=== PATIENT | male | born 1945 | race Caucasian/White ===

== ENCOUNTER 2017-05-14 11:24 | Day surgery (SDC) | payer MEDICARE ==
[2017-05-12 11:28] VITALS: BMI 33.0
[~2017-05-14 11:24] MED LIST: DEXAMETHASONE SOD PHOSPHATE 10 MG/ML 1 ML VIAL IV ONE; HYDROmorphone 0.5 MG/0.5 ML SYRINGE IVP PRN; LACTATED RINGERS 1,000 ML IV SCH; LIDOCAINE 1% 20 ML VIAL (10MG/ML) FOR IV START INTRADERMA PRN; MIDAZOLAM 2 MG/2 ML VIAL IV PRN; ONDANSETRON 4 MG/2 ML VIAL IVP ONE; SCOPOLAMINE 1.5MG/72HR PATCH TRANSDERM ONE; ceFAZolin IN SWFI 2 GM/20 ML SYRINGE IVP ONE
[2017-05-14] MEDS ORDERED: LIDOCAINE 1% 20 ML VIAL (10MG/ML) FOR IV START INTRADERMA ONE (11:48)
[2017-05-14 11:51] LABS: Glucose,Whole Blood 126 mg/dL (75-99)
[2017-05-14 12:39] LABS: INR 1.2 (<1.2); Partial Thromboplastin Time 25.5 sec (22.0-30.0); Prothrombin Time 11.6 sec (9.0-12.0)
[2017-05-14] MEDS ORDERED: ePHEDrine SULFATE/0.9% NACL/PF 50 MG/5 ML SYRINGE IV ONE (13:18)
[2017-05-14] MEDS ORDERED: PROPOFOL 10 MG/ML 20 ML VIAL IV ONE (13:18)
[2017-05-14] MEDS ORDERED: MIDAZOLAM 2 MG/2 ML VIAL ONE (13:18)
[2017-05-14] MEDS ORDERED: fentaNYL (PF) 50 MCG/ML 2 ML AMP ONE (13:18)
[2017-05-14] MEDS ORDERED: LIDOCAINE 1% INJ 10MG/ML (20 ML MDV) ONE (13:18)
[2017-05-14] MEDS ORDERED: HYDROmorphone (PF) 1 MG/ML ONE (13:18)
[2017-05-14] MEDS ORDERED: SUCCINYLCHOLINE CHLORIDE VIAL 200 MG/10 ML VIAL IV ONE (13:18)
[2017-05-14] MEDS ORDERED: LACTATED RINGERS 1,000 ML IV ONE ×3 (13:42→15:44)
[2017-05-14] MEDS ORDERED: PROCHLORPERAZINE SUPPOSITORY 25 MG SUPP RECTAL PRN (16:35)
[2017-05-14] MEDS ORDERED: diphenhydrAMINE 25 MG CAP PO PRN (16:35)
[2017-05-14] MEDS ORDERED: TEMAZEPAM 15 MG CAP PO PRN (16:35)
[2017-05-14] MEDS ORDERED: METOCLOPRAMIDE 5 MG/ML 2 ML VIAL IVP PRN (16:35)
[2017-05-14] MEDS ORDERED: hydrOXYzine PAMOATE 25 MG CAP PO PRN (16:35)
[2017-05-14] MEDS ORDERED: SENNOSIDES-DOCUSATE SODIUM 1 EACH TAB PO PRN (16:35)
[2017-05-14] MEDS ORDERED: HYDROmorphone 1 MG/ML 1 ML SYRINGE IVP PRN ×3 (16:35)
[2017-05-14] MEDS ORDERED: ONDANSETRON 4 MG/2 ML VIAL IVP PRN (16:35)
[2017-05-14] MEDS ORDERED: HYDROcodone/APAP 5-325MG 1 EACH TAB PO PRN ×2 (16:35)
[2017-05-14 16:44] LABS: Glucose,Whole Blood 167 mg/dL (75-99)
[2017-05-14 16:49] VITALS: RESP 16
--- NOTE | 2017-05-14 16:49 | P.OP ---
Date of Procedure: 05/14/17 Preoperative Diagnosis: Right varus ankle arthritis Postoperative Diagnosis: Same Procedure(s) Performed: 1. Right ankle arthrodesis 2. Right percutaneous tendo Achilles lengthening Anesthesia: TRA Surgeon: Daryl Jin Water Pollution Specialist #1: Ej Wasserman Estimated Blood Loss (ml): 300 IV fluids (ml): 2,000 Pathology: none sent Condition: stable Disposition: PACU Indications for Procedure: The patient is a very pleasant 71-year-old male with a long-standing history of problems with his right ankle. He had x-rays which showed end-stage varus ankle arthritis. He was managed initially conservatively with activity modification, NSAIDs, bracing, occasional injections, and therapy. He had significant pain that was refractory to these nonsurgical treatments and requested surgery. I do lengthy discussion with him and his in the office. His x-rays showed varus ankle arthritis with 21 of varus angulation at the ankle. His lateral x-ray also showed some mild arthritis in the posterior facet of the subtalar joint and midfoot. Clinically all of his pain was in the anterior aspect of the ankle. We discussed both ankle fusion versus ankle replacement. Due to the fact that most of his pain was in the ankle and he had over 20 of varus angulation I felt an ankle fusion would more reliably treat his pain and improve function. We discussed my concern with an ankle replacement was early failure due to the amount of varus. The patient agreed to this and requested a right ankle fusion. We discussed the potential risks and complications of surgery including but not limited to risk of anesthesia, risk of superficial infection, risk of deep infection, risk of delayed wound healing, risk of damage to local sensory nerves resulting in temporary or permanent numbness, risk of nonunion of the fusion site, risk of malunion of the fusion site, risk of adjacent joint arthritis, risk of symptomatically hardware, risk of chronic pain, risk of chronic swelling, risk of postoperative medical complications including DVT, PE, and possibly , generalized dissatisfaction with surgery, risk of need for further surgery, risk of inability to regain preinjury level of function, and possibly loss of life or limb. The patient voiced his understanding of all of this and provided his verbal and written consent to go forward with surgery. Description of Procedure: The patient was identified in preoperative holding and the correct right leg was marked with my initials. I reviewed the consent form with the patient and all of his questions were answered. The patient was then brought back to the operating room by anesthesia. He was positioned on the operating room table and all bony prominences were well-padded. A general anesthetic and preoperative antibiotics were administered. The left leg was secured to the table with foam and tape. A tourniquet was applied to the proximal aspect of the right thigh. A bone foam bump was placed under the right buttock. A ramp was placed under the right leg. The patient's right leg was then prepped and draped in the standard sterile fashion. Prior to starting surgery timeout was performed identifying the correct patient operative extremity and procedure. I began by performing a percutaneous tendo Achilles lengthening to allow positioning his ankle in neutral dorsiflexion. A 15 blade was used and a Bledsoe triple hemisection was performed with 3 stabs 2 cm apart with the distal and proximal incisions incising the medial fibers of the Achilles tendon and the metal stab incision incising the lateral fibers. Gentle dorsiflexion was applied and an increase in dorsiflexion to neutral was achieved. The leg was then elevated, exsanguinated with an Esmarch bandage, and the tourniquet was inflated to 275 mmHg. I began by outlining an incision over the lateral ankle for a trans-fibular approach. Skin incision was made with a 15 blade scalpel. Dissection was carried down through the subcutaneous tissue to the periosteum over the fibula which was incised longitudinally in line with the skin incision. The anterior soft tissue and syndesmosis were sharply released. Baby Damon retractors were placed an oblique osteotomy was made with a saw proximal to the syndesmosis. The remaining anterior soft tissue attachments were removed and the distal fibular fragment was booked open and grasped with bone hooks. Using a small microsagittal saw a sagittal cut was made in the fibula removing the medial half which was removed from the wound, passed to the back table and morselized for bone graft. The joint was then gently distracted and the remaining articular cartilage was removed with a combination of osteotomes and curettes. After all of the cartilage had been removed a small counter incision was made over the medial gutter of the ankle. Skin incision was made with a 15 blade scalpel and dissection was carried down with tenotomy scissors to the joint capsule which was incised longitudinally in line with the skin incision. A curet was used to remove cartilage from the medial gutter of the ankle at this point all bony surfaces were roughened with a 5 mm bur. This created a slurry within the joint. A 2.5 mm gel bit was then used to perforate the subchondral bone of both the tibial plafond and talar dome to help facilitate fusion. Once all of the bony surfaces were prepared a mixture of the morselized bone graft from the fibula and augment granules were mixed on the back table and packed into the fusion site. At this point I positioned the ankle for fusion. I attempted to medialize the talus and placed the ankle in neutral dorsiflexion and slight external rotation. Once the ankle was reduced a K wire was placed holding the reduction. Clinically the ankle appeared to be in neutral dorsiflexion. C-arm fluoroscopy was brought in to verify reduction of the talus within the ankle mortise on both the mortise and lateral views. Once I was happy with position of the talus within the ankle mortise and the position of fusion K wires were placed both medially and laterally for a cannulated 5.0 mm screws. Cannulated partially threaded 5.0 mm screws were then placed medially and laterally. I placed the medial screw first in an attempt to help bring the talus over medially into the ankle mortise. At this point the leg was raised and a K wire was placed just lateral to the Achilles tendon for a posterior to anterior screw. A partially threaded 7.0 mm cannulated screw was placed over this wire. I then placed the fibula back over the lateral aspect of the ankle and held it in place with fully threaded 4.5 mm screws. At this point final fluoroscopic shots were taken. All of the hardware appeared to be in satisfactory position with no intra-articular screws in the subtalar joint. The wound was carefully cleansed taking care not to irrigate out the augment mixture. The periosteum over the fibula was closed with a running 0 Vicryl stitch. The deep subcu was reapproximated using 2-0 Vicryl. The skin was closed using 3-0 nylon horizontal mattress stitches. The medial stab incision was closed with 0 Vicryl in the capsule, 2-0 Vicryl subcu, and 3-0 nylon in the skin. Stab incisions from the cannulated screws were closed with 3-0 nylon horizontal mattress stitches. I verified that all instrument, sponge, and sharp counts were correct. Sterile dressings consisting of Betadine soaked Adaptic, 4 x 4, and web roll was applied. A well-padded bulky Iyer splint was placed. The patient was then awoken from his anesthetic and transferred to PACU having tolerated the procedure well. Ej Wasserman PA-C was required is a skilled refinery operator assistant throughout the case for patient positioning, surgical retraction, closure of wounds, and application of splint. Plan: The patient is going to be admitted overnight for pain control, IV antibiotics, and therapy. He is to remain strictly nonweightbearing on his right leg. He can discharge home when his pain is controlled and he passes physical therapy.
--- NOTE | 2017-05-14 17:26 | P.ONQ ---
Anesthesiology Proc Note - PNB - Peripheral Nerve Block Performed Right Popliteal Indication: Acute Post-Operative Pain, Requested by physician (Dr Forde) Sedation Type: Sedate with meaningful contact maintained Position: Supine Catheter: None Needle Types: On-Q Needle Size: 100mm (4") Needle Gauge: 20 Technique: Ultrasound Injectate: 0.5% Ropivacaine (see comment for volume) (22cc) Blood Aspirated: No Pain Paresthesia on Injection Noted: No Resistance on Injection: Normal Events: Uneventful and Well Tolerated
--- NOTE | 2017-05-14 18:02 | FL ---
EXAMINATION TYPE: FL guidance operating room DATE OF EXAM: 05/14/2017 CLINICAL HISTORY: Right ankle fracture. TECHNIQUE: Fluoroscopy. . COMPARISON: None. FINDINGS: Fluoroscopic guidance was provided during open reduction internal fixation procedure perfo rmed by Dr. Jin. A total of 3 minutes 34 seconds of fluoroscopic time was utilized during the p rocedure and 0 spot images are sent to PACS system for interpretation. IMPRESSION: As Above.
[2017-05-14 19:10] LABS: Basophils % (A) 0 %; CH 31.3; CHCM 32.1; Eosinophils % (A) 0 %; HDW 2.25; HGB 14.1 gm/dL (13.0-17.5); Luc # (Auto) 0.03; Luc % (Auto) 1; Lymphocytes # (A) 0.5 k/uL (1.0-4.8); Lymphocytes % (A) 6 %; MCH 32.1 pg (25.0-35.0); MCHC 32.7 g/dL (31.0-37.0); MCV 98.1 fL (80.0-100.0); Mean Platelet Volume 7.8; Monocytes # (A) 0.2 k/uL (0-1.0); Monocytes % (A) 2 %; Neutrophils # (A) 6.8 k/uL (1.3-7.7); Neutrophils % (A) 91 %; RBC 4.38 m/uL (4.30-5.90); WBC 7.5 k/uL (3.8-10.6); WBC (Perox) 7.77
[2017-05-14 20:32] LABS: Glucose,Whole Blood 175 mg/dL (75-99)
[2017-05-14] MEDS ORDERED: ATORVASTATIN 20 MG TAB PO SCH (21:00)
[2017-05-14] MEDS: INSULIN ASPART 100 UNIT/ML 1 ML 10 ML VIAL SQ SCH (22:33)
[2017-05-14] MEDS: ceFAZolin IN SWFI 2 GM/20 ML SYRINGE IVP SCH (22:34)
[2017-05-15] MEDS: LACTATED RINGERS 1,000 ML IV SCH ×3 (03:55→14:38)
[2017-05-15] MEDS: ceFAZolin IN SWFI 2 GM/20 ML SYRINGE IVP SCH (06:22)
[2017-05-15] MEDS ORDERED: LEVOTHYROXINE 75 MCG TAB PO SCH (06:30)
[2017-05-15 07:59] LABS: Glucose,Whole Blood 133 mg/dL (75-99)
[2017-05-15] MEDS: INSULIN ASPART 100 UNIT/ML 1 ML 10 ML VIAL SQ SCH ×2 (08:13→14:38)
--- NOTE | 2017-05-15 08:32 | XR ---
Limited right ankle HISTORY: Screw placement 3 Intraoperative C-arm images document the procedure
[2017-05-15] MEDS ORDERED: ASPIRIN 81 MG PO SCH (09:00)
[2017-05-15] MEDS ORDERED: ENOXAPARIN 40 MG/0.4 ML SYRINGE SQ SCH (09:00)
[2017-05-15] MEDS ORDERED: LISINOPRIL 10 MG TAB PO SCH (09:00)
[2017-05-15] MEDS ORDERED: HYDROmorphone 0.5 MG/0.5 ML SYRINGE IVP PRN ×3 (09:05)
--- NOTE | 2017-05-15 09:07 | P.DS ---
Providers Expected date of discharge: 05/15/17 Attending physician: Daryl Jin Consults: 05/14/17 16:35 Consult Physician Routine Consulting Provider: Kavon Rouse Consult Reason/Comments: post op medical management Do you want consulting provider notified?: Yes Primary care physician: Kavon Rouse - Discharge Diagnosis(es) (1) Ankle arthritis Current Visit: Yes Status: Acute Priority: Medium Hospital Course: Patient was admitted the OR on 05/14/2017 to undergo right ankle arthrodesis, fusion with hardware and auto/allograft. He had failed conservative conservative measures as an outpatient and desired proceed with elective surgical intervention after given informed consent. His postoperative hospital course has remained without complication. On day of discharge he is afebrile, vital signs stable, wound benign, labs within acceptable ranges, splint in place , neurovascular status intact, denying new complaints, tolerating by mouth meds and diet, voiding without difficulty, passing flatus, denying abdominal pain, abdomen is soft and nontender, denying calf pain, denying numbness or tingling. Review of systems negative for fever, chills, chest pain, shortness breath, nausea, vomiting, dizziness, headaches, slurred speech or other. Procedures: Right ankle arthrodesis/fusion with hardware, auto and allograft Patient Condition at Discharge: Good Plan - Discharge Summary New Discharge Prescriptions: New Docusate [Colace] 100 mg PO BID #60 capsule HYDROcodone/APAP 5-325MG [[place] 5-325] 1 tab PO Q4HR PRN #60 tab PRN Reason: Pain No Action Aspirin 81 mg PO DAILY sitaGLIPtin [Januvia] 100 mg PO HS metFORMIN HCL 1,000 mg PO BID Warfarin [Coumadin] 5 mg PO DAILY Simvastatin [Zocor] 40 mg PO HS Levothyroxine Sodium [Tirosint] 150 mcg PO QAM Lisinopril [Prinivil] 10 mg PO QAM Discharge Medication List Aspirin 81 mg PO DAILY 06/17/16 [History] Levothyroxine Sodium [Tirosint] 150 mcg PO QAM 06/17/16 [History] Lisinopril [Prinivil] 10 mg PO QAM 06/17/16 [History] Simvastatin [Zocor] 40 mg PO HS 06/17/16 [History] Warfarin [Coumadin] 5 mg PO DAILY 06/17/16 [History] metFORMIN HCL 1,000 mg PO BID 06/17/16 [History] sitaGLIPtin [Januvia] 100 mg PO HS 06/17/16 [History] Docusate [Colace] 100 mg PO BID #60 capsule 05/15/17 [Rx] HYDROcodone/APAP 5-325MG [[place] 5-325] 1 tab PO Q4HR PRN #60 tab 05/15/17 [Rx] Follow up Appointment(s)/Referral(s): Daryl Jin MD [Medical Doctor] - 10 Days Activity/Diet/Wound Care/Special Instructions: Take meds as directed Follow-up with Dr. Jin in office Nonweightbearing right lower extremity Elevate right lower extremity Resume home meds including Coumadin Keep splint, wound clean and dry Discharge Disposition: HOME SELF-CARE
--- NOTE | 2017-05-15 09:46 | P.CONS ---
History of Present Illness - Reason for Consult Consult date: 05/15/17 Medical Management - Chief Complaint s/p right ankle arthrodesis - History of Present Illness 71-year-old male who underwent elective right ankle arthrodesis on by Dr. Jin. Dr. Rouse was consulted for medical management. The patient has a history of atrial fibrillation, diabetes mellitus, hypertension, hyperlipidemia, and hypothyroidism. He is also underwent bilateral total knee replacements. The patient was seen and examined at the bedside on rounds with Dr. Rouse. The patient states his pain is well-controlled at this time. He denies chest pain or shortness of breath. He expresses concerns regarding ambulating to have a bowel movement. His vital signs remained stable. He is afebrile. He is tolerating fluids well without nausea or vomiting. CBC from 05/14/2017 has been reviewed. White count is 7.5. Hemoglobin 14.1. His blood sugar this morning was 133. The patient is anticipating discharge home today. Review of Systems GENERAL: Patient denies fever. Denies chills. EYES: Denies blurred vision. Denies vision changes. Denies eye pain. EARS, NOSE, MOUTH, & THROAT: Denies headache. Denies sore throat. Denies ear pain. RESPIRATORY: Denies cough. Denies shortness of breath. Denies sputum production. Denies hemoptysis. CARDIOVASCULAR: Denies chest pain or pressure. Denies palpitations. Denies arrhythmias. GASTROINTESTINAL: Denies abdominal pain. Denies diarrhea. Denies constipation. Denies nausea. Denies vomiting. Denies heartburn. Denies blood in the stool. GENITOURINARY: Denies urinary frequency. Denies burning. Denies dysuria. Denies cloudy urine. Denies blood in the urine. MUSCULOSKELETAL: Positive for mild pain in right ankle. Denies myalgias. Denies joint swelling. Denies decreased range of motion beyond patients baseline. INTEGUMENTARY: Denies pruitis. Denies rash. PSYCHIATRIC: Denies suicidal or homicial ideations. ENDOCRINE: Denies weight change. Denies polydipsia. Denies polyuria. HEMATOLOGIC: Denies bleeding disorders. Past Medical History Past Medical History: Atrial Fibrillation, Cancer, Diabetes Mellitus, Hyperlipidemia, Hypertension, Skin Disorder, Thyroid Disorder Additional Past Medical History / Comment(s): hx skin ca History of Any Multi-Drug Resistant Organisms: None Reported Past Surgical History: Joint Replacement Additional Past Surgical History / Comment(s): [place] knee replace.,spenectomy Past Anesthesia/Blood Transfusion Reactions: No Reported Reaction Past Psychological History: No Psychological Hx Reported Smoking Status: Never smoker Past Alcohol Use History: Occasional Past Drug Use History: None Reported - Past Family History Mother Family Medical History: No Reported History Medications and Allergies Home Medications Medication Instructions Recorded Confirmed Type Aspirin 81 mg PO DAILY 06/17/16 05/14/17 History Levothyroxine Sodium [Tirosint] 150 mcg PO QAM 06/17/16 05/14/17 History Lisinopril [Prinivil] 10 mg PO QAM 06/17/16 05/14/17 History Simvastatin [Zocor] 40 mg PO HS 06/17/16 05/14/17 History Warfarin [Coumadin] 5 mg PO DAILY 06/17/16 05/14/17 History metFORMIN HCL 1,000 mg PO BID 06/17/16 05/14/17 History sitaGLIPtin [Januvia] 100 mg PO HS 06/17/16 05/14/17 History Docusate [Colace] 100 mg PO BID #60 capsule 05/15/17 Rx HYDROcodone/APAP 5-325MG [[place] 1 tab PO Q4HR PRN #60 tab 05/15/17 Rx 5-325] Allergies Allergy/AdvReac Type Severity Reaction Status Date / Time No Known Allergies Allergy Verified 05/14/17 11:39 Physical Exam Vitals: Vital Signs Temp Pulse Resp BP Pulse Ox 05/15/17 01:10 98.1 F 77 16 111/70 98 05/14/17 19:45 87 121/73 05/14/17 19:30 90 120/66 05/14/17 19:15 89 121/74 05/14/17 19:00 91 123/69 05/14/17 18:45 93 107/66 05/14/17 18:30 89 118/70 05/14/17 18:15 90 121/76 05/14/17 18:00 92 119/77 05/14/17 17:45 97.8 F 95 16 137/80 98 05/14/17 17:30 94 16 110/72 100 05/14/17 17:15 94 16 109/72 100 05/14/17 17:00 99 16 131/72 100 05/14/17 16:45 100 16 140/84 96 05/14/17 16:35 98 F 107 H 15 134/89 94 L 05/14/17 11:43 97.6 F 112 H 16 176/90 97 Intake and Output 05/14/17 05/15/17 05/15/17 22:59 06:59 14:59 Intake Total 500 250 360 Output Total 725 425 275 Balance -225 -175 85 Intake: IV 500 Oral 250 360 Output: Urine 425 425 275 Estimated Blood Loss 300 Other: Weight 104.326 kg GENERAL: This is a 71-year-old male in no apparent distress at the time of examination. Pleasant and cooperative. HEENT: Head is atraumatic, normocephalic. Pupils are equal, round, and reactive to light. Sclerae anicteric. Conjunctivae are clear. Mucus membranes of the mouth are moist. Neck is supple. RESPIRATORY: Clear to ausculation. No wheezes, rales, or rhonchi. No use of accessory muscles. Patient maintaining oxygen saturation greater than 92%. No chest wall tenderness is noted on palpation or with deep breathing. CARDIOVASCULAR: S1 and S2 noted. Rate within normal limits. No systolic or diastolic murmur auscultated. No JVD noted. No S3 or S4 noted. GASTROINTESTINAL: No distention noted. Abdomen soft and round. Bowel sounds auscultated X 4 quadrants. No pain or tenderness noted upon palpation. INTEGUMENTARY: No cyanosis. No jaundice. No rashes noted. No cellulitis noted. EXTREMITIES: Right lower extremity in splint and wrapped. 2+ peripheral pulses. No evidence of peripheral edema. No calf tenderness noted. NEUROLOGIC: Cranial nerves II-XII intact. PSYCHIATRIC: Awake, alert, and oriented X 3. Appropriate affect. Intact judgement and insight. Results CBC & Chem 7: 05/14/17 18:48 Labs: Abnormal Lab Results - Last 24 Hours (Table) 05/14/17 05/14/17 05/14/17 Range/Units 11:44 11:45 16:42 Lymphocytes # (1.0-4.8) k/uL INR 1.2 H (<1.2) POC Glucose (mg/dL) 126 H 167 H (75-99) mg/dL Vitamin D 25-Hydroxy (30.0-100.0) ng/mL 05/14/17 05/14/17 05/14/17 Range/Units 18:48 18:48 19:56 Lymphocytes # 0.5 L (1.0-4.8) k/uL INR (<1.2) POC Glucose (mg/dL) 175 H (75-99) mg/dL Vitamin D 25-Hydroxy 28.0 L (30.0-100.0) ng/mL 05/15/17 Range/Units 07:49 Lymphocytes # (1.0-4.8) k/uL INR (<1.2) POC Glucose (mg/dL) 133 H (75-99) mg/dL Vitamin D 25-Hydroxy (30.0-100.0) ng/mL Assessment and Plan Plan: ASSESSMENT: Right ankle arthritis, status post right ankle arthrodesis, postop day #1 Chronic atrial fibrillation on long-term anticoagulation with Coumadin History of diabetes mellitus, type II, hemoglobin A1c pending Osteoarthritis with history of bilateral total knee replacement Essential hypertension Hyperlipidemia Hypothyroidism PLAN: -Continue postoperative care per orthopedics -Insulin sliding scale coverage while hospitalized -Patient may resume metformin and Januvia at time of discharge -Resume coumadin at time of DC per orthopedics -Nonweightbearing on right lower extremity per orthopedics -Pain control -Home meds as appropriate -Monitor labs -GI/DVT prophylaxis -Monitor vital signs and address as appropriate -Patient is stable for discharge from medical standpoint when appropriate with orthopedics. Nurse practitioner note has been reviewed by physician. Signing provider agrees with the documented findings, assessment, and plan of care.
[2017-05-15 09:50] VITALS: BP 128/69; PULSE 94; TEMP 98.9
[2017-05-15 11:24] LABS: Glucose,Whole Blood 208 mg/dL (75-99)
[2017-05-15] MEDS ORDERED: SENNOSIDES-DOCUSATE SODIUM 1 EACH TAB PO SCH (21:00)
== END 2017-05-15 14:45 | disposition home or self-care (01) ==
LOC: OR 11:24 → 3SUR 16:35 → OR 05-15 14:45
PROVIDERS: ATTEND Orthopaedic Surgery
DX: M19.071 Primary osteoarthritis, right ankle and foot (principal); M20.5X1 Other deformities of toe(s) (acquired), right foot; M20.5X2 Other deformities of toe(s) (acquired), left foot; I10 Essential (primary) hypertension; E78.5 Hyperlipidemia, unspecified; E03.9 Hypothyroidism, unspecified; H91.90 Unspecified hearing loss, unspecified ear; E11.9 Type 2 diabetes mellitus without complications; I48.91 Unspecified atrial fibrillation; Z85.828 Personal history of other malignant neoplasm of skin; Z79.84 Long term (current) use of oral hypoglycemic drugs; Z79.82 Long term (current) use of aspirin; Z79.899 Other long term (current) drug therapy; Z79.01 Long term (current) use of anticoagulants; Z87.891 Personal history of nicotine dependence
CPT/HCPCS: 97161; 85025; 85610; 85730; 82306; 83036; 73610; 27870; 27685; C1713 ×2; J1100; J0690 ×2; J2405; J1650

== ENCOUNTER 2020-03-03 06:15 | Inpatient (IN) | payer MEDICARE, OTHER ==
[~2020-03-03 06:15] MED LIST changes: +ALPRAZolam 0.25 MG TAB PO PRN; +ALPRAZolam 0.5 MG TAB PO PRN; -DEXAMETHASONE SOD PHOSPHATE 10 MG/ML 1 ML VIAL IV ONE; -HYDROmorphone 0.5 MG/0.5 ML SYRINGE IVP PRN; -LACTATED RINGERS 1,000 ML IV SCH; -LIDOCAINE 1% 20 ML VIAL (10MG/ML) FOR IV START INTRADERMA PRN; -MIDAZOLAM 2 MG/2 ML VIAL IV PRN; +NITROGLYCERIN SL TABS 0.4 MG TAB SUBLINGUAL PRN; -ONDANSETRON 4 MG/2 ML VIAL IVP ONE; -SCOPOLAMINE 1.5MG/72HR PATCH TRANSDERM ONE; +SODIUM CHLORIDE 0.9% 1,000 ML in EMPTY BAG 1 BAG IV ONE; -ceFAZolin IN SWFI 2 GM/20 ML SYRINGE IVP ONE
[2020-03-03] MEDS ORDERED: ATORVASTATIN 80 MG TAB PO ONE (07:00)
[2020-03-03] MEDS ORDERED: ASPIRIN 325 MG TAB PO ONE (07:00)
[2020-03-03] MEDS ORDERED: SODIUM CHLORIDE 0.9% 1,000 ML IV ONE (07:00)
[2020-03-03 07:13] LABS: Glucose,Whole Blood 146 mg/dL (75-99)
[2020-03-03] MEDS ORDERED: LIDOCAINE 1% INJ 10MG/ML (20 ML MDV) ONE (07:25)
[2020-03-03] MEDS ORDERED: fentaNYL (PF) 50 MCG/ML 2 ML AMP ONE (07:26)
[2020-03-03] MEDS: BENZOCAINE SPRAY 1 CAN MUCOUS MEM ONE ×2 (07:33→07:36)
[2020-03-03] MEDS ORDERED: fentaNYL (PF) 50 MCG/ML 2 ML AMP IVP ONE (07:38)
[2020-03-03] MEDS ORDERED: MIDAZOLAM 2 MG/2 ML VIAL IVP ONE (07:38)
[2020-03-03 07:39] LABS: INR 1.3 (<1.2); Prothrombin Time 13.3 sec (9.0-12.0)
[2020-03-03] MEDS ORDERED: LIDOCAINE 1% INJ 10MG/ML (20 ML MDV) SQ ONE (08:05)
[2020-03-03] MEDS ORDERED: IV FLUID CONTINUATION 1,000 ML IV ONE (08:07)
[2020-03-03] MEDS ORDERED: IOPAMIDOL-370 125ML BTL INJ ONE (08:21)
[2020-03-03] MEDS ORDERED: RX INFO: IV CONTRAST WAS GIVEN 1 EACH MISC MISCELLANE PRN (08:29)
[2020-03-03] MEDS: SODIUM CHLORIDE 0.9% 1,000 ML IV SCH ×2 (08:40→20:42)
--- NOTE | 2020-03-03 09:19 | ECHOT ---
TRANSESOPHAGEAL ECHOCARDIOGRAM INDICATION: Symptomatic aortic stenosis. PROCEDURE NOTE: After obtaining informed consent, transesophageal echocardiogram is performed in left lateral position using an Omni plane probe. Local and IV sedation were obtained using Xylocaine spray, Versed and fentanyl. Patient tolerated the procedure well without any obvious immediate complication. A 2D, color and Doppler information was obtained. FINDINGS: 1. Aortic valve is a 3-leaflet valve, appears heavily calcified with severe restriction in leaflet mobility. By planimetry technique the valve area is 0.7 . There is mild aortic regurgitation noted. 2. Aortic root measures 2.8 cm. 3. Mitral valve shows mild to moderate central mitral regurgitation. 4. Tricuspid valve shows mild tricuspid regurgitation. 5. Interatrial septum, there is evidence of [id number] shunt by color-flow Doppler. Agitated saline contrast study was performed and there is no evidence of right-to- left shunt. 6. Aorta shows [id number] atherosclerotic changes. 7. Left ventricle appears mildly dilated, shows diffuse global hypokinesis and LV systolic dysfunction with an ejection fraction of 45%. 8. Left atrium, right atrium appear enlarged. CONCLUSION: 1. Severe aortic stenosis involving a tricuspid valve that is heavily calcified and shows severe restriction in leaflet mobility. 2. Mild LV systolic dysfunction with an ejection fraction of 45%. 3. PFO with [id number] shunt. MMODL / IJN: [id number] /
[2020-03-03 09:22] LABS: Basophils # (A) 0.1 k/uL (0-0.2); Basophils % (A) 1 %; Eosinophils # (A) 0.1 k/uL (0-0.7); Eosinophils % (A) 1 %; HCT 48.6 % (39.0-53.0); HGB 15.9 gm/dL (13.0-17.5); Lymphocytes # (A) 1.3 k/uL (1.0-4.8); Lymphocytes % (A) 17 %; MCH 32.1 pg (25.0-35.0); MCHC 32.6 g/dL (31.0-37.0); MCV 98.3 fL (80.0-100.0); Mean Platelet Volume 7.9; Monocytes # (A) 0.6 k/uL (0-1.0); Monocytes % (A) 7 %; Neutrophils # (A) 5.4 k/uL (1.3-7.7); Neutrophils % (A) 71 %; Platelet Count 231 k/uL (150-450); RBC 4.95 m/uL (4.30-5.90); RDW 13.3 % (11.5-15.5); WBC 7.6 k/uL (3.8-10.6)
[2020-03-03 09:37] LABS: ALT 20 U/L (4-49); AST 30 U/L (17-59); African American GFR (CKD) >90 (>60 ml/min/1.73 sqM); Albumin 4.2 g/dL (3.5-5.0); Alkaline Phosphatase 75 U/L (38-126); Anion Gap 9 mmol/L; Blood Urea Nitrogen 13 mg/dL (9-20); Calcium 9.1 mg/dL (8.4-10.2); Carbon Dioxide 24 mmol/L (22-30); Chloride 104 mmol/L (98-107); Cholesterol 187 mg/dL (<200); Glucose 145 mg/dL (74-99); HDL Cholesterol 63 mg/dL (40-60); LDL Cholesterol,Calculated 102 mg/dL (0-99); Magnesium 1.9 mg/dL (1.6-2.3); Non-African American GFR(CKD) 86 (>60 ml/min/1.73 sqM); Potassium 4.4 mmol/L (3.5-5.1); Sodium 137 mmol/L (137-145); Total Bilirubin 1.2 mg/dL (0.2-1.3); Total Protein 7.1 g/dL (6.3-8.2); Triglycerides 108 mg/dL (<150)
--- NOTE | 2020-03-03 10:01 | CC ---
CARDIAC CATHETERIZATION REPORT INDICATION: Exertional shortness of breath in a patient with known aortic stenosis. PROCEDURE NOTE: After obtaining informed consent, left heart catheterization, coronary angiogram and aortogram were performed via the right femoral artery using standard Sahil catheters. Patient tolerated the procedure well without any obvious immediate complication. A femoral angiogram was performed and Angio-Seal was deployed for hemostasis. Patient received moderate conscious sedation. Total sedation time was 15 minutes. FINDINGS: 1. Aortogram was performed to assess the ascending aorta, appears mildly dilated. 2. Hemodynamics. Central aortic pressure is 100/70 mm. Left ventriculogram is not performed. ANGIOGRAPHIC DATA: 1. Left main coronary artery appears heavily calcified. His distal left main appears stenosed and the stenosis extends into the proximal LAD and circumflex coronary artery, at its worst it seems to be 80% to 90% stenosis. Circumflex is occluded proximally There are collaterals to the LAD coming from the left system. The second diagonal branch has a moderate stenosis. 2. Right coronary artery is a large dominant vessel, shows some moderate atherosclerotic plaque in its midportion. There is a 80% to 90% stenosis involving the PDA. CONCLUSION: 1. Significant distal left main, proximal LAD and circumflex coronary artery stenosis. 2. A 90% stenosis involving the ostial portion of the PDA. 3. [id number] collaterals. 4. Severe aortic stenosis on the STEFANIE. PLAN: Patient will undergo aortic valve replacement with bypass surgery. I am going to consult Dr. Harris, the cardiothoracic surgeon to evaluate the patient. MMODL / IJN: [id number] / MTDD
[2020-03-03] MEDS ORDERED: MD COMMUNICATION TO PHARMACY 1 EACH MISC PO ONE ×3 (10:28)
[2020-03-03 11:12] LABS: Appearance,Urine Clear (Clear); Bilirubin,Urine Negative (Negative); Blood,Urine Negative (Negative); Color,Urine Yellow; Glucose,Urine (UA) Negative (Negative); Ketones,Urine Negative (Negative); Leukocyte Esterase,Urine Negative (Negative); Nitrite,Urine Negative (Negative); PH, Urine 6.5 (5.0-8.0); Protein,Urine Negative (Negative); Urobilinogen,Urine <2.0 mg/dL (<2.0)
[2020-03-03 11:17] LABS: Specific Gravity,Urine 1.047 (1.001-1.035)
--- NOTE | 2020-03-03 12:23 | P.CNPUL ---
History of Present Illness Consult date: 03/03/20 Requesting physician: Sai Harris Reason for consult: other (Postoperative mechanical ventilator/critical care management) Chief complaint: Shortness of breath with exertion History of present illness: This is a very pleasant 74-year-old gentleman with a known history of hypertension, hyperlipidemia, diabetes mellitus, atrial fibrillation anticoagulated with warfarin, hypothyroidism, daily alcohol use, osteoarthritis with history of bilateral knee replacements and right ankle surgery. He had recently noticed increasing shortness of breath with exertion and had been seen and evaluated by cardiology. He is found to have significant aortic stenosis. He was admitted today for elective STEFANIE and cardiac catheterization. STEFANIE revealed severe aortic stenosis with a heavily calcified tricuspid valve with severe restriction in leaflet mobility, mild LV systolic dysfunction with ejection fraction 45%, PFO with [id number] shunt. Cardiac catheterization revealed a heavily calcified left main coronary artery with distal stenosis extending into the proximal LAD and circumflex artery measuring approximately 80 and 90% stenosis. Circumflex is occluded proximally. There were collaterals to the LAD from the left system. Moderate stenosis of the second diagonal branch. 80-97% stenosis involving the PDA. The patient was recommended aortic valve replacement with bypass surgery. He is seen today post procedure on the selective care unit. He is currently resting flat in bed. Awake and alert in no acute distress. Maintaining O2 saturation in the mid 90s on room air. Hemodynamically stable. The patient has a very remote history of smoking in his 20s. No oxygen or inhalers in the outpatient setting. No chest pain or shortness of breath currently. White count 7.6. Hemoglobin 15.9. Platelets 231. INR 1.3. Sodium 137. Potassium 4.4. Creatinine 0.85. Glucose 145. TSH 0.707. Review of Systems REVIEW OF SYSTEMS: CONSTITUTIONAL: Denies any recent significant weight loss or weight gain. EYES: Denies change in vision. EARS, NOSE, MOUTH, THROAT: Denies headaches, denies sore throat. CARDIOVASCULAR: Denies chest pain, palpitations or syncopal episodes. RESPIRATORY: Positive for shortness of breath on exertion, no cough, congestion or hemoptysis. GASTROINTESTINAL: Denies change in appetite, denies abdominal pain GENITOURINARY: Denies hematuria, denies infections. MUSKULOSKELETAL: Denies pain, denies swelling. INTEGUMENTARY: Denies rash, denies eczema. NEUROLOGICAL: Denies recent memory loss, no recent seizure activity. PSYCHIATRIC: Denies anxiety, denies depression. HEMATOLOGIC/LYMPHATIC: Denies anemia, denies enlarged lymph nodes. Past Medical History Past Medical History: Atrial Fibrillation, Cancer, Diabetes Mellitus, Hyperlipidemia, Hypertension, Skin Disorder, Thyroid Disorder Additional Past Medical History / Comment(s): hx skin ca History of Any Multi-Drug Resistant Organisms: None Reported Past Surgical History: Joint Replacement Additional Past Surgical History / Comment(s): china knee replace.,spenectomy,left wrist CTR,ORIF rt ankle Past Anesthesia/Blood Transfusion Reactions: No Reported Reaction Smoking Status: Former smoker (Remote history of smoking and his early 20s) Past Alcohol Use History: Daily (3-4 beers daily) - Past Family History Mother Family Medical History: No Reported History Father Family Medical History: Coronary Artery Disease (CAD) (The patient also had an uncle and grandfather with coronary artery disease) Medications and Allergies Home Medications Medication Instructions Recorded Confirmed Type Aspirin 81 mg PO DAILY 06/17/16 03/03/20 History Levothyroxine Sodium [Tirosint] 150 mcg PO QAM 06/17/16 03/03/20 History Lisinopril [Prinivil] 10 mg PO QAM 06/17/16 03/03/20 History Simvastatin [Zocor] 40 mg PO HS 06/17/16 03/03/20 History metFORMIN HCL 1,000 mg PO BID 06/17/16 03/03/20 History sitaGLIPtin [Januvia] 100 mg PO DAILY 06/17/16 03/03/20 History Warfarin Sodium [Jantoven] 3 mg PO WE 02/29/20 03/03/20 History Warfarin Sodium [Jantoven] 6 mg PO SUMOTUTHFRSA 02/29/20 03/03/20 History Allergies Allergy/AdvReac Type Severity Reaction Status Date / Time No Known Allergies Allergy Verified 02/29/20 14:43 Physical Exam Vitals: Vital Signs Temp Pulse Pulse Resp BP BP Pulse Ox 03/03/20 10:51 72 18 136/72 96 03/03/20 10:32 69 18 132/84 97 03/03/20 10:02 76 16 191/92 97 03/03/20 09:31 82 16 147/100 96 03/03/20 09:14 76 16 135/96 95 03/03/20 08:59 78 16 162/92 96 03/03/20 08:44 80 16 185/93 96 03/03/20 07:05 97.7 F 93 16 170/97 177/81 96 Intake and Output 03/02/20 03/03/20 03/03/20 22:59 06:59 14:59 Intake Total 350 Output Total 300 Balance 50 Intake: IV 350 Sodium Chloride 0.9% 1, 150 000 ml @ 75 mls/hr IV . [id number] [facility] Rx#:[id number] Output: Urine 300 Other: Weight 102 kg GENERAL EXAM: Alert, very pleasant 74-year-old gentleman, on room air, comfortable in no apparent distress. HEAD: Normocephalic. EYES: Normal reaction of pupils, equal size. NOSE: Clear with pink turbinates. THROAT: No erythema or exudates. NECK: No masses, no JVD. CHEST: No chest wall deformity. LUNGS: Equal air entry with no crackles, wheeze, rhonchi or dullness. CVS: S1 and S2 normal with no audible murmur, regular rhythm. ABDOMEN: No hepatosplenomegaly, normal bowel sounds, no guarding or rigidity. SPINE: No scoliosis or deformity SKIN: No rashes CENTRAL NERVOUS SYSTEM: No focal deficits, tone is normal in all 4 extremities. EXTREMITIES: There is no peripheral edema. No clubbing, no cyanosis. Peripheral pulses are intact. Results - Laboratory Findings CBC and BMP: 03/03/20 09:10 03/03/20 09:10 PT/INR, D-dimer PT 13.3 sec (9.0-12.0) H 03/03/20 07:00 INR 1.3 (<1.2) H 03/03/20 07:00 Abnormal lab findings: Abnormal Labs 03/03/20 03/03/20 03/03/20 06:59 07:00 09:10 PT 13.3 H INR 1.3 H Glucose 145 H POC Glucose (mg/dL) 146 H LDL Cholesterol, Calc 102 H HDL Cholesterol 63 H Ur Specific [place] 03/03/20 11:00 PT INR Glucose POC Glucose (mg/dL) LDL Cholesterol, Calc HDL Cholesterol Ur Specific [place] 1.047 H - Diagnostic Findings Chest x-ray: pending Assessment and Plan Assessment: #1 Dyspnea on exertion in a patient found to have severe coronary artery disease with significant distal left main, proximal LAD and circumflex coronary artery stenosis. 90% stenosis involving the ostial portion of the PDA. [id number] collaterals. #2 Severe aortic stenosis #3 Hypertension #4 Hyperlipidemia #5 Hypothyroidism #6 Daily alcohol use #7 History of atrial fibrillation, anticoagulated with warfarin #8 Diabetes mellitus #9 Very remote smoking history Plan: The patient was seen and evaluated by Dr. Rojo Chest x-ray pending FEV1 value pending Stable from the pulmonary standpoint Plan is for CABG/AVR per CT services We'll plan to follow in the immediate postoperative setting Educated regarding the use of the incentive spirometer Observe for alcohol withdrawal syndrome We will continue to follow and make further recommendations based on his clinical status I, the cosigning physician, performed a history & physical examination of the patient. Lungs sounds are clear. Maintaining good O2 saturations in the 90s on room air. I discussed the assessment and plan of care with my nurse practition er, Christina Musa. I attest to the above consultation as dictated by her.
[2020-03-03 12:54] LABS: Glucose,Whole Blood 194 mg/dL (75-99)
--- NOTE | 2020-03-03 13:09 | CT ---
EXAMINATION TYPE: CT facial bones wo con DATE OF EXAM: 03/03/2020 COMPARISON: None HISTORY: Pre Op Panorex scan. Preoperative valvular surgery. CT DLP: 457 mGycm Automated exposure control for dose reduction was used. TECHNIQUE: CT scan of the sinuses is performed without contrast, axial images are obtained, coronal r eformatted images are also reviewed. Panorex scan also obtained. FINDINGS: The maxillary and mandibular teeth demonstrate multiple fillings. There is no evidence of periapical lucency or untreated dental caries. Mucosal polyp versus retention cyst of the left maxillary sinus. Mucosal thickening of the floor of t he right maxillary sinus. The bilateral ostiomeatal complexes are patent. The ethmoid, sphenoid, and frontal sinuses are well aerated. The bilateral sphenoid ostia and frontoethmoidal recesses are paten t. There is leftward deviation of the nasal septum with 5 mm leftward nasal spur. Visualized portion of mastoid air cells show no abnormal opacification. The globes are grossly symme tric bilaterally. There is debris within the left external auditory canal. IMPRESSION: 1. No evidence of periapical abscess or untreated dental caries. 2. Paranasal sinus disease as above. 3. Debris within the left external auditory canal likely cerumen.
--- NOTE | 2020-03-03 14:48 | US ---
EXAMINATION TYPE: US carotid duplex BILAT DATE OF EXAM: 03/03/2020 COMPARISON: NONE CLINICAL HISTORY: Pre-Op Cardiac Surgery. EXAM MEASUREMENTS: RIGHT: Peak Systolic Velocity (PSV) cm/sec ----- Right CCA: 44.2 ----- Right ICA: 71.6 ----- Right ECA: 46.8 ICA/CCA ratio: 1.6 RIGHT: End Diastole cm/sec ----- Right CCA: 14.2 ----- Right ICA: 26.0 ----- Right ECA: 0 LEFT: Peak Systolic Velocity (PSV) cm/sec ----- Left CCA: 42.9 ----- Left ICA: 87.3 ----- Left ECA: 105.5 ICA/CCA ratio: 2.0 LEFT: End Diastole cm/sec ----- Left CCA: 7.7 ----- Left ICA: 28.6 ----- Left ECA: 6.4 VERTEBRALS (direction of flow): Right Vertebral: Antegrade Left Vertebral: Antegrade Rhythm: Arrhythmia is suggested Grayscale, color Doppler, spectral Doppler imaging performed of the carotid arteries, waveform analys is does not show significant stenosis. Extensive atherosclerotic shadowing plaque present at the todd tid artery bulbs. This could limit evaluation. IMPRESSION: No hemodynamic significant stenosis of the proximal internal carotid arteries by Doppler criteria, an indirect measurement of carotid stenosis. Criteria for Assigning % of Stenosis / Diameter reduction (Estimation based on the indirect measurements of the internal carotid artery velocities (ICA PSV). 1. Normal (no stenosis)=ICA PSV < 125 cm/s: ratio < 2.0: ICA EDV<40 cm/s. 2. Less than 50% stenosis=ICA PSV < 125 cm/s: ratio < 2.0: ICA EDV<40 cm/s. 3. 50 to 69% stenosis=ICA PSV of 125 to 230 cm/s: ration 2.0 ? 4.0: ICA EDV 40-100 cm/s. 4. Greater than 70% stenosis to near occlusion= ICA PSV > 230 cm/s: ratio > 4.0: ICA EDV > 100 cm/s. 5. Near occlusion= ICA PSV velocities may be low or undetectable: variable ratio and ICA EDV. 6. Total occlusion=unable to detect flow.
--- NOTE | 2020-03-03 14:49 | P.GSCN ---
History of Present Illness Consult date: 03/03/20 Reason for Consult: Severe aortic stenosis, coronary artery disease with tight left main disease Requesting physician: Tye Lee History of present illness: This is a 74-year-old gentleman who follows on an outpatient basis with Dr. Kavon Rouse for primary care and Dr. Tye Lee for cardiology. He has a pr evious medical history of hypertension, hyperlipidemia, chronic atrial fibrillation on Coumadin for anticoagulation, hypothyroidism, type 2 diabetes mellitus, remote history of pneumonia, skin cancer with removal, splenectomy, daily EtOH use of 2-3 beers every day, and remote history of tobacco dependence. He has followed with Dr. Lee for quite some time regarding his atrial fibrillation. Over the last several months he has noted exertional shortness of breath relieved with rest which he states he has never had before. He denies any other symptoms including no chest pain, no weakness, dizziness, lightheadedness, strokelike symptoms, paroxysmal nocturnal dyspnea, or any recent pulmonary illnesses. He was seen in the cardiology office last week and had a transthoracic echocardiogram which demonstrated impaired left ventricular function with EF 45%, hypokinesis of the inferior and septal marrero at the base, mild to moderate mitral regurgitation with mild mitral annular calcification, moderately calcified aortic valve with mild aortic insufficiency and moderate to severe aortic stenosis with valve area 0.56 cm, peak/mean gradient 54/35 mmHg, and mild tricuspid regurgitation. He was recommended to undergo heart catheterization and transesophageal echocardiogram which were completed today by Dr. Lee. Transesophageal echocardiogram demonstrated 3 leaflet aortic valve which was heavily calcified with severe restriction in leaflet mobility. Valve area was 0.7 cm by planimetry confirming severe aortic stenosis with mild aortic regurgitation, mild to moderate central mitral regurgitation, mild tricuspid regurgitation, mildly dilated left ventricle with diffuse global hyp okinesis and ejection fraction 45%. Cardiac catheterization demonstrated heavily calcified left main coronary artery with distal stenosis extending into the proximal LAD and circumflex, ostial LAD stenosis 80-90%, moderate stenosis in the midportion of the RCA with 80-90% stenosis of the PDA with right to left collaterals. Due to these findings Dr. Harris from cardiothoracic surgery was consulted for surgical revascularization and aortic valve replacement. Review of Systems Review of systems was completed and was negative except as noted - Cardiovascular Reports dyspnea on exertion Past Medical History Past Medical History: Atrial Fibrillation, Coronary Artery Disease (CAD), Cancer, Diabetes Mellitus, Hyperlipidemia, Hypertension, Skin Disorder, Thyroid Disorder Additional Past Medical History / Comment(s): hx skin ca History of Any Multi-Drug Resistant Organisms: None Reported Past Surgical History: Joint Replacement Additional Past Surgical History / Comment(s): china knee replace.,spenectomy,left wrist CTR,ORIF rt ankle Past Anesthesia/Blood Transfusion Reactions: No Reported Reaction Past Psychological History: No Psychological Hx Reported Smoking Status: Former smoker (Remote history of smoking and his early 20s) Past Alcohol Use History: Daily (3-4 beers daily) Additional Past Alcohol Use History / Comment(s): Drinks 2-3 beers every day Past Drug Use History: None Reported Additional History: Quit smoking 18 years old - Past Family History Mother Family Medical History: Congestive Heart Failure (CHF) Additional Family Medical History / Comment(s): of old age Father Family Medical History: Coronary Artery Disease (CAD) (The patient also had an uncle and grandfather with coronary artery disease) Additional Family Medical History / Comment(s): Father shot at 52 years old Medications and Allergies Home Medications Medication Instructions Recorded Confirmed Type Aspirin 81 mg PO DAILY 06/17/16 03/03/20 History Levothyroxine Sodium [Tirosint] 150 mcg PO QAM 06/17/16 03/03/20 History Lisinopril [Prinivil] 10 mg PO QAM 06/17/16 03/03/20 History Simvastatin [Zocor] 40 mg PO HS 06/17/16 03/03/20 History metFORMIN HCL 1,000 mg PO BID 06/17/16 03/03/20 History sitaGLIPtin [Januvia] 100 mg PO DAILY 06/17/16 03/03/20 History Warfarin Sodium [Jantoven] 3 mg PO WE 02/29/20 03/03/20 History Warfarin Sodium [Jantoven] 6 mg PO SUMOTUTHFRSA 02/29/20 03/03/20 History Allergies Allergy/AdvReac Type Severity Reaction Status Date / Time No Known Allergies Allergy Verified 02/29/20 14:43 Surgical - Exam Vital Signs Temp Pulse Resp BP Pulse Ox 97.7 F 93 16 170/97 96 03/03/20 07:05 03/03/20 07:05 03/03/20 07:05 03/03/20 07:05 03/03/20 07:05 - General well developed, well nourished, no distress, no pain - Eyes normal ocular movement - ENT no hearing loss - Neck no masses, no bruits, trachea midline - Respiratory Lung sounds clear bilaterally. Respirations even, nonlabored. Currently on room air with oxygen saturation 97%. No chest wall deformities. No clubbing or cyanosis present. - Cardiovascular S1, S2 present. Irregular rate and rhythm, controlled atrial fibrillation telemetry. Palpable peripheral pulses bilaterally. Trace bilateral lower extremity edema present. No calf pain or tenderness noted. Varicosities noted to bilateral lower extremities. - Abdomen Abdomen: soft, non tender, bowel sounds - Genitourinary Deferred - Rectum Deferred - Integumentary no rash, no growths, no abnormal pigmentation - Neurologic normal coordination, normal sensation - Musculoskeletal normal posture - Psychiatric oriented to time, oriented to person, oriented to place, speech is normal, memory intact Results - Labs 03/03/20 09:10 03/03/20 09:10 Abnormal Lab Results - Last 24 Hours (Table) 03/03/20 03/03/20 03/03/20 Range/Units 06:59 07:00 09:10 PT 13.3 H (9.0-12.0) sec INR 1.3 H (<1.2) Glucose 145 H (74-99) mg/dL POC Glucose (mg/dL) 146 H (75-99) mg/dL LDL Cholesterol, Calc 102 H (0-99) mg/dL HDL Cholesterol 63 H (40-60) mg/dL Ur Specific [place] (1.001-1.035) 03/03/20 03/03/20 Range/Units 11:00 12:29 PT (9.0-12.0) sec INR (<1.2) Glucose (74-99) mg/dL POC Glucose (mg/dL) 194 H (75-99) mg/dL LDL Cholesterol, Calc (0-99) mg/dL HDL Cholesterol (40-60) mg/dL Ur Specific [place] 1.047 H (1.001-1.035) Diabetes panel 03/03/20 Range/Units 09:10 Sodium 137 (137-145) mmol/L Potassium 4.4 (3.5-5.1) mmol/L Chloride 104 (98-107) mmol/L Carbon Dioxide 24 (22-30) mmol/L BUN 13 (9-20) mg/dL Creatinine 0.82 (0.66-1.25) mg/dL Glucose 145 H (74-99) mg/dL Calcium 9.1 (8.4-10.2) mg/dL AST 30 (17-59) U/L ALT 20 (4-49) U/L Alkaline Phosphatase 75 (38-126) U/L Total Protein 7.1 (6.3-8.2) g/dL Albumin 4.2 (3.5-5.0) g/dL Triglycerides 108 (<150) mg/dL HDL Cholesterol 63 H (40-60) mg/dL Thyroid panel 03/03/20 Range/Units 09:10 TSH 0.707 (0.465-4.680) mIU/L Calcium panel 03/03/20 Range/Units 09:10 Calcium 9.1 (8.4-10.2) mg/dL Albumin 4.2 (3.5-5.0) g/dL Pituitary panel 03/03/20 Range/Units 09:10 Sodium 137 (137-145) mmol/L Potassium 4.4 (3.5-5.1) mmol/L Chloride 104 (98-107) mmol/L Carbon Dioxide 24 (22-30) mmol/L BUN 13 (9-20) mg/dL Creatinine 0.82 (0.66-1.25) mg/dL Glucose 145 H (74-99) mg/dL Calcium 9.1 (8.4-10.2) mg/dL TSH 0.707 (0.465-4.680) mIU/L Adrenal panel 03/03/20 Range/Units 09:10 Sodium 137 (137-145) mmol/L Potassium 4.4 (3.5-5.1) mmol/L Chloride 104 (98-107) mmol/L Carbon Dioxide 24 (22-30) mmol/L BUN 13 (9-20) mg/dL Creatinine 0.82 (0.66-1.25) mg/dL Glucose 145 H (74-99) mg/dL Calcium 9.1 (8.4-10.2) mg/dL Total Bilirubin 1.2 (0.2-1.3) mg/dL AST 30 (17-59) U/L ALT 20 (4-49) U/L Alkaline Phosphatase 75 (38-126) U/L Total Protein 7.1 (6.3-8.2) g/dL Albumin 4.2 (3.5-5.0) g/dL - Imaging Additional studies: Heart catheterization films and transesophageal echocardiogram films reviewed with Dr. Harris Assessment and Plan Assessment: 1. Severe aortic stenosis 2. Triple-vessel coronary artery disease with left main disease 3. Chronic atrial fibrillation on Coumadin for anticoagulation, last dose 02/28/2020 4. History of hypertension 5. History of hyperlipidemia line 6. Type 2 diabetes mellitus 7. Hypothyroidism 8. Remote history of pneumonia 9. History of splenectomy 10. Daily EtOH use 11. Previous tobacco dependence Plan: The patient was seen and examined in the extended stay unit with Dr. Harris. Chart/diagnostics were reviewed. The usual perioperative course of open heart surgery was discussed in detail with the patient and his , risks and benefits were reviewed, all questions were answered, the patient did consent to surgery. Preoperative testing was initiated. The patient states he does see a dentist twice a year, his last dental cleaning was in November and per the dentist documentation the patient did have pinpoint pus filled dots on his palate near tooth #3. We did order a Panorex and a dental consult for clearance for valve surgery. Our plan is for aortic valve replacement, myocardial revascularization with left internal mammary artery, endoscopic vein harvest, possible left radi al artery harvest, and modified [place] maze for 03/06/2020 pending the outcome of preoperative testing and obtaining dental clearance. This information was relayed to doctor Lee. The patient will stay inpatient. We will continue aspirin, statin therapy, beta john paul initiated. Continue to hold Coumadin. Will complete 5 m walk test. Once all preoperative testing has been completed will calculate STS risk score and discuss with the patient and his . More recommendations to follow. Thank you Dr. Lee for this consult. We look forward to working with you in the care of your patient. Time with Patient: Greater than 30
--- NOTE | 2020-03-03 15:05 | P.GSCN ---
History of Present Illness Consult date: 03/03/20 (clearance of dental infection) Reason for Consult: Mr. Balbuena presented with no symptoms intra-orally. Radiograph shows no radiolucency suggesting any dental abscess, chronic or acute. Intra-orally, with the exam, pt showed no sensitivity to percussion, no pain on pressure in the buccal vestibules. Gingival tissue is firm anbd pink with no present swelling. Teeth do not seem to have any dental caries. Pt states he sees Dr Caicedo once a year for his hygiene, and his regular dentist once a year (in [place]). Pt is clear of any dental infections, and he is good to proceed with any medical procedure from the dental aspect. Thank you for your kind referral. Past Medical History Past Medical History: Atrial Fibrillation, Coronary Artery Disease (CAD), Cancer, Diabetes Mellitus, Hyperlipidemia, Hypertension, Skin Disorder, Thyroid Disorder Additional Past Medical History / Comment(s): hx skin ca History of Any Multi-Drug Resistant Organisms: None Reported Past Surgical History: Joint Replacement Additional Past Surgical History / Comment(s): china knee replace.,spenectomy,left wrist CTR,ORIF rt ankle Past Anesthesia/Blood Transfusion Reactions: No Reported Reaction Past Psychological History: No Psychological Hx Reported Smoking Status: Former smoker (Remote history of smoking and his early 20s) Past Alcohol Use History: Daily (3-4 beers daily) Additional Past Alcohol Use History / Comment(s): Drinks 2-3 beers every day Past Drug Use History: None Reported - Past Family History Mother Family Medical History: Congestive Heart Failure (CHF) Additional Family Medical History / Comment(s): of old age Father Family Medical History: Coronary Artery Disease (CAD) (The patient also had an uncle and grandfather with coronary artery disease) Additional Family Medical History / Comment(s): Father shot at 52 years old Medications and Allergies Home Medications Medication Instructions Recorded Confirmed Type Aspirin 81 mg PO DAILY 06/17/16 03/03/20 History Levothyroxine Sodium [Tirosint] 150 mcg PO QAM 06/17/16 03/03/20 History Lisinopril [Prinivil] 10 mg PO QAM 06/17/16 03/03/20 History Simvastatin [Zocor] 40 mg PO HS 06/17/16 03/03/20 History metFORMIN HCL 1,000 mg PO BID 06/17/16 03/03/20 History sitaGLIPtin [Januvia] 100 mg PO DAILY 06/17/16 03/03/20 History Warfarin Sodium [Jantoven] 3 mg PO WE 02/29/20 03/03/20 History Warfarin Sodium [Jantoven] 6 mg PO SUMOTUTHFRSA 02/29/20 03/03/20 History Allergies Allergy/AdvReac Type Severity Reaction Status Date / Time No Known Allergies Allergy Verified 02/29/20 14:43 Surgical - Exam Vital Signs Temp Pulse Resp BP Pulse Ox 97.7 F 93 16 170/97 96 03/03/20 07:05 03/03/20 07:05 03/03/20 07:05 03/03/20 07:05 03/03/20 07:05 Results - Labs 03/03/20 09:10 03/03/20 09:10 Abnormal Lab Results - Last 24 Hours (Table) 03/03/20 03/03/20 03/03/20 Range/Units 06:59 07:00 09:10 PT 13.3 H (9.0-12.0) sec INR 1.3 H (<1.2) Glucose 145 H (74-99) mg/dL POC Glucose (mg/dL) 146 H (75-99) mg/dL LDL Cholesterol, Calc 102 H (0-99) mg/dL HDL Cholesterol 63 H (40-60) mg/dL Ur Specific [place] (1.001-1.035) 03/03/20 03/03/20 Range/Units 11:00 12:29 PT (9.0-12.0) sec INR (<1.2) Glucose (74-99) mg/dL POC Glucose (mg/dL) 194 H (75-99) mg/dL LDL Cholesterol, Calc (0-99) mg/dL HDL Cholesterol (40-60) mg/dL Ur Specific [place] 1.047 H (1.001-1.035) Diabetes panel 03/03/20 Range/Units 09:10 Sodium 137 (137-145) mmol/L Potassium 4.4 (3.5-5.1) mmol/L Chloride 104 (98-107) mmol/L Carbon Dioxide 24 (22-30) mmol/L BUN 13 (9-20) mg/dL Creatinine 0.82 (0.66-1.25) mg/dL Glucose 145 H (74-99) mg/dL Calcium 9.1 (8.4-10.2) mg/dL AST 30 (17-59) U/L ALT 20 (4-49) U/L Alkaline Phosphatase 75 (38-126) U/L Total Protein 7.1 (6.3-8.2) g/dL Albumin 4.2 (3.5-5.0) g/dL Triglycerides 108 (<150) mg/dL HDL Cholesterol 63 H (40-60) mg/dL Thyroid panel 03/03/20 Range/Units 09:10 TSH 0.707 (0.465-4.680) mIU/L Calcium panel 03/03/20 Range/Units 09:10 Calcium 9.1 (8.4-10.2) mg/dL Albumin 4.2 (3.5-5.0) g/dL Pituitary panel 03/03/20 Range/Units 09:10 Sodium 137 (137-145) mmol/L Potassium 4.4 (3.5-5.1) mmol/L Chloride 104 (98-107) mmol/L Carbon Dioxide 24 (22-30) mmol/L BUN 13 (9-20) mg/dL Creatinine 0.82 (0.66-1.25) mg/dL Glucose 145 H (74-99) mg/dL Calcium 9.1 (8.4-10.2) mg/dL TSH 0.707 (0.465-4.680) mIU/L Adrenal panel 03/03/20 Range/Units 09:10 Sodium 137 (137-145) mmol/L Potassium 4.4 (3.5-5.1) mmol/L Chloride 104 (98-107) mmol/L Carbon Dioxide 24 (22-30) mmol/L BUN 13 (9-20) mg/dL Creatinine 0.82 (0.66-1.25) mg/dL Glucose 145 H (74-99) mg/dL Calcium 9.1 (8.4-10.2) mg/dL Total Bilirubin 1.2 (0.2-1.3) mg/dL AST 30 (17-59) U/L ALT 20 (4-49) U/L Alkaline Phosphatase 75 (38-126) U/L Total Protein 7.1 (6.3-8.2) g/dL Albumin 4.2 (3.5-5.0) g/dL
--- NOTE | 2020-03-03 16:54 | XR ---
EXAMINATION TYPE: XR chest 1V portable DATE OF EXAM: 03/03/2020 COMPARISON: NONE HISTORY: Short of breath TECHNIQUE: Single view FINDINGS: Heart is enlarged. There is no heart failure. Lungs are clear of consolidation. There are c hest leads. Thoracic aorta is atheromatous. IMPRESSION: No active cardiopulmonary disease. Cardiomegaly.
[2020-03-03] MEDS ORDERED: HEPARIN SODIUM,PORCINE 5,000 UNIT/ML 1 ML VIAL IV PRN (17:06)
[2020-03-03 17:11] LABS: Glucose,Whole Blood 148 mg/dL (75-99)
[2020-03-03] MEDS: INSULIN ASPART (NovoLOG) 100 UNIT/ML VIAL SQ SCH ×2 (17:50→20:42)
[2020-03-03] MEDS: FOLIC ACID-VIT B COMPLEX-VIT C 1 CAP PO SCH (17:52)
[2020-03-03 18:02] LABS: Basophils # (A) 0.1 k/uL (0-0.2); Basophils % (A) 1 %; Eosinophils # (A) 0.1 k/uL (0-0.7); Eosinophils % (A) 1 %; HCT 50.2 % (39.0-53.0); HGB 15.9 gm/dL (13.0-17.5); Lymphocytes # (A) 1.9 k/uL (1.0-4.8); Lymphocytes % (A) 26 %; MCH 31.8 pg (25.0-35.0); MCHC 31.8 g/dL (31.0-37.0); MCV 99.9 fL (80.0-100.0); Mean Platelet Volume 8.6; Monocytes # (A) 0.6 k/uL (0-1.0); Monocytes % (A) 9 %; Neutrophils # (A) 4.5 k/uL (1.3-7.7); Neutrophils % (A) 60 %; Platelet Count 223 k/uL (150-450); RBC 5.02 m/uL (4.30-5.90); RDW 13.4 % (11.5-15.5); WBC 7.5 k/uL (3.8-10.6)
[2020-03-03 18:06] LABS: INR 1.2 (<1.2); Partial Thromboplastin Time 25.1 sec (22.0-30.0); Prothrombin Time 12.1 sec (9.0-12.0)
[2020-03-03 18:07] LABS: Hepatitis A Antibody IgM Non-Reactive (Non-Reactive); Hepatitis C IgG Antibody Non-Reactive (Non-Reactive)
[2020-03-03 18:08] LABS: Hepatitis B Core IgM Non-Reactive (Non-Reactive); Hepatitis B Surface Antigen Non-Reactive (Non-Reactive)
[2020-03-03] MEDS: HEPARIN SOD,PORK IN 0.45% NACL 25,000 UNIT in 0.45% NACL 1 250ML.BAG IV SCH (18:09)
--- NOTE | 2020-03-03 18:14 | P.CONS ---
History of Present Illness - Reason for Consult Consult date: 03/03/20 - Chief Complaint SOB on exertion, severe aortic stenosis, 3 vessel disease - History of Present Illness 74 years old male patient of Dr. Rouse and Dr. Lee with past medical history of hypertension, hyperlipidemia, paroxysmal atrial fibrillation on Coumadin, hypothyroidism, type 2 diabetes hypothyroidism, daily alcohol use, osteoarthritis and known history of bilateral knee replacement and right ankle surgery and came in for an elective STEFANIE and cardiac catheterization under Dr. Maguire. Patient gives a history of worsening shortness of breath for the past 6 months. He noticed increased weakness but denies any chest pain or dizziness or passing out spells. Patient has been off Coumadin, metformin and Januvia for the cardiac catheterization. STEFANIE done on 03/03 suggested severe aortic stenosis with heavily calcified 3 leaflet valve with restriction in the mobility. The valve area 0.7 mm. Mild left ventricular systolic dysfunction with ejection fraction of 45%. By mouth for with [id number] shunt present with mild to moderate MR and mild TR. Cardiac catheterization on 03/03 suggest to heavily calcified left main coronary artery with distal left main appears stenosed and stenosis extending into the proximal LAD and circumflex coronary artery around 80-90%. Circumflex occluded proximally with collaterals to LAD coming from the left system. Secondary diagnoses branch is moderate stenosis. Right coronary artery with moderate stenosis PDA with 80-90% stenosis. In assessment today patient denies any shortness of breath at rest. He did have back pain outwardly this morning after resting in bed for 6 hours post cardiac cath. Vitals are otherwise stablethe pulse is 67 respiratory rate 16 blood pressure 144/95 oxygen saturation 97% on room air. Labs reviewed CBC unremarkable creatinine 0.8 INR 1.3 blood sugar 140. Magnesium 1.9 and LDL 102 TSH 0.70 was negative for infection. Patient's last A1c is less than 7 controlled on Januvia and metformin. Review of Systems Constitutional: Denies chills, Denies fever, Denies lethargy, Denies malaise, Denies poor appetite, Denies weakness, Denies weight loss Eyes: denies decreased vision, denies diplopia, denies discharge, denies pain Ears: deny: decreased hearing Ears, nose, mouth and throat: Denies dental pain, Denies headache, Denies nasal discharge, Denies nose pain Cardiovascular: Denies chest pain, endorses decreased exercise tolerance, endorses edema right worse than left, Denies high blood pressure, endorses irregular heart beat, Denies palpitations, endorses paroxysmal nocturnal dyspnea , endorses rapid heart beat, endorses shortness of breath Respiratory: Denies congestion, Denies cough, Denies cough with sputum, Denies dyspnea, Denies home oxygen, Denies wheezing Gastrointestinal: Denies abdominal pain, Denies change in bowel habits, Denies coffee ground emesis, Denies early satiety, Denies excessive gas, Denies heartburn, Denies hematemesis, Denies hematochezia, Denies loss of appetite, Denies nausea, Denies vomiting Genitourinary: Denies dysuria, Denies flank pain, Denies kidney stones, Denies menorrhagia, Denies urgency, Denies urinary frequency Musculoskeletal: Denies gait dysfunction, Denies limitation of motion, Denies morning stiffness, Denies muscle cramps Integumentary: Denies rash, Denies wounds, Denies brittle nails, Denies change in hair/nails, Denies darkening of skin Neurological: Denies balance difficulties, Denies change in speech, Denies double vision, Denies gait dysfunction, Denies loss of vision, Denies motor disturbance, Denies numbness, Denies paralysis, Denies paresthesias, Denies seizures Psychiatric: Denies anxiety, Denies depression Endocrine: Denies excessive sweating, Denies excessive thirst, Denies high blood sugars, Denies palpitations Hematologic/Lymphatic: Denies easy bruising, Denies lymphadenopathy Past Medical History Past Medical History: Atrial Fibrillation, Coronary Artery Disease (CAD), Cancer, Diabetes Mellitus, Hyperlipidemia, Hypertension, Skin Disorder, Thyroid Disorder Additional Past Medical History / Comment(s): hx skin ca History of Any Multi-Drug Resistant Organisms: None Reported Past Surgical History: Joint Replacement Additional Past Surgical History / Comment(s): china knee replace.,spenectomy,left wrist CTR,ORIF rt ankle Past Anesthesia/Blood Transfusion Reactions: No Reported Reaction Past Psychological History: No Psychological Hx Reported Smoking Status: Former smoker (Remote history of smoking and his early 20s) Past Alcohol Use History: Daily (3-4 beers daily) Additional Past Alcohol Use History / Comment(s): Drinks 2-3 beers every day Past Drug Use History: None Reported, Marijuana (Only child no brother or sister. Has 2 adopted son and daughter with no medical problems) - Past Family History Mother Family Medical History: Congestive Heart Failure (CHF) Additional Family Medical History / Comment(s): of old age Father Family Medical History: Coronary Artery Disease (CAD) (The patient also had an uncle and grandfather with coronary artery disease) Additional Family Medical History / Comment(s): Father shot at 52 years old Medications and Allergies Home Medications Medication Instructions Recorded Confirmed Type Aspirin 81 mg PO DAILY 06/17/16 03/03/20 History Levothyroxine Sodium [Tirosint] 150 mcg PO QAM 06/17/16 03/03/20 History Lisinopril [Prinivil] 10 mg PO QAM 06/17/16 03/03/20 History Simvastatin [Zocor] 40 mg PO HS 06/17/16 03/03/20 History metFORMIN HCL 1,000 mg PO BID 06/17/16 03/03/20 History sitaGLIPtin [Januvia] 100 mg PO DAILY 06/17/16 03/03/20 History Warfarin Sodium [Jantoven] 3 mg PO WE 02/29/20 03/03/20 History Warfarin Sodium [Jantoven] 6 mg PO SUMOTUTHFRSA 02/29/20 03/03/20 History Allergies Allergy/AdvReac Type Severity Reaction Status Date / Time No Known Allergies Allergy Verified 02/29/20 14:43 Physical Exam Vitals: Vital Signs Temp Pulse Pulse Resp BP BP Pulse Ox 03/03/20 16:00 16 03/03/20 12:14 67 16 144/95 97 03/03/20 11:14 77 16 159/74 98 03/03/20 10:51 72 18 136/72 96 03/03/20 10:32 69 18 132/84 97 03/03/20 10:02 76 16 191/92 97 03/03/20 09:31 82 16 147/100 96 03/03/20 09:14 76 16 135/96 95 03/03/20 08:59 78 16 162/92 96 03/03/20 08:44 80 16 185/93 96 03/03/20 07:05 97.7 F 93 16 170/97 177/81 96 Intake and Output 03/03/20 03/03/20 03/03/20 06:59 14:59 22:59 Intake Total 590 Output Total 300 Balance 290 Intake: IV 350 Sodium Chloride 0.9% 1, 150 000 ml @ 75 mls/hr IV . [id number] [facility] Rx#:[id number] Oral 240 Output: Urine 300 Other: Weight 102 kg - Constitutional General appearance: cooperative, no acute distress, obese - EENT Eyes: anicteric sclerae, PERRLA, normal appearance ENT: hearing grossly normal - Neck Neck: no lymphadenopathy, normal ROM, no other, no rigidity, no stridor, no thyromegaly - Respiratory Respiratory: bilateral: CTA, negative: diminished, dullness, rales, rhonchi - Cardiovascular Rhythm: Irregularly irregular Heart sounds: normal: S1, S2 Abnormal Heart Sounds: 3/5 systolic murmur in the second intercostal in the fifth intercostal space - Gastrointestinal General gastrointestinal: normal bowel sounds, soft nontender - Integumentary Integumentary: no rash - Neurologic Neurologic: No motor deficit no coordination deficits or sensory deficit - Musculoskeletal Musculoskeletal: gait normal, strength equal bilaterally bilateral lower extremity swelling present right more than left - Psychiatric Psychiatric: A&O x's 3, appropriate affect Results CBC & Chem 7: 03/03/20 09:10 03/03/20 09:10 Labs: Abnormal Lab Results - Last 24 Hours (Table) 03/03/20 03/03/20 03/03/20 Range/Units 06:59 07:00 09:10 PT 13.3 H (9.0-12.0) sec INR 1.3 H (<1.2) Glucose 145 H (74-99) mg/dL POC Glucose (mg/dL) 146 H (75-99) mg/dL LDL Cholesterol, Calc 102 H (0-99) mg/dL HDL Cholesterol 63 H (40-60) mg/dL Ur Specific [place] (1.001-1.035) 03/03/20 03/03/20 03/03/20 Range/Units 11:00 12:29 16:46 PT (9.0-12.0) sec INR (<1.2) Glucose (74-99) mg/dL POC Glucose (mg/dL) 194 H 148 H (75-99) mg/dL LDL Cholesterol, Calc (0-99) mg/dL HDL Cholesterol (40-60) mg/dL Ur Specific [place] 1.047 H (1.001-1.035) Assessment and Plan Plan: #1 triple-vessel coronary disease with significant distal left main, proximal LAD and circumflex coronary artery disease stenosis with 90% stenosis involving the ostial portion of the PDA. Plan for coronary artery artery bypass grafting on 03/[address] Harris. On heparin drip continue aspirin 325 mg by mouth daily, Lipitor 40 mg by mouth daily, atenolol 12.5 twice a day continue IV fluids at 75 mL/h #2 severe aortic stenosis with plan for aortic valve replacement with cardiothoracic services. #3 paroxysmal atrial fibrillation on Coumadin at home has not had Coumadin for a few days. CHADVASC risk score of 6 heparin drip ordered #4 history of diabetes2. Hold metformin and Januvia and continue insulin sliding scale. #5 hypertension continue metoprolol 12.5 twice a day lisinopril held as outpatient #6 hyperlipidemia continue Lipitor 40 mg by mouth daily LDL 102 #7 hypothyroidism continue levothyroxine at 150 g by mouth daily #8 coagulopathy secondary to Coumadin INR 1.3 continue to hold #9 alcohol use drinks 3 beers a day. No history of alcohol withdrawal #10 history of splenectomy stable #11 code status full code #12 DVT prophylaxis currently on heparin drip Thank you for the consult. Will be happy to assist in patient's medical need while patient is in the hospital
[2020-03-03 19:47] LABS: Hemoglobin A1C 6.9 % (4.0-6.0)
[2020-03-03 20:26] LABS: Glucose,Whole Blood 157 mg/dL (75-99)
[2020-03-03] MEDS: METOPROLOL TARTRATE 12.5 MG TAB PO SCH (20:42)
[2020-03-04] MEDS: LEVOTHYROXINE 75 MCG TAB PO SCH (06:40)
[2020-03-04 06:45] LABS: Glucose,Whole Blood 132 mg/dL (75-99)
[2020-03-04] MEDS: INSULIN ASPART (NovoLOG) 100 UNIT/ML VIAL SQ SCH ×4 (06:50→21:06)
[2020-03-04 06:52] LABS: Basophils # (A) 0.1 k/uL (0-0.2); Basophils % (A) 1 %; Eosinophils # (A) 0.1 k/uL (0-0.7); Eosinophils % (A) 2 %; HCT 45.9 % (39.0-53.0); HGB 14.7 gm/dL (13.0-17.5); Lymphocytes # (A) 1.6 k/uL (1.0-4.8); Lymphocytes % (A) 23 %; MCHC 31.9 g/dL (31.0-37.0); MCV 100.1 fL (80.0-100.0); Monocytes # (A) 0.6 k/uL (0-1.0); Monocytes % (A) 8 %; Neutrophils # (A) 4.5 k/uL (1.3-7.7); Neutrophils % (A) 64 %; Platelet Count 221 k/uL (150-450); RBC 4.58 m/uL (4.30-5.90); RDW 13.4 % (11.5-15.5); WBC 7.1 k/uL (3.8-10.6)
--- NOTE | 2020-03-04 08:44 | P.PN ---
Subjective Progress Note Date: 03/04/20 Principal diagnosis: Severe aortic stenosis, triple-vessel coronary artery disease with left main disease. Previous medical history of chronic atrial fibrillation on Coumadin anticoagulation, hypertension, hyperlipidemia, type 2 diabetes mellitus with hemoglobin A1c 6.9%, hypothyroidism, remote history of pneumonia, splenectomy, daily EtOH use, and previous tobacco dependence The patient is currently sitting up in bed in no acute distress. Denies any chest pain or shortness of breath. Remains in atrial fibrillation, hemodynamically stable, currently on IV heparin. Preoperative teaching continues. The patient did have a Panorex completed along with a dental consult, he has been cleared by the dentist for valve surgery. STS risk score was calculated and discussed with the patient. No new events overnight. Objective - Vital Signs Vital signs: Vital Signs Temp 98.0 F 03/04/20 03:44 Pulse 66 03/04/20 03:44 Resp 18 03/04/20 03:44 BP 142/90 03/04/20 03:44 Pulse Ox 95 03/04/20 03:44 Intake & Output 03/03/20 03/04/20 03/04/20 18:59 06:59 18:59 Intake Total 1430 340 Output Total 300 350 Balance 1130 -10 Weight 102.1 kg Intake: IV 350 Sodium Chloride 0.9% 1, 150 000 ml @ 75 mls/hr IV . [id number] [facility] Rx#:[id number] Intake, IV Titration 600 340 Amount Heparin Sod,Pork in 0.45% 40 NaCl 25,000 unit In 0.45 % NaCl 1 250ml.bag @ 9.8 UNITS/KG/HR 9.996 mls/hr IV .Q24H [facility] Rx#: [id number] Sodium Chloride 0.9% 1, 600 300 000 ml @ 75 mls/hr IV . [id number] [facility] Rx#:[id number] Oral 480 Output: Urine 300 350 - Constitutional General appearance: Present: cooperative, no acute distress, obese - Respiratory Details: Lung sounds clear bilaterally. Respirations even, nonlabored. Currently on room air with oxygen saturation 95%. Able to achieve 3000 mL on incentive spirometry. - Cardiovascular Details: S1, S2 present. Irregular rate and rhythm, controlled atrial fibrillation telemetry. Palpable peripheral pulses bilaterally. Trace bilateral lower extremity edema present. No calf pain or tenderness noted. - Gastrointestinal Gastrointestinal Comment(s): Abdomen soft, nontender, nondistended. Active bowel sounds present 4 quadrants. Tolerating diet. - Genitourinary Genitourinary Comment(s): Continues to void clear, yellow urine - Integumentary Integumentary Comment(s): Skin is warm and dry with evidence of good perfusion. Right groin heart catheterization site soft, without redness or drainage - Neurologic Neurologic: Present: CNII-XII intact - Musculoskeletal Musculoskeletal: Present: gait normal, strength equal bilaterally - Psychiatric Psychiatric: Present: A&O x's 3, appropriate affect, intact judgment & insight - Allied health notes Allied health notes reviewed: nursing - Labs CBC & Chem 7: 03/04/20 05:55 03/03/20 09:10 Labs: Abnormal Lab Results - Last 24 Hours (Table) 03/03/20 03/03/20 03/03/20 Range/Units 09:10 09:10 11:00 MCV (80.0-100.0) fL PT (9.0-12.0) sec INR (<1.2) APTT (22.0-30.0) sec Glucose 145 H (74-99) mg/dL POC Glucose (mg/dL) (75-99) mg/dL Hemoglobin A1c 6.9 H (4.0-6.0) % LDL Cholesterol, Calc 102 H (0-99) mg/dL HDL Cholesterol 63 H (40-60) mg/dL Ur Specific [place] 1.047 H (1.001-1.035) 03/03/20 03/03/20 03/03/20 Range/Units 12:29 16:46 17:26 MCV (80.0-100.0) fL PT 12.1 H (9.0-12.0) sec INR 1.2 H (<1.2) APTT (22.0-30.0) sec Glucose (74-99) mg/dL POC Glucose (mg/dL) 194 H 148 H (75-99) mg/dL Hemoglobin A1c (4.0-6.0) % LDL Cholesterol, Calc (0-99) mg/dL HDL Cholesterol (40-60) mg/dL Ur Specific [place] (1.001-1.035) 03/03/20 03/04/20 03/04/20 Range/Units 19:56 00:41 05:55 MCV 100.1 H (80.0-100.0) fL PT (9.0-12.0) sec INR (<1.2) APTT 45.2 H (22.0-30.0) sec Glucose (74-99) mg/dL POC Glucose (mg/dL) 157 H (75-99) mg/dL Hemoglobin A1c (4.0-6.0) % LDL Cholesterol, Calc (0-99) mg/dL HDL Cholesterol (40-60) mg/dL Ur Specific [place] (1.001-1.035) 03/04/20 03/04/20 Range/Units 05:55 06:36 MCV (80.0-100.0) fL PT (9.0-12.0) sec INR (<1.2) APTT 47.5 H (22.0-30.0) sec Glucose (74-99) mg/dL POC Glucose (mg/dL) 132 H (75-99) mg/dL Hemoglobin A1c (4.0-6.0) % LDL Cholesterol, Calc (0-99) mg/dL HDL Cholesterol (40-60) mg/dL Ur Specific [place] (1.001-1.035) Microbiology - Last 24 Hours (Table) 03/03/20 09:45 Nasal Screen MRSA/MSSA - Preliminary Nasal Swab - Imaging and Cardiology Chest x-ray: report reviewed, image reviewed Results of carotid Dopplers, vein mapping, radial artery mapping reviewed Assessment and Plan Assessment: 1. Severe aortic stenosis 2. Triple-vessel coronary artery disease with left main disease 3. Chronic atrial fibrillation on Coumadin for anticoagulation, last dose 02/28/2020 4. History of hypertension 5. History of hyperlipidemia line 6. Type 2 diabetes mellitus with hemoglobin A1c 6.9% 7. Hypothyroidism 8. Remote history of pneumonia 9. History of splenectomy 10. Daily EtOH use 11. Previous tobacco dependence Plan: 1. Continue aspirin, statin, beta john paul therapy. Continue IV heparin, continue to hold Coumadin 2. Encourage incentive spirometry is 10 times every hour while awake 3. Increase activity, ambulate as tolerated. Will complete 5 m walk test 4. Patient has been cleared by dentist for valve surgery 5. Our plan is for aortic valve replacement, myocardial revascularization with left internal mammary artery, endoscopic vein harvesting, and modified Newton maze for 03/06/2020 6. Continue preoperative teaching 7. Monitor for alcohol withdrawal 8. Management of other comorbid conditions per primary care service 9. More recommendations to follow Time with Patient: Greater than 30
[2020-03-04] MEDS: ASPIRIN 325 MG TAB PO SCH (08:55)
[2020-03-04] MEDS: FAMOTIDINE 20 MG TAB PO SCH (08:55)
[2020-03-04] MEDS: ATORVASTATIN 40 MG TAB PO SCH (08:55)
[2020-03-04] MEDS: FOLIC ACID-VIT B COMPLEX-VIT C 1 CAP PO SCH (08:55)
[2020-03-04] MEDS: METOPROLOL TARTRATE 12.5 MG TAB PO SCH ×2 (08:55→21:05)
--- NOTE | 2020-03-04 08:57 | P.PN ---
Subjective Progress Note Date: 03/04/20 74 years old male patient of Dr. Rouse and Dr. Lee with past medical history of hypertension, hyperlipidemia, paroxysmal atrial fibrillation on Coumadin, hypothyroidism, type 2 diabetes hypothyroidism, daily alcohol use, osteoarthritis and known history of bilateral knee replacement and right ankle surgery and came in for an elective STEFANIE and cardiac catheterization under Dr. Maguire. Patient gives a history of worsening shortness of breath for the past 6 months. He noticed increased weakness but denies any chest pain or dizziness or passing out spells. Patient has been off Coumadin, metformin and Januvia for the cardiac catheterization. STEFANIE done on 03/03 suggested severe aortic stenosis with heavily calcified 3 leaflet valve with restriction in the mobility. The valve area 0.7 mm. Mild left ventricular systolic dysfunction with ejection fraction of 45%. By mouth for with [id number] shunt present with mild to moderate MR and mild TR. Cardiac catheterization on 03/03 suggest to heavily calcified left main coronary artery with distal left main appears stenosed and stenosis extending into the proximal LAD and circumflex coronary artery around 80-90%. Circumflex occluded proximally with collaterals to LAD coming from the left system. Secondary diagnoses branch is moderate stenosis. Right coronary artery with moderate stenosis PDA with 80-90% stenosis. In assessment today patient denies any shortness of breath at rest. He did have back pain outwardly this morning after resting in bed for 6 hours post cardiac cath. Vitals are otherwise stablethe pulse is 67 respiratory rate 16 blood pressure 144/95 oxygen saturation 97% on room air. Labs reviewed CBC unremarkable creatinine 0.8 INR 1.3 blood sugar 140. Magnesium 1.9 and LDL 102 TSH 0.70 was negative for infe ction. Patient's last A1c is less than 7 controlled on Januvia and metformin. 03/04: Patient is found sitting up in a chair resting comfortably without any acute distress. Patient has no concerns or complaints at this time. The plan continues to be for a CABG scheduled on Tuesday 03/06. She remains afebrile, pulse rate 66, respirations 18, blood pressure 133/95, pulse ox 9 7% on room air. WBC 7.1, hemoglobin 14.7. Review of Systems Constitutional: Denies chills, Denies fever, Denies lethargy, Denies malaise, Denies poor appetite, Denies weakness, Denies weight loss Eyes: denies decreased vision, denies diplopia, denies discharge, denies pain Ears: deny: decreased hearing Ears, nose, mouth and throat: Denies dental pain, Denies headache, Denies nasal discharge, Denies nose pain Cardiovascular: Denies chest pain, endorses decreased exercise tolerance, endorses edema right worse than left, Denies high blood pressure, endorses irregular heart beat, Denies palpitations, endorses paroxysmal nocturnal dyspnea , endorses rapid heart beat, endorses shortness of breath Respiratory: Denies congestion, Denies cough, Denies cough with sputum, Denies dyspnea, Denies home oxygen, Denies wheezing Gastrointestinal: Denies abdominal pain, Denies change in bowel habits, Denies coffee ground emesis, Denies early satiety, Denies excessive gas, Denies heartburn, Denies hematemesis, Denies hematochezia, Denies loss of appetite, Denies nausea, Denies vomiting Genitourinary: Denies dysuria, Denies flank pain, Denies kidney stones, Denies menorrhagia, Denies urgency, Denies urinary frequency Musculoskeletal: Denies gait dysfunction, Denies limitation of motion, Denies morning stiffness, Denies muscle cramps Integumentary: Denies rash, Denies wounds, Denies brittle nails, Denies change in hair/nails, Denies darkening of skin Neurological: Denies balance difficulties, Denies change in speech, Denies double vision, Denies gait dysfunction, Denies loss of vision, Denies motor disturbance, Denies numbness, Denies paralysis, Denies paresthesias, Denies seizures Psychiatric: Denies anxiety, Denies depression Endocrine: Denies excessive sweating, Denies excessive thirst, Denies high blood sugars, Denies palpitations Hematologic/Lymphatic: Denies easy bruising, Denies lymphadenopathy Physical exam General Appearance: Alert, cooperative, no distress, appears stated age. Neck HEENT: Supple, no lymphadenopathy, no thyroid enlargement, no carotid bruits. Lungs: Clear to auscultation without crackles or wheezes no rhonchi, no deformity. Chest Wall: Chest wall normal expansion with deep inspiration no tenderness and no deformity was found on exam, no costochondral pain or discomfort. Heart: Regular rate and rhythm, S1, S2 normal, no murmur, rub or gallop. Back: Symmetric, no curvature, ROM normal, no CVA tenderness. Abdomen: Soft, non-tender, no rebound or rigidity, no hepatosplenomegaly. Extremities: Extremities normal, atraumatic, no cyanosis or edema. Pulses: 2+ and symmetric. Skin: Skin color, texture, tugor normal, no rashes or lesions. Neurologic: Alert oriented x3 cranial nerves II through XII intact, no motor deficit, no abnormal balance or gait Assessment and Plan Plan: 1. triple-vessel coronary disease with significant distal left main, proximal LAD and circumflex coronary artery disease stenosis with 90% stenosis involving the ostial portion of the PDA. Plan for coronary artery artery bypass grafting on 03/[address] Harris. On heparin drip continue aspirin 325 mg by mouth daily, Lipitor 40 mg by mouth daily, atenolol 12.5 twice a day continue IV fluids at 75 mL/h 2. severe aortic stenosis with plan for aortic valve replacement with cardiothoracic services. 3. paroxysmal atrial fibrillation on Coumadin at home has not had Coumadin for a few days. CHADVASC risk score of 6 heparin drip ordered 4. history of diabetes2. Hold metformin and Januvia and continue insulin sliding scale. 5. hypertension continue metoprolol 12.5 twice a day lisinopril held as outpatient 6. hyperlipidemia continue Lipitor 40 mg by mouth daily LDL 102 7. hypothyroidism continue levothyroxine at 150 g by mouth daily 8. coagulopathy secondary to Coumadin INR 1.3 continue to hold 9. alcohol use drinks 3 beers a day. No history of alcohol withdrawal 10. history of splenectomy stable 11. DVT prophylaxis currently on heparin drip CODE STATUS: Full code Thank you for the consult. Will be happy to assist in patient's medical need while patient is in the hospital Impression and plan of care have been directed as dictated by the signing physician. Kirsty Middleton nurse practitioner acting as scribe for signing physician. Objective - Vital Signs Vital signs: Vital Signs Temp 98.0 F 03/04/20 03:44 Pulse 66 03/04/20 03:44 Resp 18 03/04/20 03:44 BP 142/90 03/04/20 03:44 Pulse Ox 95 03/04/20 03:44 Intake & Output 03/03/20 03/04/20 03/04/20 18:59 06:59 18:59 Intake Total 1430 340 Output Total 300 350 Balance 1130 -10 Weight 102.1 kg Intake: IV 350 Sodium Chloride 0.9% 1, 150 000 ml @ 75 mls/hr IV . [id number] [facility] Rx#:[id number] Intake, IV Titration 600 340 Amount Heparin Sod,Pork in 0.45% 40 NaCl 25,000 unit In 0.45 % NaCl 1 250ml.bag @ 9.8 UNITS/KG/HR 9.996 mls/hr IV .Q24H [facility] Rx#: [id number] Sodium Chloride 0.9% 1, 600 300 000 ml @ 75 mls/hr IV . [id number] [facility] Rx#:[id number] Oral 480 Output: Urine 300 350 - Labs CBC & Chem 7: 03/04/20 05:55 03/03/20 09:10 Labs: Abnormal Lab Results - Last 24 Hours (Table) 03/03/20 03/03/20 03/03/20 Range/Units 09:10 09:10 11:00 MCV (80.0-100.0) fL PT (9.0-12.0) sec INR (<1.2) APTT (22.0-30.0) sec Glucose 145 H (74-99) mg/dL POC Glucose (mg/dL) (75-99) mg/dL Hemoglobin A1c 6.9 H (4.0-6.0) % LDL Cholesterol, Calc 102 H (0-99) mg/dL HDL Cholesterol 63 H (40-60) mg/dL Ur Specific [place] 1.047 H (1.001-1.035) 03/03/20 03/03/20 03/03/20 Range/Units 12:29 16:46 17:26 MCV (80.0-100.0) fL PT 12.1 H (9.0-12.0) sec INR 1.2 H (<1.2) APTT (22.0-30.0) sec Glucose (74-99) mg/dL POC Glucose (mg/dL) 194 H 148 H (75-99) mg/dL Hemoglobin A1c (4.0-6.0) % LDL Cholesterol, Calc (0-99) mg/dL HDL Cholesterol (40-60) mg/dL Ur Specific [place] (1.001-1.035) 03/03/20 03/04/20 03/04/20 Range/Units 19:56 00:41 05:55 MCV 100.1 H (80.0-100.0) fL PT (9.0-12.0) sec INR (<1.2) APTT 45.2 H (22.0-30.0) sec Glucose (74-99) mg/dL POC Glucose (mg/dL) 157 H (75-99) mg/dL Hemoglobin A1c (4.0-6.0) % LDL Cholesterol, Calc (0-99) mg/dL HDL Cholesterol (40-60) mg/dL Ur Specific [place] (1.001-1.035) 03/04/20 03/04/20 Range/Units 05:55 06:36 MCV (80.0-100.0) fL PT (9.0-12.0) sec INR (<1.2) APTT 47.5 H (22.0-30.0) sec Glucose (74-99) mg/dL POC Glucose (mg/dL) 132 H (75-99) mg/dL Hemoglobin A1c (4.0-6.0) % LDL Cholesterol, Calc (0-99) mg/dL HDL Cholesterol (40-60) mg/dL Ur Specific [place] (1.001-1.035) Microbiology - Last 24 Hours (Table) 03/03/20 09:45 Nasal Screen MRSA/MSSA - Preliminary Nasal Swab
--- NOTE | 2020-03-04 11:49 | P.PN ---
Subjective Progress Note Date: 03/04/20 Principal diagnosis: Coronary artery disease, severe aortic stenosis This is a 74-year-old gentleman who follows on an outpatient basis with Dr. Kavon Rouse for primary care and Dr. Tye Lee for cardiology. He has a previous medical history of hypertension, hyperlipidemia, chronic atrial fibrillation on Coumadin for anticoagulation, hypothyroidism, type 2 diabetes mellitus, remote history of pneumonia, skin cancer with removal, splenectomy, daily EtOH use of 2-3 beers every day, and remote history of tobacco dependence. He has followed with Dr. Lee for quite some time regarding his atrial fibrillation. Over the last several months he has noted exertional shortness of breath relieved with rest which he states he has never had before. He denies any other symptoms including no chest pain, no weakness, dizziness, lightheadedness, strokelike symptoms, paroxysmal nocturnal dyspnea, or any recent pulmonary illnesses. He was seen in the cardiology office last week and had a transthoracic echocardiogram which demonstrated impaired left ventricular function with EF 45%, hypokinesis of the inferior and septal marrero at the base, mild to moderate mitral regurgitation with mild mitral annular calcification, moderately calcified aortic valve with mild aortic insufficiency and moderate to severe aortic stenosis with valve area 0.56 cm, peak/mean gradient 54/35 mmHg, and mild tricuspid regurgitation. He was recommended to undergo heart catheterization and transesophageal echocardiogram which were completed today by Dr. Lee. Transesophageal echocardiogram demonstrated 3 leaflet aortic valve which was heavily calcified with severe restriction in leaflet mobility. Valve area was 0.7 cm by planimetry confirming severe aortic stenosis with mild aortic regurgitation, mild to moderate central mitral regurgitation, mild tricuspid regurgitation, mildly dilated left ventricle with diffuse global hypokinesis and ejection fraction 45%. Cardiac catheterization demonstrated heavily calcified left main coronary artery with distal stenosis extending into the proximal LAD and circumflex, ostial LAD stenosis 80-90%, moderate stenosis in the midportion of the RCA with 80-90% stenosis of the PDA with right to left collaterals. Due to these findings Dr. Harris from cardiothoracic surgery was consulted for surgical revascularization and aortic valve replacement. Patient is seen today 03/04/2020 in follow-up on the selective care unit. He is currently sitting up in a chair at the bedside. Awake and alert in no acute distress. Denies any chest pain, palpitations, lightheadedness or dizziness. Denies any shortness of breath, cough or congestion. FEV1 value 1.86 L, 59%. Chest x-ray showed no acute pulmonary process. Objective - Vital Signs Vital signs: Vital Signs Temp 98.0 F 03/04/20 03:44 Pulse 88 03/04/20 08:00 Resp 16 03/04/20 11:02 BP 133/95 03/04/20 08:00 Pulse Ox 97 03/04/20 08:00 Intake & Output 03/03/20 03/04/20 03/04/20 18:59 06:59 18:59 Intake Total 1430 340 Output Total 300 350 Balance 1130 -10 Weight 102.1 kg Intake: IV 350 Sodium Chloride 0.9% 1, 150 000 ml @ 75 mls/hr IV . [id number] [facility] Rx#:[id number] Intake, IV Titration 600 340 Amount Heparin Sod,Pork in 0.45% 40 NaCl 25,000 unit In 0.45 % NaCl 1 250ml.bag @ 9.8 UNITS/KG/HR 9.996 mls/hr IV .Q24H [facility] Rx#: [id number] Sodium Chloride 0.9% 1, 600 300 000 ml @ 75 mls/hr IV . [id number] [facility] Rx#:[id number] Oral 480 Output: Urine 300 350 - Exam GENERAL EXAM: Alert, active, pleasant 74-year-old gentleman, on room air, comfortable in no apparent distress. HEAD: Normocephalic. EYES: Normal reaction of pupils, equal size. NOSE: Clear with pink turbinates. THROAT: No erythema or exudates. NECK: No masses, no JVD. CHEST: No chest wall deformity. LUNGS: Equal air entry with no crackles, wheeze, rhonchi or dullness. CVS: S1 and S2 normal with no audible murmur, regular rhythm. ABDOMEN: No hepatosplenomegaly, normal bowel sounds, no guarding or rigidity. SPINE: No scoliosis or deformity SKIN: No rashes CENTRAL NERVOUS SYSTEM: No focal deficits, tone is normal in all 4 extremities. EXTREMITIES: There is no peripheral edema. No clubbing, no cyanosis. Peripheral pulses are intact. - Labs CBC & Chem 7: 03/04/20 05:55 03/03/20 09:10 Labs: Abnormal Lab Results - Last 24 Hours (Table) 03/03/20 03/03/2003/03/20 Range/Units 09:10 12:29 16:46 MCV (80.0-100.0) fL PT (9.0-12.0) sec INR (<1.2) APTT (22.0-30.0) sec POC Glucose (mg/dL) 194 H 148 H (75-99) mg/dL Hemoglobin A1c 6.9 H (4.0-6.0) % 03/03/20 03/03/20 03/04/20 Range/Units 17:26 19:56 00:41 MCV (80.0-100.0) fL PT 12.1 H (9.0-12.0) sec INR 1.2 H (<1.2) APTT 45.2 H (22.0-30.0) sec POC Glucose (mg/dL) 157 H (75-99) mg/dL Hemoglobin A1c (4.0-6.0) % 03/04/20 03/04/20 03/04/20 Range/Units 05:55 05:55 06:36 MCV 100.1 H (80.0-100.0) fL PT (9.0-12.0) sec INR (<1.2) APTT 47.5 H (22.0-30.0) sec POC Glucose (mg/dL) 132 H (75-99) mg/dL Hemoglobin A1c (4.0-6.0) % Microbiology - Last 24 Hours (Table) 03/03/20 09:45 Nasal Screen MRSA/MSSA - Preliminary Nasal Swab Assessment and Plan Assessment: #1 Dyspnea on exertion in a patient found to have severe coronary artery disease with significant distal left main, proximal LAD and circumflex coronary artery stenosis. 90% stenosis involving the ostial portion of the PDA. [id number] collaterals. #2 Severe aortic stenosis #3 Hypertension #4 Hyperlipidemia #5 Hypothyroidism #6 Daily alcohol use #7 History of atrial fibrillation, anticoagulated with warfarin #8 Diabetes mellitus #9 Very remote smoking history Plan: The patient was seen and evaluated by Dr. Rojo Chest x-ray showed no acute process FEV1 value 1.86 L, 59% Stable from the pulmonary standpoint Plan is for CABG/AVR per CT services on Friday We will continue to follow and make further recommendations based on his clinical status I, the cosigning physician, performed a history & physical examination of the patient. Lungs sounds are clear. Maintaining good O2 saturations in the 90s on room air. I discussed the assessment and plan of care with my nurse practitioner, Christina Musa. I attest to the above consultation as dictated by her.
[2020-03-04 12:21] LABS: Glucose,Whole Blood 156 mg/dL (75-99)
--- NOTE | 2020-03-04 12:49 | PN ---
PROGRESS NOTE This is a 74-year-old gentleman that I brought in electively for cardiac catheterization for aortic stenosis, was found to have a tight distal left main and LAD stenosis with chronic occlusion of the circumflex coronary artery and a lesion in the PDA. He also has severe aortic stenosis. The patient is doing well this morning and is free of symptoms. I reviewed cath and STEFANIE findings. The patient will undergo aortic valve replacement with bypass on Friday. The patient had a carotid duplex study that did not reveal carotid stenosis. EXAM: Comfortable at rest. Vital signs are stable. Chest exam reveals good air entry bilaterally. Heart exam reveals first and second heart sounds, ejection systolic murmur in the aortic area. Abdomen is soft. Exam of extremities did not reveal any edema. Groin is free of bleeding, bruit, hematoma. Foot pulses are intact. ASSESSMENT: 1. Severe aortic stenosis. 2. Multivessel coronary artery disease. 3. Permanent atrial fibrillation. PLAN: Patient will continue the IV heparin, aspirin, Lipitor, Lopressor and will undergo aortic valve replacement with bypass surgery on Friday. MMODL / IJN: [id number] /
[2020-03-04 16:42] LABS: Glucose,Whole Blood 130 mg/dL (75-99)
[2020-03-04] MEDS: HEPARIN SOD,PORK IN 0.45% NACL 25,000 UNIT in 0.45% NACL 1 250ML.BAG IV SCH (16:47)
[2020-03-04] MEDS: SODIUM CHLORIDE 0.9% 1,000 ML IV SCH (19:39)
[2020-03-04 20:09] LABS: Glucose,Whole Blood 209 mg/dL (75-99)
[2020-03-05] MEDS: SODIUM CHLORIDE 0.9% 1,000 ML IV SCH ×2 (00:17→21:27)
[2020-03-05 06:19] LABS: Basophils # (A) 0.1 k/uL (0-0.2); Basophils % (A) 1 %; Eosinophils # (A) 0.1 k/uL (0-0.7); Eosinophils % (A) 1 %; HCT 46.7 % (39.0-53.0); HGB 14.9 gm/dL (13.0-17.5); Lymphocytes # (A) 1.8 k/uL (1.0-4.8); Lymphocytes % (A) 26 %; MCH 31.7 pg (25.0-35.0); MCHC 31.8 g/dL (31.0-37.0); MCV 99.6 fL (80.0-100.0); Mean Platelet Volume 8.3; Monocytes # (A) 0.6 k/uL (0-1.0); Monocytes % (A) 8 %; Neutrophils # (A) 4.1 k/uL (1.3-7.7); Neutrophils % (A) 60 %; Platelet Count 212 k/uL (150-450); RBC 4.69 m/uL (4.30-5.90); RDW 13.3 % (11.5-15.5); WBC 6.9 k/uL (3.8-10.6)
[2020-03-05 06:22] LABS: African American GFR (CKD) >90 (>60 ml/min/1.73 sqM); Anion Gap 3 mmol/L; Blood Urea Nitrogen 12 mg/dL (9-20); Calcium 8.7 mg/dL (8.4-10.2); Carbon Dioxide 26 mmol/L (22-30); Chloride 107 mmol/L (98-107); Glucose 133 mg/dL (74-99); Non-African American GFR(CKD) 90 (>60 ml/min/1.73 sqM); Potassium 4.5 mmol/L (3.5-5.1); Sodium 136 mmol/L (137-145)
[2020-03-05] MEDS: LEVOTHYROXINE 75 MCG TAB PO SCH (06:26)
[2020-03-05 06:28] LABS: INR 1.2 (<1.2); Partial Thromboplastin Time 52.5 sec (22.0-30.0); Prothrombin Time 12.1 sec (9.0-12.0)
[2020-03-05 06:35] LABS: Glucose,Whole Blood 141 mg/dL (75-99)
[2020-03-05] MEDS: INSULIN ASPART (NovoLOG) 100 UNIT/ML VIAL SQ SCH ×4 (06:37→21:34)
--- NOTE | 2020-03-05 08:45 | P.PN ---
Subjective Progress Note Date: 03/05/20 74 years old male patient of Dr. Rouse and Dr. Lee with past medical history of hypertension, hyperlipidemia, paroxysmal atrial fibrillation on Coumadin, hypothyroidism, type 2 diabetes hypothyroidism, daily alcohol use, osteoarthritis and known history of bilateral knee replacement and right ankle surgery and came in for an elective STEFANIE and cardiac catheterization under Dr. Maguire. Patient gives a history of worsening shortness of breath for the past 6 months. He noticed increased weakness but denies any chest pain or dizziness or passing out spells. Patient has been off Coumadin, metformin and Januvia for the cardiac catheterization. STEFANIE done on 03/03 suggested severe aortic stenosis with heavily calcified 3 leaflet valve with restriction in the mobility. The valve area 0.7 mm. Mild left ventricular systolic dysfunction with ejection fraction of 45%. By mouth for with [id number] shunt present with mild to moderate MR and mild TR. Cardiac catheterization on 03/03 suggest to heavily calcified left main coronary artery with distal left main appears stenosed and stenosis extending into the proximal LAD and circumflex coronary artery around 80-90%. Circumflex occluded proximally with collaterals to LAD coming from the left system. Secondary diagnoses branch is moderate stenosis. Right coronary artery with moderate stenosis PDA with 80-90% stenosis. In assessment today patient denies any shortness of breath at rest. He did have back pain outwardly this morning after resting in bed for 6 hours post cardiac cath. Vitals are otherwise stablethe pulse is 67 respiratory rate 16 blood pressure 144/95 oxygen saturation 97% on room air. Labs reviewed CBC unremarkable creatinine 0.8 INR 1.3 blood sugar 140. Magnesium 1.9 and LDL 102 TSH 0.70 was negative for infe ction. Patient's last A1c is less than 7 controlled on Januvia and metformin. 03/04: Patient is found sitting up in a chair resting comfortably without any acute distress. Patient has no concerns or complaints at this time. The plan continues to be for a CABG scheduled on Tuesday 03/06. She remains afebrile, pulse rate 66, respirations 18, blood pressure 133/95, pulse ox 9 7% on room air. WBC 7.1, hemoglobin 14.7. 03/05: Patient is found sitting up in chair resting comfortably without any acute distress. Patient states he has no concerns or complaints at this time. Patient stated that he slept well. He was awoken at 5 AM for his weight other than that he has no issues. Patient declined any sleep aids for tonight. Review of Systems Constitutional: Denies chills, Denies fever, Denies lethargy, Denies malaise, Denies poor appetite, Denies weakness, Denies weight loss Eyes: denies decreased vision, denies diplopia, denies discharge, denies pain Ears: deny: decreased hearing Ears, nose, mouth and throat: Denies dental pain, Denies headache, Denies nasal discharge, Denies nose pain Cardiovascular: Denies chest pain, endorses decreased exercise tolerance, endorses edema right worse than left, Denies high blood pressure, endorses irregular heart beat, Denies palpitations, endorses paroxysmal nocturnal dyspnea , endorses rapid heart beat, endorses shortness of breath Respiratory: Denies congestion, Denies cough, Denies cough with sputum, Denies dyspnea, Denies home oxygen, Denies wheezing Gastrointestinal: Denies abdominal pain, Denies change in bowel habits, Denies coffee ground emesis, Denies early satiety, Denies excessive gas, Denies heartburn, Denies hematemesis, Denies hematochezia, Denies loss of appetite, Denies nausea, Denies vomiting Genitourinary: Denies dysuria, Denies flank pain, Denies kidney stones, Denies menorrhagia, Denies urgency, Denies urinary frequency Musculoskeletal: Denies gait dysfunction, Denies limitation of motion, Denies morning stiffness, Denies muscle cramps Integumentary: Denies rash, Denies wounds, Denies brittle nails, Denies change in hair/nails, Denies darkening of skin Neurological: Denies balance difficulties, Denies change in speech, Denies double vision, Denies gait dysfunction, Denies loss of vision, Denies motor disturbance, Denies numbness, Denies paralysis, Denies paresthesias, Denies seizures Psychiatric: Denies anxiety, Denies depression Endocrine: Denies excessive sweating, Denies excessive thirst, Denies high blood sugars, Denies palpitations Hematologic/Lymphatic: Denies easy bruising, Denies lymphadenopathy Physical exam General Appearance: Alert, cooperative, no distress, appears stated age. Neck HEENT: Supple, no lymphadenopathy, no thyroid enlargement, no carotid bruits. Lungs: Clear to auscultation without crackles or wheezes no rhonchi, no deformity. Chest Wall: Chest wall normal expansion with deep inspiration no tenderness and no deformity was found on exam, no costochondral pain or discomfort. Heart: Regular rate and rhythm, S1, S2 normal, no murmur, rub or gallop. Back: Symmetric, no curvature, ROM normal, no CVA tenderness. Abdomen: Soft, non-tender, no rebound or rigidity, no hepatosplenomegaly. Extremities: Extremities normal, atraumatic, no cyanosis or edema. Pulses: 2+ and symmetric. Skin: Skin color, texture, tugor normal, no rashes or lesions. Neurologic: Alert oriented x3 cranial nerves II through XII intact, no motor deficit, no abnormal balance or gait Assessment and Plan Plan: 1. triple-vessel coronary disease with significant distal left main, proximal LAD and circumflex coronary artery disease stenosis with 90% stenosis involving the ostial portion of the PDA. Plan for coronary artery artery bypass grafting on 03/[address] Harris. On heparin drip continue aspirin 325 mg by mouth daily, Lipitor 40 mg by mouth daily, atenolol 12.5 twice a day continue IV fluids at 75 mL/h 2. severe aortic stenosis with plan for aortic valve replacement with cardiothoracic services. 3. paroxysmal atrial fibrillation on Coumadin at home has not had Coumadin for a few days. CHADVASC risk score of 6 heparin drip ordered 4. history of diabetes2. Hold metformin and Januvia and continue insulin sliding scale. 5. hypertension continue metoprolol 12.5 twice a day lisinopril held as outpatient 6. hyperlipidemia continue Lipitor 40 mg by mouth daily LDL 102 7. hypothyroidism continue levothyroxine at 150 g by mouth daily 8. coagulopathy secondary to Coumadin INR 1.3 continue to hold 9. alcohol use drinks 3 beers a day. No history of alcohol withdrawal 10. history of splenectomy stable 11. DVT prophylaxis currently on heparin drip CODE STATUS: Full code Thank you for the consult. Will be happy to assist in patient's medical need while patient is in the hospital Impression and plan of care have been directed as dictated by the signing physician. Kirsty Middleton nurse practitioner acting as scribe for signing physician. Objective - Vital Signs Vital signs: Vital Signs Temp 98.3 F 03/05/20 03:52 Pulse 60 03/05/20 03:52 Resp 18 03/05/20 03:52 BP 132/82 03/05/20 03:52 Pulse Ox 96 03/05/20 03:52 Intake & Output 03/04/20 03/05/20 03/05/20 18:59 06:59 18:59 Intake Total 130.766 4928 Balance 820.284 0967 Weight 100 kg Intake: Intake, IV Titration 226.243 825 Amount Heparin Sod,Pork in 0.45% 226.243 NaCl 25,000 unit In 0.45 % NaCl 1 250ml.bag @ 9.8 UNITS/KG/HR 9.996 mls/hr IV .Q24H [facility] Rx#: [id number] Sodium Chloride 0.9% 1, 825 000 ml @ 75 mls/hr IV . [id number] [facility] Rx#:[id number] Oral [id number] Other: # Voids 3 1 - Labs CBC & Chem 7: 03/05/20 05:39 03/05/20 05:39 Labs: Abnormal Lab Results - Last 24 Hours (Table) 03/04/20 03/04/20 03/04/20 Range/Units 12:20 16:41 20:07 PT (9.0-12.0) sec INR (<1.2) APTT (22.0-30.0) sec Sodium (137-145) mmol/L Glucose (74-99) mg/dL POC Glucose (mg/dL) 156 H 130 H 209 H (75-99) mg/dL 03/05/20 03/05/20 03/05/20 Range/Units 05:39 05:39 06:34 PT 12.1 H (9.0-12.0) sec INR 1.2 H (<1.2) APTT 52.5 H (22.0-30.0) sec Sodium 136 L (137-145) mmol/L Glucose 133 H (74-99) mg/dL POC Glucose (mg/dL) 141 H (75-99) mg/dL Microbiology - Last 24 Hours (Table) 03/03/20 09:45 Nasal Screen MRSA/MSSA - Final Nasal Swab
[2020-03-05] MEDS: ASPIRIN 325 MG TAB PO SCH (09:02)
[2020-03-05] MEDS: FAMOTIDINE 20 MG TAB PO SCH (09:02)
[2020-03-05] MEDS: METOPROLOL TARTRATE 12.5 MG TAB PO SCH ×2 (09:02→21:34)
[2020-03-05] MEDS: ATORVASTATIN 40 MG TAB PO SCH (09:02)
[2020-03-05] MEDS: FOLIC ACID-VIT B COMPLEX-VIT C 1 CAP PO SCH (09:02)
--- NOTE | 2020-03-05 09:14 | P.PN ---
Subjective Progress Note Date: 03/05/20 Principal diagnosis: Severe aortic stenosis, triple-vessel coronary artery disease with left main disease. Previous medical history of chronic atrial fibrillation on Coumadin anticoagulation, hypertension, hyperlipidemia, type 2 diabetes mellitus with hemoglobin A1c 6.9%, hypothyroidism, remote history of pneumonia, splenectomy, daily EtOH use, and previous tobacco dependence with preoperative FEV1 59% of predicted The patient is currently sitting up in bed in no acute distress. Denies any chest pain or shortness of breath. Remains in atrial fibrillation, hemodynamically stable, currently on IV heparin. Preoperative teaching continues. No new events overnight. Objective - Vital Signs Vital signs: Vital Signs Temp 98.3 F 03/05/20 03:52 Pulse 60 03/05/20 03:52 Resp 18 03/05/20 03:52 BP 132/82 03/05/20 03:52 Pulse Ox 96 03/05/20 03:52 Intake & Output 03/04/20 03/05/20 03/05/20 18:59 06:59 18:59 Intake Total 189.867 1362 Balance 296.133 5350 Weight 100 kg Intake: Intake, IV Titration 226.243 825 Amount Heparin Sod,Pork in 0.45% 226.243 NaCl 25,000 unit In 0.45 % NaCl 1 250ml.bag @ 9.8 UNITS/KG/HR 9.996 mls/hr IV .Q24H [facility] Rx#: [id number] Sodium Chloride 0.9% 1, 825 000 ml @ 75 mls/hr IV . [id number] [facility] Rx#:[id number] Oral [id number] Other: # Voids 3 1 - Constitutional General appearance: Present: cooperative, no acute distress - Respiratory Details: Lung sounds clear bilaterally. Respirations even, nonlabored. Currently on room air with oxygen saturation 96%. Able to achieve 2500 mL on incentive spirometry. - Cardiovascular Details: S1, S2 present. Irregular rate and rhythm, controlled atrial fibrillation telemetry. Palpable peripheral pulses bilaterally. Trace right lower extremity edema present. No calf pain or tenderness noted. - Gastrointestinal Gastrointestinal Comment(s): Abdomen soft, nontender, nondistended. Active bowel sounds present 4 quadrants. Tolerating diet. - Genitourinary Genitourinary Comment(s): Continues to void clear, yellow urine - Integumentary Integumentary Comment(s): Skin is warm and dry with evidence of good perfusion. Right groin heart cathete rization site soft, without redness or drainage - Neurologic Neurologic: Present: CNII-XII intact - Musculoskeletal Musculoskeletal: Present: gait normal, strength equal bilaterally - Psychiatric Psychiatric: Present: A&O x's 3, appropriate affect, intact judgment & insight - Allied health notes Allied health notes reviewed: nursing - Labs CBC & Chem 7: 03/05/20 05:39 03/05/20 05:39 Labs: Abnormal Lab Results - Last 24 Hours (Table) 03/04/20 03/04/20 03/04/20 Range/Units 12:20 16:41 20:07 PT (9.0-12.0) sec INR (<1.2) APTT (22.0-30.0) sec Sodium (137-145) mmol/L Glucose (74-99) mg/dL POC Glucose (mg/dL) 156 H 130 H 209 H (75-99) mg/dL 03/05/20 03/05/20 03/05/20 Range/Units 05:39 05:39 06:34 PT 12.1 H (9.0-12.0) sec INR 1.2 H (<1.2) APTT 52.5 H (22.0-30.0) sec Sodium 136 L (137-145) mmol/L Glucose 133 H (74-99) mg/dL POC Glucose (mg/dL) 141 H (75-99) mg/dL Microbiology - Last 24 Hours (Table) 03/03/20 09:45 Nasal Screen MRSA/MSSA - Final Nasal Swab Assessment and Plan Assessment: 1. Severe aortic stenosis 2. Triple-vessel coronary artery disease with left main disease 3. Chronic atrial fibrillation on Coumadin for anticoagulation, last dose 02/28/2020 4. History of hypertension 5. History of hyperlipidemia line 6. Type 2 diabetes mellitus with hemoglobin A1c 6.9% 7. Hypothyroidism 8. Remote history of pneumonia 9. History of splenectomy 10. Daily EtOH use 11. Previous tobacco dependence with preoperative FEV1 59% of predicted Plan: 1. Continue aspirin, statin, beta john paul therapy. Continue IV heparin, continue to hold Coumadin 2. Encourage incentive spirometry is 10 times every hour while awake 3. Increase activity, ambulate as tolerated. Will complete 5 m walk test 4. Patient has been cleared by dentist for valve surgery 5. Our plan is for aortic valve replacement, myocardial revascularization with left internal mammary artery, endoscopic vein harvesting, and modified Newton maze for 03/06/2020 6. Continue preoperative teaching 7. Monitor for alcohol withdrawal 8. 5 m walk test completed, #1 4.63 sec, #2 4.65 sec, #3 4.52 sec. Patient tolerated well without chest pain or shortness of breath 9. Management of other comorbid conditions per primary care service 10. More recommendations to follow Time with Patient: Greater than 30
[2020-03-05] MEDS ORDERED: lisinopriL 10 MG TAB PO SCH (11:00)
--- NOTE | 2020-03-05 11:05 | P.PN ---
Subjective Progress Note Date: 03/05/20 CHIEF COMPLAINT: Triple vessel disease HISTORY OF PRESENT ILLNESS: Patient examined this morning the bedside. Patient denies chest pain. He denies shortness of breath. He is sitting up in the chair. Patient is scheduled for aortic valve replacement with bypass tomorrow. Blood pressure slightly elevated this morning at 149/98. Heart rate in the 80s. He remains in atrial fibrillation. Nursing reports patient has been having frequent PVCs. Potassium 4.5. Magnesium 2.0. PHYSICAL EXAM: VITAL SIGNS: Reviewed. GENERAL: Well-developed in no acute distress. NECK: Supple. No JVD or thyromegaly LUNGS: Respirations even and unlabored. Lungs essentially clear to auscultation bilaterally. HEART: Irregular rate and rhythm. S1 and S2 heard. Systolic murmur. EXTREMITIES: Normal range of motion. No clubbing or cyanosis. Peripheral pulses intact. No lower extremity edema ASSESSMENT: Severe aortic stenosis Multivessel coronary artery disease Persistent atrial fibrillation PLAN: Continue current cardiac medications Lisinopril on hold secondary to scheduled open heart per CTS orders Patient scheduled for aortic valve replacement with bypass tomorrow Nurse practitioner note has been reviewed by physician. Signing provider agrees with the documented findings, assessment, and plan of care. Objective - Vital Signs Vital signs: Vital Signs Temp 98.3 F 03/05/20 03:52 Pulse 87 03/05/20 08:00 Resp 16 03/05/20 08:00 BP 149/98 03/05/20 08:00 Pulse Ox 98 03/05/20 08:00 Intake & Output 03/04/20 03/05/20 03/05/20 18:59 06:59 18:59 Intake Total 180.593 4131 Balance 566.993 2532 Weight 100 kg Intake: Intake, IV Titration 226.243 825 Amount Heparin Sod,Pork in 0.45% 226.243 NaCl 25,000 unit In 0.45 % NaCl 1 250ml.bag @ 9.8 UNITS/KG/HR 9.996 mls/hr IV .Q24H [facility] Rx#: [id number] Sodium Chloride 0.9% 1, 825 000 ml @ 75 mls/hr IV . [id number] [facility] Rx#:[id number] Oral [id number] Other: # Voids 3 1 - Labs CBC & Chem 7: 03/05/20 05:39 03/05/20 05:39 Labs: Abnormal Lab Results - Last 24 Hours (Table) 03/04/20 03/04/20 03/04/20 Range/Units 12:20 16:41 20:07 PT (9.0-12.0) sec INR (<1.2) APTT (22.0-30.0) sec Sodium (137-145) mmol/L Glucose (74-99) mg/dL POC Glucose (mg/dL) 156 H 130 H 209 H (75-99) mg/dL Crossmatch 03/05/20 03/05/20 03/05/20 Range/Units 05:39 05:39 05:39 PT 12.1 H (9.0-12.0) sec INR 1.2 H (<1.2) APTT 52.5 H (22.0-30.0) sec Sodium 136 L (137-145) mmol/L Glucose 133 H (74-99) mg/dL POC Glucose (mg/dL) (75-99) mg/dL Crossmatch See Detail 03/05/20 Range/Units 06:34 PT (9.0-12.0) sec INR (<1.2) APTT (22.0-30.0) sec Sodium (137-145) mmol/L Glucose (74-99) mg/dL POC Glucose (mg/dL) 141 H (75-99) mg/dL Crossmatch Microbiology - Last 24 Hours (Table) 03/03/20 09:45 Nasal Screen MRSA/MSSA - Final Nasal Swab
[2020-03-05 12:14] LABS: Glucose,Whole Blood 167 mg/dL (75-99)
[2020-03-05 16:43] LABS: Glucose,Whole Blood 146 mg/dL (75-99)
[2020-03-05 20:15] LABS: Glucose,Whole Blood 192 mg/dL (75-99)
[2020-03-05] MEDS: HEPARIN SOD,PORK IN 0.45% NACL 25,000 UNIT in 0.45% NACL 1 250ML.BAG IV SCH (21:27)
[2020-03-06 04:04] LABS: Basophils # (A) 0.1 k/uL (0-0.2); Basophils % (A) 1 %; Eosinophils # (A) 0.1 k/uL (0-0.7); Eosinophils % (A) 2 %; HCT 44.9 % (39.0-53.0); HGB 14.4 gm/dL (13.0-17.5); Lymphocytes # (A) 1.8 k/uL (1.0-4.8); Lymphocytes % (A) 27 %; MCHC 32.1 g/dL (31.0-37.0); MCV 99.8 fL (80.0-100.0); Mean Platelet Volume 7.9; Monocytes # (A) 0.6 k/uL (0-1.0); Monocytes % (A) 9 %; Neutrophils # (A) 3.9 k/uL (1.3-7.7); Neutrophils % (A) 57 %; Platelet Count 195 k/uL (150-450); RDW 13.2 % (11.5-15.5); WBC 6.9 k/uL (3.8-10.6)
[2020-03-06 04:14] LABS: INR 1.1 (<1.2); Partial Thromboplastin Time 54.3 sec (22.0-30.0); Prothrombin Time 11.6 sec (9.0-12.0)
[2020-03-06] MEDS ORDERED: ceFAZolin 2 GM in SODIUM CHLORIDE 0.9% 30 ML IVPB ONE (05:00)
[2020-03-06] MEDS ORDERED: ALBUMIN HUMAN 5% 500 ML in EMPTY BAG 1 BAG IVPB ONE ×6 (05:00)
[2020-03-06] MEDS ORDERED: PROTAMINE SULFATE 250 MG in EMPTY BAG 1 BAG IV ONE (05:00)
[2020-03-06] MEDS ORDERED: LACTATED RINGERS 1,000 ML IV SCH (05:00)
[2020-03-06] MEDS ORDERED: ceFAZolin 2,000 MG in SODIUM CHLORIDE 0.9% 30 ML IVPB ONE (05:00)
[2020-03-06] MEDS ORDERED: SODIUM BICARB 8.4% 50 ML SYR (1 MEQ/ML) IV ONE (05:00)
[2020-03-06] MEDS ORDERED: PROTAMINE SULFATE 10 MG/ML 25 ML VIAL IV ONE ×2 (05:00→07:52)
[2020-03-06] MEDS ORDERED: ASPIRIN 325 MG TAB PO ONE (05:00)
[2020-03-06] MEDS ORDERED: METOPROLOL TARTRATE 12.5 MG TAB PO ONE (05:00)
[2020-03-06] MEDS ORDERED: ALBUMIN HUMAN 25% 50 ML in EMPTY BAG 1 BAG IVPB ONE (05:00)
[2020-03-06] MEDS ORDERED: CALCIUM CHLORIDE 100 MG/ML 10 ML SYRINGE IVP ONE (05:00)
[2020-03-06] MEDS ORDERED: ceFAZolin 1,000 MG in SODIUM CHLORIDE 0.9% IRRIGATIO 1,000 ML IRRIGATION ONE (05:00)
[2020-03-06] MEDS ORDERED: ATORVASTATIN 10 MG TAB PO ONE (05:00)
[2020-03-06] MEDS: LEVOTHYROXINE 75 MCG TAB PO SCH (05:24)
[2020-03-06] MEDS: FAMOTIDINE 20 MG TAB PO SCH (05:24)
[2020-03-06 05:33] LABS: Glucose,Whole Blood 127 mg/dL (75-99)
[2020-03-06] MEDS: INSULIN ASPART (NovoLOG) 100 UNIT/ML VIAL SQ SCH (05:41)
[2020-03-06] MEDS ORDERED: HEPARIN SODIUM,PORCINE 5,000 UNIT in SODIUM CHLORIDE 0.9% 500 ML 500 ML IV ONE (06:00)
[2020-03-06] MEDS ORDERED: NITROGLYCERIN-D5W PMX 50 MG in DEXTROSE/WATER 1 250ML.BAG IV SCH ×2 (06:00→14:10)
[2020-03-06] MEDS ORDERED: HEPARIN SODIUM 1,000 UN/ML (10ML VL) IV ONE (06:00)
[2020-03-06] MEDS ORDERED: CARDIOPLEGIC SOLN (K+ 16 MEQ/L 1,000 ML with SOD BICARB SYR 8.4% (1 MEQ/ML) 20 ML, LIDO... PERFUSION NR ×3 (06:00)
[2020-03-06] MEDS ORDERED: TRANEXAMIC ACID 2,000 MG in SODIUM CHLORIDE 0.9% 80 ML IV ONE (06:00)
[2020-03-06] MEDS ORDERED: PHENYLEPHRINE 10 MG/ML VIAL IV ONE (06:00)
[2020-03-06] MEDS ORDERED: PHENYLEPHRINE 40 MG in SODIUM CHLORIDE 0.9% 250 ML IV ONE (06:00)
[2020-03-06] MEDS ORDERED: INSULIN REGULAR 100 UNIT in SODIUM CHLORIDE 0.9% 100 ML IV SCH (06:00)
[2020-03-06] MEDS ORDERED: PAPAVERINE 360 MG in SODIUM CHLORIDE 0.9% 90 ML IV ONE ×2 (06:00→09:25)
[2020-03-06] MEDS ORDERED: MANNITOL 25% 12.5 GM/50 ML VIAL IV ONE ×2 (06:00)
[2020-03-06] MEDS ORDERED: NOREPINEPHRINE 4 MG in SODIUM CHLORIDE 0.9% 250 ML IV SCH (06:00)
[2020-03-06] MEDS ORDERED: NITROGLYCERIN-D5W PMX 25 MG/250 ML BTL IV ONE (06:00)
[2020-03-06] MEDS ORDERED: MAGNESIUM SULFATE SYG 4.06 MEQ/ML SYRINGE IV ONE (06:00)
[2020-03-06] MEDS ORDERED: CHLORHEXIDINE GLUCONATE 15 ML CUP MUCOUS MEM ONE (06:00)
[2020-03-06] MEDS ORDERED: CLEVIDIPINE BUTYRATE 25 MG in EMPTY BAG 1 BAG IV SCH ×2 (06:00→14:10)
[2020-03-06] MEDS ORDERED: ELECTROLYTE-R (PH 7.4) 1,000 ML IV.SOLN IV ONE (07:52)
[2020-03-06] MEDS ORDERED: TRANEXAMIC ACID 1,000 MG/10 ML VIAL ONE (07:52)
[2020-03-06] MEDS ORDERED: PROPOFOL 10 MG/ML 20 ML VIAL IV ONE (07:52)
[2020-03-06] MEDS ORDERED: fentaNYL (PF) 50 MCG/ML 2 ML AMP ONE (07:52)
[2020-03-06] MEDS ORDERED: CALCIUM CHLORIDE 100 MG/ML 10 ML SYRINGE ONE (07:52)
[2020-03-06] MEDS ORDERED: VECURONIUM 10 MG VIAL IV ONE (07:52)
[2020-03-06] MEDS ORDERED: ePHEDrine SULFATE/0.9% NACL/PF 50 MG/5 ML SYRINGE IV ONE (07:52)
[2020-03-06] MEDS ORDERED: MIDAZOLAM 2 MG/2 ML VIAL ONE (07:52)
[2020-03-06] MEDS ORDERED: SODIUM CHLORIDE 0.9% 250 ML BAG ONE (07:52)
[2020-03-06] MEDS ORDERED: ALBUMIN HUMAN 5% (25gm) 500 ML VIAL IVPB ONE (07:52)
[2020-03-06] MEDS ORDERED: SODIUM CHLORIDE 0.9% IRRIG 1,000 ML BTL IRRIGATION ONE (07:52)
[2020-03-06] MEDS ORDERED: HEPARIN SODIUM,PORCINE 5,000 UNIT/ML 1 ML VIAL ONE (07:52)
[2020-03-06] MEDS ORDERED: NITROGLYCERIN-D5W PMX 50 MG/250 ML BOTTLE IV ONE (07:52)
[2020-03-06] MEDS ORDERED: fentaNYL (PF) 50 MCG/ML 50 ML VIAL ONE (07:52)
[2020-03-06] MEDS ORDERED: HEPARIN SODIUM,PORCINE 10,000 UNIT/ML 1 ML VIAL ONE (07:52)
[2020-03-06 08:32] LABS: ABG Base Excess -1.1 mmol/L; ABG Glucose Whole Blood 140 mg/dL (75-99); ABG HCO3 23 mmol/L (21-25); ABG Hematocrit 44 % (34.0-46.0); ABG Ionized Calcium 4.6 mg/dL (4.5-5.3); ABG Lactic Acid Whole Blood 0.7 mmol/L (0.5-1.6); ABG Oxygen Saturation 99.7 % (94-97); ABG PCO2 37 mmHg (35-45); ABG PO2 188 mmHg (83-108); ABG Sodium Whole Blood 140 mmol/L (135-146); ABG TCO2 25 mmol/L (19-24)
--- NOTE | 2020-03-06 09:12 | P.ANPRN ---
Procedure Note - Anesthesia - Invasive Line Right Arterial Line Time Out Performed: Yes ([id number]) Date of Procedure: 03/06/20 Time of Procedure: 07:29 Location of Patient: PreOp Preparation: Sterile Prep, Sterile Dressing Arterial Line Location: Brachial Ultrasound Used: Yes Purpose - Visualization and Identification of Vasculature: Yes Needle Guage: 20g Image Stored and Saved: Yes Narrative: Central line placement per sterile protocol utilized. B/l radial arteries calcified and small. Attempt right radial with no success. Moved to right brachial with ultrasound. one attempt. uneventful. Right Central Line Time Out Performed: Yes ([id number]) Date of Procedure: 03/06/20 Time of Procedure: 07:35 Location of Patient: PreOp Preparation: Sterile Prep Arterial Line Location: Brachial Ultrasound Used: Yes Purpose - Visualization and Identification of Vasculature: Yes Needle Guage: 18 angio Image Stored and Saved: Yes Narrative: Central line placement per sterile protocol utilized. + local +angio +cvp +jwire +uneventful dilationa nd introduction right IJ cordis Right [place] Time Out Performed: Yes ([id number]) Date of Procedure: 03/06/20 Time of Procedure: 07:46 Location of Patient: PreOp Preparation: Sterile Prep Arterial Line Location: Brachial Ultrasound Used: No Purpose - Visualization and Identification of Vasculature: No Image Stored and Saved: No Narrative: Central line placement per sterile protocol utilized. Marco A floated in sterile protocol in sheath to wedge 59 cm. W/d to 55cm. Balloon down and secured.
[2020-03-06] MEDS ORDERED: ceFAZolin 1,000 MG in SODIUM CHLORIDE 0.9% 1,000 ML IRRIGATION ONE (09:25)
[2020-03-06] MEDS ORDERED: SODIUM CHLORIDE 0.9% 500 ML 500 ML with HEPARIN SODIUM,PORCINE 5,000 UNIT IV ONE ×2 (09:25)
[2020-03-06 10:00] LABS: ABG Base Excess -3.1 mmol/L; ABG Glucose Whole Blood 167 mg/dL (75-99); ABG HCO3 22 mmol/L (21-25); ABG Hematocrit 41 % (34.0-46.0); ABG Ionized Calcium 4.6 mg/dL (4.5-5.3); ABG Lactic Acid Whole Blood 1.3 mmol/L (0.5-1.6); ABG Oxygen Saturation 99.9 % (94-97); ABG PCO2 41 mmHg (35-45); ABG PH 7.35 (7.35-7.45); ABG PO2 307 mmHg (83-108); ABG Potassium Whole Blood 4.2 mmol/L (3.4-4.5); ABG Sodium Whole Blood 140 mmol/L (135-146); ABG TCO2 24 mmol/L (19-24)
[2020-03-06 10:32] LABS: ABG Base Excess -0.7 mmol/L; ABG Glucose Whole Blood 156 mg/dL (75-99); ABG HCO3 23 mmol/L (21-25); ABG Hematocrit 35 % (34.0-46.0); ABG Ionized Calcium 3.9 mg/dL (4.5-5.3); ABG Lactic Acid Whole Blood 1.2 mmol/L (0.5-1.6); ABG PCO2 35 mmHg (35-45); ABG PH 7.43 (7.35-7.45); ABG PO2 397 mmHg (83-108); ABG Potassium Whole Blood 4.1 mmol/L (3.4-4.5); ABG Sodium Whole Blood 138 mmol/L (135-146); ABG TCO2 24 mmol/L (19-24)
[2020-03-06 11:07] LABS: ABG Base Excess -1.6 mmol/L; ABG Glucose Whole Blood 152 mg/dL (75-99); ABG HCO3 23 mmol/L (21-25); ABG Hematocrit 36 % (34.0-46.0); ABG Ionized Calcium 4.4 mg/dL (4.5-5.3); ABG Lactic Acid Whole Blood 1.4 mmol/L (0.5-1.6); ABG PCO2 36 mmHg (35-45); ABG PH 7.41 (7.35-7.45); ABG PO2 299 mmHg (83-108); ABG Potassium Whole Blood 4.4 mmol/L (3.4-4.5); ABG Sodium Whole Blood 139 mmol/L (135-146); ABG TCO2 24 mmol/L (19-24)
[2020-03-06 11:39] LABS: ABG Base Excess -1.3 mmol/L; ABG Glucose Whole Blood 150 mg/dL (75-99); ABG HCO3 23 mmol/L (21-25); ABG Hematocrit 34 % (34.0-46.0); ABG Ionized Calcium 4.5 mg/dL (4.5-5.3); ABG Lactic Acid Whole Blood 1.5 mmol/L (0.5-1.6); ABG PCO2 35 mmHg (35-45); ABG PH 7.42 (7.35-7.45); ABG PO2 329 mmHg (83-108); ABG Potassium Whole Blood 4.2 mmol/L (3.4-4.5); ABG Sodium Whole Blood 139 mmol/L (135-146); ABG TCO2 24 mmol/L (19-24)
[2020-03-06] MEDS ORDERED: METOCLOPRAMIDE 5 MG/ML 2 ML VIAL IVP PRN (14:10)
[2020-03-06] MEDS ORDERED: CALCIUM GLUCONATE 2 GM in SODIUM CHLORIDE 0.9% 100 ML IVPB PRN (14:10)
[2020-03-06] MEDS ORDERED: AMIODARONE 300 MG in DEXTROSE 5% IN WATER 250 ML IV PRN ×2 (14:10)
[2020-03-06] MEDS ORDERED: DEXMEDETOMIDINE/0.9% NACL(PMX) 400 MCG in EMPTY BAG 1 BAG IV SCH (14:10)
[2020-03-06] MEDS ORDERED: BENZOCAINE/MENTHOL LOZENG 1 EACH LOZENGE MUCOUS MEM PRN (14:10)
[2020-03-06] MEDS ORDERED: DEXTROSE 5% IN WATER 100 ML with AMIODARONE 150 MG IV PRN (14:10)
[2020-03-06] MEDS ORDERED: Potassium Replacement Protocol 1 EACH MISC MISCELLANE PRN (14:10)
[2020-03-06] MEDS ORDERED: Phosphorus Replacement Protoco 1 EACH MISC MISCELLANE PRN (14:10)
[2020-03-06] MEDS ORDERED: AMIODARONE 360 MG in DEXTROSE 5% IN WATER 200 ML IV PRN ×2 (14:10)
[2020-03-06] MEDS ORDERED: IPRATROPIUM-ALBUTEROL 3 ML NEB INHALATION PRN (14:10)
[2020-03-06] MEDS ORDERED: ONDANSETRON 4 MG/2 ML VIAL IVP PRN (14:10)
[2020-03-06] MEDS ORDERED: Magnesium Replacement Protocol 1 EACH MISC MISCELLANE PRN (14:10)
[2020-03-06] MEDS ORDERED: hydrALAZINE HCL 20 MG/ML 1 ML VIAL IVP PRN (14:10)
[2020-03-06] MEDS: FOLIC ACID-VIT B COMPLEX-VIT C 1 CAP PO SCH (14:23)
--- NOTE | 2020-03-06 14:54 | P.OP ---
Date of Procedure: 03/06/20 Preoperative Diagnosis: Aortic valve stenosis, coronary artery disease, atrial fibrillation Postoperative Diagnosis: Same Procedure(s) Performed: Aortic valve replacement with 25 mm Inspiris bovine pericardial valve prosthesis, CABG 4 with KISER to LAD, saphenous vein graft to obtuse marginal, sequential saphenous vein graft to posterior descending and posterior lateral branches of the right coronary artery, modified Newton maze procedure with bilateral pulmonary vein ablation with AtriCure bipolar clamp and ligation of the left atrial appendage with a 40 mm AtriCure clip, epi-aortic ultrasound. Implants: 25 mm aortic bovine pericardial prosthesis, 40 mm clip on the left atrial appendage Anesthesia: [facility] Surgeon: Sai Harris Estimated Blood Loss (ml): 200 IV fluids (ml): 2,000 Urine output (ml): 500 Pathology: other (Aortic valve) Condition: stable Disposition: ICU Indications for Procedure: 74-year-old male who presents with fatigue and dyspnea. This is been progressive over a six-month period. He has known aortic stenosis and this was demonstrated to have significantly worsened with a valve area of 0.8. Cardiac catheterization demonstrated left main triple-vessel disease. Patient has known atrial fibrillation which has been persistent. Given the severity of his coronary artery disease coupled with his severe , urgent surgery was warranted and the patient was scheduled at the same admission after his catheterization. Operative Findings: There was significant LVH with hypertrophy of the heart. Atria were moderately enlarged. The patient was in atrial fibrillation but successfully defibrillated to sinus rhythm. Was diffuse coronary artery disease with significant calcification throughout. The LAD was a diffusely diseased vessel which was grafted in its midportion and a soft spot. The circumflex coronary artery lead to a large obtuse marginal which was calcified proximally but became soft as it disappeared intramyocardial and was grafted here. The RCA bifurcated into 2 relatively small inferior wall branches, the PDA and HOMAR, each of these was 1.5 mm in diameter with diffuse calcific disease present in each was grafted in a soft spot. The aortic valve was tricuspid and heavily calcific. Description of Procedure: The patient was brought to the operating room, placed supine on the operating table, anesthetized and intubated. [place]-Randall catheter is placed via the right internal jugular approach and right brachial arterial line was placed in the preop holding area. This patient was appropriately positioned on the table general anesthesia was induced and she was intubated. The anterior torso and lower extremities were sterilely prepped and draped. The left greater saphenous vein was harvested from groin to ankle and was of reasonable quality. Best portions were used. Simultaneous sternotomy was performed a left hemisternum retracted upwards and the left internal mammary artery harvested on a vascularized pedicle. It was an excellent conduit. Left pleural space was drained with 32-Nepali chest tube. Standard sternal retractor was placed. Her pericardium was opened in the midline and the heart was exposed with pericardial sutures. There were moderate interpericardial adhesions which were taken down. The patient was systemically heparinized and the heart cannulated for cardiop legia bypass with a 7 mm soft flow cannula in the distal ascending aorta and a two-stage venous cannula through the right atrium into the inferior vena cava. Antegrade and retrograde cardioplegia lines were placed in standard fashion. The patient was placed on cardiopulmonary bypass and stabilized. The right-sided pulmonary veins were dissected out bluntly and encircled with the AtriCure clamp. Clamp was placed across the left atrium at the base of the right sided pulmonary veins and 2 parallel ablation lines were performed. The clamp was removed and the left pulmonary veins were identified. The ligament of Josh was taken down with electrocautery. The veins were encircled and AtriCure clamp placed across the left atrium at the entry of the left-sided pulmonary veins and 2 parallel lines were again performed. Clamp was removed. The adhesions around the left atrial appendage were taken down and a 40 mm AtriCure clip was placed across the base of the left atrial appendage. The heart was lowered into anatomic position. The aorta was crossclamped and the heart arrested with cold crystalloid antegrade cardioplegia followed by retrograde cardioplegia. Coronary arteries had been identified and marked. We started with the saphenous vein graft to the posterior lateral branch of the coronary artery. This vessel was opened and was 1.5 mm in diameter. End-to-side anastomosis between saphenous vein and HOMAR was performed. On completion of the anastomosis it was probed and noted to be patent with a 1.5 mm probe. Suture was tied and good hemostasis was noted. Longitudinal incision was made in the vein more proximally an appropriate place to bypass the PDA sequentially. PDA was also a 1.5 mm diseased vessel was opened. It had a 1.5 mm lumen. [id number]-[id number] anastomosis between the vein and the PDA was performed with running 7-0 Prolene suture. Completion anastomosis was probed and noted to be patent proximally and distally suture was tied with good resultant hemostasis. The vein was cut to appropriate length to reach the ascending aorta. Next the lateral wall the heart was exposed and the major marginal branch dissected out as it entered the myocardium. Was opened here. Was a 2 mm vessel. Second piece of saphenous vein was anastomosed in end-to-side fashion with running 7-0 Prolene suture. On completion anastomosis it was probed proximally and distally with a 2 mm probe and noted to be patent. Suture was tied with good resultant hemostasis. Vein was cut to appropriately to reach the ascending aorta. Next the KISER was tunneled into the pericardium and the end prepared appropriately. The LAD was grafted in its midportion and a soft spot. It was opened and accepted a 2 mm probe proximally and distally. End-to-side anastomosis between the KISER and the LAD was performed with running 8-0 Prolene suture. On completion anastomosis it was probed and noted be patent and suture was tied with good result and hemostasis. Another dose of retrograde cardioplegia was now given. The aorta was opened transversely and the aortic valve exposed. The heavily calcified valve and it was excised. The annulus was decalcified. Circumferential valve sutures of 2-0 Tycron were placed with pledgets on the ventricular side to allow a supra- annular implantation. The annulus was sized and a 25 mm Inspiris bovine pericardial valve was opened and brought up on the field. Valve sutures were placed through sewing ring of the valve and it was seated without difficulty. Sutures were tied and cut and the valve was noted to its seated well. Copious irrigation was performed during debridement prior to valve implant and following valve implant. We now proceeded with aortic closure. The aorta was closed with a 2 layer running 4-0 Prolene suture line. 24 mm punch holes were created in the ascending aorta and the proximal anastomosis performed with running 6-0 Prolene suture. On completion of the proximal anastomoses the patient was plac ed in Trendelenburg cross-clamp was removed bulldog was removed from the KISER and air holes were created in the vein grafts with a fine needle and then the bulldog clamps removed from the vein grafts. Retrograde cardioplegia line was removed and atrial and ventricular pacing wires were placed. The patient was AV paced. The patient was de-aired under STEFANIE guidance with a 16-gauge Angiocath in the apex of the left ventricle. The site was oversewn with a 6-0 Prolene suture. Antegrade cardioplegia line was removed from the ascending aorta and pursestring tied with good hemostasis. After rewar estephanie to systemic temperature from a lv of 34, patient was weaned from cardiopulmonary bypass without the use of inotropic support. Heparin was reversed with protamine and hemostasis obtained throughout. Patient was decannulated in standard fashion. The aortic cannulation site was reinforced with a 40 pledgeted Prolene suture. Once we assured good hemostasis the mediastinum was drained with 236-Nepali chest tubes. Mediastinum was then irrigated with antibiotic solution and the sternum closed with 8 sternal wires. The fascia was closed with 0 Ethibond subcutaneous and subcuticular layers with layers of Vicryl suture. Subcutaneous and subcuticular layers were closed with layers of Vicryl suture in both the leg and chest. Patient remained hemodynamically stable and was transferred to the ICU in stable condition. STEFANIE at conclusion of the case showed excellent valve function excellent ventricular function and no evidence of paravalvular leak.
[2020-03-06 15:05] LABS: Glucose,Whole Blood 112 mg/dL (75-99)
[2020-03-06 15:17] LABS: Glucose,Whole Blood 119 mg/dL (75-99)
[2020-03-06 15:18] LABS: ABG HCO3 26 mmol/L (21-25); ABG Oxygen Saturation 99.4 % (94-97); ABG PCO2 47 mmHg (35-45); ABG PH 7.34 (7.35-7.45); ABG PO2 352 mmHg (83-108); ABG TCO2 27 mmol/L (19-24)
[2020-03-06] MEDS: LACTATED RINGERS 1,000 ML IV SCH (15:22)
--- NOTE | 2020-03-06 15:23 | XR ---
EXAMINATION TYPE: XR chest 1V portable DATE OF EXAM: 03/06/2020 Comparison: 03/03/2020 Clinical History: 74-year-old male Post Operative Cardiac Surgery Findings: ET tube is satisfactory. NG tube courses below the diaphragm. Median sternotomy wires with prosthetic aortic valve. [place]-Randall catheter in the proximal right main pulmonary artery. Mediastinal drain. Epi cardial pacer leads. Surgical clips left upper quadrant. Left-sided chest tube is present. No appreci able pneumothorax. The mild strandy atelectasis mid and lower lungs and retrocardiac region. No sizab le effusion. Heart borderline enlarged. Impression: Borderline heart size and some strandy postsurgical atelectasis.
[2020-03-06 15:24] LABS: Basophils % (A) 0 %; Eosinophils % (A) 0 %; HCT 35.6 % (39.0-53.0); HGB 11.8 gm/dL (13.0-17.5); Lymphocytes # (A) 1.1 k/uL (1.0-4.8); Lymphocytes % (A) 9 %; MCH 33.1 pg (25.0-35.0); MCV 100.3 fL (80.0-100.0); Mean Platelet Volume 8.4; Monocytes # (A) 0.5 k/uL (0-1.0); Monocytes % (A) 4 %; Neutrophils # (A) 11.4 k/uL (1.3-7.7); Neutrophils % (A) 87 %; Platelet Count 123 k/uL (150-450); RBC 3.55 m/uL (4.30-5.90); RDW 13.5 % (11.5-15.5); WBC 13.1 k/uL (3.8-10.6)
[2020-03-06] MEDS: INSULIN REGULAR 100 UNIT in SODIUM CHLORIDE 0.9% 100 ML IV SCH (15:24)
[2020-03-06 15:27] LABS: Ionized Calcium 4.6 mg/dL (4.5-5.3)
[2020-03-06 15:33] LABS: Partial Thromboplastin Time 38.8 sec (22.0-30.0)
[2020-03-06 15:35] LABS: ALT 19 U/L (4-49); AST 57 U/L (17-59); African American GFR (CKD) >90 (>60 ml/min/1.73 sqM); Albumin 2.9 g/dL (3.5-5.0); Alkaline Phosphatase 41 U/L (38-126); Anion Gap 5 mmol/L; Blood Urea Nitrogen 8 mg/dL (9-20); Calcium 7.9 mg/dL (8.4-10.2); Carbon Dioxide 26 mmol/L (22-30); Chloride 109 mmol/L (98-107); Glucose 115 mg/dL (74-99); Non-African American GFR(CKD) >90 (>60 ml/min/1.73 sqM); Sodium 140 mmol/L (137-145); Total Bilirubin 0.8 mg/dL (0.2-1.3); Total Protein 4.9 g/dL (6.3-8.2)
[2020-03-06] MEDS ORDERED: IPRATROPIUM-ALBUTEROL 3 ML NEB INHALATION SCH (16:00)
[2020-03-06 16:04] LABS: Glucose,Whole Blood 127 mg/dL (75-99)
[2020-03-06 17:00] LABS: Glucose,Whole Blood 132 mg/dL (75-99)
[2020-03-06 17:13] LABS: Basophils % (A) 0 %; Eosinophils % (A) 0 %; HCT 36.8 % (39.0-53.0); HGB 11.9 gm/dL (13.0-17.5); Lymphocytes % (A) 8 %; MCH 32.5 pg (25.0-35.0); MCHC 32.4 g/dL (31.0-37.0); MCV 100.3 fL (80.0-100.0); Mean Platelet Volume 8.5; Monocytes # (A) 0.7 k/uL (0-1.0); Monocytes % (A) 6 %; Neutrophils # (A) 9.9 k/uL (1.3-7.7); Neutrophils % (A) 85 %; Platelet Count 120 k/uL (150-450); RBC 3.67 m/uL (4.30-5.90); RDW 13.5 % (11.5-15.5); WBC 11.7 k/uL (3.8-10.6)
[2020-03-06 17:35] LABS: ABG Base Excess -0.5 mmol/L; ABG HCO3 25 mmol/L (21-25); ABG Oxygen Saturation 98.8 % (94-97); ABG PCO2 44 mmHg (35-45); ABG PH 7.37 (7.35-7.45); ABG PO2 153 mmHg (83-108); ABG TCO2 26 mmol/L (19-24)
[2020-03-06] MEDS: KETOROLAC 15 MG/ML 1 ML VIAL IVP SCH (17:38)
[2020-03-06] MEDS: ACETAMINOPHEN IV (For NPO) 1,000 MG in EMPTY BAG 1 BAG IVPB SCH (17:39)
[2020-03-06 18:01] LABS: Glucose,Whole Blood 152 mg/dL (75-99)
[2020-03-06 19:01] LABS: Glucose,Whole Blood 159 mg/dL (75-99)
[2020-03-06] MEDS: IPRATROPIUM-ALBUTEROL 3 ML NEB INHALATION SCH (19:09)
[2020-03-06 20:09] LABS: Glucose,Whole Blood 171 mg/dL (75-99)
[2020-03-06 20:14] LABS: Basophils % (A) 0 %; Eosinophils % (A) 0 %; HCT 36.7 % (39.0-53.0); HGB 11.8 gm/dL (13.0-17.5); Lymphocytes # (A) 0.5 k/uL (1.0-4.8); Lymphocytes % (A) 4 %; MCH 32.3 pg (25.0-35.0); MCHC 32.1 g/dL (31.0-37.0); MCV 100.5 fL (80.0-100.0); Macrocytosis Slight; Mean Platelet Volume 8.9; Monocytes # (A) 0.5 k/uL (0-1.0); Monocytes % (A) 4 %; Neutrophils # (A) 10.8 k/uL (1.3-7.7); Neutrophils % (A) 90 %; Platelet Count 135 k/uL (150-450); RBC 3.65 m/uL (4.30-5.90); RDW 13.5 % (11.5-15.5)
[2020-03-06 21:05] LABS: Glucose,Whole Blood 158 mg/dL (75-99)
[2020-03-06] MEDS: HEPARIN SODIUM,PORCINE 5,000 UNIT/ML 1 ML VIAL SQ SCH (21:39)
[2020-03-06 22:06] LABS: Glucose,Whole Blood 151 mg/dL (75-99)
[2020-03-06 23:06] LABS: Glucose,Whole Blood 125 mg/dL (75-99)
[2020-03-07 00:08] LABS: Glucose,Whole Blood 115 mg/dL (75-99)
[2020-03-07] MEDS: KETOROLAC 15 MG/ML 1 ML VIAL IVP SCH ×4 (00:43→17:09)
[2020-03-07] MEDS: ACETAMINOPHEN IV (For NPO) 1,000 MG in EMPTY BAG 1 BAG IVPB SCH (01:00)
[2020-03-07 01:07] LABS: Glucose,Whole Blood 119 mg/dL (75-99)
[2020-03-07] MEDS: ALBUMIN HUMAN 5% 250 ML in EMPTY BAG 1 BAG IVPB PRN ×3 (01:07→07:10)
[2020-03-07 02:02] LABS: Glucose,Whole Blood 121 mg/dL (75-99)
[2020-03-07 03:11] LABS: Glucose,Whole Blood 124 mg/dL (75-99)
[2020-03-07 04:17] LABS: Glucose,Whole Blood 122 mg/dL (75-99)
[2020-03-07 04:40] LABS: Basophils % (A) 0 %; Eosinophils % (A) 0 %; HGB 10.5 gm/dL (13.0-17.5); Lymphocytes # (A) 0.8 k/uL (1.0-4.8); Lymphocytes % (A) 9 %; MCH 31.9 pg (25.0-35.0); MCHC 31.8 g/dL (31.0-37.0); MCV 100.2 fL (80.0-100.0); Mean Platelet Volume 8.6; Monocytes # (A) 0.6 k/uL (0-1.0); Monocytes % (A) 6 %; Neutrophils # (A) 7.8 k/uL (1.3-7.7); Neutrophils % (A) 83 %; Platelet Count 112 k/uL (150-450); RBC 3.29 m/uL (4.30-5.90); RDW 13.5 % (11.5-15.5); WBC 9.3 k/uL (3.8-10.6)
[2020-03-07 04:48] LABS: Ionized Calcium 4.7 mg/dL (4.5-5.3)
[2020-03-07 04:57] LABS: ALT 20 U/L (4-49); AST 90 U/L (17-59); African American GFR (CKD) >90 (>60 ml/min/1.73 sqM); Alkaline Phosphatase 39 U/L (38-126); Anion Gap 7 mmol/L; Blood Urea Nitrogen 11 mg/dL (9-20); Calcium 7.9 mg/dL (8.4-10.2); Carbon Dioxide 25 mmol/L (22-30); Chloride 104 mmol/L (98-107); Glucose 118 mg/dL (74-99); Magnesium 2.6 mg/dL (1.6-2.3); Non-African American GFR(CKD) >90 (>60 ml/min/1.73 sqM); Potassium 4.2 mmol/L (3.5-5.1); Sodium 136 mmol/L (137-145); Total Bilirubin 0.8 mg/dL (0.2-1.3); Total Protein 4.9 g/dL (6.3-8.2)
[2020-03-07 05:00] LABS: INR 1.2 (<1.2); Prothrombin Time 11.7 sec (9.0-12.0)
[2020-03-07 05:00] LABS: Glucose,Whole Blood 118 mg/dL (75-99)
[2020-03-07] MEDS: HYDROcodone/APAP 5-325MG 1 EACH TAB PO PRN ×3 (05:06→14:11)
[2020-03-07] MEDS ORDERED: HYDROcodone/APAP 5-325MG 1 EACH TAB PO PRN (06:00)
[2020-03-07 06:21] LABS: Glucose,Whole Blood 121 mg/dL (75-99)
[2020-03-07] MEDS: LEVOTHYROXINE 75 MCG TAB PO SCH (06:30)
[2020-03-07 07:56] LABS: Glucose,Whole Blood 104 mg/dL (75-99)
[2020-03-07] MEDS: SODIUM CHLORIDE 0.9% 1,000 ML IV SCH (08:01)
--- NOTE | 2020-03-07 08:39 | P.PN ---
Subjective Progress Note Date: 03/07/20 Principal diagnosis: Severe aortic valve stenosis, triple-vessel coronary artery disease with left main disease. Past medical history significant for chronic paroxysmal atrial fibrillation on Coumadin anticoagulation, hypertension, hyperlipidemia, type 2 diabetes mellitus with preoperative hemoglobin A1c 6.9%, hypothyroidism, remote history of pneumonia, splenectomy status post fall, daily EtOH use, and remote history of tobacco dependence with preoperative FEV1 59% of predicted. POD #1 aortic valve replacement with a 25 mm Inspiris bovine pericardial valve prosthesis, coronary artery bypass grafting 4 with left internal mammary artery to left anterior descending coronary artery, reverse greater saphenous vein graft to the obtuse marginal, and reverse greater sequential vein grafts to the posterior descending coronary artery and posterior lateral branches of the right coronary artery, modified Newton maze procedure with bilateral pulmonary vein ablation with the Atricure bipolar clamp and ligation of the left atrial appendage with a 40 mm Atricure clip, epi-aortic ultrasound and intraoperative transesophageal echocardiogram. Postoperative acute blood loss anemia, expected given cardiopulmonary bypass and hemodilution. The patient is currently sitting up to the bedside chair in the intensive care unit, he is awake, alert and oriented 3. Denies any complaints of shortness of breath and is complaining of some surgical type pain to his left chest tube inse rtion site. He was successfully extubated last night at 17:53 p.m. and is currently on 2 L nasal cannula with oxygen saturation is 96%. He is achieving 1500 mL on his incentive spirometry with encouragement. Right IJ [place] catheter remains in place with current hemodynamics showing a cardiac output of 4.1, cardiac index 1.9, PA pressures 27/12 and CVP 6 mmHg. Mediastinal and left pleural chest tubes remain in place to low continuous wall suction at -20 cm H2O. No air leak is present. Draining thin serosanguineous drainage. Mediastinal chest tubes drained 190 mL output in the last 8 hours, and 550 mL output since surgery. Left pleural chest tubes drained 105 mL output in the last 8 hours, 250 mL output since surgery. The patient's blood pressure currently is 99/64 and his urine output for the last hour was 5 mL. Albumin 5% 250 mL was ordered and infusing. Atrial and ventricular epicardial pacemaker wires remain in place, currently he has AV pacing DDD with a heart rate of 80 BPM. Underlying rhythm showing accelerated junctional heart rate 77 BPM. Objective - Vital Signs Vital signs: Vital Signs Temp 97.3 F L 03/06/20 19:00 Pulse 79 03/07/20 07:00 Resp 12 03/07/20 07:00 BP 99/64 03/07/20 07:00 Pulse Ox 99 03/07/20 07:00 Intake & Output 03/06/20 03/07/20 03/07/20 18:59 06:59 18:59 Intake Total 4306.810 6329.784 100.918 Output Total 2496 875 55 Balance -1373.786 7517.784 45.918 Weight 108.7 kg Intake: IV 267 1684.5 89 ACETAMINOPHEN IV (For NPO 100 ) 1,000 mg In Empty Bag 1 bag @ 400 mls/hr IVPB Q6HR [facility] Rx#:[id number] Albumin Human 5% 250 ml 500 In Empty Bag 1 bag @ 250 mls/hr IVPB Q1HR PRN Rx#: [id number] Lactated Ringers 1,000 ml 150 570 50 @ 50 mls/hr IV .Q20H [facility] Rx#:[id number] Nitroglycerin-D5w Pmx 50 16.5 mg In Dextrose/Water 1 250ml.bag @ 5 MCG/MIN 1.5 mls/hr IV .Q24H [facility] Rx#: [id number] Pressure bags 36 108 9 Sodium Chloride 0.9% 1, 75 000 ml @ 75 mls/hr IV . [id number] [facility] Rx#:[id number] ceFAZolin 2 gm In Sodium 50 Chloride 0.9% 50 ml @ 100 mls/hr IVPB Q8HR [facility] Rx# :[id number] co/ci injectate 340 30 Intake, IV Titration 163.396 20.284 11.918 Amount ACETAMINOPHEN IV (For NPO 100 ) 1,000 mg In Empty Bag 1 bag @ 400 mls/hr IVPB Q6HR [facility] Rx#:[id number] Insulin Regular 100 unit 0.328 20.284 11.918 In Sodium Chloride 0.9% 100 ml @ Per Protocol IV .Q0M [facility] Rx#:[id number] ceFAZolin 2 gm In Sodium 50 Chloride 0.9% 50 ml @ 100 mls/hr IVPB Q8HR [facility] Rx# :[id number] propofoL 1,000 mg In 13.068 Empty Bag 1 bag @ Titrate IV .Q0M [facility] Rx#: [id number] Oral 1460 Blood Product 767 Ffp 24 Cpd Unit 267 [id number] Ffp 24 Cpd Unit 294 [id number] Platelet Irr Pheresis 206 Acda1 Unit [id number] Output: Chest Tube Drainage 197 531 40 Bilateral Mediastinal 150 350 20 Left 47 181 20 Urine 799 344 15 Estimated Blood Loss 1500 Other: Voiding Method Indwelling Catheter ABP, PAP, CO, CI - Last Documented Arterial Blood Pressure 99/48 Pulmonary Artery Pressure 24/10 Cardiac Output 4.1 Cardiac Index 1.9 - Constitutional General appearance: Present: cooperative, no acute distress, obese - EENT Eyes: Present: PERRLA, dentition normal, normal appearance. Absent: scleral icterus ENT: Present: hearing grossly normal - Neck Details: Neck is supple, no JVD. Right IJ cordis with [place] catheter in place and functioning. - Respiratory Details: Lung sounds essentially clear throughout, diminished to his bilateral bases. No wheezes, rhonchi or crackles. Respirations are symmetrical and nonlabored. Oxygen saturation is 96% on 2 L nasal cannula. Achieving 1500 mL on his incentive spirometry. Mediastinal and left pleural chest tubes remain in place to low continuous wall suction at -20 cm H2O. No air leak is present. Draining thin serosanguineous drainage. Mediastinal chest tubes drained 190 mL output in the last 8 hours, and 550 mL output since surgery. Left pleural chest tubes drained 105 mL output in the last 8 hours, 250 mL output since surgery. - Cardiovascular Details: Regular rhythm and rate. S1 and S2 present, negative for S3, gallop or murmur. Sternum is stable. Bedside telemetry showing DDD paced rhythm heart rate 80 ppm, underlying rhythm accelerated junctional heart rate 77. Atrial and ventricular epicardial pacemaker wires remain in place and connected to back up to bedside pacemaker generator on a DDD mode of 80 BPM. +1 edema to his bilateral lower extremities. Right IJ Cordis with [place] catheter in place, current hemodynamics showing a cardiac output of 4.1, cardiac index 1.9, PA pressures 27/12, CVP 6 mmHg. Knee-high MITZI hose and sequential compression devices in place to his bilateral lower extremities. Heart hugger is in place and he is demonstrating appropriate use. - Gastrointestinal Gastrointestinal Comment(s): Abdomen soft, nontender and nondistended. Active bowel sounds present in all 4, quadrants. No guarding or rigidity. No organomegaly appreciated. Tolerating oral intake. Passing flatus. - Genitourinary Genitourinary Comment(s): Andersen catheter for accurate I&O. Draining clear yellow urine with 210 mL output last 8 hours. - Integumentary Integumentary Comment(s): Skin is warm and dry. No clubbing or cyanosis is present. Midline sternal incision is clean, dry and approximated. No drainage or redness is present. Exofin dressing is clean, dry and in place. Left lower extremity EVH site is clean, dry and approximated. No drainage or redness is present. - Neurologic Neurologic: Present: CNII-XII intact - Musculoskeletal Musculoskeletal: Present: gait normal, generalized weakness, strength equal bilaterally - Psychiatric Psychiatric: Present: A&O x's 3, appropriate affect, intact judgment & insight - Allied health notes Allied health notes reviewed: nursing - Labs CBC & Chem 7: 03/07/20 04:15 03/07/20 04:15 Labs: Abnormal Lab Results - Last 24 Hours (Table) 03/05/20 03/06/20 03/06/20 Range/Units 05:39 08:36 10:05 WBC (3.8-10.6) k/uL RBC (4.30-5.90) m/uL Hgb (13.0-17.5) gm/dL Hct (39.0-53.0) % MCV (80.0-100.0) fL Plt Count (150-450) k/uL Neutrophils # (1.3-7.7) k/uL Lymphocytes # (1.0-4.8) k/uL INR (<1.2) APTT (22.0-30.0) sec Fibrinogen (200-500) mg/dL ABG pH (7.35-7.45) ABG pCO2 (35-45) mmHg ABG pO2 188 H 307 H (83-108) mmHg ABG HCO3 (21-25) mmol/L ABG Total CO2 25 H (19-24) mmol/L ABG O2 Saturation 99.7 H 99.9 H (94-97) % ABG Ionized Calcium (4.5-5.3) mg/dL ABG Glucose 140 H 167 H (75-99) mg/dL Hemoglobin (13.0-17.5) gm/dL Sodium (137-145) mmol/L Chloride (98-107) mmol/L BUN (9-20) mg/dL Creatinine (0.66-1.25) mg/dL Glucose (74-99) mg/dL POC Glucose (mg/dL) (75-99) mg/dL Calcium (8.4-10.2) mg/dL Magnesium (1.6-2.3) mg/dL AST (17-59) U/L Total Protein (6.3-8.2) g/dL Albumin (3.5-5.0) g/dL Arterial Blood Glucose 140 H 167 H (75-99) mg/dL Crossmatch See Detail 03/06/20 03/06/20 03/06/20 Range/Units 10:36 11:12 11:43 WBC (3.8-10.6) k/uL RBC (4.30-5.90) m/uL Hgb (13.0-17.5) gm/dL Hct (39.0-53.0) % MCV (80.0-100.0) fL Plt Count (150-450) k/uL Neutrophils # (1.3-7.7) k/uL Lymphocytes # (1.0-4.8) k/uL INR (<1.2) APTT (22.0-30.0) sec Fibrinogen (200-500) mg/dL ABG pH (7.35-7.45) ABG pCO2 (35-45) mmHg ABG pO2 397 H 299 H 329 H (83-108) mmHg ABG HCO3 (21-25) mmol/L ABG Total CO2 (19-24) mmol/L ABG O2 Saturation 100.0 H 100.0 H 100.0 H (94-97) % ABG Ionized Calcium 3.9 L 4.4 L (4.5-5.3) mg/dL ABG Glucose 156 H 152 H 150 H (75-99) mg/dL Hemoglobin 11.4 L 11.6 L 11.2 L (13.0-17.5) gm/dL Sodium (137-145) mmol/L Chloride (98-107) mmol/L BUN (9-20) mg/dL Creatinine (0.66-1.25) mg/dL Glucose (74-99) mg/dL POC Glucose (mg/dL) (75-99) mg/dL Calcium (8.4-10.2) mg/dL Magnesium (1.6-2.3) mg/dL AST (17-59) U/L Total Protein (6.3-8.2) g/dL Albumin (3.5-5.0) g/dL Arterial Blood Glucose 156 H 152 H 150 H (75-99) mg/dL Crossmatch 03/06/20 03/06/20 03/06/20 Range/Units 15:00 15:00 15:00 WBC 13.1 H (3.8-10.6) k/uL RBC 3.55 L (4.30-5.90) m/uL Hgb 11.8 L (13.0-17.5) gm/dL Hct 35.6 L (39.0-53.0) % MCV 100.3 H (80.0-100.0) fL Plt Count 123 L (150-450) k/uL Neutrophils # 11.4 H (1.3-7.7) k/uL Lymphocytes # (1.0-4.8) k/uL INR (<1.2) APTT 38.8 H (22.0-30.0) sec Fibrinogen 192 L (200-500) mg/dL ABG pH (7.35-7.45) ABG pCO2 (35-45) mmHg ABG pO2 (83-108) mmHg ABG HCO3 (21-25) mmol/L ABG Total CO2 (19-24) mmol/L ABG O2 Saturation (94-97) % ABG Ionized Calcium (4.5-5.3) mg/dL ABG Glucose (75-99) mg/dL Hemoglobin (13.0-17.5) gm/dL Sodium (137-145) mmol/L Chloride 109 H (98-107) mmol/L BUN 8 L (9-20) mg/dL Creatinine 0.60 L (0.66-1.25) mg/dL Glucose 115 H (74-99) mg/dL POC Glucose (mg/dL) (75-99) mg/dL Calcium 7.9 L (8.4-10.2) mg/dL Magnesium 3.0 H (1.6-2.3) mg/dL AST (17-59) U/L Total Protein 4.9 L (6.3-8.2) g/dL Albumin 2.9 L (3.5-5.0) g/dL Arterial Blood Glucose (75-99) mg/dL Crossmatch 03/06/20 03/06/20 03/06/20 Range/Units 15:03 15:15 15:15 WBC (3.8-10.6) k/uL RBC (4.30-5.90) m/uL Hgb (13.0-17.5) gm/dL Hct (39.0-53.0) % MCV (80.0-100.0) fL Plt Count (150-450) k/uL Neutrophils # (1.3-7.7) k/uL Lymphocytes # (1.0-4.8) k/uL INR (<1.2) APTT (22.0-30.0) sec Fibrinogen (200-500) mg/dL ABG pH 7.34 L (7.35-7.45) ABG pCO2 47 H (35-45) mmHg ABG pO2 352 H (83-108) mmHg ABG HCO3 26 H (21-25) mmol/L ABG Total CO2 27 H (19-24) mmol/L ABG O2 Saturation 99.4 H (94-97) % ABG Ionized Calcium (4.5-5.3) mg/dL ABG Glucose (75-99) mg/dL Hemoglobin (13.0-17.5) gm/dL Sodium (137-145) mmol/L Chloride (98-107) mmol/L BUN (9-20) mg/dL Creatinine (0.66-1.25) mg/dL Glucose (74-99) mg/dL POC Glucose (mg/dL) 112 H 119 H (75-99) mg/dL Calcium (8.4-10.2) mg/dL Magnesium (1.6-2.3) mg/dL AST (17-59) U/L Total Protein (6.3-8.2) g/dL Albumin (3.5-5.0) g/dL Arterial Blood Glucose (75-99) mg/dL Crossmatch 03/06/20 03/06/20 03/06/20 Range/Units 16:03 16:56 17:00 WBC 11.7 H (3.8-10.6) k/uL RBC 3.67 L (4.30-5.90) m/uL Hgb 11.9 L (13.0-17.5) gm/dL Hct 36.8 L (39.0-53.0) % MCV 100.3 H (80.0-100.0) fL Plt Count 120 L (150-450) k/uL Neutrophils # 9.9 H (1.3-7.7) k/uL Lymphocytes # (1.0-4.8) k/uL INR (<1.2) APTT (22.0-30.0) sec Fibrinogen (200-500) mg/dL ABG pH (7.35-7.45) ABG pCO2 (35-45) mmHg ABG pO2 (83-108) mmHg ABG HCO3 (21-25) mmol/L ABG Total CO2 (19-24) mmol/L ABG O2 Saturation (94-97) % ABG Ionized Calcium (4.5-5.3) mg/dL ABG Glucose (75-99) mg/dL Hemoglobin (13.0-17.5) gm/dL Sodium (137-145) mmol/L Chloride (98-107) mmol/L BUN (9-20) mg/dL Creatinine (0.66-1.25) mg/dL Glucose (74-99) mg/dL POC Glucose (mg/dL) 127 H 132 H (75-99) mg/dL Calcium (8.4-10.2) mg/dL Magnesium (1.6-2.3) mg/dL AST (17-59) U/L Total Protein (6.3-8.2) g/dL Albumin (3.5-5.0) g/dL Arterial Blood Glucose (75-99) mg/dL Crossmatch 03/06/20 03/06/20 03/06/20 Range/Units 17:30 17:58 18:59 WBC (3.8-10.6) k/uL RBC (4.30-5.90) m/uL Hgb (13.0-17.5) gm/dL Hct (39.0-53.0) % MCV (80.0-100.0) fL Plt Count (150-450) k/uL Neutrophils # (1.3-7.7) k/uL Lymphocytes # (1.0-4.8) k/uL INR (<1.2) APTT (22.0-30.0) sec Fibrinogen (200-500) mg/dL ABG pH (7.35-7.45) ABG pCO2 (35-45) mmHg ABG pO2 153 H (83-108) mmHg ABG HCO3 (21-25) mmol/L ABG Total CO2 26 H (19-24) mmol/L ABG O2 Saturation 98.8 H (94-97) % ABG Ionized Calcium (4.5-5.3) mg/dL ABG Glucose (75-99) mg/dL Hemoglobin (13.0-17.5) gm/dL Sodium (137-145) mmol/L Chloride (98-107) mmol/L BUN (9-20) mg/dL Creatinine (0.66-1.25) mg/dL Glucose (74-99) mg/dL POC Glucose (mg/dL) 152 H 159 H (75-99) mg/dL Calcium (8.4-10.2) mg/dL Magnesium (1.6-2.3) mg/dL AST (17-59) U/L Total Protein (6.3-8.2) g/dL Albumin (3.5-5.0) g/dL Arterial Blood Glucose (75-99) mg/dL Crossmatch 03/06/20 03/06/20 03/06/20 Range/Units 20:00 20:07 21:03 WBC 12.0 H (3.8-10.6) k/uL RBC 3.65 L (4.30-5.90) m/uL Hgb 11.8 L (13.0-17.5) gm/dL Hct 36.7 L (39.0-53.0) % MCV 100.5 H (80.0-100.0) fL Plt Count 135 L (150-450) k/uL Neutrophils # 10.8 H (1.3-7.7) k/uL Lymphocytes # 0.5 L (1.0-4.8) k/uL INR (<1.2) APTT (22.0-30.0) sec Fibrinogen (200-500) mg/dL ABG pH (7.35-7.45) ABG pCO2 (35-45) mmHg ABG pO2 (83-108) mmHg ABG HCO3 (21-25) mmol/L ABG Total CO2 (19-24) mmol/L ABG O2 Saturation (94-97) % ABG Ionized Calcium (4.5-5.3) mg/dL ABG Glucose (75-99) mg/dL Hemoglobin (13.0-17.5) gm/dL Sodium (137-145) mmol/L Chloride (98-107) mmol/L BUN (9-20) mg/dL Creatinine (0.66-1.25) mg/dL Glucose (74-99) mg/dL POC Glucose (mg/dL) 171 H 158 H (75-99) mg/dL Calcium (8.4-10.2) mg/dL Magnesium (1.6-2.3) mg/dL AST (17-59) U/L Total Protein (6.3-8.2) g/dL Albumin (3.5-5.0) g/dL Arterial Blood Glucose (75-99) mg/dL Crossmatch 03/06/20 03/06/20 03/07/20 Range/Units 22:04 23:05 00:07 WBC (3.8-10.6) k/uL RBC (4.30-5.90) m/uL Hgb (13.0-17.5) gm/dL Hct (39.0-53.0) % MCV (80.0-100.0) fL Plt Count (150-450) k/uL Neutrophils # (1.3-7.7) k/uL Lymphocytes # (1.0-4.8) k/uL INR (<1.2) APTT (22.0-30.0) sec Fibrinogen (200-500) mg/dL ABG pH (7.35-7.45) ABG pCO2 (35-45) mmHg ABG pO2 (83-108) mmHg ABG HCO3 (21-25) mmol/L ABG Total CO2 (19-24) mmol/L ABG O2 Saturation (94-97) % ABG Ionized Calcium (4.5-5.3) mg/dL ABG Glucose (75-99) mg/dL Hemoglobin (13.0-17.5) gm/dL Sodium (137-145) mmol/L Chloride (98-107) mmol/L BUN (9-20) mg/dL Creatinine (0.66-1.25) mg/dL Glucose (74-99) mg/dL POC Glucose (mg/dL) 151 H 125 H 115 H (75-99) mg/dL Calcium (8.4-10.2) mg/dL Magnesium (1.6-2.3) mg/dL AST (17-59) U/L Total Protein (6.3-8.2) g/dL Albumin (3.5-5.0) g/dL Arterial Blood Glucose (75-99) mg/dL Crossmatch 03/07/20 03/07/20 03/07/20 Range/Units 01:05 02:00 03:06 WBC (3.8-10.6) k/uL RBC (4.30-5.90) m/uL Hgb (13.0-17.5) gm/dL Hct (39.0-53.0) % MCV (80.0-100.0) fL Plt Count (150-450) k/uL Neutrophils # (1.3-7.7) k/uL Lymphocytes # (1.0-4.8) k/uL INR (<1.2) APTT (22.0-30.0) sec Fibrinogen (200-500) mg/dL ABG pH (7.35-7.45) ABG pCO2 (35-45) mmHg ABG pO2 (83-108) mmHg ABG HCO3 (21-25) mmol/L ABG Total CO2 (19-24) mmol/L ABG O2 Saturation (94-97) % ABG Ionized Calcium (4.5-5.3) mg/dL ABG Glucose (75-99) mg/dL Hemoglobin (13.0-17.5) gm/dL Sodium (137-145) mmol/L Chloride (98-107) mmol/L BUN (9-20) mg/dL Creatinine (0.66-1.25) mg/dL Glucose (74-99) mg/dL POC Glucose (mg/dL) 119 H 121 H 124 H (75-99) mg/dL Calcium (8.4-10.2) mg/dL Magnesium (1.6-2.3) mg/dL AST (17-59) U/L Total Protein (6.3-8.2) g/dL Albumin (3.5-5.0) g/dL Arterial Blood Glucose (75-99) mg/dL Crossmatch 03/07/20 03/07/20 03/07/20 Range/Units 04:15 04:15 04:15 WBC (3.8-10.6) k/uL RBC 3.29 L (4.30-5.90) m/uL Hgb 10.5 L (13.0-17.5) gm/dL Hct 33.0 L (39.0-53.0) % MCV 100.2 H (80.0-100.0) fL Plt Count 112 L (150-450) k/uL Neutrophils # 7.8 H (1.3-7.7) k/uL Lymphocytes # 0.8 L (1.0-4.8) k/uL INR (<1.2) APTT (22.0-30.0) sec Fibrinogen (200-500) mg/dL ABG pH (7.35-7.45) ABG pCO2 (35-45) mmHg ABG pO2 (83-108) mmHg ABG HCO3 (21-25) mmol/L ABG Total CO2 (19-24) mmol/L ABG O2 Saturation (94-97) % ABG Ionized Calcium (4.5-5.3) mg/dL ABG Glucose (75-99) mg/dL Hemoglobin (13.0-17.5) gm/dL Sodium 136 L (137-145) mmol/L Chloride (98-107) mmol/L BUN (9-20) mg/dL Creatinine 0.63 L (0.66-1.25) mg/dL Glucose 118 H (74-99) mg/dL POC Glucose (mg/dL) 122 H (75-99) mg/dL Calcium 7.9 L (8.4-10.2) mg/dL Magnesium 2.6 H (1.6-2.3) mg/dL AST 90 H (17-59) U/L Total Protein 4.9 L (6.3-8.2) g/dL Albumin 3.0 L (3.5-5.0) g/dL Arterial Blood Glucose (75-99) mg/dL Crossmatch 03/07/20 03/07/20 03/07/20 Range/Units 04:35 04:59 06:20 WBC (3.8-10.6) k/uL RBC (4.30-5.90) m/uL Hgb (13.0-17.5) gm/dL Hct (39.0-53.0) % MCV (80.0-100.0) fL Plt Count (150-450) k/uL Neutrophils # (1.3-7.7) k/uL Lymphocytes # (1.0-4.8) k/uL INR 1.2 H (<1.2) APTT (22.0-30.0) sec Fibrinogen (200-500) mg/dL ABG pH (7.35-7.45) ABG pCO2 (35-45) mmHg ABG pO2 (83-108) mmHg ABG HCO3 (21-25) mmol/L ABG Total CO2 (19-24) mmol/L ABG O2 Saturation (94-97) % ABG Ionized Calcium (4.5-5.3) mg/dL ABG Glucose (75-99) mg/dL Hemoglobin (13.0-17.5) gm/dL Sodium (137-145) mmol/L Chloride (98-107) mmol/L BUN (9-20) mg/dL Creatinine (0.66-1.25) mg/dL Glucose (74-99) mg/dL POC Glucose (mg/dL) 118 H 121 H (75-99) mg/dL Calcium (8.4-10.2) mg/dL Magnesium (1.6-2.3) mg/dL AST (17-59) U/L Total Protein (6.3-8.2) g/dL Albumin (3.5-5.0) g/dL Arterial Blood Glucose (75-99) mg/dL Crossmatch 03/07/20 Range/Units 07:54 WBC (3.8-10.6) k/uL RBC (4.30-5.90) m/uL Hgb (13.0-17.5) gm/dL Hct (39.0-53.0) % MCV (80.0-100.0) fL Plt Count (150-450) k/uL Neutrophils # (1.3-7.7) k/uL Lymphocytes # (1.0-4.8) k/uL INR (<1.2) APTT (22.0-30.0) sec Fibrinogen (200-500) mg/dL ABG pH (7.35-7.45) ABG pCO2 (35-45) mmHg ABG pO2 (83-108) mmHg ABG HCO3 (21-25) mmol/L ABG Total CO2 (19-24) mmol/L ABG O2 Saturation (94-97) % ABG Ionized Calcium (4.5-5.3) mg/dL ABG Glucose (75-99) mg/dL Hemoglobin (13.0-17.5) gm/dL Sodium (137-145) mmol/L Chloride (98-107) mmol/L BUN (9-20) mg/dL Creatinine (0.66-1.25) mg/dL Glucose (74-99) mg/dL POC Glucose (mg/dL) 104 H (75-99) mg/dL Calcium (8.4-10.2) mg/dL Magnesium (1.6-2.3) mg/dL AST (17-59) U/L Total Protein (6.3-8.2) g/dL Albumin (3.5-5.0) g/dL Arterial Blood Glucose (75-99) mg/dL Crossmatch - Imaging and Cardiology Chest x-ray: report reviewed, image reviewed Assessment and Plan Assessment: 1. Severe aortic valve stenosis, status post aortic valve replacement 2. Triple-vessel coronary artery disease with left main disease, status post CABG 4 3. Chronic atrial fibrillation on Coumadin for anticoagulation, last dose 02/28/2020, status post modified Newton maze procedure with bilateral pulmonary vein ablation 4. History of hypertension 5. History of hyperlipidemia 6. Type 2 diabetes mellitus with a preoperative hemoglobin A1c 6.9% 7. Hypothyroidism 8. Remote history of pneumonia 9. History of splenectomy, status post fall 10. Daily EtOH use 11. Remote history of tobacco dependence with preoperative FEV1 59% of predicted 12. Postoperative acute blood loss anemia, expected Plan: 1. Continue aspirin, statin, Plavix. Hold beta john paul for now. Will initiate when able to tolerate. 2. Wean O2 as tolerated. Encourage incentive spirometry use 10 times every hour while awake. Bronchodilators per pulmonology/critical care management. 3. Increase activity, ambulate as tolerated. PT/OT/cardiac rehab consulted. 4. Initiate amiodarone 400 mg by mouth twice a day with hold parameters. 5. Will monitor daily labs and chest x-rays. Electrolyte replacement per protocol. No transfusion at this point. 6. GI/DVT prophylaxis. Protonix IV change to Protonix 40 mg by mouth before meals breakfast. 7. Pain control current medication regimen. 8. Insulin management per primary care service. Patient needs tight blood sugar control to prevent infection and promote healing. 9. Keep right IJ cordis/[place] catheter in place for continued hemodynamic monitoring. 10. Continue mediastinal and pleural chest tubes for another 24 hours, keep to low continuous wall suction -20 cm H2O. 11. Continue Andersen catheter for strict accurate intake and output. 12. Place pacemaker setting to VVI backup of 60 BPM. 13. Start lisinopril 2.5 mg by mouth daily at noon, for afterload reduction. 14. Albumin 5% 250 mL 1 now for decreased urine output and cardiac index of 1.9. 15. More recommendations to follow based on patient's clinical course.
--- NOTE | 2020-03-07 08:56 | XR ---
EXAMINATION TYPE: XR chest 1V portable DATE OF EXAM: 03/07/2020 CLINICAL HISTORY: Postoperative cardiac surgery TECHNIQUE: Portable upright view of the chest COMPARISON: 03/06/2020 chest radiograph FINDINGS: Sternotomy wires, left atrial appendage clip, valvular prosthesis, mediastinal drain, left -sided chest tube, and right internal jugular [place] catheter remain. There is interval removal of the endotracheal tube, enteric tube, and likely the epicardial pacer leads. Borderline cardiomegaly. No pulmonary vascular congestion. Subsegmental atelectasis of the left mid lung. No pneumothorax. IMPRESSION: 1. Interval removal of endotracheal tube, enteric tube, and epicardial pacer leads. 2. No focal airspace disease or pneumothorax.
[2020-03-07] MEDS: HEPARIN SODIUM,PORCINE 5,000 UNIT/ML 1 ML VIAL SQ SCH ×2 (08:58→16:49)
[2020-03-07] MEDS ORDERED: PANTOPRAZOLE 40 MG/10 ML VIAL IVP SCH (09:00)
[2020-03-07] MEDS ORDERED: MAGNESIUM HYDROXIDE 2,400 MG/10 ML CUP PO PRN (09:00)
[2020-03-07] MEDS ORDERED: bisacodyL 10 MG SUPP RECTAL PRN (09:00)
[2020-03-07] MEDS: AMIODARONE 200 MG TAB PO SCH ×2 (09:08→20:45)
[2020-03-07] MEDS: PANTOPRAZOLE 40 MG TABLET PO SCH (09:09)
[2020-03-07] MEDS: CLOPIDOGREL 75 MG TAB PO SCH (09:09)
[2020-03-07] MEDS: ASPIRIN 325 MG TAB PO SCH (09:09)
[2020-03-07] MEDS: ATORVASTATIN 40 MG TAB PO SCH (09:09)
[2020-03-07] MEDS: FOLIC ACID-VIT B COMPLEX-VIT C 1 CAP PO SCH (09:09)
[2020-03-07 09:13] LABS: Glucose,Whole Blood 101 mg/dL (75-99)
[2020-03-07] MEDS: IPRATROPIUM-ALBUTEROL 3 ML NEB INHALATION SCH ×4 (09:46→20:37)
[2020-03-07] MEDS: METOPROLOL TARTRATE 12.5 MG TAB PO SCH ×2 (09:51→22:33)
[2020-03-07 09:56] LABS: Glucose,Whole Blood 139 mg/dL (75-99)
[2020-03-07] MEDS: LACTATED RINGERS 1,000 ML IV SCH (10:01)
[2020-03-07 10:36] VITALS: BMI 33.4
[2020-03-07 10:50] LABS: Glucose,Whole Blood 103 mg/dL (75-99)
[2020-03-07 11:56] LABS: Glucose,Whole Blood 123 mg/dL (75-99)
--- NOTE | 2020-03-07 11:59 | P.PN ---
Subjective Progress Note Date: 03/07/20 74 years old male patient of Dr. Rouse and Dr. Lee with past medical history of hypertension, hyperlipidemia, paroxysmal atrial fibrillation on Coumadin, hypothyroidism, type 2 diabetes hypothyroidism, daily alcohol use, osteoarthritis and known history of bilateral knee replacement and right ankle surgery and came in for an elective STEFANIE and cardiac catheterization under Dr. Maguire. Patient gives a history of worsening shortness of breath for the past 6 months. He noticed increased weakness but denies any chest pain or dizziness or passing out spells. Patient has been off Coumadin, metformin and Januvia for the cardiac catheterization. STEFANIE done on 03/03 suggested severe aortic stenosis with heavily calcified 3 leaflet valve with restriction in the mobility. The valve area 0.7 mm. Mild left ventricular systolic dysfunction with ejection fraction of 45%. By mouth for with [id number] shunt present with mild to moderate MR and mild TR. Cardiac catheterization on 03/03 suggest to heavily calcified left main coronary artery with distal left main appears stenosed and stenosis extending into the proximal LAD and circumflex coronary artery around 80-90%. Circumflex occluded proximally with collaterals to LAD coming from the left system. Secondary diagnoses branch is moderate stenosis. Right coronary artery with moderate stenosis PDA with 80-90% stenosis. In assessment today patient denies any shortness of breath at rest. He did have back pain outwardly this morning after resting in bed for 6 hours post cardiac cath. Vitals are otherwise stablethe pulse is 67 respiratory rate 16 blood pressure 144/95 oxygen saturation 97% on room air. Labs reviewed CBC unremarkable creatinine 0.8 INR 1.3 blood sugar 140. Magnesium 1.9 and LDL 102 TSH 0.70 was negative for inf ection. Patient's last A1c is less than 7 controlled on Januvia and metformin. 03/04: Patient is found sitting up in a chair resting comfortably without any acute distress. Patient has no concerns or complaints at this time. The plan continues to be for a CABG scheduled on Tuesday 03/06. She remains afebrile, pulse rate 66, respirations 18, blood pressure 133/95, pulse ox 9 7% on room air. WBC 7.1, hemoglobin 14.7. 03/05: Patient is found sitting up in chair resting comfortably without any acute distress. Patient states he has no concerns or complaints at this time. Patient stated that he slept well. He was awoken at 5 AM for his weight other than that he has no issues. Patient declined any sleep aids for tonight. 03/07: Patient remains in intensive care unit. He is status post aortic valve replacement with bovine pericardial valve prosthesis, CABG 4 with KISER to LAD, saphenous vein graft to obtuse marginal, sequential saphenous vein graft to posterior descending and posterior lateral branches of the right coronary artery, postop day #1. Patient is found sitting up in chair and is complaining of some discomfort. No respiratory distress is noted. He is currently on insulin drip and blood sugars are running in the low 100s. Patient will be starting heart healthy diet/consistent carb. He has been afebrile, heart rate 76, blood pressure 124/75, pulse ox 100% on 2 L nasal cannula. Repeat blood work reveals Courtney BC 9.3, hemoglobin 10.5 and platelet count 112. Sodium 136, creatinine 0.63. Magnesium 2.6 calcium 7.9 and ionized calcium 4.7. Repeat chest x-ray reveals no focal airspace disease or pneumothorax. Patient has mediastinal and pleural left chest tubes in place. Patient has been started on oral amiodarone 400 mg twice daily and lisinopril 2.5 mg daily. Review of Systems Constitutional: Denies chills, Denies fever, Denies lethargy, Denies malaise, Denies poor appetite, Denies weakness, Denies weight loss, reports generalized discomfort. Eyes: denies decreased vision, denies diplopia, denies discharge, denies pain Ears: deny: decreased hearing Ears, nose, mouth and throat: Denies dental pain, Denies headache, Denies nasal discharge, Denies nose pain Cardiovascular: Denies chest pain, endorses decreased exercise tolerance, endorses edema right worse than left, Denies high blood pressure, denies irregular heart beat, Denies palpitations, endorses paroxysmal nocturnal dyspnea, endorses rapid heart beat, endorses shortness of breath Respiratory: Denies congestion, Denies cough, Denies cough with sputum, Denies dyspnea, Denies home oxygen, Denies wheezing Gastrointestinal: Denies abdominal pain, Denies change in bowel habits, Denies coffee ground emesis, Denies early satiety, Denies excessive gas, Denies heartburn, Denies hematemesis, Denies hematochezia, Denies loss of appetite, Denies nausea, Denies vomiting Genitourinary: Denies dysuria, Denies flank pain, Denies kidney stones, Denies menorrhagia, Denies urgency, Denies urinary frequency Musculoskeletal: Denies gait dysfunction, Denies limitation of motion, Denies morning stiffness, Denies muscle cramps Integumentary: Denies rash, Denies wounds, Denies brittle nails, Denies change in hair/nails, Denies darkening of skin Neurological: Denies balance difficulties, Denies change in speech, Denies double vision, Denies gait dysfunction, Denies loss of vision, Denies motor disturbance, Denies numbness, Denies paralysis, Denies paresthesias, Denies sei zures Psychiatric: Denies anxiety, Denies depression Endocrine: Denies excessive sweating, Denies excessive thirst, Denies high blood sugars, Denies palpitations Hematologic/Lymphatic: Denies easy bruising, Denies lymphadenopathy Physical exam General Appearance: Alert, cooperative, mild distress from discomfort, appears stated age. Neck HEENT: Supple, no lymphadenopathy, no thyroid enlargement, no carotid bruits. Lungs: Clear to auscultation without crackles or wheezes no rhonchi, no deformity. Chest Wall: Chest wall normal expansion with deep inspiration no tenderness and no deformity was found on exam, no costochondral pain or discomfort. Heart: Regular rate and rhythm, S1, S2 normal, no murmur, rub or gallop. Back: Symmetric, no curvature, ROM normal, no CVA tenderness. Abdomen: Soft, non-tender, no rebound or rigidity, no hepatosplenomegaly. Extremities: Extremities normal, atraumatic, no cyanosis or edema. Pulses: 2+ and symmetric. Skin: Skin color, texture, tugor normal, no rashes or lesions. Neurologic: Alert oriented x3 cranial nerves II through XII intact, no motor deficit, no abnormal balance or gait Assessment and Plan 1. triple-vessel coronary disease status post CABG 4. Continue current plan. Per cardiothoracic surgery. Continue aspirin, Lipitor 40 mg by mouth daily, Lopressor 12.5 twice a day. 2. severe aortic stenosis status post aortic valve replacement. 3. paroxysmal atrial fibrillation on Coumadin at home. CHADVASC risk score of 6. Continue beta john paul. 4. history of diabetes2. Hold metformin and Januvia and continue insulin drip for now. Plan to transition to long-acting and NovoLog tomorrow. 5. hypertension continue metoprolol 12.5 twice a day and lisinopril. 6. hyperlipidemia continue Lipitor 40 mg by mouth daily LDL 102 7. hypothyroidism continue levothyroxine at 150 g by mouth daily 8. coagulopathy secondary to Coumadin. Coumadin is on hold. 9. alcohol use drinks 3 beers a day. No history of alcohol withdrawal 10. history of splenectomy stable 11. DVT prophylaxis currently on heparin drip CODE STATUS: Full code Discharge plan: To be determined Impression and plan of care have been directed as dictated by the signing physician. Zully Soto nurse practitioner acting as scribe for signing physician. Objective - Vital Signs Vital signs: Vital Signs Temp 97.3 F L 03/06/20 19:00 Pulse 79 03/07/20 07:00 Resp 12 03/07/20 07:00 BP 99/64 03/07/20 07:00 Pulse Ox 99 03/07/20 07:00 Intake & Output 03/06/20 03/07/20 03/07/20 18:59 06:59 18:59 Intake Total 5864.906 5044.784 100.918 Output Total 2496 875 55 Balance -2535.770 0957.784 45.918 Weight 108.7 kg Intake: IV 267 1684.5 89 ACETAMINOPHEN IV (For NPO 100 ) 1,000 mg In Empty Bag 1 bag @ 400 mls/hr IVPB Q6HR [facility] Rx#:[id number] Albumin Human 5% 250 ml 500 In Empty Bag 1 bag @ 250 mls/hr IVPB Q1HR PRN Rx#: [id number] Lactated Ringers 1,000 ml 150 570 50 @ 50 mls/hr IV .Q20H [facility] Rx#:[id number] Nitroglycerin-D5w Pmx 50 16.5 mg In Dextrose/Water 1 250ml.bag @ 5 MCG/MIN 1.5 mls/hr IV .Q24H [facility] Rx#: [id number] Pressure bags 36 108 9 Sodium Chloride 0.9% 1, 75 000 ml @ 75 mls/hr IV . [id number] [facility] Rx#:[id number] ceFAZolin 2 gm In Sodium 50 Chloride 0.9% 50 ml @ 100 mls/hr IVPB Q8HR [facility] Rx# :[id number] co/ci injectate 340 30 Intake, IV Titration 163.396 20.284 11.918 Amount ACETAMINOPHEN IV (For NPO 100 ) 1,000 mg In Empty Bag 1 bag @ 400 mls/hr IVPB Q6HR [facility] Rx#:[id number] Insulin Regular 100 unit 0.328 20.284 11.918 In Sodium Chloride 0.9% 100 ml @ Per Protocol IV .Q0M [facility] Rx#:[id number] ceFAZolin 2 gm In Sodium 50 Chloride 0.9% 50 ml @ 100 mls/hr IVPB Q8HR [facility] Rx# :[id number] propofoL 1,000 mg In 13.068 Empty Bag 1 bag @ Titrate IV .Q0M [facility] Rx#: [id number] Oral 1460 Blood Product 767 Ffp 24 Cpd Unit 267 [id number] Ffp 24 Cpd Unit 294 [id number] Platelet Irr Pheresis 206 Acda1 Unit [id number] Output: Chest Tube Drainage 197 531 40 Bilateral Mediastinal 150 350 20 Left 47 181 20 Urine 799 344 15 Estimated Blood Loss 1500 Other: Voiding Method Indwelling Catheter ABP, PAP, CO, CI - Last Documented Arterial Blood Pressure 99/48 Pulmonary Artery Pressure 24/10 Cardiac Output 4.1 Cardiac Index 1.9 - Labs CBC & Chem 7: 03/07/20 04:15 03/07/20 04:15 Labs: Abnormal Lab Results - Last 24 Hours (Table) 03/05/20 03/06/20 03/06/20 Range/Units 05:39 08:36 10:05 WBC (3.8-10.6) k/uL RBC (4.30-5.90) m/uL Hgb (13.0-17.5) gm/dL Hct (39.0-53.0) % MCV (80.0-100.0) fL Plt Count (150-450) k/uL Neutrophils # (1.3-7.7) k/uL Lymphocytes # (1.0-4.8) k/uL INR (<1.2) APTT (22.0-30.0) sec Fibrinogen (200-500) mg/dL ABG pH (7.35-7.45) ABG pCO2 (35-45) mmHg ABG pO2 188 H 307 H (83-108) mmHg ABG HCO3 (21-25) mmol/L ABG Total CO2 25 H (19-24) mmol/L ABG O2 Saturation 99.7 H 99.9 H (94-97) % ABG Ionized Calcium (4.5-5.3) mg/dL ABG Glucose 140 H 167 H (75-99) mg/dL Hemoglobin (13.0-17.5) gm/dL Sodium (137-145) mmol/L Chloride (98-107) mmol/L BUN (9-20) mg/dL Creatinine (0.66-1.25) mg/dL Glucose (74-99) mg/dL POC Glucose (mg/dL) (75-99) mg/dL Calcium (8.4-10.2) mg/dL Magnesium (1.6-2.3) mg/dL AST (17-59) U/L Total Protein (6.3-8.2) g/dL Albumin (3.5-5.0) g/dL Arterial Blood Glucose 140 H 167 H (75-99) mg/dL Crossmatch See Detail 03/06/20 03/06/20 03/06/20 Range/Units 10:36 11:12 11:43 WBC (3.8-10.6) k/uL RBC (4.30-5.90) m/uL Hgb (13.0-17.5) gm/dL Hct (39.0-53.0) % MCV (80.0-100.0) fL Plt Count (150-450) k/uL Neutrophils # (1.3-7.7) k/uL Lymphocytes # (1.0-4.8) k/uL INR (<1.2) APTT (22.0-30.0) sec Fibrinogen (200-500) mg/dL ABG pH (7.35-7.45) ABG pCO2 (35-45) mmHg ABG pO2 397 H 299 H 329 H (83-108) mmHg ABG HCO3 (21-25) mmol/L ABG Total CO2 (19-24) mmol/L ABG O2 Saturation 100.0 H 100.0 H 100.0 H (94-97) % ABG Ionized Calcium 3.9 L 4.4 L (4.5-5.3) mg/dL ABG Glucose 156 H 152 H 150 H (75-99) mg/dL Hemoglobin 11.4 L 11.6 L 11.2 L (13.0-17.5) gm/dL Sodium (137-145) mmol/L Chloride (98-107) mmol/L BUN (9-20) mg/dL Creatinine (0.66-1.25) mg/dL Glucose (74-99) mg/dL POC Glucose (mg/dL) (75-99) mg/dL Calcium (8.4-10.2) mg/dL Magnesium (1.6-2.3) mg/dL AST (17-59) U/L Total Protein (6.3-8.2) g/dL Albumin (3.5-5.0) g/dL Arterial Blood Glucose 156 H 152 H 150 H (75-99) mg/dL Crossmatch 03/06/20 03/06/20 03/06/20 Range/Units 15:00 15:00 15:00 WBC 13.1 H (3.8-10.6) k/uL RBC 3.55 L (4.30-5.90) m/uL Hgb 11.8 L (13.0-17.5) gm/dL Hct 35.6 L (39.0-53.0) % MCV 100.3 H (80.0-100.0) fL Plt Count 123 L (150-450) k/uL Neutrophils # 11.4 H (1.3-7.7) k/uL Lymphocytes # (1.0-4.8) k/uL INR (<1.2) APTT 38.8 H (22.0-30.0) sec Fibrinogen 192 L (200-500) mg/dL ABG pH (7.35-7.45) ABG pCO2 (35-45) mmHg ABG pO2 (83-108) mmHg ABG HCO3 (21-25) mmol/L ABG Total CO2 (19-24) mmol/L ABG O2 Saturation (94-97) % ABG Ionized Calcium (4.5-5.3) mg/dL ABG Glucose (75-99) mg/dL Hemoglobin (13.0-17.5) gm/dL Sodium (137-145) mmol/L Chloride 109 H (98-107) mmol/L BUN 8 L (9-20) mg/dL Creatinine 0.60 L (0.66-1.25) mg/dL Glucose 115 H (74-99) mg/dL POC Glucose (mg/dL) (75-99) mg/dL Calcium 7.9 L (8.4-10.2) mg/dL Magnesium 3.0 H (1.6-2.3) mg/dL AST (17-59) U/L Total Protein 4.9 L (6.3-8.2) g/dL Albumin 2.9 L (3.5-5.0) g/dL Arterial Blood Glucose (75-99) mg/dL Crossmatch 03/06/20 03/06/20 03/06/20 Range/Units 15:03 15:15 15:15 WBC (3.8-10.6) k/uL RBC (4.30-5.90) m/uL Hgb (13.0-17.5) gm/dL Hct (39.0-53.0) % MCV (80.0-100.0) fL Plt Count (150-450) k/uL Neutrophils # (1.3-7.7) k/uL Lymphocytes # (1.0-4.8) k/uL INR (<1.2) APTT (22.0-30.0) sec Fibrinogen (200-500) mg/dL ABG pH 7.34 L (7.35-7.45) ABG pCO2 47 H (35-45) mmHg ABG pO2 352 H (83-108) mmHg ABG HCO3 26 H (21-25) mmol/L ABG Total CO2 27 H (19-24) mmol/L ABG O2 Saturation 99.4 H (94-97) % ABG Ionized Calcium (4.5-5.3) mg/dL ABG Glucose (75-99) mg/dL Hemoglobin (13.0-17.5) gm/dL Sodium (137-145) mmol/L Chloride (98-107) mmol/L BUN (9-20) mg/dL Creatinine (0.66-1.25) mg/dL Glucose (74-99) mg/dL POC Glucose (mg/dL) 112 H 119 H (75-99) mg/dL Calcium (8.4-10.2) mg/dL Magnesium (1.6-2.3) mg/dL AST (17-59) U/L Total Protein (6.3-8.2) g/dL Albumin (3.5-5.0) g/dL Arterial Blood Glucose (75-99) mg/dL Crossmatch 03/06/20 03/06/20 03/06/20 Range/Units 16:03 16:56 17:00 WBC 11.7 H (3.8-10.6) k/uL RBC 3.67 L (4.30-5.90) m/uL Hgb 11.9 L (13.0-17.5) gm/dL Hct 36.8 L (39.0-53.0) % MCV 100.3 H (80.0-100.0) fL Plt Count 120 L (150-450) k/uL Neutrophils # 9.9 H (1.3-7.7) k/uL Lymphocytes # (1.0-4.8) k/uL INR (<1.2) APTT (22.0-30.0) sec Fibrinogen (200-500) mg/dL ABG pH (7.35-7.45) ABG pCO2 (35-45) mmHg ABG pO2 (83-108) mmHg ABG HCO3 (21-25) mmol/L ABG Total CO2 (19-24) mmol/L ABG O2 Saturation (94-97) % ABG Ionized Calcium (4.5-5.3) mg/dL ABG Glucose (75-99) mg/dL Hemoglobin (13.0-17.5) gm/dL Sodium (137-145) mmol/L Chloride (98-107) mmol/L BUN (9-20) mg/dL Creatinine (0.66-1.25) mg/dL Glucose (74-99) mg/dL POC Glucose (mg/dL) 127 H 132 H (75-99) mg/dL Calcium (8.4-10.2) mg/dL Magnesium (1.6-2.3) mg/dL AST (17-59) U/L Total Protein (6.3-8.2) g/dL Albumin (3.5-5.0) g/dL Arterial Blood Glucose (75-99) mg/dL Crossmatch 0903/06/20 03/06/20 Range/Units 17:30 17:58 18:59 WBC (3.8-10.6) k/uL RBC (4.30-5.90) m/uL Hgb (13.0-17.5) gm/dL Hct (39.0-53.0) % MCV (80.0-100.0) fL Plt Count (150-450) k/uL Neutrophils # (1.3-7.7) k/uL Lymphocytes # (1.0-4.8) k/uL INR (<1.2) APTT (22.0-30.0) sec Fibrinogen (200-500) mg/dL ABG pH (7.35-7.45) ABG pCO2 (35-45) mmHg ABG pO2 153 H (83-108) mmHg ABG HCO3 (21-25) mmol/L ABG Total CO2 26 H (19-24) mmol/L ABG O2 Saturation 98.8 H (94-97) % ABG Ionized Calcium (4.5-5.3) mg/dL ABG Glucose (75-99) mg/dL Hemoglobin (13.0-17.5) gm/dL Sodium (137-145) mmol/L Chloride (98-107) mmol/L BUN (9-20) mg/dL Creatinine (0.66-1.25) mg/dL Glucose (74-99) mg/dL POC Glucose (mg/dL) 152 H 159 H (75-99) mg/dL Calcium (8.4-10.2) mg/dL Magnesium (1.6-2.3) mg/dL AST (17-59) U/L Total Protein (6.3-8.2) g/dL Albumin (3.5-5.0) g/dL Arterial Blood Glucose (75-99) mg/dL Crossmatch 03/06/20 03/06/20 03/06/20 Range/Units 20:00 20:07 21:03 WBC 12.0 H (3.8-10.6) k/uL RBC 3.65 L (4.30-5.90) m/uL Hgb 11.8 L (13.0-17.5) gm/dL Hct 36.7 L (39.0-53.0) % MCV 100.5 H (80.0-100.0) fL Plt Count 135 L (150-450) k/uL Neutrophils # 10.8 H (1.3-7.7) k/uL Lymphocytes # 0.5 L (1.0-4.8) k/uL INR (<1.2) APTT (22.0-30.0) sec Fibrinogen (200-500) mg/dL ABG pH (7.35-7.45) ABG pCO2 (35-45) mmHg ABG pO2 (83-108) mmHg ABG HCO3 (21-25) mmol/L ABG Total CO2 (19-24) mmol/L ABG O2 Saturation (94-97) % ABG Ionized Calcium (4.5-5.3) mg/dL ABG Glucose (75-99) mg/dL Hemoglobin (13.0-17.5) gm/dL Sodium (137-145) mmol/L Chloride (98-107) mmol/L BUN (9-20) mg/dL Creatinine (0.66-1.25) mg/dL Glucose (74-99) mg/dL POC Glucose (mg/dL) 171 H 158 H (75-99) mg/dL Calcium (8.4-10.2) mg/dL Magnesium (1.6-2.3) mg/dL AST (17-59) U/L Total Protein (6.3-8.2) g/dL Albumin (3.5-5.0) g/dL Arterial Blood Glucose (75-99) mg/dL Crossmatch 03/06/20 03/06/20 03/07/20 Range/Units 22:04 23:05 00:07 WBC (3.8-10.6) k/uL RBC (4.30-5.90) m/uL Hgb (13.0-17.5) gm/dL Hct (39.0-53.0) % MCV (80.0-100.0) fL Plt Count (150-450) k/uL Neutrophils # (1.3-7.7) k/uL Lymphocytes # (1.0-4.8) k/uL INR (<1.2) APTT (22.0-30.0) sec Fibrinogen (200-500) mg/dL ABG pH (7.35-7.45) ABG pCO2 (35-45) mmHg ABG pO2 (83-108) mmHg ABG HCO3 (21-25) mmol/L ABG Total CO2 (19-24) mmol/L ABG O2 Saturation (94-97) % ABG Ionized Calcium (4.5-5.3) mg/dL ABG Glucose (75-99) mg/dL Hemoglobin (13.0-17.5) gm/dL Sodium (137-145) mmol/L Chloride (98-107) mmol/L BUN (9-20) mg/dL Creatinine (0.66-1.25) mg/dL Glucose (74-99) mg/dL POC Glucose (mg/dL) 151 H 125 H 115 H (75-99) mg/dL Calcium (8.4-10.2) mg/dL Magnesium (1.6-2.3) mg/dL AST (17-59) U/L Total Protein (6.3-8.2) g/dL Albumin (3.5-5.0) g/dL Arterial Blood Glucose (75-99) mg/dL Crossmatch 03/07/20 03/07/20 03/07/20 Range/Units 01:05 02:00 03:06 WBC (3.8-10.6) k/uL RBC (4.30-5.90) m/uL Hgb (13.0-17.5) gm/dL Hct (39.0-53.0) % MCV (80.0-100.0) fL Plt Count (150-450) k/uL Neutrophils # (1.3-7.7) k/uL Lymphocytes # (1.0-4.8) k/uL INR (<1.2) APTT (22.0-30.0) sec Fibrinogen (200-500) mg/dL ABG pH (7.35-7.45) ABG pCO2 (35-45) mmHg ABG pO2 (83-108) mmHg ABG HCO3 (21-25) mmol/L ABG Total CO2 (19-24) mmol/L ABG O2 Saturation (94-97) % ABG Ionized Calcium (4.5-5.3) mg/dL ABG Glucose (75-99) mg/dL Hemoglobin (13.0-17.5) gm/dL Sodium (137-145) mmol/L Chloride (98-107) mmol/L BUN (9-20) mg/dL Creatinine (0.66-1.25) mg/dL Glucose (74-99) mg/dL POC Glucose (mg/dL) 119 H 121 H 124 H (75-99) mg/dL Calcium (8.4-10.2) mg/dL Magnesium (1.6-2.3) mg/dL AST (17-59) U/L Total Protein (6.3-8.2) g/dL Albumin (3.5-5.0) g/dL Arterial Blood Glucose (75-99) mg/dL Crossmatch 03/07/20 03/07/20 03/07/20 Range/Units 04:15 04:15 04:15 WBC (3.8-10.6) k/uL RBC 3.29 L (4.30-5.90) m/uL Hgb 10.5 L (13.0-17.5) gm/dL Hct 33.0 L (39.0-53.0) % MCV 100.2 H (80.0-100.0) fL Plt Count 112 L (150-450) k/uL Neutrophils # 7.8 H (1.3-7.7) k/uL Lymphocytes # 0.8 L (1.0-4.8) k/uL INR (<1.2) APTT (22.0-30.0) sec Fibrinogen (200-500) mg/dL ABG pH (7.35-7.45) ABG pCO2 (35-45) mmHg ABG pO2 (83-108) mmHg ABG HCO3 (21-25) mmol/L ABG Total CO2 (19-24) mmol/L ABG O2 Saturation (94-97) % ABG Ionized Calcium (4.5-5.3) mg/dL ABG Glucose (75-99) mg/dL Hemoglobin (13.0-17.5) gm/dL Sodium 136 L (137-145) mmol/L Chloride (98-107) mmol/L BUN (9-20) mg/dL Creatinine 0.63 L (0.66-1.25) mg/dL Glucose 118 H (74-99) mg/dL POC Glucose (mg/dL) 122 H (75-99) mg/dL Calcium 7.9 L (8.4-10.2) mg/dL Magnesium 2.6 H (1.6-2.3) mg/dL AST 90 H (17-59) U/L Total Protein 4.9 L (6.3-8.2) g/dL Albumin 3.0 L (3.5-5.0) g/dL Arterial Blood Glucose (75-99) mg/dL Crossmatch 03/07/20 03/07/20 03/07/20 Range/Units 04:35 04:59 06:20 WBC (3.8-10.6) k/uL RBC (4.30-5.90) m/uL Hgb (13.0-17.5) gm/dL Hct (39.0-53.0) % MCV (80.0-100.0) fL Plt Count (150-450) k/uL Neutrophils # (1.3-7.7) k/uL Lymphocytes # (1.0-4.8) k/uL INR 1.2 H (<1.2) APTT (22.0-30.0) sec Fibrinogen (200-500) mg/dL ABG pH (7.35-7.45) ABG pCO2 (35-45) mmHg ABG pO2 (83-108) mmHg ABG HCO3 (21-25) mmol/L ABG Total CO2 (19-24) mmol/L ABG O2 Saturation (94-97) % ABG Ionized Calcium (4.5-5.3) mg/dL ABG Glucose (75-99) mg/dL Hemoglobin (13.0-17.5) gm/dL Sodium (137-145) mmol/L Chloride (98-107) mmol/L BUN (9-20) mg/dL Creatinine (0.66-1.25) mg/dL Glucose (74-99) mg/dL POC Glucose (mg/dL) 118 H 121 H (75-99) mg/dL Calcium (8.4-10.2) mg/dL Magnesium (1.6-2.3) mg/dL AST (17-59) U/L Total Protein (6.3-8.2) g/dL Albumin (3.5-5.0) g/dL Arterial Blood Glucose (75-99) mg/dL Crossmatch 03/07/20 03/07/20 Range/Units 07:54 09:12 WBC (3.8-10.6) k/uL RBC (4.30-5.90) m/uL Hgb (13.0-17.5) gm/dL Hct (39.0-53.0) % MCV (80.0-100.0) fL Plt Count (150-450) k/uL Neutrophils # (1.3-7.7) k/uL Lymphocytes # (1.0-4.8) k/uL INR (<1.2) APTT (22.0-30.0) sec Fibrinogen (200-500) mg/dL ABG pH (7.35-7.45) ABG pCO2 (35-45) mmHg ABG pO2 (83-108) mmHg ABG HCO3 (21-25) mmol/L ABG Total CO2 (19-24) mmol/L ABG O2 Saturation (94-97) % ABG Ionized Calcium (4.5-5.3) mg/dL ABG Glucose (75-99) mg/dL Hemoglobin (13.0-17.5) gm/dL Sodium (137-145) mmol/L Chloride (98-107) mmol/L BUN (9-20) mg/dL Creatinine (0.66-1.25) mg/dL Glucose (74-99) mg/dL POC Glucose (mg/dL) 104 H 101 H (75-99) mg/dL Calcium (8.4-10.2) mg/dL Magnesium (1.6-2.3) mg/dL AST (17-59) U/L Total Protein (6.3-8.2) g/dL Albumin (3.5-5.0) g/dL Arterial Blood Glucose (75-99) mg/dL Crossmatch
--- NOTE | 2020-03-07 13:02 | P.PN ---
Subjective Progress Note Date: 03/07/20 Principal diagnosis: Multivessel coronary artery disease This is a 74-year-old gentleman who follows on an outpatient basis with Dr. Kavon Rouse for primary care and Dr. Tye Lee for cardiology. He has a previous medical history of hypertension, hyperlipidemia, chronic atrial fibrillation on Coumadin for anticoagulation, hypothyroidism, type 2 diabetes mellitus, remote history of pneumonia, skin cancer with removal, splenectomy, daily EtOH use of 2-3 beers every day, and remote history of tobacco dependence. He has followed with Dr. Lee for quite some time regarding his atrial fibrillation. Over the last several months he has noted exertional shortness of breath relieved with rest which he states he has never had before. He denies any other symptoms including no chest pain, no weakness, dizziness, lightheadedness, strokelike symptoms, paroxysmal nocturnal dyspnea, or any recent pulmonary illnesses. He was seen in the cardiology office last week and had a transthoracic echocardiogram which demonstrated impaired left ventricular function with EF 45%, hypokinesis of the inferior and septal marrero at the base, mild to moderate mitral regurgitation with mild mitral annular calcification, moderately calcified aortic valve with mild aortic insufficiency and moderate to severe aortic stenosis with valve area 0.56 cm, peak/mean gradient 54/35 mmHg, and mild tricuspid regurgitation. He was recommended to undergo heart catheterization and transesophageal echocardiogram which were completed today by Dr. Lee. Transesophageal echocardiogram demonstrated 3 leaflet aortic valve which was heavily calcified with severe restriction in leaflet mobility. Valve area was 0.7 cm by planimetry confirming severe aortic stenosis with mild aortic regurgitation, mild to moderate central mitral regurgitation, mild tricuspid regurgitation, mildly dilated left ventricle with diffuse global hypokinesis and ejection fraction 45%. Cardiac catheterization demonstrated heavily calcified left main coronary artery with distal stenosis extending into the proximal LAD and circumflex, ostial LAD stenosis 80-90%, moderate stenosis in the midportion of the RCA with 80-90% stenosis of the PDA with right to left collaterals. Due to these findings Dr. Harris from cardiothoracic surgery was consulted for surgical revascularization and aortic valve replacement. Patient is seen today 03/04/2020 in follow-up on the selective care unit. He is currently sitting up in a chair at the bedside. Awake and alert in no acute distress. Denies any chest pain, palpitations, lightheadedness or dizziness. Denies any shortness of breath, cough or congestion. FEV1 value 1.86 L, 59%. Chest x-ray showed no acute pulmonary process. On 03/07/2020 patient seen in follow-up in the intensive care unit, he status post four-vessel bypass grafting with a KISER to the LAD, SVG to the OM, sequential SVG to posterior descending and posterior lateral branches of the right coronary artery, modified Newton-Maze procedure with bilateral pulmonary vein ablation with a 2 through bipolar clamp and ligation of the left atrial appendage with a 40 mm AtriCure clip. Patient was successfully weaned and extubated from the mechanical ventilator at around 1700 yesterday, this morning he seen sitting up in the recliner in no acute distress, awake and alert, oriented 3, currently on 2 L of oxygen with pulse ox of 99%, hemodynamically he stable, he is on lactated Ringer's a rate of 50 ML per hour, no other drips. Appears to be in atrial fibrillation or accelerated junctional rate at a rate of 77 BPM, AV wires are in place, to external pacemaker box with a backup rate. Right and left pleural chest tubes with approximately 300 mL of serosanguineous output in last 24 hours, and mediastinal chest tube with approximately 600 mL of serosanguineous output in the last 24 hours, no air leak. PA pressures 34/14, CVP 7, cardiac output is 5.6, and cardiac index is 2.5. Patient is working on incentive spirometer, achieving 1500 on the today. Today's chest x-ray has been reviewed showing interval removal of the endotracheal tube, enteric tube and epicardial pacemaker leads, no focal airspace disease or pneumothorax. Today's labs have been reviewed. No acute events overnight, his pain is well controlled. Midsternal chest tube sites and left leg incisions clean dry and intact, covered with surgical dressings. Objective - Vital Signs Vital signs: Vital Signs Temp 97.0 F L 03/07/20 12:00 Pulse 75 03/07/20 12:00 Resp 17 03/07/20 12:00 BP 127/66 03/07/20 12:00 Pulse Ox 99 03/07/20 12:00 Intake & Output 03/06/20 03/07/20 03/07/20 18:59 06:59 18:59 Intake Total 0728.355 8046.784 638.106 Output Total 2496 875 285 Balance -1432.711 9802.784 353.106 Weight 108.7 kg 108.7 kg Intake: IV 267 1684.5 324 ACETAMINOPHEN IV (For NPO 100 ) 1,000 mg In Empty Bag 1 bag @ 400 mls/hr IVPB Q6HR [facility] Rx#:[id number] Albumin Human 5% 250 ml 500 In Empty Bag 1 bag @ 250 mls/hr IVPB Q1HR PRN Rx#: [id number] Lactated Ringers 1,000 ml 150 570 150 @ 20 mls/hr IV .Q24H [facility] Rx#:[id number] Nitroglycerin-D5w Pmx 50 16.5 mg In Dextrose/Water 1 250ml.bag @ 5 MCG/MIN 1.5 mls/hr IV .Q24H [facility] Rx#: [id number] Pressure bags 36 108 54 Sodium Chloride 0.9% 1, 75 000 ml @ 75 mls/hr IV . [id number] [facility] Rx#:[id number] ceFAZolin 2 gm In Sodium 50 50 Chloride 0.9% 50 ml @ 100 mls/hr IVPB Q8HR [facility] Rx# :[id number] co/ci injectate 340 70 Intake, IV Titration 163.396 20.284 14.106 Amount ACETAMINOPHEN IV (For NPO 100 ) 1,000 mg In Empty Bag 1 bag @ 400 mls/hr IVPB Q6HR [facility] Rx#:[id number] Insulin Regular 100 unit 0.328 20.284 14.106 In Sodium Chloride 0.9% 100 ml @ Per Protocol IV .Q0M [facility] Rx#:[id number] ceFAZolin 2 gm In Sodium 50 Chloride 0.9% 50 ml @ 100 mls/hr IVPB Q8HR [facility] Rx# :[id number] propofoL 1,000 mg In 13.068 Empty Bag 1 bag @ Titrate IV .Q0M [facility] Rx#: [id number] Oral 1460 300 Blood Product 767 Ffp 24 Cpd Unit 267 [id number] Ffp 24 Cpd Unit 294 [id number] Platelet Irr Pheresis 206 Acda1 Unit [id number] Output: Chest Tube Drainage 197 531 160 Bilateral Mediastinal 150 350 110 Left 47 181 50 Urine 799 344 125 Estimated Blood Loss 1500 Other: Voiding Method Indwelling Catheter Indwelling Catheter ABP, PAP, CO, CI - Last Documented Arterial Blood Pressure 112/50 Pulmonary Artery Pressure 36/14 Cardiac Output 5.2 Cardiac Index 2.4 - Exam GENERAL EXAM: Alert, very pleasant, 74-year-old white male, on 2 L of oxygen the pulse ox of 99%, comfortable in no apparent distress. HEAD: Normocephalic/atraumatic. EYES: Normal reaction of pupils, equal size. Conjunctiva pink, sclera white. NOSE: Clear with pink turbinates. THROAT: No erythema or exudates. NECK: No masses, no JVD, no thyroid enlargement, no adenopathy. CHEST: No chest wall deformity. Symmetrical expansion. Midsternal incision is clean dry and intact, right and left pleural chest tubes, one mediastinal chest tube insertion site clean dry and intact, moderate amount of serosanguineous output and the pleural plaques, no air leak, AV wires connected to external pacemaker with a backup rate, intrinsic rhythm is possibly accelerated junctional or atrial fibrillation with a rate of 77 BPM LUNGS: Equal air entry with no crackles, wheeze, rhonchi or dullness. CVS: Irregular rate and rhythm, normal S1 and S2, no gallops, no murmurs, no rubs ABDOMEN: Soft, nontender. No hepatosplenomegaly, normal bowel sounds, no guarding or rigidity. EXTREMITIES: No clubbing, no edema, no cyanosis, 2+ pulses and upper and lower extremities. Left leg incision clean dry and intact, covered with a dressing MUSCULOSKELETAL: Muscle strength and tone normal. SPINE: No scoliosis or deformity SKIN: No rashes CENTRAL NERVOUS SYSTEM: Alert and oriented -3. No focal deficits, tone is normal in all 4 extremities. PSYCHIATRIC: Alert and oriented -3. Appropriate affect. Intact judgment and insight. - Labs CBC & Chem 7: 03/07/20 04:15 03/07/20 04:15 Labs: Abnormal Lab Results - Last 24 Hours (Table) 03/05/20 03/06/20 03/06/20 Range/Units 05:39 08:36 10:05 WBC (3.8-10.6) k/uL RBC (4.30-5.90) m/uL Hgb (13.0-17.5) gm/dL Hct (39.0-53.0) % MCV (80.0-100.0) fL Plt Count (150-450) k/uL Neutrophils # (1.3-7.7) k/uL Lymphocytes # (1.0-4.8) k/uL INR (<1.2) APTT (22.0-30.0) sec Fibrinogen (200-500) mg/dL ABG pH (7.35-7.45) ABG pCO2 (35-45) mmHg ABG pO2 188 H 307 H (83-108) mmHg ABG HCO3 (21-25) mmol/L ABG Total CO2 25 H (19-24) mmol/L ABG O2 Saturation 99.7 H 99.9 H (94-97) % ABG Ionized Calcium (4.5-5.3) mg/dL ABG Glucose 140 H 167 H (75-99) mg/dL Hemoglobin (13.0-17.5) gm/dL Sodium (137-145) mmol/L Chloride (98-107) mmol/L BUN (9-20) mg/dL Creatinine (0.66-1.25) mg/dL Glucose (74-99) mg/dL POC Glucose (mg/dL) (75-99) mg/dL Calcium (8.4-10.2) mg/dL Magnesium (1.6-2.3) mg/dL AST (17-59) U/L Total Protein (6.3-8.2) g/dL Albumin (3.5-5.0) g/dL Arterial Blood Glucose 140 H 167 H (75-99) mg/dL Crossmatch See Detail 03/06/20 03/06/20 03/06/20 Range/Units 10:36 11:12 11:43 WBC (3.8-10.6) k/uL RBC (4.30-5.90) m/uL Hgb (13.0-17.5) gm/dL Hct (39.0-53.0) % MCV (80.0-100.0) fL Plt Count (150-450) k/uL Neutrophils # (1.3-7.7) k/uL Lymphocytes # (1.0-4.8) k/uL INR (<1.2) APTT (22.0-30.0) sec Fibrinogen (200-500) mg/dL ABG pH (7.35-7.45) ABG pCO2 (35-45) mmHg ABG pO2 397 H 299 H 329 H (83-108) mmHg ABG HCO3 (21-25) mmol/L ABG Total CO2 (19-24) mmol/L ABG O2 Saturation 100.0 H 100.0 H 100.0 H (94-97) % ABG Ionized Calcium 3.9 L 4.4 L (4.5-5.3) mg/dL ABG Glucose 156 H 152 H 150 H (75-99) mg/dL Hemoglobin 11.4 L 11.6 L 11.2 L (13.0-17.5) gm/dL Sodium (137-145) mmol/L Chloride (98-107) mmol/L BUN (9-20) mg/dL Creatinine (0.66-1.25) mg/dL Glucose (74-99) mg/dL POC Glucose (mg/dL) (75-99) mg/dL Calcium (8.4-10.2) mg/dL Magnesium (1.6-2.3) mg/dL AST (17-59) U/L Total Protein (6.3-8.2) g/dL Albumin (3.5-5.0) g/dL Arterial Blood Glucose 156 H 152 H 150 H (75-99) mg/dL Crossmatch 03/06/20 03/06/20 03/06/20 Range/Units 15:00 15:00 15:00 WBC 13.1 H (3.8-10.6) k/uL RBC 3.55 L (4.30-5.90) m/uL Hgb 11.8 L (13.0-17.5) gm/dL Hct 35.6 L (39.0-53.0) % MCV 100.3 H (80.0-100.0) fL Plt Count 123 L (150-450) k/uL Neutrophils # 11.4 H (1.3-7.7) k/uL Lymphocytes # (1.0-4.8) k/uL INR (<1.2) APTT 38.8 H (22.0-30.0) sec Fibrinogen 192 L (200-500) mg/dL ABG pH (7.35-7.45) ABG pCO2 (35-45) mmHg ABG pO2 (83-108) mmHg ABG HCO3 (21-25) mmol/L ABG Total CO2 (19-24) mmol/L ABG O2 Saturation (94-97) % ABG Ionized Calcium (4.5-5.3) mg/dL ABG Glucose (75-99) mg/dL Hemoglobin (13.0-17.5) gm/dL Sodium (137-145) mmol/L Chloride 109 H (98-107) mmol/L BUN 8 L (9-20) mg/dL Creatinine 0.60 L (0.66-1.25) mg/dL Glucose 115 H (74-99) mg/dL POC Glucose (mg/dL) (75-99) mg/dL Calcium 7.9 L (8.4-10.2) mg/dL Magnesium 3.0 H (1.6-2.3) mg/dL AST (17-59) U/L Total Protein 4.9 L (6.3-8.2) g/dL Albumin 2.9 L (3.5-5.0) g/dL Arterial Blood Glucose (75-99) mg/dL Crossmatch 03/06/20 03/06/20 03/06/20 Range/Units 15:03 15:15 15:15 WBC (3.8-10.6) k/uL RBC (4.30-5.90) m/uL Hgb (13.0-17.5) gm/dL Hct (39.0-53.0) % MCV (80.0-100.0) fL Plt Count (150-450) k/uL Neutrophils # (1.3-7.7) k/uL Lymphocytes # (1.0-4.8) k/uL INR (<1.2) APTT (22.0-30.0) sec Fibrinogen (200-500) mg/dL ABG pH 7.34 L (7.35-7.45) ABG pCO2 47 H (35-45) mmHg ABG pO2 352 H (83-108) mmHg ABG HCO3 26 H (21-25) mmol/L ABG Total CO2 27 H (19-24) mmol/L ABG O2 Saturation 99.4 H (94-97) % ABG Ionized Calcium (4.5-5.3) mg/dL ABG Glucose (75-99) mg/dL Hemoglobin (13.0-17.5) gm/dL Sodium (137-145) mmol/L Chloride (98-107) mmol/L BUN (9-20) mg/dL Creatinine (0.66-1.25) mg/dL Glucose (74-99) mg/dL POC Glucose (mg/dL) 112 H 119 H (75-99) mg/dL Calcium (8.4-10.2) mg/dL Magnesium (1.6-2.3) mg/dL AST (17-59) U/L Total Protein (6.3-8.2) g/dL Albumin (3.5-5.0) g/dL Arterial Blood Glucose (75-99) mg/dL Crossmatch 03/06/20 03/06/20 03/06/20 Range/Units 16:03 16:56 17:00 WBC 11.7 H (3.8-10.6) k/uL RBC 3.67 L (4.30-5.90) m/uL Hgb 11.9 L (13.0-17.5) gm/dL Hct 36.8 L (39.0-53.0) % MCV 100.3 H (80.0-100.0) fL Plt Count 120 L (150-450) k/uL Neutrophils # 9.9 H (1.3-7.7) k/uL Lymphocytes # (1.0-4.8) k/uL INR (<1.2) APTT (22.0-30.0) sec Fibrinogen (200-500) mg/dL ABG pH (7.35-7.45) ABG pCO2 (35-45) mmHg ABG pO2 (83-108) mmHg ABG HCO3 (21-25) mmol/L ABG Total CO2 (19-24) mmol/L ABG O2 Saturation (94-97) % ABG Ionized Calcium (4.5-5.3) mg/dL ABG Glucose (75-99) mg/dL Hemoglobin (13.0-17.5) gm/dL Sodium (137-145) mmol/L Chloride (98-107) mmol/L BUN (9-20) mg/dL Creatinine (0.66-1.25) mg/dL Glucose (74-99) mg/dL POC Glucose (mg/dL) 127 H 132 H (75-99) mg/dL Calcium (8.4-10.2) mg/dL Magnesium (1.6-2.3) mg/dL AST (17-59) U/L Total Protein (6.3-8.2) g/dL Albumin (3.5-5.0) g/dL Arterial Blood Glucose (75-99) mg/dL Crossmatch 03/06/20 03/06/20 03/06/20 Range/Units 17:30 17:58 18:59 WBC (3.8-10.6) k/uL RBC (4.30-5.90) m/uL Hgb (13.0-17.5) gm/dL Hct (39.0-53.0) % MCV (80.0-100.0) fL Plt Count (150-450) k/uL Neutrophils # (1.3-7.7) k/uL Lymphocytes # (1.0-4.8) k/uL INR (<1.2) APTT (22.0-30.0) sec Fibrinogen (200-500) mg/dL ABG pH (7.35-7.45) ABG pCO2 (35-45) mmHg ABG pO2 153 H (83-108) mmHg ABG HCO3 (21-25) mmol/L ABG Total CO2 26 H (19-24) mmol/L ABG O2 Saturation 98.8 H (94-97) % ABG Ionized Calcium (4.5-5.3) mg/dL ABG Glucose (75-99) mg/dL Hemoglobin (13.0-17.5) gm/dL Sodium (137-145) mmol/L Chloride (98-107) mmol/L BUN (9-20) mg/dL Creatinine (0.66-1.25) mg/dL Glucose (74-99) mg/dL POC Glucose (mg/dL) 152 H 159 H (75-99) mg/dL Calcium (8.4-10.2) mg/dL Magnesium (1.6-2.3) mg/dL AST (17-59) U/L Total Protein (6.3-8.2) g/dL Albumin (3.5-5.0) g/dL Arterial Blood Glucose (75-99) mg/dL Crossmatch 03/06/20 03/06/20 03/06/20 Range/Units 20:00 20:07 21:03 WBC 12.0 H (3.8-10.6) k/uL RBC 3.65 L (4.30-5.90) m/uL Hgb 11.8 L (13.0-17.5) gm/dL Hct 36.7 L (39.0-53.0) % MCV 100.5 H (80.0-100.0) fL Plt Count 135 L (150-450) k/uL Neutrophils # 10.8 H (1.3-7.7) k/uL Lymphocytes # 0.5 L (1.0-4.8) k/uL INR (<1.2) APTT (22.0-30.0) sec Fibrinogen (200-500) mg/dL ABG pH (7.35-7.45) ABG pCO2 (35-45) mmHg ABG pO2 (83-108) mmHg ABG HCO3 (21-25) mmol/L ABG Total CO2 (19-24) mmol/L ABG O2 Saturation (94-97) % ABG Ionized Calcium (4.5-5.3) mg/dL ABG Glucose (75-99) mg/dL Hemoglobin (13.0-17.5) gm/dL Sodium (137-145) mmol/L Chloride (98-107) mmol/L BUN (9-20) mg/dL Creatinine (0.66-1.25) mg/dL Glucose (74-99) mg/dL POC Glucose (mg/dL) 171 H 158 H (75-99) mg/dL Calcium (8.4-10.2) mg/dL Magnesium (1.6-2.3) mg/dL AST (17-59) U/L Total Protein (6.3-8.2) g/dL Albumin (3.5-5.0) g/dL Arterial Blood Glucose (75-99) mg/dL Crossmatch 03/06/20 03/06/20 03/07/20 Range/Units 22:04 23:05 00:07 WBC (3.8-10.6) k/uL RBC (4.30-5.90) m/uL Hgb (13.0-17.5) gm/dL Hct (39.0-53.0) % MCV (80.0-100.0) fL Plt Count (150-450) k/uL Neutrophils # (1.3-7.7) k/uL Lymphocytes # (1.0-4.8) k/uL INR (<1.2) APTT (22.0-30.0) sec Fibrinogen (200-500) mg/dL ABG pH (7.35-7.45) ABG pCO2 (35-45) mmHg ABG pO2 (83-108) mmHg ABG HCO3 (21-25) mmol/L ABG Total CO2 (19-24) mmol/L ABG O2 Saturation (94-97) % ABG Ionized Calcium (4.5-5.3) mg/dL ABG Glucose (75-99) mg/dL Hemoglobin (13.0-17.5) gm/dL Sodium (137-145) mmol/L Chloride (98-107) mmol/L BUN (9-20) mg/dL Creatinine (0.66-1.25) mg/dL Glucose (74-99) mg/dL POC Glucose (mg/dL) 151 H 125 H 115 H (75-99) mg/dL Calcium (8.4-10.2) mg/dL Magnesium (1.6-2.3) mg/dL AST (17-59) U/L Total Protein (6.3-8.2) g/dL Albumin (3.5-5.0) g/dL Arterial Blood Glucose (75-99) mg/dL Crossmatch 03/07/20 03/07/20 03/07/20 Range/Units 01:05 02:00 03:06 WBC (3.8-10.6) k/uL RBC (4.30-5.90) m/uL Hgb (13.0-17.5) gm/dL Hct (39.0-53.0) % MCV (80.0-100.0) fL Plt Count (150-450) k/uL Neutrophils # (1.3-7.7) k/uL Lymphocytes # (1.0-4.8) k/uL INR (<1.2) APTT (22.0-30.0) sec Fibrinogen (200-500) mg/dL ABG pH (7.35-7.45) ABG pCO2 (35-45) mmHg ABG pO2 (83-108) mmHg ABG HCO3 (21-25) mmol/L ABG Total CO2 (19-24) mmol/L ABG O2 Saturation (94-97) % ABG Ionized Calcium (4.5-5.3) mg/dL ABG Glucose (75-99) mg/dL Hemoglobin (13.0-17.5) gm/dL Sodium (137-145) mmol/L Chloride (98-107) mmol/L BUN (9-20) mg/dL Creatinine (0.66-1.25) mg/dL Glucose (74-99) mg/dL POC Glucose (mg/dL) 119 H 121 H 124 H (75-99) mg/dL Calcium (8.4-10.2) mg/dL Magnesium (1.6-2.3) mg/dL AST (17-59) U/L Total Protein (6.3-8.2) g/dL Albumin (3.5-5.0) g/dL Arterial Blood Glucose (75-99) mg/dL Crossmatch 03/07/20 03/07/20 03/07/20 Range/Units 04:15 04:15 04:15 WBC (3.8-10.6) k/uL RBC 3.29 L (4.30-5.90) m/uL Hgb 10.5 L (13.0-17.5) gm/dL Hct 33.0 L (39.0-53.0) % MCV 100.2 H (80.0-100.0) fL Plt Count 112 L (150-450) k/uL Neutrophils # 7.8 H (1.3-7.7) k/uL Lymphocytes # 0.8 L (1.0-4.8) k/uL INR (<1.2) APTT (22.0-30.0) sec Fibrinogen (200-500) mg/dL ABG pH (7.35-7.45) ABG pCO2 (35-45) mmHg ABG pO2 (83-108) mmHg ABG HCO3 (21-25) mmol/L ABG Total CO2 (19-24) mmol/L ABG O2 Saturation (94-97) % ABG Ionized Calcium (4.5-5.3) mg/dL ABG Glucose (75-99) mg/dL Hemoglobin (13.0-17.5) gm/dL Sodium 136 L (137-145) mmol/L Chloride (98-107) mmol/L BUN (9-20) mg/dL Creatinine 0.63 L (0.66-1.25) mg/dL Glucose 118 H (74-99) mg/dL POC Glucose (mg/dL) 122 H (75-99) mg/dL Calcium 7.9 L (8.4-10.2) mg/dL Magnesium 2.6 H (1.6-2.3) mg/dL AST 90 H (17-59) U/L Total Protein 4.9 L (6.3-8.2) g/dL Albumin 3.0 L (3.5-5.0) g/dL Arterial Blood Glucose (75-99) mg/dL Crossmatch 03/07/20 03/07/20 03/07/20 Range/Units 04:35 04:59 06:20 WBC (3.8-10.6) k/uL RBC (4.30-5.90) m/uL Hgb (13.0-17.5) gm/dL Hct (39.0-53.0) % MCV (80.0-100.0) fL Plt Count (150-450) k/uL Neutrophils # (1.3-7.7) k/uL Lymphocytes # (1.0-4.8) k/uL INR 1.2 H (<1.2) APTT (22.0-30.0) sec Fibrinogen (200-500) mg/dL ABG pH (7.35-7.45) ABG pCO2 (35-45) mmHg ABG pO2 (83-108) mmHg ABG HCO3 (21-25) mmol/L ABG Total CO2 (19-24) mmol/L ABG O2 Saturation (94-97) % ABG Ionized Calcium (4.5-5.3) mg/dL ABG Glucose (75-99) mg/dL Hemoglobin (13.0-17.5) gm/dL Sodium (137-145) mmol/L Chloride (98-107) mmol/L BUN (9-20) mg/dL Creatinine (0.66-1.25) mg/dL Glucose (74-99) mg/dL POC Glucose (mg/dL) 118 H 121 H (75-99) mg/dL Calcium (8.4-10.2) mg/dL Magnesium (1.6-2.3) mg/dL AST (17-59) U/L Total Protein (6.3-8.2) g/dL Albumin (3.5-5.0) g/dL Arterial Blood Glucose (75-99) mg/dL Crossmatch 03/07/20 03/07/20 03/07/20 Range/Units 07:54 09:12 09:55 WBC (3.8-10.6) k/uL RBC (4.30-5.90) m/uL Hgb (13.0-17.5) gm/dL Hct (39.0-53.0) % MCV (80.0-100.0) fL Plt Count (150-450) k/uL Neutrophils # (1.3-7.7) k/uL Lymphocytes # (1.0-4.8) k/uL INR (<1.2) APTT (22.0-30.0) sec Fibrinogen (200-500) mg/dL ABG pH (7.35-7.45) ABG pCO2 (35-45) mmHg ABG pO2 (83-108) mmHg ABG HCO3 (21-25) mmol/L ABG Total CO2 (19-24) mmol/L ABG O2 Saturation (94-97) % ABG Ionized Calcium (4.5-5.3) mg/dL ABG Glucose (75-99) mg/dL Hemoglobin (13.0-17.5) gm/dL Sodium (137-145) mmol/L Chloride (98-107) mmol/L BUN (9-20) mg/dL Creatinine (0.66-1.25) mg/dL Glucose (74-99) mg/dL POC Glucose (mg/dL) 104 H 101 H 139 H (75-99) mg/dL Calcium (8.4-10.2) mg/dL Magnesium (1.6-2.3) mg/dL AST (17-59) U/L Total Protein (6.3-8.2) g/dL Albumin (3.5-5.0) g/dL Arterial Blood Glucose (75-99) mg/dL Crossmatch 03/07/20 03/07/20 Range/Units 10:48 11:54 WBC (3.8-10.6) k/uL RBC (4.30-5.90) m/uL Hgb (13.0-17.5) gm/dL Hct (39.0-53.0) % MCV (80.0-100.0) fL Plt Count (150-450) k/uL Neutrophils # (1.3-7.7) k/uL Lymphocytes # (1.0-4.8) k/uL INR (<1.2) APTT (22.0-30.0) sec Fibrinogen (200-500) mg/dL ABG pH (7.35-7.45) ABG pCO2 (35-45) mmHg ABG pO2 (83-108) mmHg ABG HCO3 (21-25) mmol/L ABG Total CO2 (19-24) mmol/L ABG O2 Saturation (94-97) % ABG Ionized Calcium (4.5-5.3) mg/dL ABG Glucose (75-99) mg/dL Hemoglobin (13.0-17.5) gm/dL Sodium (137-145) mmol/L Chloride (98-107) mmol/L BUN (9-20) mg/dL Creatinine (0.66-1.25) mg/dL Glucose (74-99) mg/dL POC Glucose (mg/dL) 103 H 123 H (75-99) mg/dL Calcium (8.4-10.2) mg/dL Magnesium (1.6-2.3) mg/dL AST (17-59) U/L Total Protein (6.3-8.2) g/dL Albumin (3.5-5.0) g/dL Arterial Blood Glucose (75-99) mg/dL Crossmatch Assessment and Plan Plan: Assessment: #1. Symptomatic multivessel coronary artery disease, status post four-vessel coronary artery bypass grafting , postoperative day #1 #2. Routine postoperative ventilator management #3. Mild blood loss anemia, normal outcome of bypass grafting surgery #4. History of hypertension #5. History of hyperlipidemia #6. Type 2 diabetes mellitus #7. Hypothyroidism #8. Daily EtOH use #9. History of splenectomy #10. Remote history of tobacco dependence with preop FEV1 of 59% of predicted Plan: Continue encouraging deep breathing and coughing, patient is doing very well, on postoperative day 1. Maintain pain control, and ambulate the patient, encourage incentive spirometry use, today's chest x-ray shows no focal airspace disease or pneumothorax, hemodynamically patient is stable, his labs have been reviewed, contained to closely follow in the intensive care unit. Daily labs and chest x- ray. I performed a history & physical examination of the patient and discussed their management with my nurse practitioner, Angela Latham. I reviewed the nurse practitioner's note and agree with the documented findings and plan of care. Lung sounds are positive for clear breath sounds. The findings and the impression was discussed with the patient. I attest to the documentation by the nurse practitioner. Time with Patient: Less than 30
[2020-03-07 13:05] LABS: Glucose,Whole Blood 179 mg/dL (75-99)
[2020-03-07 13:51] LABS: Glucose,Whole Blood 172 mg/dL (75-99)
[2020-03-07 14:57] LABS: Glucose,Whole Blood 196 mg/dL (75-99)
[2020-03-07 16:39] LABS: Glucose,Whole Blood 189 mg/dL (75-99)
--- NOTE | 2020-03-07 17:03 | P.PN ---
Subjective This is Haily Katz PA-C dictating a progress note on this patient The patient was interviewed and examined by me Case discussed with Dr. Pantoja and he agrees with the plan of care HPI/interval history Patient is a 74-year-old male with a history of CAD, hypertension, dyslipidemia, chronic atrial fibrillation, type 2 diabetes, daily alcohol use, and valvular heart disease. Yesterday he underwent CABG 4 with KISER to the LAD, SVG to the OM, sequential SVG to posterior descending and posterior lateral branches of the RCA, PVI, left atrial appendage ligation, and aortic valve replacement. He is doing well postoperatively. Patient seen and examined in the ICU sitting in the chair. He states his pain is well controlled. Denies any shortness of breath. No dizziness. EXAMINATION Patient is afebrile, pulse in the 70s, respirations 16, blood pressure 112/66, oxygen saturation 98% on 2 L nasal cannula Patient seen and examined sitting up in the chair, in no acute distress Lungs are clear to auscultation bilaterally Heart is irregularly irregular, diastolic murmur audible No elevated JVD No lower extremity edema REVIEW OF LABS, ECG WBC 9.3, hemoglobin 10.5, platelets 112, potassium 4.2, BUN 11, creatinine 0.63 IMPRESSION / ASSESSMENT: #1 multivessel CAD status post CABG 4 #2 severe aortic stenosis status post aortic valve replacement #3 chronic atrial fibrillation rate controlled #4 hypertension #5 dyslipidemia #6 history of alcohol use #7 cardiomyopathy EF 45% PLAN: Continue dual antiplatelet therapy and statins Continue beta blockers and low-dose lisinopril Maximize cardiac medications as tolerated Objective - Vital Signs Vital signs: Vital Signs Temp 97.0 F L 03/07/20 12:00 Pulse 80 03/07/20 16:13 Resp 16 03/07/20 15:30 BP 112/66 03/07/20 15:00 Pulse Ox 98 03/07/20 15:00 Intake & Output 03/06/20 03/07/20 03/07/20 18:59 06:59 18:59 Intake Total 7867.035 7217.784 992.557 Output Total 2496 875 570 Balance -0782.885 9062.784 422.557 Weight 108.7 kg 108.7 kg Intake: IV 267 1684.5 419 ACETAMINOPHEN IV (For NPO 100 ) 1,000 mg In Empty Bag 1 bag @ 400 mls/hr IVPB Q6HR [facility] Rx#:[id number] Albumin Human 5% 250 ml 500 In Empty Bag 1 bag @ 250 mls/hr IVPB Q1HR PRN Rx#: [id number] Lactated Ringers 1,000 ml 150 570 210 @ 20 mls/hr IV .Q24H [facility] Rx#:[id number] Nitroglycerin-D5w Pmx 50 16.5 mg In Dextrose/Water 1 250ml.bag @ 5 MCG/MIN 1.5 mls/hr IV .Q24H [facility] Rx#: [id number] Pressure bags 36 108 69 Sodium Chloride 0.9% 1, 75 000 ml @ 75 mls/hr IV . [id number] [facility] Rx#:[id number] ceFAZolin 2 gm In Sodium 50 50 Chloride 0.9% 50 ml @ 100 mls/hr IVPB Q8HR [facility] Rx# :[id number] co/ci injectate 340 90 Intake, IV Titration 163.396 20.284 33.557 Amount ACETAMINOPHEN IV (For NPO 100 ) 1,000 mg In Empty Bag 1 bag @ 400 mls/hr IVPB Q6HR [facility] Rx#:[id number] Insulin Regular 100 unit 0.328 20.284 33.557 In Sodium Chloride 0.9% 100 ml @ Per Protocol IV .Q0M [facility] Rx#:[id number] ceFAZolin 2 gm In Sodium 50 Chloride 0.9% 50 ml @ 100 mls/hr IVPB Q8HR [facility] Rx# :[id number] propofoL 1,000 mg In 13.068 Empty Bag 1 bag @ Titrate IV .Q0M [facility] Rx#: [id number] Oral 1460 540 Blood Product 767 Ffp 24 Cpd Unit 267 [id number] Ffp 24 Cpd Unit 294 [id number] Platelet Irr Pheresis 206 Acda1 Unit [id number] Output: Chest Tube Drainage 197 531 370 Bilateral Mediastinal 150 350 270 Left 47 181 100 Urine 799 344 200 Estimated Blood Loss 1500 Other: Voiding Method Indwelling Catheter Indwelling Catheter ABP, PAP, CO, CI - Last Documented Arterial Blood Pressure 99/41 Pulmonary Artery Pressure 36/14 Cardiac Output 5.6 Cardiac Index 2.5 - Labs CBC & Chem 7: 03/07/20 04:15 03/07/20 04:15 Labs: Abnormal Lab Results - Last 24 Hours (Table) 03/05/20 03/06/20 03/06/20 Range/Units 05:39 17:00 17:30 WBC 11.7 H (3.8-10.6) k/uL RBC 3.67 L (4.30-5.90) m/uL Hgb 11.9 L (13.0-17.5) gm/dL Hct 36.8 L (39.0-53.0) % MCV 100.3 H (80.0-100.0) fL Plt Count 120 L (150-450) k/uL Neutrophils # 9.9 H (1.3-7.7) k/uL Lymphocytes # (1.0-4.8) k/uL INR (<1.2) ABG pO2 153 H (83-108) mmHg ABG Total CO2 26 H (19-24) mmol/L ABG O2 Saturation 98.8 H (94-97) % Sodium (137-145) mmol/L Creatinine (0.66-1.25) mg/dL Glucose (74-99) mg/dL POC Glucose (mg/dL) (75-99) mg/dL Calcium (8.4-10.2) mg/dL Magnesium (1.6-2.3) mg/dL AST (17-59) U/L Total Protein (6.3-8.2) g/dL Albumin (3.5-5.0) g/dL Crossmatch See Detail 03/06/20 03/06/20 03/06/20 Range/Units 17:58 18:59 20:00 WBC 12.0 H (3.8-10.6) k/uL RBC 3.65 L (4.30-5.90) m/uL Hgb 11.8 L (13.0-17.5) gm/dL Hct 36.7 L (39.0-53.0) % MCV 100.5 H (80.0-100.0) fL Plt Count 135 L (150-450) k/uL Neutrophils # 10.8 H (1.3-7.7) k/uL Lymphocytes # 0.5 L (1.0-4.8) k/uL INR (<1.2) ABG pO2 (83-108) mmHg ABG Total CO2 (19-24) mmol/L ABG O2 Saturation (94-97) % Sodium (137-145) mmol/L Creatinine (0.66-1.25) mg/dL Glucose (74-99) mg/dL POC Glucose (mg/dL) 152 H 159 H (75-99) mg/dL Calcium (8.4-10.2) mg/dL Magnesium (1.6-2.3) mg/dL AST (17-59) U/L Total Protein (6.3-8.2) g/dL Albumin (3.5-5.0) g/dL Crossmatch 03/06/20 03/06/20 03/06/20 Range/Units 20:07 21:03 22:04 WBC (3.8-10.6) k/uL RBC (4.30-5.90) m/uL Hgb (13.0-17.5) gm/dL Hct (39.0-53.0) % MCV (80.0-100.0) fL Plt Count (150-450) k/uL Neutrophils # (1.3-7.7) k/uL Lymphocytes # (1.0-4.8) k/uL INR (<1.2) ABG pO2 (83-108) mmHg ABG Total CO2 (19-24) mmol/L ABG O2 Saturation (94-97) % Sodium (137-145) mmol/L Creatinine (0.66-1.25) mg/dL Glucose (74-99) mg/dL POC Glucose (mg/dL) 171 H 158 H 151 H (75-99) mg/dL Calcium (8.4-10.2) mg/dL Magnesium (1.6-2.3) mg/dL AST (17-59) U/L Total Protein (6.3-8.2) g/dL Albumin (3.5-5.0) g/dL Crossmatch 03/06/20 03/07/20 03/07/20 Range/Units 23:05 00:07 01:05 WBC (3.8-10.6) k/uL RBC (4.30-5.90) m/uL Hgb (13.0-17.5) gm/dL Hct (39.0-53.0) % MCV (80.0-100.0) fL Plt Count (150-450) k/uL Neutrophils # (1.3-7.7) k/uL Lymphocytes # (1.0-4.8) k/uL INR (<1.2) ABG pO2 (83-108) mmHg ABG Total CO2 (19-24) mmol/L ABG O2 Saturation (94-97) % Sodium (137-145) mmol/L Creatinine (0.66-1.25) mg/dL Glucose (74-99) mg/dL POC Glucose (mg/dL) 125 H 115 H 119 H (75-99) mg/dL Calcium (8.4-10.2) mg/dL Magnesium (1.6-2.3) mg/dL AST (17-59) U/L Total Protein (6.3-8.2) g/dL Albumin (3.5-5.0) g/dL Crossmatch 03/07/20 03/07/20 03/07/20 Range/Units 02:00 03:06 04:15 WBC (3.8-10.6) k/uL RBC 3.29 L (4.30-5.90) m/uL Hgb 10.5 L (13.0-17.5) gm/dL Hct 33.0 L (39.0-53.0) % MCV 100.2 H (80.0-100.0) fL Plt Count 112 L (150-450) k/uL Neutrophils # 7.8 H (1.3-7.7) k/uL Lymphocytes # 0.8 L (1.0-4.8) k/uL INR (<1.2) ABG pO2 (83-108) mmHg ABG Total CO2 (19-24) mmol/L ABG O2 Saturation (94-97) % Sodium (137-145) mmol/L Creatinine (0.66-1.25) mg/dL Glucose (74-99) mg/dL POC Glucose (mg/dL) 121 H 124 H (75-99) mg/dL Calcium (8.4-10.2) mg/dL Magnesium (1.6-2.3) mg/dL AST (17-59) U/L Total Protein (6.3-8.2) g/dL Albumin (3.5-5.0) g/dL Crossmatch 03/07/20 03/07/20 03/07/20 Range/Units 04:15 04:15 04:35 WBC (3.8-10.6) k/uL RBC (4.30-5.90) m/uL Hgb (13.0-17.5) gm/dL Hct (39.0-53.0) % MCV (80.0-100.0) fL Plt Count (150-450) k/uL Neutrophils # (1.3-7.7) k/uL Lymphocytes # (1.0-4.8) k/uL INR 1.2 H (<1.2) ABG pO2 (83-108) mmHg ABG Total CO2 (19-24) mmol/L ABG O2 Saturation (94-97) % Sodium 136 L (137-145) mmol/L Creatinine 0.63 L (0.66-1.25) mg/dL Glucose 118 H (74-99) mg/dL POC Glucose (mg/dL) 122 H (75-99) mg/dL Calcium 7.9 L (8.4-10.2) mg/dL Magnesium 2.6 H (1.6-2.3) mg/dL AST 90 H (17-59) U/L Total Protein 4.9 L (6.3-8.2) g/dL Albumin 3.0 L (3.5-5.0) g/dL Crossmatch 03/07/20 03/07/20 03/07/20 Range/Units 04:59 06:20 07:54 WBC (3.8-10.6) k/uL RBC (4.30-5.90) m/uL Hgb (13.0-17.5) gm/dL Hct (39.0-53.0) % MCV (80.0-100.0) fL Plt Count (150-450) k/uL Neutrophils # (1.3-7.7) k/uL Lymphocytes # (1.0-4.8) k/uL INR (<1.2) ABG pO2 (83-108) mmHg ABG Total CO2 (19-24) mmol/L ABG O2 Saturation (94-97) % Sodium (137-145) mmol/L Creatinine (0.66-1.25) mg/dL Glucose (74-99) mg/dL POC Glucose (mg/dL) 118 H 121 H 104 H (75-99) mg/dL Calcium (8.4-10.2) mg/dL Magnesium (1.6-2.3) mg/dL AST (17-59) U/L Total Protein (6.3-8.2) g/dL Albumin (3.5-5.0) g/dL Crossmatch 03/07/20 03/07/20 03/07/20 Range/Units 09:12 09:55 10:48 WBC (3.8-10.6) k/uL RBC (4.30-5.90) m/uL Hgb (13.0-17.5) gm/dL Hct (39.0-53.0) % MCV (80.0-100.0) fL Plt Count (150-450) k/uL Neutrophils # (1.3-7.7) k/uL Lymphocytes # (1.0-4.8) k/uL INR (<1.2) ABG pO2 (83-108) mmHg ABG Total CO2 (19-24) mmol/L ABG O2 Saturation (94-97) % Sodium (137-145) mmol/L Creatinine (0.66-1.25) mg/dL Glucose (74-99) mg/dL POC Glucose (mg/dL) 101 H 139 H 103 H (75-99) mg/dL Calcium (8.4-10.2) mg/dL Magnesium (1.6-2.3) mg/dL AST (17-59) U/L Total Protein (6.3-8.2) g/dL Albumin (3.5-5.0) g/dL Crossmatch 03/07/20 03/07/20 03/07/20 Range/Units 11:54 13:04 13:49 WBC (3.8-10.6) k/uL RBC (4.30-5.90) m/uL Hgb (13.0-17.5) gm/dL Hct (39.0-53.0) % MCV (80.0-100.0) fL Plt Count (150-450) k/uL Neutrophils # (1.3-7.7) k/uL Lymphocytes # (1.0-4.8) k/uL INR (<1.2) ABG pO2 (83-108) mmHg ABG Total CO2 (19-24) mmol/L ABG O2 Saturation (94-97) % Sodium (137-145) mmol/L Creatinine (0.66-1.25) mg/dL Glucose (74-99) mg/dL POC Glucose (mg/dL) 123 H 179 H 172 H (75-99) mg/dL Calcium (8.4-10.2) mg/dL Magnesium (1.6-2.3) mg/dL AST (17-59) U/L Total Protein (6.3-8.2) g/dL Albumin (3.5-5.0) g/dL Crossmatch 03/07/20 03/07/20 Range/Units 14:55 16:37 WBC (3.8-10.6) k/uL RBC (4.30-5.90) m/uL Hgb (13.0-17.5) gm/dL Hct (39.0-53.0) % MCV (80.0-100.0) fL Plt Count (150-450) k/uL Neutrophils # (1.3-7.7) k/uL Lymphocytes # (1.0-4.8) k/uL INR (<1.2) ABG pO2 (83-108) mmHg ABG Total CO2 (19-24) mmol/L ABG O2 Saturation (94-97) % Sodium (137-145) mmol/L Creatinine (0.66-1.25) mg/dL Glucose (74-99) mg/dL POC Glucose (mg/dL) 196 H 189 H (75-99) mg/dL Calcium (8.4-10.2) mg/dL Magnesium (1.6-2.3) mg/dL AST (17-59) U/L Total Protein (6.3-8.2) g/dL Albumin (3.5-5.0) g/dL Crossmatch
[2020-03-07 18:15] LABS: Glucose,Whole Blood 146 mg/dL (75-99)
[2020-03-07 18:59] LABS: Glucose,Whole Blood 171 mg/dL (75-99)
[2020-03-07 20:35] LABS: Glucose,Whole Blood 236 mg/dL (75-99)
[2020-03-07] MEDS: INSULIN REGULAR 100 UNIT in SODIUM CHLORIDE 0.9% 100 ML IV SCH (20:35)
[2020-03-07] MEDS: SENNOSIDES-DOCUSATE SODIUM 1 EACH TAB PO SCH (20:45)
[2020-03-07 21:27] LABS: Glucose,Whole Blood 239 mg/dL (75-99)
[2020-03-07 21:28] LABS: Glucose,Whole Blood 196 mg/dL (75-99)
[2020-03-07 23:09] LABS: Glucose,Whole Blood 210 mg/dL (75-99)
[2020-03-08 00:17] LABS: Glucose,Whole Blood 188 mg/dL (75-99)
[2020-03-08] MEDS: HEPARIN SODIUM,PORCINE 5,000 UNIT/ML 1 ML VIAL SQ SCH ×3 (00:20→16:57)
[2020-03-08] MEDS: KETOROLAC 15 MG/ML 1 ML VIAL IVP SCH ×2 (00:20→06:57)
[2020-03-08 01:02] LABS: Glucose,Whole Blood 162 mg/dL (75-99)
[2020-03-08 01:50] LABS: Glucose,Whole Blood 147 mg/dL (75-99)
[2020-03-08] MEDS: ALBUMIN HUMAN 5% 250 ML in EMPTY BAG 1 BAG IVPB PRN (03:04)
[2020-03-08 03:06] LABS: Glucose,Whole Blood 128 mg/dL (75-99)
[2020-03-08 04:19] LABS: Glucose,Whole Blood 101 mg/dL (75-99)
[2020-03-08 04:41] LABS: Ionized Calcium 4.6 mg/dL (4.5-5.3)
[2020-03-08 04:46] LABS: Basophils % (A) 0 %; Eosinophils % (A) 0 %; HCT 31.1 % (39.0-53.0); HGB 9.9 gm/dL (13.0-17.5); Lymphocytes # (A) 1.7 k/uL (1.0-4.8); Lymphocytes % (A) 13 %; MCH 32.2 pg (25.0-35.0); MCV 100.9 fL (80.0-100.0); Macrocytosis Slight; Mean Platelet Volume 9.8; Monocytes # (A) 0.7 k/uL (0-1.0); Monocytes % (A) 6 %; Neutrophils # (A) 10.1 k/uL (1.3-7.7); Neutrophils % (A) 79 %; Platelet Count 105 k/uL (150-450); RBC 3.08 m/uL (4.30-5.90); RDW 13.7 % (11.5-15.5); WBC 12.7 k/uL (3.8-10.6)
[2020-03-08 04:57] LABS: Albumin 3.3 g/dL (3.5-5.0); Calcium 8.2 mg/dL (8.4-10.2); Total Bilirubin 0.7 mg/dL (0.2-1.3); Total Protein 5.2 g/dL (6.3-8.2)
[2020-03-08 04:58] LABS: Glucose,Whole Blood 92 mg/dL (75-99)
[2020-03-08 06:21] LABS: Glucose,Whole Blood 86 mg/dL (75-99)
[2020-03-08] MEDS: PANTOPRAZOLE 40 MG TABLET PO SCH (06:57)
[2020-03-08] MEDS: LEVOTHYROXINE 75 MCG TAB PO SCH (06:57)
[2020-03-08 07:09] LABS: Glucose,Whole Blood 111 mg/dL (75-99)
[2020-03-08] MEDS: IPRATROPIUM-ALBUTEROL 3 ML NEB INHALATION SCH ×4 (08:03→19:52)
[2020-03-08 08:15] LABS: Glucose,Whole Blood 119 mg/dL (75-99)
[2020-03-08] MEDS: CLOPIDOGREL 75 MG TAB PO SCH (09:24)
[2020-03-08] MEDS: ASPIRIN 325 MG TAB PO SCH (09:24)
[2020-03-08] MEDS: ATORVASTATIN 40 MG TAB PO SCH (09:24)
[2020-03-08] MEDS: AMIODARONE 200 MG TAB PO SCH ×2 (09:24→20:12)
[2020-03-08] MEDS: FOLIC ACID-VIT B COMPLEX-VIT C 1 CAP PO SCH (09:25)
--- NOTE | 2020-03-08 09:26 | XR ---
EXAMINATION TYPE: XR chest 1V portable DATE OF EXAM: 03/08/2020 CLINICAL HISTORY: Postoperative cardiac surgery TECHNIQUE: Semiupright portable view of the chest obtained COMPARISON: 03/07/2020 chest radiograph FINDINGS: Sternotomy wires, valvular prosthesis, and left atrial appendage clip. Redemonstrated medi astinal drain and left-sided chest tube. Interval removal of right-sided internal jugular Cressona-Randall c atheter, with persistent right internal jugular Cressona-Randall sheath. Redemonstrated cardiomegaly. Medias tinal silhouette and pulmonary vessels are normal. Mild left basilar atelectasis. No sizable pneumoth orax given semiupright technique. IMPRESSION: 1. Interval removal of right internal jugular Cressona-Randall catheter, with persistent right internal jugu lar Cressona-Randall sheath. 2. Mild left basilar atelectasis.
[2020-03-08] MEDS ORDERED: ACETAMINOPHEN TAB 500 MG TAB PO PRN (09:27)
--- NOTE | 2020-03-08 09:28 | P.PN ---
Subjective Progress Note Date: 03/08/20 Principal diagnosis: Multivessel coronary artery disease This is a 74-year-old gentleman who follows on an outpatient basis with Dr. Kavon Rouse for primary care and Dr. Tye Lee for cardiology. He has a previous medical history of hypertension, hyperlipidemia, chronic atrial fibrillation on Coumadin for anticoagulation, hypothyroidism, type 2 diabetes mellitus, remote history of pneumonia, skin cancer with removal, splenectomy, daily EtOH use of 2-3 beers every day, and remote history of tobacco dependence. He has followed with Dr. Lee for quite some time regarding his atrial fibrillation. Over the last several months he has noted exertional shortness of breath relieved with rest which he states he has never had before. He denies any other symptoms including no chest pain, no weakness, dizziness, lightheadedness, strokelike symptoms, paroxysmal nocturnal dyspnea, or any recent pulmonary illnesses. He was seen in the cardiology office last week and had a transthoracic echocardiogram which demonstrated impaired left ventricular function with EF 45%, hypokinesis of the inferior and septal marrero at the base, mild to moderate mitral regurgitation with mild mitral annular calcification, moderately calcified aortic valve with mild aortic insufficiency and moderate to severe aortic stenosis with valve area 0.56 cm, peak/mean gradient 54/35 mmHg, and mild tricuspid regurgitation. He was recommended to undergo heart catheterization and transesophageal echocardiogram which were completed today by Dr. Lee. Transesophageal echocardiogram demonstrated 3 leaflet aortic valve which was heavily calcified with severe restriction in leaflet mobility. Valve area was 0.7 cm by planimetry confirming severe aortic stenosis with mild aortic regurgitation, mild to moderate central mitral regurgitation, mild tricuspid regurgitation, mildly dilated left ventricle with diffuse global hypokinesis and ejection fraction 45%. Cardiac catheterization demonstrated heavily calcified left main coronary artery with distal stenosis extending into the proximal LAD and circumflex, ostial LAD stenosis 80-90%, moderate stenosis in the midportion of the RCA with 80-90% stenosis of the PDA with right to left collaterals. Due to these findings Dr. Harris from cardiothoracic surgery was consulted for surgical revascularization and aortic valve replacement. Patient is seen today 03/04/2020 in follow-up on the selective care unit. He is currently sitting up in a chair at the bedside. Awake and alert in no acute distress. Denies any chest pain, palpitations, lightheadedness or dizziness. Denies any shortness of breath, cough or congestion. FEV1 value 1.86 L, 59%. Chest x-ray showed no acute pulmonary process. On 03/07/2020 patient seen in follow-up in the intensive care unit, he status post four-vessel bypass grafting with a KISER to the LAD, SVG to the OM, sequential SVG to posterior descending and posterior lateral branches of the right coronary artery, modified Newton-Maze procedure with bilateral pulmonary vein ablation with a 2 through bipolar clamp and ligation of the left atrial appendage with a 40 mm AtriCure clip. Patient was successfully weaned and extubated from the mechanical ventilator at around 1700 yesterday, this morning he seen sitting up in the recliner in no acute distress, awake and alert, oriented 3, currently on 2 L of oxygen with pulse ox of 99%, hemodynamically he stable, he is on lactated Ringer's a rate of 50 ML per hour, no other drips. Appears to be in atrial fibrillation or accelerated junctional rate at a rate of 77 BPM, AV wires are in place, to external pacemaker box with a backup rate. Right and left pleural chest tubes with approximately 300 mL of serosanguineous output in last 24 hours, and mediastinal chest tube with approximately 600 mL of serosanguineous output in the last 24 hours, no air leak. PA pressures 34/14, CVP 7, cardiac output is 5.6, and cardiac index is 2.5. Patient is working on incentive spirometer, achieving 1500 on the today. Today's chest x-ray has been reviewed showing interval removal of the endotracheal tube, enteric tube and epicardial pacemaker leads, no focal airspace disease or pneumothorax. Today's labs have been reviewed. No acute events overnight, his pain is well controlled. Midsternal chest tube sites and left leg incisions clean dry and intact, covered with surgical dressings. On 03/08/2020 patient seen in follow-up in the intensive care unit. Patient is awake and alert, oriented 3, in no acute distress, he is on room air pulse ox of 94-95%, and spirometer effort is 1500 today. Patient apparently went into slow A. fib this morning, the rate is 50 BPM, he became symptomatic, bradycardia cardiac and hypotensive, and is currently being paced in DDD mode with a rate of 80 BPM. Patient is on oral amiodarone, his lisinopril was held, he is on lactated Ringer's at a rate of 25 ML per hour, this is postoperative day 2, status post four-vessel bypass grafting. No difficulty breathing, his chest x- ray shows bibasilar atelectasis and small pleural effusions. Today's labs have been reviewed, white blood cell count is 12.7, hemoglobin is 9.9, sodium is 133, the rest of the lites are within normal limits, BUN is 23 creatinine is 1.13. Chest tubes have been discontinued, midsternal, chest tube sites and left leg incisions clean dry and intact Objective - Vital Signs Vital signs: Vital Signs Temp 98.0 F 03/08/20 08:00 Pulse 81 03/08/20 09:00 Resp 18 03/08/20 09:00 BP 117/77 03/08/20 09:00 Pulse Ox 94 L 03/08/20 09:00 Intake & Output 03/07/20 03/08/20 03/08/20 18:59 06:59 18:59 Intake Total 1348.694 657.847 62 Output Total 725 555 95 Balance 623.694 102.847 -33 Weight 108.7 kg 110.6 kg Intake: IV 523 591 62 Albumin Human 5% 250 ml 250 In Empty Bag 1 bag @ 250 mls/hr IVPB Q1HR PRN Rx#: [id number] Lactated Ringers 1,000 ml 290 275 50 @ 20 mls/hr IV .Q24H [facility] Rx#:[id number] Pressure bags 93 66 12 ceFAZolin 2 gm In Sodium 50 Chloride 0.9% 50 ml @ 100 mls/hr IVPB Q8HR [facility] Rx# :[id number] co/ci injectate 90 Intake, IV Titration 45.694 66.847 Amount Insulin Regular 100 unit 45.694 66.847 In Sodium Chloride 0.9% 100 ml @ Per Protocol IV .Q0M [facility] Rx#:[id number] Oral 780 Output: Chest Tube Drainage 420 340 Bilateral Mediastinal 310 220 Left 110 120 Urine 305 215 95 Other: Voiding Method Indwelling Catheter Indwelling Catheter Indwelling Catheter ABP, PAP, CO, CI - Last Documented Arterial Blood Pressure 124/52 Pulmonary Artery Pressure 36/14 Cardiac Output 5.6 Cardiac Index 2.5 - Exam GENERAL EXAM: Alert, very pleasant, 74-year-old white male, on room air with the pulse ox of 94%, comfortable in no apparent distress. HEAD: Normocephalic/atraumatic. EYES: Normal reaction of pupils, equal size. Conjunctiva pink, sclera white. NOSE: Clear with pink turbinates. THROAT: No erythema or exudates. NECK: No masses, no JVD, no thyroid enlargement, no adenopathy. CHEST: No chest wall deformity. Symmetrical expansion. Midsternal incision is clean dry and intact, interval removal of right and left pleural chest tubes, one mediastinal chest tube insertion site clean dry and intact, AV wires connected to external pacemaker and patient is currently being paced in DDD mode with a rate of 80, underlying rhythm is slow atrial fibrillation with a rate of 50 BPM LUNGS: Equal air entry with no crackles, wheeze, rhonchi or dullness. CVS: Irregular rate and rhythm, normal S1 and S2, no gallops, no murmurs, no rubs ABDOMEN: Soft, nontender. No hepatosplenomegaly, normal bowel sounds, no guarding or rigidity. EXTREMITIES: No clubbing, no edema, no cyanosis, 2+ pulses and upper and lower extremities. Left leg incision clean dry and intact, covered with a dressing MUSCULOSKELETAL: Muscle strength and tone normal. SPINE: No scoliosis or deformity SKIN: No rashes CENTRAL NERVOUS SYSTEM: Alert and oriented -3. No focal deficits, tone is normal in all 4 extremities. PSYCHIATRIC: Alert and oriented -3. Appropriate affect. Intact judgment and insight. - Labs CBC & Chem 7: 03/08/20 04:10 03/08/20 04:10 Labs: Abnormal Lab Results - Last 24 Hours (Table) 03/07/20 03/07/20 03/07/20 Range/Units 09:55 10:48 11:54 WBC (3.8-10.6) k/uL RBC (4.30-5.90) m/uL Hgb (13.0-17.5) gm/dL Hct (39.0-53.0) % MCV (80.0-100.0) fL Plt Count (150-450) k/uL Neutrophils # (1.3-7.7) k/uL Sodium (137-145) mmol/L BUN (9-20) mg/dL POC Glucose (mg/dL) 139 H 103 H 123 H (75-99) mg/dL Calcium (8.4-10.2) mg/dL AST (17-59) U/L Total Protein (6.3-8.2) g/dL Albumin (3.5-5.0) g/dL 03/07/20 03/07/20 03/07/20 Range/Units 13:04 13:49 14:55 WBC (3.8-10.6) k/uL RBC (4.30-5.90) m/uL Hgb (13.0-17.5) gm/dL Hct (39.0-53.0) % MCV (80.0-100.0) fL Plt Count (150-450) k/uL Neutrophils # (1.3-7.7) k/uL Sodium (137-145) mmol/L BUN (9-20) mg/dL POC Glucose (mg/dL) 179 H 172 H 196 H (75-99) mg/dL Calcium (8.4-10.2) mg/dL AST (17-59) U/L Total Protein (6.3-8.2) g/dL Albumin (3.5-5.0) g/dL 03/07/20 03/07/20 03/07/20 Range/Units 16:37 18:14 18:57 WBC (3.8-10.6) k/uL RBC (4.30-5.90) m/uL Hgb (13.0-17.5) gm/dL Hct (39.0-53.0) % MCV (80.0-100.0) fL Plt Count (150-450) k/uL Neutrophils # (1.3-7.7) k/uL Sodium (137-145) mmol/L BUN (9-20) mg/dL POC Glucose (mg/dL) 189 H 146 H 171 H (75-99) mg/dL Calcium (8.4-10.2) mg/dL AST (17-59) U/L Total Protein (6.3-8.2) g/dL Albumin (3.5-5.0) g/dL 03/07/20 03/07/20 03/07/20 Range/Units 20:33 21:26 21:27 WBC (3.8-10.6) k/uL RBC (4.30-5.90) m/uL Hgb (13.0-17.5) gm/dL Hct (39.0-53.0) % MCV (80.0-100.0) fL Plt Count (150-450) k/uL Neutrophils # (1.3-7.7) k/uL Sodium (137-145) mmol/L BUN (9-20) mg/dL POC Glucose (mg/dL) 236 H 239 H 196 H (75-99) mg/dL Calcium (8.4-10.2) mg/dL AST (17-59) U/L Total Protein (6.3-8.2) g/dL Albumin (3.5-5.0) g/dL 03/07/20 03/08/20 03/08/20 Range/Units 23:06 00:16 01:00 WBC (3.8-10.6) k/uL RBC (4.30-5.90) m/uL Hgb (13.0-17.5) gm/dL Hct (39.0-53.0) % MCV (80.0-100.0) fL Plt Count (150-450) k/uL Neutrophils # (1.3-7.7) k/uL Sodium (137-145) mmol/L BUN (9-20) mg/dL POC Glucose (mg/dL) 210 H 188 H 162 H (75-99) mg/dL Calcium (8.4-10.2) mg/dL AST (17-59) U/L Total Protein (6.3-8.2) g/dL Albumin (3.5-5.0) g/dL 03/08/20 03/08/20 03/08/20 Range/Units 01:48 03:03 04:10 WBC 12.7 H (3.8-10.6) k/uL RBC 3.08 L (4.30-5.90) m/uL Hgb 9.9 L (13.0-17.5) gm/dL Hct 31.1 L (39.0-53.0) % MCV 100.9 H (80.0-100.0) fL Plt Count 105 L (150-450) k/uL Neutrophils # 10.1 H (1.3-7.7) k/uL Sodium (137-145) mmol/L BUN (9-20) mg/dL POC Glucose (mg/dL) 147 H 128 H (75-99) mg/dL Calcium (8.4-10.2) mg/dL AST (17-59) U/L Total Protein (6.3-8.2) g/dL Albumin (3.5-5.0) g/dL 03/08/20 03/08/20 03/08/20 Range/Units 04:10 04:18 07:07 WBC (3.8-10.6) k/uL RBC (4.30-5.90) m/uL Hgb (13.0-17.5) gm/dL Hct (39.0-53.0) % MCV (80.0-100.0) fL Plt Count (150-450) k/uL Neutrophils # (1.3-7.7) k/uL Sodium 133 L (137-145) mmol/L BUN 23 H (9-20) mg/dL POC Glucose (mg/dL) 101 H 111 H (75-99) mg/dL Calcium 8.2 L (8.4-10.2) mg/dL AST 77 H (17-59) U/L Total Protein 5.2 L (6.3-8.2) g/dL Albumin 3.3 L (3.5-5.0) g/dL 03/08/20 Range/Units 08:13 WBC (3.8-10.6) k/uL RBC (4.30-5.90) m/uL Hgb (13.0-17.5) gm/dL Hct (39.0-53.0) % MCV (80.0-100.0) fL Plt Count (150-450) k/uL Neutrophils # (1.3-7.7) k/uL Sodium (137-145) mmol/L BUN (9-20) mg/dL POC Glucose (mg/dL) 119 H (75-99) mg/dL Calcium (8.4-10.2) mg/dL AST (17-59) U/L Total Protein (6.3-8.2) g/dL Albumin (3.5-5.0) g/dL Assessment and Plan Plan: Assessment: #1. Symptomatic multivessel coronary artery disease, status post four-vessel coronary artery bypass grafting , postoperative day #2 #2. Routine postoperative ventilator management, successfully extubated on postoperative day 0 #3. Mild blood loss anemia, normal outcome of bypass grafting surgery #4. History of hypertension #5. History of hyperlipidemia #6. Type 2 diabetes mellitus #7. Hypothyroidism #8. Daily EtOH use #9. History of splenectomy #10. Remote history of tobacco dependence with preop FEV1 of 59% of predicted #11. Atrial fibrillation, new onset, an expected outcome of bypass grafting surgery, with a slow ventricular rate, requiring external pacemaker support at this time Plan: Continue encouraging deep breathing and coughing, incentive spirometry use, pa jannynt is on room air, denies any shortness of breath, today's chest x-ray shows bibasilar atelectasis and small pleural effusions, patient went into atrial fibrillation this morning, with a slow ventricular rate, is requiring pacemaker support at this time, we'll defer to cardiothoracic surgery for management of antiarrhythmics and hemodynamics. We'll continue to closely follow in the intensive care unit, chest tubes have been removed, urge ambulation and deep breathing and coughing, I performed a history & physical examination of the patient and discussed their management with my nurse practitioner, Angela Latham. I reviewed the nurse practitioner's note and agree with the documented findings and plan of care. Lung sounds are positive for clear breath sounds. The findings and the im pression was discussed with the patient. I attest to the documentation by the nurse practitioner. Time with Patient: Less than 30
--- NOTE | 2020-03-08 09:33 | P.PN ---
Subjective Progress Note Date: 03/08/20 Principal diagnosis: Severe aortic valve stenosis, triple-vessel coronary artery disease with left main disease. Past medical history significant for chronic paroxysmal atrial fibrillation on Coumadin anticoagulation, hypertension, hyperlipidemia, type 2 diabetes mellitus with preoperative hemoglobin A1c 6.9%, hypothyroidism, remote history of pneumonia, splenectomy status post fall, daily EtOH use, and remote history of tobacco dependence with preoperative FEV1 59% of predicted. POD #2 aortic valve replacement with a 25 mm Inspiris bovine pericardial valve prosthesis, coronary artery bypass grafting 4 with left internal mammary artery to left anterior descending coronary artery, reverse greater saphenous vein graft to the obtuse marginal, and reverse greater sequential vein grafts to the posterior descending coronary artery and posterior lateral branches of the right coronary artery, modified Newton maze procedure with bilateral pulmonary vein ablation with the Atricure bipolar clamp and ligation of the left atrial appendage with a 40 mm Atricure clip, epi-aortic ultrasound and intraoperative transesophageal echocardiogram. Postoperative acute blood loss anemia, expected given cardiopulmonary bypass and hemodilution. The patient is currently sitting up to the bedside chair in the intensive care unit, he is awake, alert and oriented 3. Denies any complaints of shortness of breath or pain. Oxygen saturation is 97% on 2 L nasal cannula. He is achieving 1500 mL on his incentive spirometry with encouragement. Right IJ cordis remains in place with continuous CVP monitoring, current CVP pressure 14 mmHg. Mediastinal and left pleural chest tubes remain in place to low continuous wall suction at -20 cm H2O. No air leak is present. Draining thin serosanguineous drainage. Mediastinal chest tubes drained 50 mL output in the last 8 hours, and 500 mL output in the last 24 hours. Left pleural chest tubes drained 30 mL output in the last 8 hours, 150 mL output in the last 24 hours. Bedside telemetry showing atrial fibrillation with occasional PVCs heart rate 62 [address]PM[address] Placed atrial and ventricular epicardial wires to DDD mode heart rate 80 on the bedside pacemaker generator with good capture. Objective - Vital Signs Vital signs: Vital Signs Temp 98.8 F 03/08/20 04:00 Pulse 63 03/08/20 07:00 Resp 16 03/08/20 07:00 BP 103/59 03/08/20 07:00 Pulse Ox 96 03/08/20 07:00 Intake & Output 09/08/20 09/09/20 09/09/20 18:59 06:59 18:59 Intake Total 1348.694 657.847 31 Output Total 725 555 30 Balance 623.694 102.847 1 Weight 108.7 kg 110.6 kg Intake: IV 523 591 31 Albumin Human 5% 250 ml 250 In Empty Bag 1 bag @ 250 mls/hr IVPB Q1HR PRN Rx#: [id number] Lactated Ringers 1,000 ml 290 275 25 @ 20 mls/hr IV .Q24H HALLEY Rx#:[id number] Pressure bags 93 66 6 ceFAZolin 2 gm In Sodium 50 Chloride 0.9% 50 ml @ 100 mls/hr IVPB Q8HR HALLEY Rx# :[id number] co/ci injectate 90 Intake, IV Titration 45.694 66.847 Amount Insulin Regular 100 unit 45.694 66.847 In Sodium Chloride 0.9% 100 ml @ Per Protocol IV .Q0M HALLEY Rx#:[id number] Oral 780 Output: Chest Tube Drainage 420 340 Bilateral Mediastinal 310 220 Left 110 120 Urine 305 215 30 Other: Voiding Method Indwelling Catheter Indwelling Catheter ABP, PAP, CO, CI - Last Documented Arterial Blood Pressure 103/42 Pulmonary Artery Pressure 36/14 Cardiac Output 5.6 Cardiac Index 2.5 - Constitutional General appearance: Present: cooperative, no acute distress, obese - EENT Eyes: Present: PERRLA, dentition normal, normal appearance. Absent: scleral icterus ENT: Present: hearing grossly normal - Neck Details: Neck is supple, no JVD, right IJ Cordis in place and functioning. - Respiratory Details: Lung sounds diminished to his bilateral bases right greater than left. No wheezes, rhonchi or crackles. Respirations are symmetrical and nonlabored. Oxygen saturation's 97% on 2 L nasal cannula. Achieving 1500 mL on his incentive spirometry. Mediastinal chest tubes drained 50 mL output in the last 8 hours, and 500 mL output in the last 24 hours. Left pleural chest tubes drained 30 mL output in the last 8 hours, 150 mL output in the last 24 hours. - Cardiovascular Details: Regular rhythm and rate. S1 and S2 present, negative for S3, gallop or murmur. Sternum is stable. Bedside telemetry showing atrial fibrillation with occasional PVCs heart rate 62 BPM. Atrial and ventricular epicardial pacemaker wires in place and were connected to bedside pacemaker generator on a DDD 80 BPM with good capture. Right IJ Cordis in place with continuous CVP monitoring, current CVP pressure 14 mmHg. Knee-high MITZI hose and sequential compression devices in place to his bilateral lower extremities. Heart hugger is in place and he is demonstrating appropriate use. - Gastrointestinal Gastrointestinal Comment(s): Abdomen is soft, nontender and nondistended. Active bowel sounds present all 4 abdominal quadrants. No guarding or rigidity. No organomegaly appreciated. Tolerating oral intake. Passing flatus. - Genitourinary Genitourinary Comment(s): Andersen catheter for accurate I&O. Draining clear larry urine. - Integumentary Integumentary Comment(s): Skin is warm and dry. No clubbing or cyanosis is present. Midline sternal incision is clean, dry and approximated. No drainage or redness is present. Left lower extremity EVH site is clean, dry and approximated. No drainage redness is present. - Neurologic Neurologic: Present: CNII-XII intact - Musculoskeletal Musculoskeletal: Present: gait normal, generalized weakness, strength equal bilaterally - Psychiatric Psychiatric: Present: A&O x's 3, appropriate affect, intact judgment & insight - Allied health notes Allied health notes reviewed: nursing - Labs CBC & Chem 7: 03/08/20 04:10 03/08/20 04:10 Labs: Abnormal Lab Results - Last 24 Hours (Table) 03/07/20 03/07/20 03/07/20 Range/Units 07:54 09:12 09:55 WBC (3.8-10.6) k/uL RBC (4.30-5.90) m/uL Hgb (13.0-17.5) gm/dL Hct (39.0-53.0) % MCV (80.0-100.0) fL Plt Count (150-450) k/uL Neutrophils # (1.3-7.7) k/uL Sodium (137-145) mmol/L BUN (9-20) mg/dL POC Glucose (mg/dL) 104 H 101 H 139 H (75-99) mg/dL Calcium (8.4-10.2) mg/dL AST (17-59) U/L Total Protein (6.3-8.2) g/dL Albumin (3.5-5.0) g/dL 03/07/20 03/07/20 03/07/20 Range/Units 10:48 11:54 13:04 WBC (3.8-10.6) k/uL RBC (4.30-5.90) m/uL Hgb (13.0-17.5) gm/dL Hct (39.0-53.0) % MCV (80.0-100.0) fL Plt Count (150-450) k/uL Neutrophils # (1.3-7.7) k/uL Sodium (137-145) mmol/L BUN (9-20) mg/dL POC Glucose (mg/dL) 103 H 123 H 179 H (75-99) mg/dL Calcium (8.4-10.2) mg/dL AST (17-59) U/L Total Protein (6.3-8.2) g/dL Albumin (3.5-5.0) g/dL 03/07/20 03/07/20 03/07/20 Range/Units 13:49 14:55 16:37 WBC (3.8-10.6) k/uL RBC (4.30-5.90) m/uL Hgb (13.0-17.5) gm/dL Hct (39.0-53.0) % MCV (80.0-100.0) fL Plt Count (150-450) k/uL Neutrophils # (1.3-7.7) k/uL Sodium (137-145) mmol/L BUN (9-20) mg/dL POC Glucose (mg/dL) 172 H 196 H 189 H (75-99) mg/dL Calcium (8.4-10.2) mg/dL AST (17-59) U/L Total Protein (6.3-8.2) g/dL Albumin (3.5-5.0) g/dL 03/07/20 03/07/20 03/07/20 Range/Units 18:14 18:57 20:33 WBC (3.8-10.6) k/uL RBC (4.30-5.90) m/uL Hgb (13.0-17.5) gm/dL Hct (39.0-53.0) % MCV (80.0-100.0) fL Plt Count (150-450) k/uL Neutrophils # (1.3-7.7) k/uL Sodium (137-145) mmol/L BUN (9-20) mg/dL POC Glucose (mg/dL) 146 H 171 H 236 H (75-99) mg/dL Calcium (8.4-10.2) mg/dL AST (17-59) U/L Total Protein (6.3-8.2) g/dL Albumin (3.5-5.0) g/dL 03/07/20 03/07/20 03/07/20 Range/Units 21:26 21:27 23:06 WBC (3.8-10.6) k/uL RBC (4.30-5.90) m/uL Hgb (13.0-17.5) gm/dL Hct (39.0-53.0) % MCV (80.0-100.0) fL Plt Count (150-450) k/uL Neutrophils # (1.3-7.7) k/uL Sodium (137-145) mmol/L BUN (9-20) mg/dL POC Glucose (mg/dL) 239 H 196 H 210 H (75-99) mg/dL Calcium (8.4-10.2) mg/dL AST (17-59) U/L Total Protein (6.3-8.2) g/dL Albumin (3.5-5.0) g/dL 03/08/20 03/08/20 03/08/20 Range/Units 00:16 01:00 01:48 WBC (3.8-10.6) k/uL RBC (4.30-5.90) m/uL Hgb (13.0-17.5) gm/dL Hct (39.0-53.0) % MCV (80.0-100.0) fL Plt Count (150-450) k/uL Neutrophils # (1.3-7.7) k/uL Sodium (137-145) mmol/L BUN (9-20) mg/dL POC Glucose (mg/dL) 188 H 162 H 147 H (75-99) mg/dL Calcium (8.4-10.2) mg/dL AST (17-59) U/L Total Protein (6.3-8.2) g/dL Albumin (3.5-5.0) g/dL 03/08/20 03/08/20 03/08/20 Range/Units 03:03 04:10 04:10 WBC 12.7 H (3.8-10.6) k/uL RBC 3.08 L (4.30-5.90) m/uL Hgb 9.9 L (13.0-17.5) gm/dL Hct 31.1 L (39.0-53.0) % MCV 100.9 H (80.0-100.0) fL Plt Count 105 L (150-450) k/uL Neutrophils # 10.1 H (1.3-7.7) k/uL Sodium 133 L (137-145) mmol/L BUN 23 H (9-20) mg/dL POC Glucose (mg/dL) 128 H (75-99) mg/dL Calcium 8.2 L (8.4-10.2) mg/dL AST 77 H (17-59) U/L Total Protein 5.2 L (6.3-8.2) g/dL Albumin 3.3 L (3.5-5.0) g/dL 03/08/20 03/08/20 Range/Units 04:18 07:07 WBC (3.8-10.6) k/uL RBC (4.30-5.90) m/uL Hgb (13.0-17.5) gm/dL Hct (39.0-53.0) % MCV (80.0-100.0) fL Plt Count (150-450) k/uL Neutrophils # (1.3-7.7) k/uL Sodium (137-145) mmol/L BUN (9-20) mg/dL POC Glucose (mg/dL) 101 H 111 H (75-99) mg/dL Calcium (8.4-10.2) mg/dL AST (17-59) U/L Total Protein (6.3-8.2) g/dL Albumin (3.5-5.0) g/dL - Imaging and Cardiology Chest x-ray: image reviewed Assessment and Plan Assessment: 1. Severe aortic valve stenosis, status post aortic valve replacement 2. Triple-vessel coronary artery disease with left main disease, status post CABG 4 3. Chronic atrial fibrillation on Coumadin for anticoagulation, last dose 02/28/2020, status post modified Newton maze procedure with bilateral pulmonary vein ablation 4. History of hypertension 5. History of hyperlipidemia 6. Type 2 diabetes mellitus with a preoperative hemoglobin A1c 6.9% 7. Hypothyroidism 8. Remote history of pneumonia 9. History of splenectomy, status post fall 10. Daily EtOH use 11. Remote history of tobacco dependence with preoperative FEV1 59% of predicted 12. Postoperative acute blood loss anemia, expected Plan: 1. Continue aspirin, statin, Plavix. Hold beta john paul for now. Will initiate the beta john paul when able to tolerate. 2. Wean O2 as tolerated. Encourage incentive spirometry use 10 times every hour while awake. Bronchodilators per pulmonology/critical care management. 3. Increase activity, ambulate as tolerated. PT/OT/cardiac rehab following. 4. Continue amiodarone 400 mg by mouth for atrial fibrillation prophylaxis. 5. Will monitor daily labs and chest x-rays. Electrolyte replacement per protocol. No transfusion at this point. 6. GI/DVT prophylaxis. 7. Pain control current medication regimen. Discontinue Toradol as his creatinine today is 1.13. Discontinue Bandera. Start acetaminophen 1000 mg by mouth every 6 hours when necessary pain. 8. Insulin management per primary care service. Patient needs tight blood sugar control to prevent infection and promote healing. 9. Remove right IJ Cordis, right brachial arterial line, and Andersen catheter. 10. Mediastinal and left pleural chest tubes removed without incident. Vaseline impregnated gauze to cover, 4 x 4 gauze to cover and secured with tape. 11. Discontinue lisinopril. We will start the lisinopril again when his blood pressure is able to tolerated for afterload reduction. 12. Place atrial and ventricular epicardial wires to a pacemaker setting of DDD of 80 BPM.. 13. Give amiodarone 150 mg IV piggyback bolus 1 now for atrial fibrillation. 14. More recommendations to follow based on patient's clinical course. Time with Patient: Greater than 30
[2020-03-08] MEDS: LINAGLIPTIN 5 MG TABLET PO SCH (09:40)
[2020-03-08 11:16] LABS: Glucose,Whole Blood 148 mg/dL (75-99)
[2020-03-08] MEDS: INSULIN ASPART (NovoLOG) 100 UNIT/ML VIAL SQ SCH ×3 (11:18→21:26)
[2020-03-08] MEDS ORDERED: lisinopriL 5 MG TAB PO SCH (12:00)
--- NOTE | 2020-03-08 12:08 | P.ARTDOP ---
Arterial Doppler LOWER EXTREMITY ARTERIAL DOPPLER: DATE OF SERVICE: 03/04/2020 Reason for study: Preop CABG. Doppler waveforms: Multiphasic bilaterally throughout. Pulse volume recording: []. Pressure gradients: None. Ankle-brachial indices: Cannot occlude ankles on either side. Toe brachial indices: 0.82 on the right, 0.82 on the left Impression: Normal study. Suspect some degree of calcific wall disease with no hemodynamic significance.
--- NOTE | 2020-03-08 12:11 | P.ARTDOP ---
Arterial Doppler Bilateral radial artery studies. Date of study: 03/03/2020 Reason for study: Preop CABG Doppler shows no significant right to left or segmental pressure gradients. Radials cannot be occluded on either side due to calcification. Cannot do radial artery compression due to calcification. Imaging shows sizes to be excellent but wall calcification makes this a poor conduit. Functional radial arteries but not usable as conduit due to wall calcification.
--- NOTE | 2020-03-08 12:13 | P.VSCSTY ---
Greater Saphenous Vein Mapping This is bilateral lower extremity greater saphenous vein mapping. Date of service: 03/03/2020 Vein quality and ultrasound appearance: We see no intraluminal thrombus or wall changes. Vein size groin right : 7.2 x 5.3 groin left: 9.3 x 5.1 High thigh right: 3.0 x 2.3 high thigh left: 5.6 x 3.7 Mid thigh right: 2.6 x 2.1 mid thigh left: 4.9 x 3.8 Above-knee right: 4.4 x 3.5 above- knee left: 4.3 x 3.7 Below knee right: 4.4 x 2.8 below-knee left: 4.1 x 2.2 Mid calf right: 3.8 x 2.9 mid calf left: 2.1 x 1.8 Ankle right: 4.7 x 3.4 ankle left: 4.5 x 3.0 Impression: Usable bilateral greater saphenous vein.
--- NOTE | 2020-03-08 12:26 | P.PN ---
Subjective Progress Note Date: 03/08/20 74 years old male patient of Dr. Rouse and Dr. Lee with past medical history of hypertension, hyperlipidemia, paroxysmal atrial fibrillation on Coumadin, hypothyroidism, type 2 diabetes hypothyroidism, daily alcohol use, osteoarthritis and known history of bilateral knee replacement and right ankle surgery and came in for an elective STEFANIE and cardiac catheterization under Dr. Maguire. Patient gives a history of worsening shortness of breath for the past 6 months. He noticed increased weakness but denies any chest pain or dizziness or passing out spells. Patient has been off Coumadin, metformin and Januvia for the cardiac catheterization. STEFANIE done on 03/03 suggested severe aortic stenosis with heavily calcified 3 leaflet valve with restriction in the mobility. The valve area 0.7 mm. Mild left ventricular systolic dysfunction with ejection fraction of 45%. By mouth for with [id number] shunt present with mild to moderate MR and mild TR. Cardiac catheterization on 03/03 suggest to heavily calcified left main coronary artery with distal left main appears stenosed and stenosis extending into the proximal LAD and circumflex coronary artery around 80-90%. Circumflex occluded proximally with collaterals to LAD coming from the left system. Secondary diagnoses branch is moderate stenosis. Right coronary artery with moderate stenosis PDA with 80-90% stenosis. In assessment today patient denies any shortness of breath at rest. He did have back pain outwardly this morning after resting in bed for 6 hours post cardiac cath. Vitals are otherwise stablethe pulse is 67 respiratory rate 16 blood pressure 144/95 oxygen saturation 97% on room air. Labs reviewed CBC unremarkable creatinine 0.8 INR 1.3 blood sugar 140. Magnesium 1.9 and LDL 102 TSH 0.70 was negative for inf ection. Patient's last A1c is less than 7 controlled on Januvia and metformin. 03/04: Patient is found sitting up in a chair resting comfortably without any acute distress. Patient has no concerns or complaints at this time. The plan continues to be for a CABG scheduled on Tuesday 03/06. She remains afebrile, pulse rate 66, respirations 18, blood pressure 133/95, pulse ox 9 7% on room air. WBC 7.1, hemoglobin 14.7. 03/05: Patient is found sitting up in chair resting comfortably without any acute distress. Patient states he has no concerns or complaints at this time. Patient stated that he slept well. He was awoken at 5 AM for his weight other than that he has no issues. Patient declined any sleep aids for tonight. 03/07: Patient remains in intensive care unit. He is status post aortic valve replacement with bovine pericardial valve prosthesis, CABG 4 with KISER to LAD, saphenous vein graft to obtuse marginal, sequential saphenous vein graft to posterior descending and posterior lateral branches of the right coronary artery, postop day #1. Patient is found sitting up in chair and is complaining of some discomfort. No respiratory distress is noted. He is currently on insulin drip and blood sugars are running in the low 100s. Patient will be starting heart healthy diet/consistent carb. He has been afebrile, heart rate 76, blood pressure 124/75, pulse ox 100% on 2 L nasal cannula. Repeat blood work reveals Courtney BC 9.3, hemoglobin 10.5 and platelet count 112. Sodium 136, creatinine 0.63. Magnesium 2.6 calcium 7.9 and ionized calcium 4.7. Repeat chest x-ray reveals no focal airspace disease or pneumothorax. Patient has mediastinal and pleural left chest tubes in place. Patient has been started on oral amiodarone 400 mg twice daily and lisinopril 2.5 mg daily. 03/08: Patient is seen today in the intensive care unit. He is resting in bed and appears to be comfortable. He denies any shortness of breath. He is using incentive spirometry at 1500 ML's. Patient did go back into atrial fibrillation and on amiodarone. Repeat blood work reveals WBC 2.7, hemoglobin 9.9, sodium 133, BUN 23 and creatinine 1.13. Patient is to have chest tubes, Andersen catheter and Cordis removed today. Chest x-ray this morning reveals interval removal of right internal jugular Northridge's. Persistent right internal jugular sheath. Mild left basilar atelectasis. Patient has been afebrile, heart rate 70, blood pressure 108/71 and pulse ox 96% on room air. Patient has been seen by PT and OT with recommendations for home care or inpatient rehab. Blood sugars are in the low 100s 119 this morning at 8 AM. Patient will be taken off insulin drip and placed on Tradjenta as he is on Januvia at home and patient will be placed on NovoLog scale. Review of Systems Constitutional: Denies chills, Denies fever, Denies lethargy, Denies malaise, Denies poor appetite, Denies weakness, Denies weight loss, reports generalized discomfort. Eyes: denies decreased vision, denies diplopia, denies discharge, denies pain Ears: deny: decreased hearing Ears, nose, mouth and throat: Denies dental pain, Denies headache, Denies nasal discharge, Denies nose pain Cardiovascular: Denies chest pain, endorses decreased exercise tolerance, endorses edema right worse than left, Denies high blood pressure, denies irregular heart beat, Denies palpitations, endorses paroxysmal nocturnal dyspnea, endorses rapid heart beat, endorses shortness of breath Respiratory: Denies congestion, Denies cough, Denies cough with sputum, Denies dyspnea, Denies home oxygen, Denies wheezing Gastrointestinal: Denies abdominal pain, Denies change in bowel habits, Denies coffee ground emesis, Denies heartburn, Denies hematemesis, Denies hematochezia, Denies loss of appetite, Denies nausea, Denies vomiting Genitourinary: Denies dysuria, Denies flank pain, Denies kidney stones, Denies menorrhagia, Denies urgency, Denies urinary frequency Musculoskeletal: Denies gait dysfunction, Denies limitation of motion, Denies morning stiffness, Denies muscle cramps Integumentary: Denies rash, Denies wounds, Denies brittle nails, Denies change in hair/nails, Denies darkening of skin Neurological: Denies balance difficulties, Denies change in speech, Denies double vision, Denies gait dysfunction, Denies loss of vision, Denies motor disturbance, Denies numbness, Denies paralysis, Denies paresthesias, Denies seizures Psychiatric: Denies anxiety, Denies depression Endocrine: Denies excessive sweating, Denies excessive thirst, Denies high blood sugars, Denies palpitations Physical exam General Appearance: Alert, cooperative, no distress from discomfort, appears stated age. Neck HEENT: Supple, no lymphadenopathy, no thyroid enlargement, no carotid bruits. Lungs: Clear to auscultation without crackles or wheezes no rhonchi, no deformity. Chest Wall: Chest wall normal expansion with deep inspiration no tenderness and no deformity was found on exam, no costochondral pain or discomfort. Heart: Regular rate and rhythm, S1, S2 normal, no murmur, rub or gallop. Back: Symmetric, no curvature, ROM normal, no CVA tenderness. Abdomen: Soft, non-tender, no rebound or rigidity, no hepatosplenomegaly. Extremities: Extremities normal, atraumatic, no cyanosis or edema. Pulses: 2+ and symmetric. Skin: Skin color, texture, tugor normal, no rashes or lesions. Neurologic: Alert oriented x3 cranial nerves II through XII intact, no motor deficit, no abnormal balance or gait Assessment and Plan 1. triple-vessel coronary disease status post CABG 4. Continue current plan. Per cardiothoracic surgery. Continue aspirin, Lipitor 40 mg by mouth daily, Lopressor discontinued. 2. severe aortic stenosis status post aortic valve replacement. 3. paroxysmal atrial fibrillation on Coumadin at home. CHADVASC risk score of 6. Lopressor discontinued. Patient is currently on amiodarone. 4. history of diabetes2. Hold metformin. Patient started on Tradjenta and discontinue insulin drip. Start NovoLog scale. 5. hypertension continue metoprolol 12.5 twice a day and lisinopril. 6. hyperlipidemia continue Lipitor 40 mg by mouth daily LDL 102 7. hypothyroidism continue levothyroxine at 150 g by mouth daily 8. coagulopathy secondary to Coumadin. Coumadin is on hold. 9. alcohol use drinks 3 beers a day. No history of alcohol withdrawal 10. history of splenectomy stable 11. DVT prophylaxis CODE STATUS: Full code Discharge plan: To be determined Impression and plan of care have been directed as dictated by the signing physician. Zully Soot nurse practitioner acting as scribe for signing physician. Objective - Vital Signs Vital signs: Vital Signs Temp 98.0 F 03/08/20 08:00 Pulse 80 03/08/20 08:14 Resp 17 03/08/20 08:00 BP 103/59 03/08/20 07:00 Pulse Ox 95 03/08/20 08:00 Intake & Output 03/07/20 03/08/20 03/08/20 18:59 06:59 18:59 Intake Total 1348.694 657.847 62 Output Total 725 555 55 Balance 623.694 102.847 7 Weight 108.7 kg 110.6 kg Intake: IV 523 591 62 Albumin Human 5% 250 ml 250 In Empty Bag 1 bag @ 250 mls/hr IVPB Q1HR PRN Rx#: [id number] Lactated Ringers 1,000 ml 290 275 50 @ 20 mls/hr IV .Q24H [facility] Rx#:[id number] Pressure bags 93 66 12 ceFAZolin 2 gm In Sodium 50 Chloride 0.9% 50 ml @ 100 mls/hr IVPB Q8HR [facility] Rx# :[id number] co/ci injectate 90 Intake, IV Titration 45.694 66.847 Amount Insulin Regular 100 unit 45.694 66.847 In Sodium Chloride 0.9% 100 ml @ Per Protocol IV .Q0M [facility] Rx#:[id number] Oral 780 Output: Chest Tube Drainage 420 340 Bilateral Mediastinal 310 220 Left 110 120 Urine 305 215 55 Other: Voiding Method Indwelling Catheter Indwelling Catheter Indwelling Catheter ABP, PAP, CO, CI - Last Documented Arterial Blood Pressure 103/46 Pulmonary Artery Pressure 36/14 Cardiac Output 5.6 Cardiac Index 2.5 - Labs CBC & Chem 7: 03/08/20 04:10 03/08/20 04:10 Labs: Abnormal Lab Results - Last 24 Hours (Table) 03/07/20 03/07/20 03/07/20 Range/Units 09:12 09:55 10:48 WBC (3.8-10.6) k/uL RBC (4.30-5.90) m/uL Hgb (13.0-17.5) gm/dL Hct (39.0-53.0) % MCV (80.0-100.0) fL Plt Count (150-450) k/uL Neutrophils # (1.3-7.7) k/uL Sodium (137-145) mmol/L BUN (9-20) mg/dL POC Glucose (mg/dL) 101 H 139 H 103 H (75-99) mg/dL Calcium (8.4-10.2) mg/dL AST (17-59) U/L Total Protein (6.3-8.2) g/dL Albumin (3.5-5.0) g/dL 03/07/20 03/07/20 03/07/20 Range/Units 11:54 13:04 13:49 WBC (3.8-10.6) k/uL RBC (4.30-5.90) m/uL Hgb (13.0-17.5) gm/dL Hct (39.0-53.0) % MCV (80.0-100.0) fL Plt Count (150-450) k/uL Neutrophils # (1.3-7.7) k/uL Sodium (137-145) mmol/L BUN (9-20) mg/dL POC Glucose (mg/dL) 123 H 179 H 172 H (75-99) mg/dL Calcium (8.4-10.2) mg/dL AST (17-59) U/L Total Protein (6.3-8.2) g/dL Albumin (3.5-5.0) g/dL 03/07/20 03/07/20 03/07/20 Range/Units 14:55 16:37 18:14 WBC (3.8-10.6) k/uL RBC (4.30-5.90) m/uL Hgb (13.0-17.5) gm/dL Hct (39.0-53.0) % MCV (80.0-100.0) fL Plt Count (150-450) k/uL Neutrophils # (1.3-7.7) k/uL Sodium (137-145) mmol/L BUN (9-20) mg/dL POC Glucose (mg/dL) 196 H 189 H 146 H (75-99) mg/dL Calcium (8.4-10.2) mg/dL AST (17-59) U/L Total Protein (6.3-8.2) g/dL Albumin (3.5-5.0) g/dL 03/07/20 03/07/20 03/07/20 Range/Units 18:57 20:33 21:26 WBC (3.8-10.6) k/uL RBC (4.30-5.90) m/uL Hgb (13.0-17.5) gm/dL Hct (39.0-53.0) % MCV (80.0-100.0) fL Plt Count (150-450) k/uL Neutrophils # (1.3-7.7) k/uL Sodium (137-145) mmol/L BUN (9-20) mg/dL POC Glucose (mg/dL) 171 H 236 H 239 H (75-99) mg/dL Calcium (8.4-10.2) mg/dL AST (17-59) U/L Total Protein (6.3-8.2) g/dL Albumin (3.5-5.0) g/dL 03/07/20 03/07/20 03/08/20 Range/Units 21:27 23:06 00:16 WBC (3.8-10.6) k/uL RBC (4.30-5.90) m/uL Hgb (13.0-17.5) gm/dL Hct (39.0-53.0) % MCV (80.0-100.0) fL Plt Count (150-450) k/uL Neutrophils # (1.3-7.7) k/uL Sodium (137-145) mmol/L BUN (9-20) mg/dL POC Glucose (mg/dL) 196 H 210 H 188 H (75-99) mg/dL Calcium (8.4-10.2) mg/dL AST (17-59) U/L Total Protein (6.3-8.2) g/dL Albumin (3.5-5.0) g/dL 03/08/20 03/08/20 03/08/20 Range/Units 01:00 01:48 03:03 WBC (3.8-10.6) k/uL RBC (4.30-5.90) m/uL Hgb (13.0-17.5) gm/dL Hct (39.0-53.0) % MCV (80.0-100.0) fL Plt Count (150-450) k/uL Neutrophils # (1.3-7.7) k/uL Sodium (137-145) mmol/L BUN (9-20) mg/dL POC Glucose (mg/dL) 162 H 147 H 128 H (75-99) mg/dL Calcium (8.4-10.2) mg/dL AST (17-59) U/L Total Protein (6.3-8.2) g/dL Albumin (3.5-5.0) g/dL 03/08/20 03/08/20 03/08/20 Range/Units 04:10 04:10 04:18 WBC 12.7 H (3.8-10.6) k/uL RBC 3.08 L (4.30-5.90) m/uL Hgb 9.9 L (13.0-17.5) gm/dL Hct 31.1 L (39.0-53.0) % MCV 100.9 H (80.0-100.0) fL Plt Count 105 L (150-450) k/uL Neutrophils # 10.1 H (1.3-7.7) k/uL Sodium 133 L (137-145) mmol/L BUN 23 H (9-20) mg/dL POC Glucose (mg/dL) 101 H (75-99) mg/dL Calcium 8.2 L (8.4-10.2) mg/dL AST 77 H (17-59) U/L Total Protein 5.2 L (6.3-8.2) g/dL Albumin 3.3 L (3.5-5.0) g/dL 03/08/20 03/08/20 Range/Units 07:07 08:13 WBC (3.8-10.6) k/uL RBC (4.30-5.90) m/uL Hgb (13.0-17.5) gm/dL Hct (39.0-53.0) % MCV (80.0-100.0) fL Plt Count (150-450) k/uL Neutrophils # (1.3-7.7) k/uL Sodium (137-145) mmol/L BUN (9-20) mg/dL POC Glucose (mg/dL) 111 H 119 H (75-99) mg/dL Calcium (8.4-10.2) mg/dL AST (17-59) U/L Total Protein (6.3-8.2) g/dL Albumin (3.5-5.0) g/dL
--- NOTE | 2020-03-08 16:38 | P.PN ---
Subjective This is Haily Katz PA-C dictating a progress note on this patient The patient was interviewed and examined by me as well as by Dr. Pantoja Case discussed with Dr. Pantoja and he agrees with the plan of care HPI/interval history Patient is a 74-year-old male with a history of CAD, hypertension, dyslipidemia, chronic atrial fibrillation, type 2 diabetes, daily alcohol use, and valvular heart disease. Yesterday he underwent CABG 4 with KISER to the LAD, SVG to the OM, sequential SVG to posterior descending and posterior lateral branches of the RCA, PVI, left atrial appendage ligation, and aortic valve replacement. He went into atrial fibrillation overnight and had some symptomatic bradycardia and hypotension. He is on amiodarone. He is currently in atrial fibrillation with ventricular pacing. Patient seen and examined in the ICU. He states he is feeling better. He denies any chest pain. No shortness of breath. No dizz iness. EXAMINATION Patient is afebrile, pulse in the 80s, respirations 18, blood pressure 109/70, o xygen saturation 96% on room air Patient seen and examined sitting up in the chair, in no acute distress Heart is irregularly irregular, no audible murmurs Lungs mildly diminished bilaterally No lower extremity edema REVIEW OF LABS, ECG WBC 12.7, hemoglobin 9.9, platelets 105, sodium 133, potassium 4.0, BUN 23, creatinine 1.13 IMPRESSION / ASSESSMENT: #1 multivessel CAD status post CABG 4 #2 severe aortic stenosis status post aortic valve replacement #3 chronic atrial fibrillation, currently in atrial fibrillation with ventricular pacing #4 hypertension #5 dyslipidemia #6 history of alcohol use #7 ischemic cardiomyopathy EF 45% PLAN: Continue dual antiplatelet therapy and statins Beta blockers are currently on hold due to bradycardia, they will be resumed once he is able to tolerate them Lisinopril also on hold, it will be resumed once he is able to tolerate it Maximize treatment for CAD and cardiomyopathy as the patient's blood pressure and heart rate improves Objective - Vital Signs Vital signs: Vital Signs Temp 98.0 F 03/08/20 16:00 Pulse 80 03/08/20 16:00 Resp 16 03/08/20 16:00 BP 119/66 03/08/20 16:00 Pulse Ox 96 03/08/20 14:00 Intake & Output 09/02/1603/08/20 03/08/20 18:59 06:59 18:59 Intake Total 1348.694 657.847 512 Output Total 725 555 95 Balance 623.694 102.847 417 Weight 108.7 kg 110.6 kg Intake: IV 523 591 62 Albumin Human 5% 250 ml 250 In Empty Bag 1 bag @ 250 mls/hr IVPB Q1HR PR[facility] Rx#: [id number] Lactated Ringers 1,000 ml 290 275 50 @ 20 mls/hr IV .Q24H [facility] Rx#:[id number] Pressure bags 93 66 12 ceFAZolin 2 gm In Sodium 50 Chloride 0.9% 50 ml @ 100 mls/hr IVPB Q8HR [facility] Rx# :[id number] co/ci injectate 90 Intake, IV Titration 45.694 66.847 Amount Insulin Regular 100 unit 45.694 66.847 In Sodium Chloride 0.9% 100 ml @ Per Protocol IV .Q0M [facility] Rx#:[id number] Oral 780 450 Output: Chest Tube Drainage 420 340 Bilateral Mediastinal 310 220 Left 110 120 Urine 305 215 95 Other: Voiding Method Indwelling Catheter Indwelling Catheter Urinal ABP, PAP, CO, CI - Last Documented Arterial Blood Pressure 124/52 Pulmonary Artery Pressure 36/14 Cardiac Output 5.6 Cardiac Index 2.5 - Labs CBC & Chem 7: 03/08/20 04:10 03/08/20 04:10 Labs: Abnormal Lab Results - Last 24 Hours (Table) 03/07/20 03/07/20 03/07/20 Range/Units 16:37 18:14 18:57 WBC (3.8-10.6) k/uL RBC (4.30-5.90) m/uL Hgb (13.0-17.5) gm/dL Hct (39.0-53.0) % MCV (80.0-100.0) fL Plt Count (150-450) k/uL Neutrophils # (1.3-7.7) k/uL Sodium (137-145) mmol/L BUN (9-20) mg/dL POC Glucose (mg/dL) 189 H 146 H 171 H (75-99) mg/dL Calcium (8.4-10.2) mg/dL AST (17-59) U/L Total Protein (6.3-8.2) g/dL Albumin (3.5-5.0) g/dL 03/07/20 03/07/20 03/07/20 Range/Units 20:33 21:26 21:27 WBC (3.8-10.6) k/uL RBC (4.30-5.90) m/uL Hgb (13.0-17.5) gm/dL Hct (39.0-53.0) % MCV (80.0-100.0) fL Plt Count (150-450) k/uL Neutrophils # (1.3-7.7) k/uL Sodium (137-145) mmol/L BUN (9-20) mg/dL POC Glucose (mg/dL) 236 H 239 H 196 H (75-99) mg/dL Calcium (8.4-10.2) mg/dL AST (17-59) U/L Total Protein (6.3-8.2) g/dL Albumin (3.5-5.0) g/dL 03/07/20 03/08/20 03/08/20 Range/Units 23:06 00:16 01:00 WBC (3.8-10.6) k/uL RBC (4.30-5.90) m/uL Hgb (13.0-17.5) gm/dL Hct (39.0-53.0) % MCV (80.0-100.0) fL Plt Count (150-450) k/uL Neutrophils # (1.3-7.7) k/uL Sodium (137-145) mmol/L BUN (9-20) mg/dL POC Glucose (mg/dL) 210 H 188 H 162 H (75-99) mg/dL Calcium (8.4-10.2) mg/dL AST (17-59) U/L Total Protein (6.3-8.2) g/dL Albumin (3.5-5.0) g/dL 03/08/20 03/08/20 03/08/20 Range/Units 01:48 03:03 04:10 WBC 12.7 H (3.8-10.6) k/uL RBC 3.08 L (4.30-5.90) m/uL Hgb 9.9 L (13.0-17.5) gm/dL Hct 31.1 L (39.0-53.0) % MCV 100.9 H (80.0-100.0) fL Plt Count 105 L (150-450) k/uL Neutrophils # 10.1 H (1.3-7.7) k/uL Sodium (137-145) mmol/L BUN (9-20) mg/dL POC Glucose (mg/dL) 147 H 128 H (75-99) mg/dL Calcium (8.4-10.2) mg/dL AST (17-59) U/L Total Protein (6.3-8.2) g/dL Albumin (3.5-5.0) g/dL 03/08/20 03/08/20 03/08/20 Range/Units 04:10 04:18 07:07 WBC (3.8-10.6) k/uL RBC (4.30-5.90) m/uL Hgb (13.0-17.5) gm/dL Hct (39.0-53.0) % MCV (80.0-100.0) fL Plt Count (150-450) k/uL Neutrophils # (1.3-7.7) k/uL Sodium 133 L (137-145) mmol/L BUN 23 H (9-20) mg/dL POC Glucose (mg/dL) 101 H 111 H (75-99) mg/dL Calcium 8.2 L (8.4-10.2) mg/dL AST 77 H (17-59) U/L Total Protein 5.2 L (6.3-8.2) g/dL Albumin 3.3 L (3.5-5.0) g/dL 03/08/20 03/08/20 Range/Units 08:13 11:14 WBC (3.8-10.6) k/uL RBC (4.30-5.90) m/uL Hgb (13.0-17.5) gm/dL Hct (39.0-53.0) % MCV (80.0-100.0) fL Plt Count (150-450) k/uL Neutrophils # (1.3-7.7) k/uL Sodium (137-145) mmol/L BUN (9-20) mg/dL POC Glucose (mg/dL) 119 H 148 H (75-99) mg/dL Calcium (8.4-10.2) mg/dL AST (17-59) U/L Total Protein (6.3-8.2) g/dL Albumin (3.5-5.0) g/dL
[2020-03-08 17:25] LABS: Glucose,Whole Blood 173 mg/dL (75-99)
[2020-03-08] MEDS: SENNOSIDES-DOCUSATE SODIUM 1 EACH TAB PO SCH (20:12)
[2020-03-08 21:26] LABS: Glucose,Whole Blood 137 mg/dL (75-99)
[2020-03-09] MEDS: HEPARIN SODIUM,PORCINE 5,000 UNIT/ML 1 ML VIAL SQ SCH ×3 (00:41→16:49)
[2020-03-09 06:03] LABS: Basophils % (A) 0 %; Eosinophils % (A) 0 %; HCT 32.8 % (39.0-53.0); HGB 10.6 gm/dL (13.0-17.5); Lymphocytes # (A) 1.4 k/uL (1.0-4.8); Lymphocytes % (A) 9 %; MCH 32.6 pg (25.0-35.0); MCHC 32.2 g/dL (31.0-37.0); Macrocytosis Slight; Monocytes % (A) 7 %; Neutrophils # (A) 12.2 k/uL (1.3-7.7); Neutrophils % (A) 82 %; Platelet Count 120 k/uL (150-450); RBC 3.25 m/uL (4.30-5.90); RDW 13.8 % (11.5-15.5); WBC 14.9 k/uL (3.8-10.6)
[2020-03-09 06:09] LABS: ALT 19 U/L (4-49); AST 68 U/L (17-59); African American GFR (CKD) >90 (>60 ml/min/1.73 sqM); Albumin 3.2 g/dL (3.5-5.0); Alkaline Phosphatase 69 U/L (38-126); Anion Gap 6 mmol/L; Blood Urea Nitrogen 21 mg/dL (9-20); Calcium 8.2 mg/dL (8.4-10.2); Carbon Dioxide 26 mmol/L (22-30); Chloride 102 mmol/L (98-107); Glucose 129 mg/dL (74-99); Non-African American GFR(CKD) 80 (>60 ml/min/1.73 sqM); Potassium 4.4 mmol/L (3.5-5.1); Sodium 134 mmol/L (137-145); Total Bilirubin 1.2 mg/dL (0.2-1.3); Total Protein 5.4 g/dL (6.3-8.2)
[2020-03-09 06:39] LABS: Glucose,Whole Blood 143 mg/dL (75-99)
[2020-03-09] MEDS: LEVOTHYROXINE 75 MCG TAB PO SCH (06:45)
[2020-03-09] MEDS: INSULIN ASPART (NovoLOG) 100 UNIT/ML VIAL SQ SCH ×4 (06:45→20:46)
[2020-03-09] MEDS: PANTOPRAZOLE 40 MG TABLET PO SCH (06:45)
[2020-03-09] MEDS ORDERED: FUROSEMIDE 10 MG/ML 2 ML VIAL IV ONE (08:00)
[2020-03-09] MEDS: IPRATROPIUM-ALBUTEROL 3 ML NEB INHALATION SCH ×4 (08:29→20:13)
--- NOTE | 2020-03-09 08:33 | P.PN ---
Subjective Progress Note Date: 03/09/20 Principal diagnosis: Severe aortic valve stenosis, triple-vessel coronary artery disease with left main disease. Past medical history significant for ischemic cardiomyopathy with an ejection fraction of 45%, chronic paroxysmal atrial fibrillation on Coumadin anticoagulation, hypertension, hyperlipidemia, type 2 diabetes mellitus with preoperative hemoglobin A1c 6.9%, hypothyroidism, remote history of pneumonia, splenectomy status post fall, daily EtOH use, and remote history of tobacco dependence with preoperative FEV1 59% of predicted. POD #3 aortic valve replacement with a 25 mm Inspiris bovine pericardial valve prosthesis, coronary artery bypass grafting 4 with left internal mammary artery to left anterior descending coronary artery, reverse greater saphenous vein graft to the obtuse marginal, and reverse greater sequential vein grafts to the posterior descending coronary artery and posterior lateral branches of the right coronary artery, modified Newton maze procedure with bilateral pulmonary vein ablation with the Atricure bipolar clamp and ligation of the left atrial appendage with a 40 mm Atricure clip, epi-aortic ultrasound and intraoperative transesophageal echocardiogram. Postoperative acute blood loss anemia, expected given cardiopulmonary bypass and hemodilution. The patient was seen in follow-up today 03/09/2020 at his bedside in the intensive care unit. Currently he is sitting up to the bedside chair, he is awake, alert and oriented 3 and is in no acute distress. Denies any complaints of shortness of breath or pain. He reports his pain is well controlled with taking the acetaminophen. The Andersen catheter was removed yesterday without incident and he is urinating without difficulty with 700 mL of urine output in the last 8 hours. Atrial and ventricular epicardial pacemaker wires remain in place and connected to bedside backup pacemaker generator on a DDD of 80, underlying rhythm is atrial fibrillation heart rate in the 60s. He ambulated twice in the intensive care unit hallway yesterday with minimal assistance from nursing staff and physical therapy, tolerated well. He is complaining of constipation this morning. Objective - Vital Signs Vital signs: Vital Signs Temp 98.4 F 03/09/20 04:00 Pulse 80 03/09/20 07:00 Resp 16 03/09/20 07:00 BP 128/86 03/09/20 07:00 Pulse Ox 96 03/09/20 07:00 Intake & Output 03/08/20 03/09/20 03/09/20 18:59 06:59 18:59 Intake Total 1012 450 Output Total 345 700 0 Balance 667 -250 0 Weight 111.2 kg Intake: IV 62 Lactated Ringers 1,000 ml 50 @ 20 mls/hr IV .Q24H [facility] Rx#:[id number] Pressure bags 12 Oral 950 450 Output: Urine 345 700 0 Other: Voiding Method Urinal Urinal # Voids 1 ABP, PAP, CO, CI - Last Documented Arterial Blood Pressure 124/52 Pulmonary Artery Pressure 36/14 Cardiac Output 5.6 Cardiac Index 2.5 - Constitutional General appearance: Present: cooperative, no acute distress, obese - EENT Eyes: Present: PERRLA, dentition normal, normal appearance. Absent: scleral icterus ENT: Present: hearing grossly normal - Neck Details: Neck is supple, no lymphadenopathy, no JVD. - Respiratory Details: Lung sounds are essentially clear throughout, diminished to his bilateral bases right greater than left. No wheezes, rhonchi or crackles. Respirations are symmetrical and nonlabored. Oxygen saturation are 96% on room air. Achieving 1500 mL on his incentive spirometry. - Cardiovascular Details: Regular rhythm and rate. S1 and S2 present, negative for S3, gallop or murmur. Sternum is stable. Atrial and ventricular epicardial pacemaker wires in place and connected bedside pacemaker generator on a DDD mode of 80 BPM. Underlying rhythm is atrial fibrillation heart rate in the 60s. No edema present. Heart hugger is in place and he is demonstrating appropriate use. Knee-high MITZI hose and sequential compression devices in place to his bilateral lower extremities. - Gastrointestinal Gastrointestinal Comment(s): Abdomen is soft, nontender and nondistended. Active bowel sounds present all 4 abdominal quadrants. No guarding or rigidity. No organomegaly appreciated. Tolerating oral intake. Passing flatus. - Genitourinary Genitourinary Comment(s): Continues to void clear larry urine. 700 mL output last 8 hours. - Integumentary Integumentary Comment(s): Skin is warm and dry. No clubbing or cyanosis is present. Midline sternal incision is clean, dry and approximated. No redness or drainage present. Exofin dressing is clean, dry and intact. Left lower extremity EVH site is clean, dry and approximated. No drainage or redness is present. - Neurologic Neurologic: Present: CNII-XII intact - Musculoskeletal Musculoskeletal: Present: gait normal, generalized weakness, strength equal bilaterally - Psychiatric Psychiatric: Present: A&O x's 3, appropriate affect, intact judgment & insight - Allied health notes Allied health notes reviewed: nursing - Labs CBC & Chem 7: 03/09/20 04:56 03/09/20 04:56 Labs: Abnormal Lab Results - Last 24 Hours (Table) 03/08/20 03/08/20 03/08/20 Range/Units 08:13 11:14 17:25 WBC (3.8-10.6) k/uL RBC (4.30-5.90) m/uL Hgb (13.0-17.5) gm/dL Hct (39.0-53.0) % MCV (80.0-100.0) fL Plt Count (150-450) k/uL Neutrophils # (1.3-7.7) k/uL Sodium (137-145) mmol/L BUN (9-20) mg/dL Glucose (74-99) mg/dL POC Glucose (mg/dL) 119 H 148 H 173 H (75-99) mg/dL Calcium (8.4-10.2) mg/dL AST (17-59) U/L Total Protein (6.3-8.2) g/dL Albumin (3.5-5.0) g/dL 03/08/20 03/09/20 03/09/20 Range/Units 21:24 04:56 04:56 WBC 14.9 H (3.8-10.6) k/uL RBC 3.25 L (4.30-5.90) m/uL Hgb 10.6 L (13.0-17.5) gm/dL Hct 32.8 L (39.0-53.0) % MCV 101.0 H (80.0-100.0) fL Plt Count 120 L (150-450) k/uL Neutrophils # 12.2 H (1.3-7.7) k/uL Sodium 134 L (137-145) mmol/L BUN 21 H (9-20) mg/dL Glucose 129 H (74-99) mg/dL POC Glucose (mg/dL) 137 H (75-99) mg/dL Calcium 8.2 L (8.4-10.2) mg/dL AST 68 H (17-59) U/L Total Protein 5.4 L (6.3-8.2) g/dL Albumin 3.2 L (3.5-5.0) g/dL 03/09/20 Range/Units 06:38 WBC (3.8-10.6) k/uL RBC (4.30-5.90) m/uL Hgb (13.0-17.5) gm/dL Hct (39.0-53.0) % MCV (80.0-100.0) fL Plt Count (150-450) k/uL Neutrophils # (1.3-7.7) k/uL Sodium (137-145) mmol/L BUN (9-20) mg/dL Glucose (74-99) mg/dL POC Glucose (mg/dL) 143 H (75-99) mg/dL Calcium (8.4-10.2) mg/dL AST (17-59) U/L Total Protein (6.3-8.2) g/dL Albumin (3.5-5.0) g/dL - Imaging and Cardiology Chest x-ray: image reviewed Assessment and Plan Assessment: 1. Severe aortic valve stenosis, status post aortic valve replacement 2. Triple-vessel coronary artery disease with left main disease, status post CABG 4 3. Chronic atrial fibrillation on Coumadin for anticoagulation, last dose 02/28/2020, status post modified Newton maze procedure with bilateral pulmonary vein ablation 4. History of hypertension 5. History of hyperlipidemia 6. Ischemic cardiomyopathy, ejection fraction of 45% 7. Type 2 diabetes mellitus with a preoperative hemoglobin A1c 6.9% 8. Hypothyroidism 9. Remote history of pneumonia 10. History of splenectomy, status post fall 11. Daily EtOH use 12. Remote history of tobacco dependence with preoperative FEV1 59% of predicted 13. Postoperative acute blood loss anemia, expected Plan: 1. Continue aspirin, statin, Plavix. Hold beta john paul for now. Will initiate the beta john paul when able to tolerate. 2. Wean O2 as tolerated. Encourage incentive spirometry use 10 times every hour while awake. Bronchodilators per pulmonology/critical care management. 3. Increase activity, ambulate as tolerated. PT/OT/cardiac rehab following. 4. Continue amiodarone 400 mg by mouth twice a day for atrial fibrillation prophylaxis. 5. Will monitor daily labs and chest x-rays. Electrolyte replacement per protocol. No transfusion at this point. 6. GI/DVT prophylaxis. 7. Pain control current medication regimen. 8. Insulin management per primary care service. Patient needs tight blood sugar control to prevent infection and promote healing. 9. Lasix 20 mg IV 1 now. 10. Keep atrial and ventricular epicardial pacemaker wires connected to the Bedside pacemaker generator. Placed back up to bedside pacemaker generator on a VVI backup of 50 BPM. 11. Continue to hold lisinopril. We will start the lisinopril again when his blood pressure is able to tolerated for afterload reduction. 12. Will need first postoperative day shower today. 13. Anticipate discharge home with home health care in the next 24-48 hours. 14. Anticipate removal of epicardial pacemaker wires tomorrow, ventricular wires will need to be cut. 15. Once pacemaker wires are removed the patient will be started on anticoagulation, Eliquis. 16. More recommendations to follow based on patient's clinical course. Time with Patient: Greater than 30
--- NOTE | 2020-03-09 10:00 | XR ---
EXAMINATION TYPE: XR chest 1V portable DATE OF EXAM: 03/09/2020 COMPARISON: 03/08/2020 HISTORY: Shortness of breath TECHNIQUE: Single frontal view of the chest is obtained. FINDINGS: There is interval development of 5-10% right-sided hydropneumothorax. Bilateral infiltrate and pleural effusion noted. Heart is enlarged. Postoperative change. Underlying venous congestion no t excluded. Atherosclerotic change aorta. Jugular vein sheath has been removed. Left-sided chest tube is been removed. IMPRESSION: 1. Interval development of a 5-10% right-sided pneumothorax. Were called to patient's nurse. 2. Bilateral infiltrate and pleural effusion stable.
[2020-03-09] MEDS: ASPIRIN 325 MG TAB PO SCH (10:08)
[2020-03-09] MEDS: AMIODARONE 200 MG TAB PO SCH ×2 (10:08→20:45)
[2020-03-09] MEDS: FOLIC ACID-VIT B COMPLEX-VIT C 1 CAP PO SCH (10:09)
[2020-03-09] MEDS: LINAGLIPTIN 5 MG TABLET PO SCH (10:09)
[2020-03-09] MEDS: ATORVASTATIN 40 MG TAB PO SCH (10:09)
[2020-03-09] MEDS: CLOPIDOGREL 75 MG TAB PO SCH (10:09)
[2020-03-09 11:23] LABS: Glucose,Whole Blood 170 mg/dL (75-99)
--- NOTE | 2020-03-09 12:59 | P.PN ---
Subjective Progress Note Date: 03/09/20 74 years old male patient of Dr. Rouse and Dr. Lee with past medical history of hypertension, hyperlipidemia, paroxysmal atrial fibrillation on Coumadin, hypothyroidism, type 2 diabetes hypothyroidism, daily alcohol use, osteoarthritis and known history of bilateral knee replacement and right ankle surgery and came in for an elective STEFANIE and cardiac catheterization under Dr. Maguire. Patient gives a history of worsening shortness of breath for the past 6 months. He noticed increased weakness but denies any chest pain or dizziness or passing out spells. Patient has been off Coumadin, metformin and Januvia for the cardiac catheterization. STEFANIE done on 03/03 suggested severe aortic stenosis with heavily calcified 3 leaflet valve with restriction in the mobility. The valve area 0.7 mm. Mild left ventricular systolic dysfunction with ejection fraction of 45%. By mouth for with [id number] shunt present with mild to moderate MR and mild TR. Cardiac catheterization on 03/03 suggest to heavily calcified left main coronary artery with distal left main appears stenosed and stenosis extending into the proximal LAD and circumflex coronary artery around 80-90%. Circumflex occluded proximally with collaterals to LAD coming from the left system. Secondary diagnoses branch is moderate stenosis. Right coronary artery with moderate stenosis PDA with 80-90% stenosis. In assessment today patient denies any shortness of breath at rest. He did have back pain outwardly this morning after resting in bed for 6 hours post cardiac cath. Vitals are otherwise stablethe pulse is 67 respiratory rate 16 blood pressure 144/95 oxygen saturation 97% on room air. Labs reviewed CBC unremarkable creatinine 0.8 INR 1.3 blood sugar 140. Magnesium 1.9 and LDL 102 TSH 0.70 was negative for inf ection. Patient's last A1c is less than 7 controlled on Januvia and metformin. 03/04: Patient is found sitting up in a chair resting comfortably without any acute distress. Patient has no concerns or complaints at this time. The plan continues to be for a CABG scheduled on Tuesday 03/06. She remains afebrile, pulse rate 66, respirations 18, blood pressure 133/95, pulse ox 9 7% on room air. WBC 7.1, hemoglobin 14.7. 03/05: Patient is found sitting up in chair resting comfortably without any acute distress. Patient states he has no concerns or complaints at this time. Patient stated that he slept well. He was awoken at 5 AM for his weight other than that he has no issues. Patient declined any sleep aids for tonight. 03/07: Patient remains in intensive care unit. He is status post aortic valve replacement with bovine pericardial valve prosthesis, CABG 4 with KISER to LAD, saphenous vein graft to obtuse marginal, sequential saphenous vein graft to posterior descending and posterior lateral branches of the right coronary artery, postop day #1. Patient is found sitting up in chair and is complaining of some discomfort. No respiratory distress is noted. He is currently on insulin drip and blood sugars are running in the low 100s. Patient will be starting heart healthy diet/consistent carb. He has been afebrile, heart rate 76, blood pressure 124/75, pulse ox 100% on 2 L nasal cannula. Repeat blood work reveals Courtney BC 9.3, hemoglobin 10.5 and platelet count 112. Sodium 136, creatinine 0.63. Magnesium 2.6 calcium 7.9 and ionized calcium 4.7. Repeat chest x-ray reveals no focal airspace disease or pneumothorax. Patient has mediastinal and pleural left chest tubes in place. Patient has been started on oral amiodarone 400 mg twice daily and lisinopril 2.5 mg daily. 03/08: Patient is seen today in the intensive care unit. He is resting in bed and appears to be comfortable. He denies any shortness of breath. He is using incentive spirometry at 1500 ML's. Patient did go back into atrial fibrillation and on amiodarone. Repeat blood work reveals WBC 2.7, hemoglobin 9.9, sodium 133, BUN 23 and creatinine 1.13. Patient is to have chest tubes, Andersen catheter and Cordis removed today. Chest x-ray this morning reveals interval removal of right internal jugular [place]'s. Persistent right internal jugular sheath. Mild left basilar atelectasis. Patient has been afebrile, heart rate 70, blood pressure 108/71 and pulse ox 96% on room air. Patient has been seen by PT and OT with recommendations for home care or inpatient rehab. Blood sugars are in the low 100s 119 this morning at 8 AM. Patient will be taken off insulin drip and placed on Tradjenta as he is on Januvia at home and patient will be placed on NovoLog scale. 03/09: Patient remains in intensive care unit. He is in atrial fibrillation. Patient states he is feeling better today. He states he would feel a lot better if he could have a bowel movement. Blood sugars are running between 129 and 170. Patient will be resumed on metformin for this evening. Patient has been afebrile, heart rate 68, blood pressure 123/73, pulse ox 95% on room air. Discharge plan remains to go home with homecare. Review of Systems Constitutional: Denies chills, Denies fever, Denies lethargy, Denies malaise, Denies poor appetite, Denies weakness, Denies weight loss, reports generalized discomfort. Eyes: denies decreased vision, denies diplopia, denies discharge, denies pain Ears: deny: decreased hearing Ears, nose, mouth and throat: Denies dental pain, Denies headache, Denies nasal discharge, Denies nose pain Cardiovascular: Denies chest pain, endorses decreased exercise tolerance, Denies high blood pressure, denies irregular heart beat, Denies palpitations, endorses paroxysmal nocturnal dyspnea, endorses rapid heart beat, endorses shortness of breath Respiratory: Denies congestion, Denies cough, Denies cough with sputum, Denies dyspnea, Denies home oxygen, Denies wheezing Gastrointestinal: Denies abdominal pain,Denies coffee ground emesis, reports constipation. Denies heartburn, Denies hematemesis, Denies hematochezia, Denies loss of appetite, Denies nausea, Denies vomiting Genitourinary: Denies dysuria, Denies flank pain, Denies kidney stones, Denies menorrhagia, Denies urgency, Denies urinary frequency Musculoskeletal: Denies gait dysfunction, Denies limitation of motion, Denies morning stiffness, Denies muscle cramps Integumentary: Denies rash, Denies wounds, Denies brittle nails, Denies change in hair/nails, Denies darkening of skin Neurological: Denies balance difficulties, Denies change in speech, Denies double vision, Denies gait dysfunction, Denies loss of vision, Denies motor disturbance, Denies numbness, Denies paralysis, Denies paresthesias, Denies seizures Psychiatric: Denies anxiety, Denies depression Endocrine: Denies excessive sweating, Denies excessive thirst, Denies high blood sugars, Denies palpitations Physical exam General Appearance: Alert, cooperative, no distress from discomfort, appears stated age. Neck HEENT: Supple, no lymphadenopathy. Lungs: Clear to auscultation without crackles or wheezes no rhonchi, no deformity. Chest Wall: Chest wall normal expansion with deep inspiration. Heart: Regular rate and rhythm, S1, S2 normal, no murmur, rub or gallop. Back: Symmetric, no curvature, ROM normal, no CVA tenderness. Abdomen: Soft, non-tender, no rebound or rigidity, no hepatosplenomegaly. Extremities: Extremities normal, atraumatic, no cyanosis or edema. Pulses: 2+ and symmetric. Skin: Skin color, texture, tugor normal, no rashes or lesions. Neurologic: Alert oriented x3 cranial nerves II through XII intact, no motor deficit, no abnormal balance or gait Assessment and Plan 1. triple-vessel coronary disease status post CABG 4. Continue current plan per cardiothoracic surgery. Continue aspirin, Lipitor 40 mg by mouth daily, Lopressor discontinued. 2. severe aortic stenosis status post aortic valve replacement. 3. paroxysmal atrial fibrillation on Coumadin at home. CHADVASC risk score of 6. Lopressor discontinued. Patient is currently on amiodarone. 4. history of diabetes2. Hold metformin. Patient started on Tradjenta and discontinue insulin drip. Start NovoLog scale. 5. hypertension. 6. hyperlipidemia continue Lipitor 40 mg by mouth daily LDL 102 7. hypothyroidism continue levothyroxine at 150 g by mouth daily 8. coagulopathy secondary to Coumadin. Coumadin is on hold. 9. alcohol use drinks 3 beers a day. No history of alcohol withdrawal 10. history of splenectomy stable 11. DVT prophylaxis CODE STATUS: Full code Discharge plan: Home with [facility] Impression and plan of care have been directed as dictated by the signing physician. Zully Soto nurse practitioner acting as scribe for signing physi haley. Objective - Vital Signs Vital signs: Vital Signs Temp 97.8 F 03/09/20 08:00 Pulse 68 03/09/20 08:56 Resp 19 03/09/20 08:00 BP 123/80 03/09/20 08:00 Pulse Ox 97 03/09/20 08:00 Intake & Output 03/08/20 03/09/20 03/09/20 18:59 06:59 18:59 Intake Total 1012 450 150 Output Total 345 700 0 Balance 667 -250 150 Weight 111.2 kg Intake: IV 62 Lactated Ringers 1,000 ml 50 @ 20 mls/hr IV .Q24H [id number] Rx#:[id number] Pressure bags 12 Oral 950 450 150 Output: Urine 345 700 0 Other: Voiding Method Urinal Urinal Urinal # Voids 1 ABP, PAP, CO, CI - Last Documented Arterial Blood Pressure 124/52 Pulmonary Artery Pressure 36/14 Cardiac Output 5.6 Cardiac Index 2.5 - Labs CBC & Chem 7: 03/09/20 04:56 03/09/20 04:56 Labs: Abnormal Lab Results - Last 24 Hours (Table) 03/08/20 03/08/20 03/08/20 Range/Units 11:14 17:25 21:24 WBC (3.8-10.6) k/uL RBC (4.30-5.90) m/uL Hgb (13.0-17.5) gm/dL Hct (39.0-53.0) % MCV (80.0-100.0) fL Plt Count (150-450) k/uL Neutrophils # (1.3-7.7) k/uL Sodium (137-145) mmol/L BUN (9-20) mg/dL Glucose (74-99) mg/dL POC Glucose (mg/dL) 148 H 173 H 137 H (75-99) mg/dL Calcium (8.4-10.2) mg/dL AST (17-59) U/L Total Protein (6.3-8.2) g/dL Albumin (3.5-5.0) g/dL 03/09/20 03/09/20 03/09/20 Range/Units 04:56 04:56 06:38 WBC 14.9 H (3.8-10.6) k/uL RBC 3.25 L (4.30-5.90) m/uL Hgb 10.6 L (13.0-17.5) gm/dL Hct 32.8 L (39.0-53.0) % MCV 101.0 H (80.0-100.0) fL Plt Count 120 L (150-450) k/uL Neutrophils # 12.2 H (1.3-7.7) k/uL Sodium 134 L (137-145) mmol/L BUN 21 H (9-20) mg/dL Glucose 129 H (74-99) mg/dL POC Glucose (mg/dL) 143 H (75-99) mg/dL Calcium 8.2 L (8.4-10.2) mg/dL AST 68 H (17-59) U/L Total Protein 5.4 L (6.3-8.2) g/dL Albumin 3.2 L (3.5-5.0) g/dL
--- NOTE | 2020-03-09 16:17 | P.PN ---
Subjective Progress Note Date: 03/09/20 03/09/2020, the patient is doing well. All of the chest is a been removed and the patient's chest x-ray from today shows a 10% pneumothorax on the right. She is using incentive spirometer. He has adequate lung volumes. He is pulling more than 2000. He had some underlying bradycardia for which she was pacing current rhythm is atrial fibrillation and the rate is about 60 and the patient has a AV epicardial pacemaker wires in place and connected to a backup pacemaker at the rate of 80. Doing well. No specific complaints. Sternum stable clean and intact. No chest pain. No shortness of breath. Currently is on room air oxygen. No altered mentation. Alert and oriented 3. He is postop day #3 following four-vessel bypass surgery and aortic valve replacement. He also underwent a 8 she'll clip insertion and intraoperative transferred esophageal echocardiogram. Note that the patient has a bioprosthetic aortic valve. Objective - Vital Signs Vital signs: Vital Signs Temp 97.9 F 03/09/20 12:02 Pulse 71 03/09/20 15:54 Resp 14 03/09/20 15:00 BP 120/65 03/09/20 15:00 Pulse Ox 98 03/09/20 15:00 Intake & Output 03/08/20 03/09/20 03/09/20 18:59 06:59 18:59 Intake Total 1012 450 350 Output Total 345 700 700 Balance 667 -250 -350 Weight 111.2 kg Intake: IV 62 Lactated Ringers 1,000 ml 50 @ 20 mls/hr IV .Q24H [facility] Rx#:[id number] Pressure bags 12 Oral 950 450 350 Output: Urine 345 700 700 Other: Voiding Method Urinal Urinal Urinal # Voids 1 1 ABP, PAP, CO, CI - Last Documented Arterial Blood Pressure 124/52 Pulmonary Artery Pressure 36/14 Cardiac Output 5.6 Cardiac Index 2.5 - Exam - Constitutional General appearance: Present: cooperative, no acute distress, obese - EENT Eyes: Present: PERRLA, dentition normal, normal appearance. Absent: scleral icterus ENT: Present: hearing grossly normal - Neck Details: Neck is supple, no lymphadenopathy, no JVD. - Respiratory Details: Lung sounds are essentially clear throughout, diminished to his bilateral bases right greater than left. No wheezes, rhonchi or crackles. Respirations are symmetrical and nonlabored. Oxygen saturation are 96% on room air. Achieving 1500 mL on his incentive spirometry. - Cardiovascular Details: Regular rhythm and rate. S1 and S2 present, negative for S3, gallop or murmur. Sternum is stable. Atrial and ventricular epicardial pacemaker wires in place and connected bedside pacemaker generator on a DDD mode of 80 BPM. Underlying rhythm is atrial fibrillation heart rate in the 60s. No edema present. Heart hugger is in place and he is demonstrating appropriate use. Knee-high MITZI hose and sequential compression devices in place to his bilateral lower extremities. - Gastrointestinal Gastrointestinal Comment(s): Abdomen is soft, nontender and nondistended. Active bowel sounds present all 4 abdominal quadrants. No guarding or rigidity. No organomegaly appreciated. Tolerating oral intake. Passing flatus. - Genitourinary Genitourinary Comment(s): Continues to void clear larry urine. 700 mL output last 8 hours. - Integumentary Integumentary Comment(s): Skin is warm and dry. No clubbing or cyanosis is present. Midline sternal incision is clean, dry and approximated. No redness or drainage present. Exofin dressing is clean, dry and intact. Left lower extremity EVH site is clean, dry and approximated. No drainage or redness is present. - Neurologic Neurologic: Present: CNII-XII intact - Musculoskeletal Musculoskeletal: Present: gait normal, generalized weakness, strength equal bilaterally - Psychiatric Psychiatric: Present: A&O x's 3, appropriate affect, intact judgment & insight - Labs CBC & Chem 7: 03/09/20 04:56 03/09/20 04:56 Labs: Abnormal Lab Results - Last 24 Hours (Table) 03/08/20 03/08/20 03/09/20 Range/Units 17:25 21:24 04:56 WBC 14.9 H (3.8-10.6) k/uL RBC 3.25 L (4.30-5.90) m/uL Hgb 10.6 L (13.0-17.5) gm/dL Hct 32.8 L (39.0-53.0) % MCV 101.0 H (80.0-100.0) fL Plt Count 120 L (150-450) k/uL Neutrophils # 12.2 H (1.3-7.7) k/uL Sodium (137-145) mmol/L BUN (9-20) mg/dL Glucose (74-99) mg/dL POC Glucose (mg/dL) 173 H 137 H (75-99) mg/dL Calcium (8.4-10.2) mg/dL AST (17-59) U/L Total Protein (6.3-8.2) g/dL Albumin (3.5-5.0) g/dL 03/09/20 03/09/20 03/09/20 Range/Units 04:56 06:38 11:21 WBC (3.8-10.6) k/uL RBC (4.30-5.90) m/uL Hgb (13.0-17.5) gm/dL Hct (39.0-53.0) % MCV (80.0-100.0) fL Plt Count (150-450) k/uL Neutrophils # (1.3-7.7) k/uL Sodium 134 L (137-145) mmol/L BUN 21 H (9-20) mg/dL Glucose 129 H (74-99) mg/dL POC Glucose (mg/dL) 143 H 170 H (75-99) mg/dL Calcium 8.2 L (8.4-10.2) mg/dL AST 68 H (17-59) U/L Total Protein 5.4 L (6.3-8.2) g/dL Albumin 3.2 L (3.5-5.0) g/dL Microbiology - Last 24 Hours (Table) 03/09/20 10:43 Sputum Culture - Preliminary Sputum Assessment and Plan Plan: 1 multivessel coronary artery disease post coronary artery bypass surgery. Patient is postop day #3. 2 severe aortic valve stenosis plus bioprosthetic aortic valve replacement and the patient is postop day #3 3 chronic atrial fibrillation on long-term articulation with warfarin. The patient has undergone modified Newton maze procedure in addition to bilateral pulmonary vein ablation and atrial appendage clipping. 4 post thoracotomy and the patient has a 10% pneumothorax on the right posterior chest tube removal. Asymptomatic. Using incentive spirometer. 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 No need for chest tube insertion at this point in time Continue aspirin and Plavix Hold beta blockers for now and monitor the patient's cardiac rhythm. There patient is currently on a backup pacemaker, rate of 50 Continue on oral amiodarone 400 mg by mouth twice a Start the patient on long-term articulation with warfarin and monitor the patient's PT/INR Lasix 20 mg IV push 1 Incentive spirometer Routine postoperative care and increased mobility and will continue to follow.
[2020-03-09 16:49] LABS: Glucose,Whole Blood 173 mg/dL (75-99)
[2020-03-09] MEDS: metFORMIN 500 MG TAB PO SCH (16:54)
[2020-03-09] MEDS ORDERED: WARFARIN 5 MG TAB PO ONE (18:00)
--- NOTE | 2020-03-09 19:35 | P.PN ---
Subjective Patient is doing well. He denies any chest discomfort or dizziness or lightheadedness. He is sitting comfortably in a chair Lung sounds are reduced bilaterally but no rhonchi no crackles Heart sounds are soft irregular Heart ratein the 70s and 80s Blood pressure 128/77 mmHg pulse rate in the 70s afebrile 98.1F Breath sounds are clear Impression 80 Replacement Coronary artery disease with left main disease Ischemic cardiomyopathy ejection fraction 45% Paroxysmal atrial fibrillation Hypertension Status post surgery Bradycardia and beta blockers were held Resume beta blockers as heart rates improve Reduce amiodarone Continue warfarin Continue aspirin and atorvastatin and Plavix Objective - Vital Signs Vital signs: Vital Signs Temp 98.1 F 03/09/20 16:00 Pulse 67 03/09/20 19:00 Resp 18 03/09/20 19:00 BP 128/77 03/09/20 19:00 Pulse Ox 96 03/09/20 19:00 Intake & Output 03/09/20 03/09/20 03/10/20 06:59 18:59 06:59 Intake Total 450 450 100 Output Total 700 900 0 Balance -250 -450 100 Weight 111.2 kg Intake: Oral 450 450 100 Output: Urine 700 900 0 Other: Voiding Method Urinal Urinal # Voids 1 ABP, PAP, CO, CI - Last Documented Arterial Blood Pressure 124/52 Pulmonary Artery Pressure 36/14 Cardiac Output 5.6 Cardiac Index 2.5 - Labs CBC & Chem 7: 03/09/20 04:56 03/09/20 04:56 Labs: Abnormal Lab Results - Last 24 Hours (Table) 03/08/20 03/09/20 03/09/20 Range/Units 21:24 04:56 04:56 WBC 14.9 H (3.8-10.6) k/uL RBC 3.25 L (4.30-5.90) m/uL Hgb 10.6 L (13.0-17.5) gm/dL Hct 32.8 L (39.0-53.0) % MCV 101.0 H (80.0-100.0) fL Plt Count 120 L (150-450) k/uL Neutrophils # 12.2 H (1.3-7.7) k/uL Sodium 134 L (137-145) mmol/L BUN 21 H (9-20) mg/dL Glucose 129 H (74-99) mg/dL POC Glucose (mg/dL) 137 H (75-99) mg/dL Calcium 8.2 L (8.4-10.2) mg/dL AST 68 H (17-59) U/L Total Protein 5.4 L (6.3-8.2) g/dL Albumin 3.2 L (3.5-5.0) g/dL 03/09/20 03/09/20 03/09/20 Range/Units 06:38 11:21 16:47 WBC (3.8-10.6) k/uL RBC (4.30-5.90) m/uL Hgb (13.0-17.5) gm/dL Hct (39.0-53.0) % MCV (80.0-100.0) fL Plt Count (150-450) k/uL Neutrophils # (1.3-7.7) k/uL Sodium (137-145) mmol/L BUN (9-20) mg/dL Glucose (74-99) mg/dL POC Glucose (mg/dL) 143 H 170 H 173 H (75-99) mg/dL Calcium (8.4-10.2) mg/dL AST (17-59) U/L Total Protein (6.3-8.2) g/dL Albumin (3.5-5.0) g/dL Microbiology - Last 24 Hours (Table) 03/09/20 10:43 Sputum Culture - Preliminary Sputum
[2020-03-09 20:41] LABS: Glucose,Whole Blood 157 mg/dL (75-99)
[2020-03-09] MEDS: SENNOSIDES-DOCUSATE SODIUM 1 EACH TAB PO SCH (20:45)
[2020-03-10] MEDS: HEPARIN SODIUM,PORCINE 5,000 UNIT/ML 1 ML VIAL SQ SCH ×4 (00:50→21:47)
[2020-03-10 04:59] LABS: Prothrombin Time 10.3 sec (9.0-12.0)
[2020-03-10 05:03] LABS: Calcium 8.2 mg/dL (8.4-10.2); MCHC 32.1 g/dL (31.0-37.0); MCV 99.8 fL (80.0-100.0); Mean Platelet Volume 9.1; Platelet Count 137 k/uL (150-450); Potassium 4.8 mmol/L (3.5-5.1); RBC 3.11 m/uL (4.30-5.90); RDW 13.8 % (11.5-15.5); WBC 12.2 k/uL (3.8-10.6)
[2020-03-10] MEDS: LEVOTHYROXINE 75 MCG TAB PO SCH (07:04)
[2020-03-10 07:12] LABS: Glucose,Whole Blood 189 mg/dL (75-99)
[2020-03-10] MEDS: INSULIN ASPART (NovoLOG) 100 UNIT/ML VIAL SQ SCH ×4 (08:04→21:49)
[2020-03-10] MEDS: IPRATROPIUM-ALBUTEROL 3 ML NEB INHALATION SCH ×4 (08:10→21:38)
--- NOTE | 2020-03-10 08:33 | XR ---
EXAMINATION TYPE: XR chest 2V DATE OF EXAM: 03/10/2020 COMPARISON: 03/09/2020. TECHNIQUE: PA and lateral views submitted. HISTORY: Post CABG FINDINGS: Postsurgical change seen. The heart is enlarged and there is bilateral infiltrate and small effusion. Persistent right apical pneumothorax measuring 10%. No significant interval change. IMPRESSION: 1. Right sided approximately 10% pneumothorax. 2. Bilateral infiltrate and pleural effusion stable.
[2020-03-10] MEDS ORDERED: FARXIGA 5 MG PO SCH (09:00)
[2020-03-10] MEDS: PANTOPRAZOLE 40 MG TABLET PO SCH (09:03)
[2020-03-10] MEDS: metFORMIN 500 MG TAB PO SCH ×2 (09:03→17:09)
[2020-03-10] MEDS: FOLIC ACID-VIT B COMPLEX-VIT C 1 CAP PO SCH (09:03)
[2020-03-10] MEDS: ASPIRIN 81 MG PO SCH (09:03)
[2020-03-10] MEDS: CLOPIDOGREL 75 MG TAB PO SCH (09:03)
[2020-03-10] MEDS: ATORVASTATIN 40 MG TAB PO SCH (09:03)
--- NOTE | 2020-03-10 09:08 | P.PN ---
Subjective Progress Note Date: 03/10/20 Principal diagnosis: Severe aortic stenosis, triple-vessel coronary artery disease with left main disease. Previous medical history of ischemic cardiomyopathy with ejection fraction 45%, chronic atrial fibrillation on Coumadin for anticoagulation, hypertension, hyperlipidemia, type 2 diabetes mellitus with hemoglobin A1c 6.9%, hypothyroidism, remote history of pneumonia, splenectomy, daily EtOH use, and previous tobacco dependence with preoperative FEV1 59% of predicted POD #4 aortic valve replacement with 25 mm in spite risks bovine pericardial valve prosthesis, coronary artery bypass grafting 4 with the left internal mammary artery to the left anterior descending artery, reverse saphenous vein graft to the obtuse marginal artery, sequential reverse saphenous vein graft to the posterior descending and posterior lateral branches of the right coronary artery, modified Newton maze procedure with bilateral pulmonary vein ablation with AtriCure bipolar clamp and ligation of the left atrial appendage with a 40 mm AtriCure clip, epi-aortic ultrasound, endovascular vein harvest of the left greater saphenous vein from the groin to the ankle Postoperative acute blood loss anemia, expected given cardiopulmonary bypass and hemodilution The patient is currently sitting up and recliner in the intensive care unit in no acute distress. Does state that he feels it is difficult to take a deep breath with "all of the stuff" on his chest, states pain is well controlled on current medication regimen. He was ambulatory in the hallway twice yesterday. Currently slow atrial fibrillation. A/V epicardial pacemaker wires present, connected to generator without good capture. Started on Coumadin yesterday. No other new concerns. Objective - Vital Signs Vital signs: Vital Signs Temp 97.6 F 03/10/20 07:00 Pulse 56 L 03/10/20 07:00 Resp 9 L 03/10/20 07:00 BP 112/61 03/10/20 07:00 Pulse Ox 97 03/10/20 07:00 Intake & Output 03/09/20 03/10/20 03/10/20 18:59 06:59 18:59 Intake Total 450 275 75 Output Total 900 200 Balance -450 75 75 Intake: Oral 450 275 75 Output: Urine 900 200 Other: Voiding Method Urinal Urinal # Voids 1 0 1 # Bowel Movements 1 ABP, PAP, CO, CI - Last Documented Arterial Blood Pressure 124/52 Pulmonary Artery Pressure 36/14 Cardiac Output 5.6 Cardiac Index 2.5 - Constitutional General appearance: Present: cooperative, no acute distress, obese - Respiratory Details: Lungs sounds diminished bilaterally. Respirations even, nonlabored. Currently on room air with oxygen saturation 94%. Able to achieve 1000 mL on his incentive spirometry. Weak but productive cough, sputum culture sent yesterday. - Cardiovascular Details: S1, S2 present. Slow, irregular rate and rhythm, slow atrial fibrillation on telemetry with heart rate in the 50s. Sternum stable. A/V epicardial pacemaker wires present, connected to generator, VVI mode with a backup rate 50 bpm. Palpable peripheral pulses bilaterally. No edema present. No calf pain or tenderness noted. Heart hugger in place with patient demonstrating appropriate use. Antiembolism stockings, SCDs present. - Gastrointestinal Gastrointestinal Comment(s): Abdomen soft, nontender, nondistended. Active bowel sounds present 4 quadrants. Tolerating diet. Positive bowel movement yesterday and this morning per patient. - Genitourinary Genitourinary Comment(s): Continues to void clear, yellow urine. - Integumentary Integumentary Comment(s): Skin is warm and dry with evidence of good perfusion. Anterior chest incision well approximated and covered with dry intact dressing. Left lower extremity EVH sites well approximated without redness or drainage. - Neurologic Neurologic: Present: CNII-XII intact - Musculoskeletal Musculoskeletal: Present: gait normal, strength equal bilaterally - Psychiatric Psychiatric: Present: A&O x's 3, appropriate affect, intact judgment & insight - Allied health notes Allied health notes reviewed: nursing - Labs CBC & Chem 7: 03/10/20 04:29 03/10/20 04:29 Labs: Abnormal Lab Results - Last 24 Hours (Table) 03/09/20 03/09/20 03/09/20 Range/Units 11:21 16:47 20:39 WBC (3.8-10.6) k/uL RBC (4.30-5.90) m/uL Hgb (13.0-17.5) gm/dL Hct (39.0-53.0) % Plt Count (150-450) k/uL Sodium (137-145) mmol/L BUN (9-20) mg/dL Glucose (74-99) mg/dL POC Glucose (mg/dL) 170 H 173 H 157 H (75-99) mg/dL Calcium (8.4-10.2) mg/dL 03/10/20 03/10/20 03/10/20 Range/Units 04:29 04:29 07:10 WBC 12.2 H (3.8-10.6) k/uL RBC 3.11 L (4.30-5.90) m/uL Hgb 10.0 L (13.0-17.5) gm/dL Hct 31.0 L (39.0-53.0) % Plt Count 137 L (150-450) k/uL Sodium 131 L (137-145) mmol/L BUN 25 H (9-20) mg/dL Glucose 161 H (74-99) mg/dL POC Glucose (mg/dL) 189 H (75-99) mg/dL Calcium 8.2 L (8.4-10.2) mg/dL Microbiology - Last 24 Hours (Table) 03/09/20 10:43 Gram Stain - Preliminary Sputum Sputum Culture - Preliminary - Imaging and Cardiology Chest x-ray: image reviewed Assessment and Plan Assessment: 1. Severe aortic stenosis, status post bioprosthetic aortic valve replacement 2. Triple-vessel coronary artery disease with left main disease, status post four-vessel CABG 3. Chronic atrial fibrillation on Coumadin for anticoagulation, status post modified Newton maze with bilateral pulmonary vein ablation and left atrial appendage ligation 4. Ischemic cardiomyopathy with EF 45% 5. History of hypertension 6. History of hyperlipidemia line 7. Type 2 diabetes mellitus with hemoglobin A1c 6.9% 8. Hypothyroidism 9. Remote history of pneumonia 10. History of splenectomy 11. Daily EtOH use 12. Previous tobacco dependence with preoperative FEV1 59% of predicted Plan: 1. Continue aspirin, statin. Continue to hold beta john paul, we will initiate when able. Will initiate lisinopril for afterload reduction when able 2. Discontinue amiodarone. Coumadin initiated last night, will continue based on PT/INR 3. Encourage incentive spirometry is 10 times every hour while awake. Bronchodilators per pulmonology 4. Increase activity, ambulate as tolerated. PT/OT/cardiac rehab following 5. Will monitor daily labs and x-rays. Electro replacement per protocol. No transfusion 6. GI/DVT prophylaxis 7. Patient controlled with current medication regimen 8. Diabetic management per primary care service. Patient needs tight blood s ugar control to prevent infection and promote healing 9. Will discontinue epicardial pacemaker wires today. Patient to remain on bedrest for 1 hour post-removal 10. Will place transfer orders for [address] [place] [id number] cardiac stepdown unit. May transfer when bed available 11. Discharge planning in progress. Anticipate discharge to home in the next 24-48 hours 12. More recommendations to follow Time with Patient: Greater than 30
--- NOTE | 2020-03-10 10:18 | P.PN ---
Subjective Progress Note Date: 03/10/20 74 years old male patient of Dr. Rouse and Dr. Lee with past medical history of hypertension, hyperlipidemia, paroxysmal atrial fibrillation on Coumadin, hypothyroidism, type 2 diabetes hypothyroidism, daily alcohol use, osteoarthritis and known history of bilateral knee replacement and right ankle surgery and came in for an elective STEFANIE and cardiac catheterization under Dr. Maguire. Patient gives a history of worsening shortness of breath for the past 6 months. He noticed increased weakness but denies any chest pain or dizziness or passing out spells. Patient has been off Coumadin, metformin and Januvia for the cardiac catheterization. STEFANIE done on 03/03 suggested severe aortic stenosis with heavily calcified 3 leaflet valve with restriction in the mobility. The valve area 0.7 mm. Mild left ventricular systolic dysfunction with ejection fraction of 45%. By mouth for with [id number] shunt present with mild to moderate MR and mild TR. Cardiac catheterization on 03/03 suggest to heavily calcified left main coronary artery with distal left main appears stenosed and stenosis extending into the proximal LAD and circumflex coronary artery around 80-90%. Circumflex occluded proximally with collaterals to LAD coming from the left system. Secondary diagnoses branch is moderate stenosis. Right coronary artery with moderate stenosis PDA with 80-90% stenosis. In assessment today patient denies any shortness of breath at rest. He did have back pain outwardly this morning after resting in bed for 6 hours post cardiac cath. Vitals are otherwise stablethe pulse is 67 respiratory rate 16 blood pressure 144/95 oxygen saturation 97% on room air. Labs reviewed CBC unremarkable creatinine 0.8 INR 1.3 blood sugar 140. Magnesium 1.9 and LDL 102 TSH 0.70 was negative for inf ection. Patient's last A1c is less than 7 controlled on Januvia and metformin. 03/04: Patient is found sitting up in a chair resting comfortably without any acute distress. Patient has no concerns or complaints at this time. The plan continues to be for a CABG scheduled on Tuesday 03/06. She remains afebrile, pulse rate 66, respirations 18, blood pressure 133/95, pulse ox 9 7% on room air. WBC 7.1, hemoglobin 14.7. 03/05: Patient is found sitting up in chair resting comfortably without any acute distress. Patient states he has no concerns or complaints at this time. Patient stated that he slept well. He was awoken at 5 AM for his weight other than that he has no issues. Patient declined any sleep aids for tonight. 03/07: Patient remains in intensive care unit. He is status post aortic valve replacement with bovine pericardial valve prosthesis, CABG 4 with KISER to LAD, saphenous vein graft to obtuse marginal, sequential saphenous vein graft to posterior descending and posterior lateral branches of the right coronary artery, postop day #1. Patient is found sitting up in chair and is complaining of some discomfort. No respiratory distress is noted. He is currently on insulin drip and blood sugars are running in the low 100s. Patient will be starting heart healthy diet/consistent carb. He has been afebrile, heart rate 76, blood pressure 124/75, pulse ox 100% on 2 L nasal cannula. Repeat blood work reveals Courtney BC 9.3, hemoglobin 10.5 and platelet count 112. Sodium 136, creatinine 0.63. Magnesium 2.6 calcium 7.9 and ionized calcium 4.7. Repeat chest x-ray reveals no focal airspace disease or pneumothorax. Patient has mediastinal and pleural left chest tubes in place. Patient has been started on oral amiodarone 400 mg twice daily and lisinopril 2.5 mg daily. 03/08: Patient is seen today in the intensive care unit. He is resting in bed and appears to be comfortable. He denies any shortness of breath. He is using incentive spirometry at 1500 ML's. Patient did go back into atrial fibrillation and on amiodarone. Repeat blood work reveals WBC 2.7, hemoglobin 9.9, sodium 133, BUN 23 and creatinine 1.13. Patient is to have chest tubes, Andersen catheter and Cordis removed today. Chest x-ray this morning reveals interval removal of right internal jugular [place]'s. Persistent right internal jugular sheath. Mild left basilar atelectasis. Patient has been afebrile, heart rate 70, blood pressure 108/71 and pulse ox 96% on room air. Patient has been seen by PT and OT with recommendations for home care or inpatient rehab. Blood sugars are in the low 100s 119 this morning at 8 AM. Patient will be taken off insulin drip and placed on Tradjenta as he is on Januvia at home and patient will be placed on NovoLog scale. 03/09: Patient remains in intensive care unit. He is in atrial fibrillation. Patient states he is feeling better today. He states he would feel a lot better if he could have a bowel movement. Blood sugars are running between 129 and 170. Patient will be resumed on metformin for this evening. Patient has been afebrile, heart rate 68, blood pressure 123/73, pulse ox 95% on room air. Discharge plan remains to go home with homecare. 03/10: Cardiology discontinued beta john paul due to bradycardia and instructed to resume as heart rate improves, amiodarone decreased and subsequently discontinued and patient was started on warfarin. Patient did have documented heart rates down to the 40s and at this time plan is for conservative management versus pacemaker implantation. Repeat chest x-ray reveals right-sided 10% pneumothorax. Bilateral infiltrate and pleural effusion stable. Patient is seen today sitting up in a recliner and appears to be in no acute distress. He states his pain is controlled. He was able to have a bowel movement and feels better following this. He is off oxygen. court monitor is atrial fi brillation slow rate. Patient is waiting for bed on the cardiac stepdown unit. Anticipate discharge in the next 24-48 hours. Review of Systems Constitutional: Denies chills, Denies fever, Denies lethargy, Denies malaise, Denies poor appetite, Denies weakness, Denies weight loss, reports generalized discomfort. Eyes: denies decreased vision, denies diplopia, denies discharge, denies pain Ears: deny: decreased hearing Ears, nose, mouth and throat: Denies dental pain, Denies headache, Denies nasal discharge, Denies nose pain Cardiovascular: Denies chest pain, endorses decreased exercise tolerance, Denies high blood pressure, denies irregular heart beat, Denies palpitations, Respiratory: Denies congestion, Denies cough, Denies cough with sputum, Denies dyspnea, Denies home oxygen, Denies wheezing Gastrointestinal: Denies abdominal pain,Denies coffee ground emesis, reports constipation. Denies heartburn, Denies hematemesis, Denies hematochezia, Denies loss of appetite, Denies nausea, Denies vomiting Genitourinary: Denies dysuria, Denies flank pain, Denies kidney stones, Denies menorrhagia, Denies urgency, Denies urinary frequency Musculoskeletal: Denies gait dysfunction, Denies limitation of motion, Denies morning stiffness, Denies muscle cramps Integumentary: Denies rash, Denies wounds, Denies brittle nails, Denies change in hair/nails, Denies darkening of skin Neurological: Denies balance difficulties, Denies change in speech, Denies double vision, Denies gait dysfunction, Denies loss of vision, Denies motor disturbance, Denies numbness, Denies paralysis, Denies paresthesias, Denies seizures Psychiatric: Denies anxiety, Denies depression Endocrine: Denies excessive sweating, Denies excessive thirst, Denies high blood sugars, Denies palpitations Physical exam General Appearance: Alert, cooperative, no distress from discomfort, appears stated age. Neck HEENT: Supple, no lymphadenopathy. Lungs: Clear to auscultation without crackles or wheezes no rhonchi, no deformity. Chest Wall: Chest wall normal expansion with deep inspiration. Heart: Regular rate and rhythm, S1, S2 normal, no murmur, rub or gallop. Back: Symmetric, no curvature, ROM normal, no CVA tenderness. Abdomen: Soft, non-tender, no rebound or rigidity, no hepatosplenomegaly. Extremities: Extremities normal, atraumatic, no cyanosis or edema. Pulses: 2+ and symmetric. Skin: Skin color, texture, tugor normal, no rashes or lesions. Neurologic: Alert oriented x3 cranial nerves II through XII intact, no motor deficit, no abnormal balance or gait Assessment and Plan 1. triple-vessel coronary disease status post CABG 4. Continue current plan per cardiothoracic surgery. Continue aspirin, Lipitor 40 mg by mouth daily, L opressor discontinued. 2. severe aortic stenosis status post aortic valve replacement. 3. paroxysmal atrial fibrillation on Coumadin at home. CHADVASC risk score of 6. Lopressor and amiodarone discontinued. Patient resumed on Coumadin. 4. history of diabetes2. Hold metformin. Patient resumed on Tradjenta and metformin, Levemir 10 units daily added, continue NovoLog scale. 5. hypertension. 6. hyperlipidemia continue Lipitor 40 mg by mouth daily 7. hypothyroidism continue levothyroxine at 150 g by mouth daily 8. coagulopathy secondary to Coumadin. Coumadin resumed. 9. alcohol use drinks 3 beers a day. No history of alcohol withdrawal 10. history of splenectomy stable 11. DVT prophylaxis CODE STATUS: Full code Discharge plan: Home with [facility] Impression and plan of care have been directed as dictated by the signing physician. Zully Soto nurse practitioner acting as scribe for signing physician. Objective - Vital Signs Vital signs: Vital Signs Temp 98.0 F 03/10/20 08:00 Pulse 74 03/10/20 09:00 Resp 18 03/10/20 09:00 BP 127/107 03/10/20 09:00 Pulse Ox 95 03/10/20 09:00 Intake & Output 03/09/20 03/10/20 03/10/20 18:59 06:59 18:59 Intake Total 450 275 555 Output Total 900 200 0 Balance -450 75 555 Weight 110.9 kg Intake: Oral 450 275 555 Output: Urine 900 200 0 Other: Voiding Method Urinal Urinal # Voids 1 0 1 # Bowel Movements 1 ABP, PAP, CO, CI - Last Documented Arterial Blood Pressure 124/52 Pulmonary Artery Pressure 36/14 Cardiac Output 5.6 Cardiac Index 2.5 - Labs CBC & Chem 7: 03/10/20 04:29 03/10/20 04:29 Labs: Abnormal Lab Results - Last 24 Hours (Table) 03/09/20 03/09/20 03/09/20 Range/Units 11:21 16:47 20:39 WBC (3.8-10.6) k/uL RBC (4.30-5.90) m/uL Hgb (13.0-17.5) gm/dL Hct (39.0-53.0) % Plt Count (150-450) k/uL Sodium (137-145) mmol/L BUN (9-20) mg/dL Glucose (74-99) mg/dL POC Glucose (mg/dL) 170 H 173 H 157 H (75-99) mg/dL Calcium (8.4-10.2) mg/dL 03/10/20 03/10/20 03/10/20 Range/Units 04:29 04:29 07:10 WBC 12.2 H (3.8-10.6) k/uL RBC 3.11 L (4.30-5.90) m/uL Hgb 10.0 L (13.0-17.5) gm/dL Hct 31.0 L (39.0-53.0) % Plt Count 137 L (150-450) k/uL Sodium 131 L (137-145) mmol/L BUN 25 H (9-20) mg/dL Glucose 161 H (74-99) mg/dL POC Glucose (mg/dL) 189 H (75-99) mg/dL Calcium 8.2 L (8.4-10.2) mg/dL Microbiology - Last 24 Hours (Table) 03/09/20 10:43 Gram Stain - Preliminary Sputum Sputum Culture - Preliminary
[2020-03-10] MEDS ORDERED: INSULIN DETEMIR (LEVEMIR) 100 UNIT/ML SYR SQ SCH (10:30)
[2020-03-10] MEDS: LINAGLIPTIN 5 MG TABLET PO SCH (10:37)
[2020-03-10] MEDS: INSULIN DETEMIR (LEVEMIR) 100 UNIT/ML SYR SQ SCH (10:37)
[2020-03-10 11:37] LABS: Glucose,Whole Blood 181 mg/dL (75-99)
--- NOTE | 2020-03-10 11:57 | P.PN ---
Subjective Progress Note Date: 03/10/20 Principal diagnosis: Multivessel coronary artery disease This is a 74-year-old gentleman who follows on an outpatient basis with Dr. Kavon Rouse for primary care and Dr. Tye Lee for cardiology. He has a previous medical history of hypertension, hyperlipidemia, chronic atrial fibrillation on Coumadin for anticoagulation, hypothyroidism, type 2 diabetes mellitus, remote history of pneumonia, skin cancer with removal, splenectomy, daily EtOH use of 2-3 beers every day, and remote history of tobacco dependence. He has followed with Dr. Lee for quite some time regarding his atrial fibrillation. Over the last several months he has noted exertional shortness of breath relieved with rest which he states he has never had before. He denies any other symptoms including no chest pain, no weakness, dizziness, lightheadedness, strokelike symptoms, paroxysmal nocturnal dyspnea, or any recent pulmonary illnesses. He was seen in the cardiology office last week and had a transthoracic echocardiogram which demonstrated impaired left ventricular function with EF 45%, hypokinesis of the inferior and septal marrero at the base, mild to moderate mitral regurgitation with mild mitral annular calcification, moderately calcified aortic valve with mild aortic insufficiency and moderate to severe aortic stenosis with valve area 0.56 cm, peak/mean gradient 54/35 mmHg, and mild tricuspid regurgitation. He was recommended to undergo heart catheterization and transesophageal echocardiogram which were completed today by Dr. Lee. Transesophageal echocardiogram demonstrated 3 leaflet aortic valve which was heavily calcified with severe restriction in leaflet mobility. Valve area was 0.7 cm by planimetry confirming severe aortic stenosis with mild aortic regurgitation, mild to moderate central mitral regurgitation, mild tricuspid regurgitation, mildly dilated left ventricle with diffuse global hypokinesis and ejection fraction 45%. Cardiac catheterization demonstrated heavily calcified left main coronary artery with distal stenosis extending into the proximal LAD and circumflex, ostial LAD stenosis 80-90%, moderate stenosis in the midportion of the RCA with 80-90% stenosis of the PDA with right to left collaterals. Due to these findings Dr. Harris from cardiothoracic surgery was consulted for surgical revascularization and aortic valve replacement. Patient is seen today 03/04/2020 in follow-up on the selective care unit. He is currently sitting up in a chair at the bedside. Awake and alert in no acute distress. Denies any chest pain, palpitations, lightheadedness or dizziness. Denies any shortness of breath, cough or congestion. FEV1 value 1.86 L, 59%. Chest x-ray showed no acute pulmonary process. On 03/07/2020 patient seen in follow-up in the intensive care unit, he status post four-vessel bypass grafting with a KISER to the LAD, SVG to the OM, sequential SVG to posterior descending and posterior lateral branches of the right coronary artery, modified Newton-Maze procedure with bilateral pulmonary vein ablation with a 2 through bipolar clamp and ligation of the left atrial appendage with a 40 mm AtriCure clip. Patient was successfully weaned and extubated from the mechanical ventilator at around 1700 yesterday, this morning he seen sitting up in the recliner in no acute distress, awake and alert, oriented 3, currently on 2 L of oxygen with pulse ox of 99%, hemodynamically he stable, he is on lactated Ringer's a rate of 50 ML per hour, no other drips. Appears to be in atrial fibrillation or accelerated junctional rate at a rate of 77 BPM, AV wires are in place, to external pacemaker box with a backup rate. Right and left pleural chest tubes with approximately 300 mL of serosanguineous output in last 24 hours, and mediastinal chest tube with approximately 600 mL of serosanguineous output in the last 24 hours, no air leak. PA pressures 34/14, CVP 7, cardiac output is 5.6, and cardiac index is 2.5. Patient is working on incentive spirometer, achieving 1500 on the today. Today's chest x-ray has been reviewed showing interval removal of the endotracheal tube, enteric tube and epicardial pacemaker leads, no focal airspace disease or pneumothorax. Today's labs have been reviewed. No acute events overnight, his pain is well controlled. Midsternal chest tube sites and left leg incisions clean dry and intact, covered with surgical dressings. On 03/08/2020 patient seen in follow-up in the intensive care unit. Patient is awake and alert, oriented 3, in no acute distress, he is on room air pulse ox of 94-95%, and spirometer effort is 1500 today. Patient apparently went into slow A. fib this morning, the rate is 50 BPM, he became symptomatic, bradycardia cardiac and hypotensive, and is currently being paced in DDD mode with a rate of 80 BPM. Patient is on oral amiodarone, his lisinopril was held, he is on lactated Ringer's at a rate of 25 ML per hour, this is postoperative day 2, status post four-vessel bypass grafting. No difficulty breathing, his chest x- ray shows bibasilar atelectasis and small pleural effusions. Today's labs have been reviewed, white blood cell count is 12.7, hemoglobin is 9.9, sodium is 133, the rest of the lites are within normal limits, BUN is 23 creatinine is 1.13. Chest tubes have been discontinued, midsternal, chest tube sites and left leg incisions clean dry and intact On 03/10/2020 patient seen in follow-up in the intensive care unit, today is postoperative day #4, status post bioprosthetic aortic valve replacement, and four-vessel coronary artery bypass grafting, patient is doing very well, she is on room air, apparently last night she did have an episode of bradycardia with a heart rate dipping down in the low 40s range, and patient still has epicardial wires in place and required pacing briefly, currently is in A. fib, with a controlled rate at a rate of 61-74 BPM, Nocardia wires remain. Today external pacemaker with a VVI backup rate of 50. Remains on oral amiodarone at 400 mg twice daily, and Coumadin was started, today's INR is 1.0. Denies shortness of breath, incentive spirometry effort is 1000 today, chest x-ray shows a small rig ht-sided 10% pneumothorax, and bilateral infiltrates and pleural effusion. Stable since yesterday, today's hemoglobin is 10.0, sodium is 131, dressed electrolyte are within normal limits, BUN is 25 creatinine 0.97. Incisions including midsternal incision, chest tube sites, and left leg incision clean dry and intact. Objective - Vital Signs Vital signs: Vital Signs Temp 98.0 F 03/10/20 08:00 Pulse 57 L 03/10/20 11:00 Resp 16 03/10/20 11:00 BP 127/107 03/10/20 11:00 Pulse Ox 95 03/10/20 10:00 Intake & Output 03/09/20 03/10/20 03/10/20 18:59 06:59 18:59 Intake Total 450 275 675 Output Total 900 200 0 Balance -450 75 675 Weight 110.9 kg Intake: Oral 450 275 675 Output: Urine 900 200 0 Other: Voiding Method Urinal Urinal # Voids 1 0 1 # Bowel Movements 1 ABP, PAP, CO, CI - Last Documented Arterial Blood Pressure 124/52 Pulmonary Artery Pressure 36/14 Cardiac Output 5.6 Cardiac Index 2.5 - Exam GENERAL EXAM: Alert, very pleasant, 74-year-old white male, on room air with the pulse ox of 94%, comfortable in no apparent distress. HEAD: Normocephalic/atraumatic. EYES: Normal reaction of pupils, equal size. Conjunctiva pink, sclera white. NOSE: Clear with pink turbinates. THROAT: No erythema or exudates. NECK: No masses, no JVD, no thyroid enlargement, no adenopathy. CHEST: No chest wall deformity. Symmetrical expansion. Midsternal incision is clean dry and intact, interval removal of right and left pleural chest tubes, one mediastinal chest tube insertion site clean dry and intact, AV wires connected to external pacemaker and patient looked up to the pacemaker at the VVI backup mode a rate of 50, intrinsic rhythm is A. fib with a rate of 74 BPM LUNGS: Equal air entry with no crackles, wheeze, rhonchi or dullness. CVS: Irregular rate and rhythm, normal S1 and S2, no gallops, no murmurs, no rubs ABDOMEN: Soft, nontender. No hepatosplenomegaly, normal bowel sounds, no guarding or rigidity. EXTREMITIES: No clubbing, no edema, no cyanosis, 2+ pulses and upper and lower extremities. Left leg incision clean dry and intact, covered with a dressing MUSCULOSKELETAL: Muscle strength and tone normal. SPINE: No scoliosis or deformity SKIN: No rashes CENTRAL NERVOUS SYSTEM: Alert and oriented -3. No focal deficits, tone is normal in all 4 extremities. PSYCHIATRIC: Alert and oriented -3. Appropriate affect. Intact judgment and insight. - Labs CBC & Chem 7: 03/10/20 04:29 03/10/20 04:29 Labs: Abnormal Lab Results - Last 24 Hours (Table) 03/09/20 03/09/20 03/10/20 Range/Units 16:47 20:39 04:29 WBC 12.2 H (3.8-10.6) k/uL RBC 3.11 L (4.30-5.90) m/uL Hgb 10.0 L (13.0-17.5) gm/dL Hct 31.0 L (39.0-53.0) % Plt Count 137 L (150-450) k/uL Sodium (137-145) mmol/L BUN (9-20) mg/dL Glucose (74-99) mg/dL POC Glucose (mg/dL) 173 H 157 H (75-99) mg/dL Calcium (8.4-10.2) mg/dL 03/10/20 03/10/20 03/10/20 Range/Units 04:29 07:10 11:36 WBC (3.8-10.6) k/uL RBC (4.30-5.90) m/uL Hgb (13.0-17.5) gm/dL Hct (39.0-53.0) % Plt Count (150-450) k/uL Sodium 131 L (137-145) mmol/L BUN 25 H (9-20) mg/dL Glucose 161 H (74-99) mg/dL POC Glucose (mg/dL) 189 H 181 H (75-99) mg/dL Calcium 8.2 L (8.4-10.2) mg/dL Microbiology - Last 24 Hours (Table) 03/09/20 10:43 Gram Stain - Preliminary Sputum Sputum Culture - Preliminary Assessment and Plan Plan: Assessment: #1. Symptomatic multivessel coronary artery disease, status post four-vessel coronary artery bypass grafting and severe aortic stenosis, status post bioprosthetic aortic valve replacement, postoperative day #4 #2. Routine postoperative ventilator management, successfully extubated on postoperative day 0 #3. Mild blood loss anemia, normal outcome of bypass grafting surgery #4. History of hypertension #5. History of hyperlipidemia #6. Type 2 diabetes mellitus #7. Hypothyroidism #8. Daily EtOH use #9. History of splenectomy #10. Remote history of tobacco dependence with preop FEV1 of 59% of predicted #11. Atrial fibrillation, new onset, an expected outcome of bypass grafting surgery, with a slow ventricular rate, requiring external pacemaker support at this time Plan: Continue current medical treatment, hemodynamically stable, had a brief episode of bradycardia last night requiring pacing, cardiology is on the case in addressing this issue. Currently not pacemaker dependent, blood pressure stable, no shortness of breath, no chest pain, today's chest x-ray has been reviewed, showing stable to percent right-sided pneumothorax, patient is on room air, he is asymptomatic, although chest tubes have been discontinued, no acute events overnight. Continue encouraging deep breathing and coughing and incentive spirometry use. Coumadin per pharmacy to dose, today's INR has been noted. I performed a history & physical examination of the patient and discussed their management with my nurse practitioner, Angela Latham. I reviewed the nurse practitioner's note and agree with the documented findings and plan of care. Lung sounds are positive for clear breath sounds. The findings and the impression was discussed with the patient. I attest to the documentation by the nurse practitioner. Time with Patient: Less than 30
--- NOTE | 2020-03-10 13:30 | P.PN ---
Subjective This is Haily Katz PA-C dictating a progress note on this patient The patient was interviewed and examined by me as well as by Dr. Pantoja Case discussed with Dr. Pantoja and he agrees with the plan of care HPI/interval history Patient is a 74-year-old male with a history of CAD, hypertension, dyslipidemia, chronic atrial fibrillation, type 2 diabetes, daily alcohol use, and valvular heart disease. Yesterday he underwent CABG 4 with KISER to the LAD, SVG to the OM, sequential SVG to posterior descending and posterior lateral branches of the RCA, PVI, left atrial appendage ligation, and aortic valve replacement. Postoperatively he went back into atrial fibrillation and became bradycardic. He continues to be in atrial fibrillation still has the temporary pacemaker. This morning he had some bradycardia in the 40s per the nurse. patient was asymptomatic. Patient seen and examined sitting in a chair. He does complain of some dyspnea on exertion which she attributes to wearing the mask he walk the hallways. He denies any chest pain. No dizziness. EXAMINATION Patient is afebrile, pulse in the 70s, respirations 20, blood pressure 112/61, oxygen saturation 97% on room air Patient seen and examined sitting up in the chair, in no acute distress Lungs mildly diminished bilaterally no wheezing rhonchi or crackles Heart is irregularly irregular, no audible murmurs No lower extremity edema REVIEW OF LABS, ECG WBC 12.2, hemoglobin 10, platelets 137, INR 1, sodium 131, potassium 4.8, BUN 25, creatinine 0.78 IMPRESSION / ASSESSMENT: #1 multivessel CAD status post CABG 4 #2 severe aortic stenosis status post aortic valve replacement #3 chronic atrial fibrillation, currently in rate controlled atrial fibrillation, anticoagulation recently restarted #4 hypertension #5 dyslipidemia #6 history of alcohol use #7 ischemic cardiomyopathy EF 45% PLAN: Continue dual antiplatelet therapy and statins Anticoagulation with Coumadin has been restarted His beta blockers are on hold due to bradycardia, will be reinitiated when heart rates can tolerate it Lisinopril is also still on hold, it will be restarted once his blood pressure can tolerate it Objective - Vital Signs Vital signs: Vital Signs Temp 98.0 F 03/10/20 08:00 Pulse 65 03/10/20 12:52 Resp 16 03/10/20 11:00 BP 127/107 03/10/20 11:00 Pulse Ox 95 03/10/20 10:00 Intake & Output 03/09/20 03/10/20 03/10/20 18:59 06:59 18:59 Intake Total 450 275 675 Output Total 900 200 0 Balance -450 75 675 Weight 110.9 kg Intake: Oral 450 275 675 Output: Urine 900 200 0 Other: Voiding Method Urinal Urinal # Voids 1 0 1 # Bowel Movements 1 ABP, PAP, CO, CI - Last Documented Arterial Blood Pressure 124/52 Pulmonary Artery Pressure 36/14 Cardiac Output 5.6 Cardiac Index 2.5 - Labs CBC & Chem 7: 03/10/20 04:29 03/10/20 04:29 Labs: Abnormal Lab Results - Last 24 Hours (Table) 03/09/20 03/09/20 03/10/20 Range/Units 16:47 20:39 04:29 WBC 12.2 H (3.8-10.6) k/uL RBC 3.11 L (4.30-5.90) m/uL Hgb 10.0 L (13.0-17.5) gm/dL Hct 31.0 L (39.0-53.0) % Plt Count 137 L (150-450) k/uL Sodium (137-145) mmol/L BUN (9-20) mg/dL Glucose (74-99) mg/dL POC Glucose (mg/dL) 173 H 157 H (75-99) mg/dL Calcium (8.4-10.2) mg/dL 03/10/20 03/10/20 03/10/20 Range/Units 04:29 07:10 11:36 WBC (3.8-10.6) k/uL RBC (4.30-5.90) m/uL Hgb (13.0-17.5) gm/dL Hct (39.0-53.0) % Plt Count (150-450) k/uL Sodium 131 L (137-145) mmol/L BUN 25 H (9-20) mg/dL Glucose 161 H (74-99) mg/dL POC Glucose (mg/dL) 189 H 181 H (75-99) mg/dL Calcium 8.2 L (8.4-10.2) mg/dL Microbiology - Last 24 Hours (Table) 03/09/20 10:43 Gram Stain - Preliminary Sputum Sputum Culture - Preliminary
[2020-03-10 16:10] VITALS: RESP 18
[2020-03-10 17:43] LABS: Glucose,Whole Blood 128 mg/dL (75-99)
[2020-03-10] MEDS ORDERED: WARFARIN 5 MG TAB PO ONE (18:00)
[2020-03-10] MEDS ORDERED: WARFARIN 3 MG TAB PO ONE (18:00)
[2020-03-10 19:56] LABS: Glucose,Whole Blood 127 mg/dL (75-99)
[2020-03-10] MEDS: SENNOSIDES-DOCUSATE SODIUM 1 EACH TAB PO SCH (21:49)
[2020-03-11 06:07] LABS: Glucose,Whole Blood 104 mg/dL (75-99)
[2020-03-11 06:43] LABS: HCT 32.6 % (39.0-53.0); HGB 10.6 gm/dL (13.0-17.5); Hypochromasia Slight; MCH 32.8 pg (25.0-35.0); MCHC 32.3 g/dL (31.0-37.0); MCV 101.4 fL (80.0-100.0); Macrocytosis Slight; Mean Platelet Volume 8.2; Platelet Count 177 k/uL (150-450); RBC 3.22 m/uL (4.30-5.90); RDW 13.7 % (11.5-15.5); WBC 12.2 k/uL (3.8-10.6)
[2020-03-11 06:51] LABS: Calcium 8.1 mg/dL (8.4-10.2); Potassium 4.4 mmol/L (3.5-5.1)
[2020-03-11] MEDS: LEVOTHYROXINE 75 MCG TAB PO SCH (06:52)
[2020-03-11] MEDS: metFORMIN 500 MG TAB PO SCH (06:52)
[2020-03-11] MEDS: PANTOPRAZOLE 40 MG TABLET PO SCH (06:52)
[2020-03-11] MEDS: INSULIN DETEMIR (LEVEMIR) 100 UNIT/ML SYR SQ SCH (06:53)
[2020-03-11] MEDS: INSULIN ASPART (NovoLOG) 100 UNIT/ML VIAL SQ SCH (06:53)
[2020-03-11 06:56] LABS: INR 1.1 (<1.2); Prothrombin Time 10.8 sec (9.0-12.0)
[2020-03-11] MEDS: IPRATROPIUM-ALBUTEROL 3 ML NEB INHALATION SCH ×3 (07:46→16:28)
--- NOTE | 2020-03-11 09:13 | P.PN ---
Subjective Progress Note Date: 03/11/20 Principal diagnosis: Severe aortic valve stenosis, triple-vessel coronary artery disease with left main disease. Past medical history significant for ischemic cardiomyopathy with an ejection fraction of 45%, chronic paroxysmal atrial fibrillation on Coumadin anticoagulation, hypertension, hyperlipidemia, type 2 diabetes mellitus with preoperative hemoglobin A1c 6.9%, hypothyroidism, remote history of pneumonia, splenectomy status post fall, daily EtOH use, and remote history of tobacco dependence with preoperative FEV1 59% of predicted. POD #5 aortic valve replacement with a 25 mm Inspiris bovine pericardial valve prosthesis, coronary artery bypass grafting 4 with left internal mammary artery to left anterior descending coronary artery, reverse greater saphenous vein graft to the obtuse marginal, and reverse greater sequential vein grafts to the posterior descending coronary artery and posterior lateral branches of the right coronary artery, modified Newton maze procedure with bilateral pulmonary vein ablation with the Atricure bipolar clamp and ligation of the left atrial appendage with a 40 mm Atricure clip, epi-aortic ultrasound and intraoperative transesophageal echocardiogram. Postoperative acute blood loss anemia, expected given cardiopulmonary bypass and hemodilution. The patient was seen in follow-up today 03/11/2020 at his bedside on the cardiac stepdown unit. Currently he is sitting up to the bedside chair, he is awake, alert and oriented 3 and is in no acute distress. Denies any complaints of shortness of breath or pain, although he is complaining of a productive cough with tenacious lane colored sputum. He remains afebrile and his sputum culture from 03/09/2020 shows few normal respiratory dillan. No further complaints of constipation, patient reports he had a bowel movement this morning. Atrial and ventricular epicardial pacemaker wires were cut yesterday. Coumadin 5 mg by mouth was given on , 03/09/2020 and 03/10/2020 and today his INR is 1.1. Remote telemetry showing atrial fibrillation heart rate 61. The patient is anxious to be discharged home. Oxygen saturations are 96% on room air and he is achieving 1000 mL on his incentive spirometry with encouragement. Objective - Vital Signs Vital signs: Vital Signs Temp 98.1 F 03/11/20 04:00 Pulse 52 L 03/11/20 04:00 Resp 18 03/11/20 04:00 BP 125/70 03/11/20 04:00 Pulse Ox 96 03/11/20 04:00 Intake & Output 03/10/20 03/11/20 03/11/20 18:59 06:59 18:59 Intake Total 895 Output Total 0 120 Balance 895 -120 Weight 110.5 kg Intake: Oral 895 Output: Urine 0 120 Other: Voiding Method Toilet Toilet # Voids 1 1 # Bowel Movements 1 ABP, PAP, CO, CI - Last Documented Arterial Blood Pressure 124/52 Pulmonary Artery Pressure 36/14 Cardiac Output 5.6 Cardiac Index 2.5 - Constitutional General appearance: Present: cooperative, no acute distress, obese - EENT Eyes: Present: PERRLA, dentition normal, normal appearance. Absent: scleral icterus ENT: Present: hearing grossly normal - Neck Details: Neck is supple, no JVD. No lymphadenopathy. - Respiratory Details: Lung sounds essentially clear throughout, diminished to his bilateral bases. Respirations are symmetrical and nonlabored. No wheezes, rhonchi or crackles. Oxygen saturations are 96% on room air. Achieving 1000 ml on his incentive spirometry. - Cardiovascular Details: Irregular rhythm with controlled rate. S1 and S2 present, negative for S3, gallop or murmur. Sternum is stable. Remote telemetry showing atrial fibrillation heart rate 61 BPM. Knee-high MITZI hose and sequential compression devices in place to his bilateral lower extremities. Heart hugger is in place and he is demonstrating appropriate use. - Gastrointestinal Gastrointestinal Comment(s): Abdomen is soft, nontender and nondistended. Active bowel sounds present in all 4 abdominal quadrants. No organomegaly appreciated. Tolerating oral intake. Bowel movement this a.m. - Genitourinary Genitourinary Comment(s): Continues to void. - Integumentary Integumentary Comment(s): Skin is warm and dry. No clubbing or cyanosis is present. Midline sternal incision is clean, dry and approximated. No drainage or redness is present. Exofin dressing is clean, dry and in place. Left lower extremity EVH site is clean, dry and approximated. No drainage redness is present. - Neurologic Neurologic: Present: CNII-XII intact - Musculoskeletal Musculoskeletal: Present: gait normal, strength equal bilaterally - Psychiatric Psychiatric: Present: A&O x's 3, appropriate affect, intact judgment & insight - Allied health notes Allied health notes reviewed: nursing - Labs CBC & Chem 7: 03/11/20 06:29 03/11/20 06:29 Labs: Abnormal Lab Results - Last 24 Hours (Table) 03/10/20 03/10/20 03/10/20 Range/Units 11:36 17:32 19:54 WBC (3.8-10.6) k/uL RBC (4.30-5.90) m/uL Hgb (13.0-17.5) gm/dL Hct (39.0-53.0) % MCV (80.0-100.0) fL Sodium (137-145) mmol/L BUN (9-20) mg/dL Glucose (74-99) mg/dL POC Glucose (mg/dL) 181 H 128 H 127 H (75-99) mg/dL Calcium (8.4-10.2) mg/dL 03/11/20 03/11/20 03/11/20 Range/Units 06:05 06:29 06:29 WBC 12.2 H (3.8-10.6) k/uL RBC 3.22 L (4.30-5.90) m/uL Hgb 10.6 L (13.0-17.5) gm/dL Hct 32.6 L (39.0-53.0) % MCV 101.4 H (80.0-100.0) fL Sodium 130 L (137-145) mmol/L BUN 23 H (9-20) mg/dL Glucose 116 H (74-99) mg/dL POC Glucose (mg/dL) 104 H (75-99) mg/dL Calcium 8.1 L (8.4-10.2) mg/dL - Imaging and Cardiology Chest x-ray: image reviewed Assessment and Plan Assessment: 1. Severe aortic valve stenosis, status post aortic valve replacement 2. Triple-vessel coronary artery disease with left main disease, status post CABG 4 3. Chronic atrial fibrillation on Coumadin for anticoagulation, last dose 02/28/2020, status post modified Newton maze procedure with bilateral pulmonary vein ablation 4. History of hypertension 5. History of hyperlipidemia 6. Ischemic cardiomyopathy, ejection fraction of 45% 7. Type 2 diabetes mellitus with a preoperative hemoglobin A1c 6.9% 8. Hypothyroidism 9. Remote history of pneumonia 10. History of splenectomy, status post fall 11. Daily EtOH use 12. Remote history of tobacco dependence with preoperative FEV1 59% of predicted 13. Postoperative acute blood loss anemia, expected Plan: 1. Continue aspirin, statin, Plavix. Hold beta john paul for now. Will initiate the beta john paul when able to tolerate. 2. Encourage incentive spirometry use 10 times every hour while awake. Bronchodilators per pulmonology/critical care management. 3. Increase activity, ambulate as tolerated. PT/OT/cardiac rehab following. 4. Continue amiodarone 200 mg by mouth daily for atrial fibrillation prophylaxis. 5. Will monitor daily labs and chest x-rays. Electrolyte replacement per protocol. No transfusion at this point. 6. GI/DVT prophylaxis. 7. Pain control current medication regimen. 8. Insulin management per primary care service. Patient needs tight blood sugar control to prevent infection and promote healing. 9. We will start lisinopril 2.5 mg by mouth daily for afterload reduction. 10. Anticipate discharge home with home health care in the next 24 hours. 11. Coumadin 5 mg by mouth daily. Monitor PT and INRs. INR today is 1.1 and he has received Coumadin 5 mg by mouth on 03/09/2020 and on 03/10/2020. We will recheck his PT/INR on an outpatient basis on 03/16/2020 with results called to Dr. Harris's office for Coumadin dosing. 12. More recommendations to follow based on patient's clinical course. Time with Patient: Greater than 30
[2020-03-11] MEDS: LINAGLIPTIN 5 MG TABLET PO SCH (09:15)
[2020-03-11] MEDS: HEPARIN SODIUM,PORCINE 5,000 UNIT/ML 1 ML VIAL SQ SCH (09:15)
[2020-03-11] MEDS: ASPIRIN 81 MG PO SCH (09:15)
[2020-03-11] MEDS: FOLIC ACID-VIT B COMPLEX-VIT C 1 CAP PO SCH (09:15)
[2020-03-11] MEDS: ATORVASTATIN 40 MG TAB PO SCH (09:15)
--- NOTE | 2020-03-11 09:45 | P.PN ---
Subjective Progress Note Date: 03/11/20 74 years old male patient of Dr. Rouse and Dr. Lee with past medical history of hypertension, hyperlipidemia, paroxysmal atrial fibrillation on Coumadin, hypothyroidism, type 2 diabetes hypothyroidism, daily alcohol use, osteoarthritis and known history of bilateral knee replacement and right ankle surgery and came in for an elective STEFANIE and cardiac catheterization under Dr. Maguire. Patient gives a history of worsening shortness of breath for the past 6 months. He noticed increased weakness but denies any chest pain or dizziness or passing out spells. Patient has been off Coumadin, metformin and Januvia for the cardiac catheterization. STEFANIE done on 03/03 suggested severe aortic stenosis with heavily calcified 3 leaflet valve with restriction in the mobility. The valve area 0.7 mm. Mild left ventricular systolic dysfunction with ejection fraction of 45%. By mouth for with [id number] shunt present with mild to moderate MR and mild TR. Cardiac catheterization on 03/03 suggest to heavily calcified left main coronary artery with distal left main appears stenosed and stenosis extending into the proximal LAD and circumflex coronary artery around 80-90%. Circumflex occluded proximally with collaterals to LAD coming from the left system. Secondary diagnoses branch is moderate stenosis. Right coronary artery with moderate stenosis PDA with 80-90% stenosis. In assessment today patient denies any shortness of breath at rest. He did have back pain outwardly this morning after resting in bed for 6 hours post cardiac cath. Vitals are otherwise stablethe pulse is 67 respiratory rate 16 blood pressure 144/95 oxygen saturation 97% on room air. Labs reviewed CBC unremarkable creatinine 0.8 INR 1.3 blood sugar 140. Magnesium 1.9 and LDL 102 TSH 0.70 was negative for inf ection. Patient's last A1c is less than 7 controlled on Januvia and metformin. 03/04: Patient is found sitting up in a chair resting comfortably without any acute distress. Patient has no concerns or complaints at this time. The plan continues to be for a CABG scheduled on Tuesday 03/06. She remains afebrile, pulse rate 66, respirations 18, blood pressure 133/95, pulse ox 9 7% on room air. WBC 7.1, hemoglobin 14.7. 03/05: Patient is found sitting up in chair resting comfortably without any acute distress. Patient states he has no concerns or complaints at this time. Patient stated that he slept well. He was awoken at 5 AM for his weight other than that he has no issues. Patient declined any sleep aids for tonight. 03/07: Patient remains in intensive care unit. He is status post aortic valve replacement with bovine pericardial valve prosthesis, CABG 4 with KISER to LAD, saphenous vein graft to obtuse marginal, sequential saphenous vein graft to posterior descending and posterior lateral branches of the right coronary artery, postop day #1. Patient is found sitting up in chair and is complaining of some discomfort. No respiratory distress is noted. He is currently on insulin drip and blood sugars are running in the low 100s. Patient will be starting heart healthy diet/consistent carb. He has been afebrile, heart rate 76, blood pressure 124/75, pulse ox 100% on 2 L nasal cannula. Repeat blood work reveals Courtney BC 9.3, hemoglobin 10.5 and platelet count 112. Sodium 136, creatinine 0.63. Magnesium 2.6 calcium 7.9 and ionized calcium 4.7. Repeat chest x-ray reveals no focal airspace disease or pneumothorax. Patient has mediastinal and pleural left chest tubes in place. Patient has been started on oral amiodarone 400 mg twice daily and lisinopril 2.5 mg daily. 03/08: Patient is seen today in the intensive care unit. He is resting in bed and appears to be comfortable. He denies any shortness of breath. He is using incentive spirometry at 1500 ML's. Patient did go back into atrial fibrillation and on amiodarone. Repeat blood work reveals WBC 2.7, hemoglobin 9.9, sodium 133, BUN 23 and creatinine 1.13. Patient is to have chest tubes, Andersen catheter and Cordis removed today. Chest x-ray this morning reveals interval removal of right internal jugular [place]'s. Persistent right internal jugular sheath. Mild left basilar atelectasis. Patient has been afebrile, heart rate 70, blood pressure 108/71 and pulse ox 96% on room air. Patient has been seen by PT and OT with recommendations for home care or inpatient rehab. Blood sugars are in the low 100s 119 this morning at 8 AM. Patient will be taken off insulin drip and placed on Tradjenta as he is on Januvia at home and patient will be placed on NovoLog scale. 03/09: Patient remains in intensive care unit. He is in atrial fibrillation. Patient states he is feeling better today. He states he would feel a lot better if he could have a bowel movement. Blood sugars are running between 129 and 170. Patient will be resumed on metformin for this evening. Patient has been afebrile, heart rate 68, blood pressure 123/73, pulse ox 95% on room air. Discharge plan remains to go home with homecare. 03/10: Cardiology discontinued beta john paul due to bradycardia and instructed to resume as heart rate improves, amiodarone decreased and subsequently discontinued and patient was started on warfarin. Patient did have documented heart rates down to the 40s and at this time plan is for conservative management versus pacemaker implantation. Repeat chest x-ray reveals right-sided 10% pneumothorax. Bilateral infiltrate and pleural effusion stable. Patient is seen today sitting up in a recliner and appears to be in no acute distress. He states his pain is controlled. He was able to have a bowel movement and feels better following this. He is off oxygen. campus monitor is atrial fi brillation slow rate. Patient is waiting for bed on the cardiac stepdown unit. Anticipate discharge in the next 24-48 hours. 03/11: Patient has been transferred out of the intensive care unit to the cardiac stepdown unit. Patient has been afebrile, heart rate running in the 50s to 70s. Blood pressure 125/70. Pulse ox 96% on room air. campus monitor has been atrial fibrillation. Repeat blood work reveals WBC 12.2, hemoglobin 10.6, platelets 177. Sodium 130, potassium 4.4, chloride 99, CO2 25, BUN 23 and creatinine 0.96. Patient was started on Levemir last evening and blood sugars are now running between 104-128. Patient is denying any new complaints. He denies any significant shortness of breath. He does complain of phlegm production. No abdominal pain. No nausea or vomiting. He does state he has decreased appetite. No diarrhea. Constipation is been resolved. Patient is urinating adequately. He is able to ambulate without difficulty, no lightheadedness or dizziness. Repeat chest x-ray completed and report is pending. Review of Systems Constitutional: Denies chills, Denies fever, Denies lethargy, Denies malaise, Denies poor appetite, Denies weakness, Denies weight loss, reports generalized discomfort. Eyes: denies decreased vision, denies diplopia, denies discharge, denies pain Ears: deny: decreased hearing Ears, nose, mouth and throat: Denies dental pain, Denies headache, Denies nasal discharge, Denies nose pain Cardiovascular: Denies chest pain, endorses decreased exercise tolerance, Denies high blood pressure, denies irregular heart beat, Denies palpitations, Respiratory: Denies congestion, Denies cough, Denies cough with sputum, Denies dyspnea, Denies home oxygen, Denies wheezing Gastrointestinal: Denies abdominal pain,Denies coffee ground emesis, reports constipation. Denies heartburn, Denies hematemesis, Denies hematochezia, reports loss of appetite, Denies nausea, Denies vomiting Genitourinary: Denies dysuria, Denies flank pain, Denies kidney stones, Denies menorrhagia, Denies urgency, Denies urinary frequency Musculoskeletal: Denies gait dysfunction, Denies limitation of motion, Denies morning stiffness, Denies muscle cramps Integumentary: Denies rash, Denies wounds, Denies brittle nails, Denies change in hair/nails, Denies darkening of skin Neurological: Denies balance difficulties, Denies change in speech, Denies double vision, Denies gait dysfunction, Denies loss of vision, Denies motor disturbance, Denies numbness, Denies paralysis, Denies paresthesias, Denies seizures Psychiatric: Denies anxiety, Denies depression Endocrine: Denies excessive sweating, Denies excessive thirst, Denies high blood sugars, Denies palpitations Physical exam General Appearance: Alert, cooperative, no distress from discomfort, appears stated age. Neck HEENT: Supple, no lymphadenopathy. Lungs: Clear to auscultation without crackles or wheezes no rhonchi, no deformity. Heart: Regular rate and rhythm, S1, S2 normal, no murmur, rub or gallop. Back: Symmetric, no curvature, ROM normal, no CVA tenderness. Abdomen: Soft, non-tender, no rebound or rigidity, no hepatosplenomegaly. Extremities: Extremities normal, atraumatic, no cyanosis or edema. Pulses: 2+ and symmetric. Skin: Skin color, texture, tugor normal, no rashes or lesions. Neurologic: Alert oriented x3 cranial nerves II through XII intact, no motor deficit, no abnormal balance or gait Assessment and Plan 1. triple-vessel coronary disease status post CABG 4. Continue current plan per cardiothoracic surgery. Continue aspirin, Lipitor 40 mg by mouth daily, Lopressor discontinued. 2. severe aortic stenosis status post aortic valve replacement. 3. paroxysmal atrial fibrillation on Coumadin at home. CHADVASC risk score of 6. Lopressor and amiodarone discontinued. Patient resumed on Coumadin. 4. history of diabetes2. Hold metformin. Patient resumed on Tradjenta and metformin, Levemir 10 units daily added, continue NovoLog scale. 5. hypertension. 6. hyperlipidemia continue Lipitor 40 mg by mouth daily 7. hypothyroidism continue levothyroxine at 150 g by mouth daily 8. coagulopathy secondary to Coumadin. Coumadin resumed. 9. alcohol use drinks 3 beers a day. No history of alcohol withdrawal 10. history of splenectomy stable 11. DVT prophylaxis CODE STATUS: Full code Discharge plan: Home with [facility] Impression and plan of care have been directed as dictated by the signing physician. Zully Soto nurse practitioner acting as scribe for signing physi haley. Objective - Vital Signs Vital signs: Vital Signs Temp 98.1 F 03/11/20 04:00 Pulse 52 L 03/11/20 04:00 Resp 18 03/11/20 04:00 BP 125/70 03/11/20 04:00 Pulse Ox 96 03/11/20 04:00 Intake & Output 03/10/20 03/11/20 03/11/20 18:59 06:59 18:59 Intake Total 895 Output Total 0 120 Balance 895 -120 Weight 110.5 kg Intake: Oral 895 Output: Urine 0 120 Other: Voiding Method Toilet Toilet # Voids 1 1 # Bowel Movements 1 ABP, PAP, CO, CI - Last Documented Arterial Blood Pressure 124/52 Pulmonary Artery Pressure 36/14 Cardiac Output 5.6 Cardiac Index 2.5 - Labs CBC & Chem 7: 03/11/20 06:29 03/11/20 06:29 Labs: Abnormal Lab Results - Last 24 Hours (Table) 03/10/20 03/10/20 03/10/20 Range/Units 11:36 17:32 19:54 WBC (3.8-10.6) k/uL RBC (4.30-5.90) m/uL Hgb (13.0-17.5) gm/dL Hct (39.0-53.0) % MCV (80.0-100.0) fL Sodium (137-145) mmol/L BUN (9-20) mg/dL Glucose (74-99) mg/dL POC Glucose (mg/dL) 181 H 128 H 127 H (75-99) mg/dL Calcium (8.4-10.2) mg/dL 03/11/20 03/11/20 03/11/20 Range/Units 06:05 06:29 06:29 WBC 12.2 H (3.8-10.6) k/uL RBC 3.22 L (4.30-5.90) m/uL Hgb 10.6 L (13.0-17.5) gm/dL Hct 32.6 L (39.0-53.0) % MCV 101.4 H (80.0-100.0) fL Sodium 130 L (137-145) mmol/L BUN 23 H (9-20) mg/dL Glucose 116 H (74-99) mg/dL POC Glucose (mg/dL) 104 H (75-99) mg/dL Calcium 8.1 L (8.4-10.2) mg/dL Microbiology - Last 24 Hours (Table) 03/09/20 10:43 Gram Stain - Final Sputum Sputum Culture - Final
--- NOTE | 2020-03-11 10:19 | XR ---
EXAMINATION TYPE: XR chest 2V DATE OF EXAM: 03/11/2020 CLINICAL HISTORY: Post CABG/AVR TECHNIQUE: Frontal and lateral views of the chest are obtained. COMPARISON: 03/10/2020 chest radiograph FINDINGS: Sternotomy wires, left atrial appendage clip, and valvular prostheses redemonstrated. Incr eased small right pleural effusion. Persistent tiny left pleural effusion. There are bibasilar airspa ce opacities. Unchanged small right apical pneumothorax. IMPRESSION: 1. Small right apical pneumothorax unchanged versus 03/10/2020. 2. Bilateral pleural effusions and airspace opacities redemonstrated. Small right pleural effusion is increased versus 03/10/2020.
[2020-03-11] MEDS ORDERED: AMIODARONE 200 MG TAB PO SCH (11:15)
[2020-03-11 11:54] LABS: Glucose,Whole Blood 112 mg/dL (75-99)
--- NOTE | 2020-03-11 12:01 | P.PN ---
Subjective This is Haily Katz PA-C dictating a progress note on this patient The patient was interviewed and examined by me as well as by Dr. Pantoja Case discussed with Dr. Pantoja and he agrees with the plan of care HPI/interval history Patient is a 74-year-old male with a history of CAD, hypertension, dyslipidemia, chronic atrial fibrillation, type 2 diabetes, daily alcohol use, and valvular heart disease. He underwent CABG 4 with KISER to the LAD, SVG to the OM, sequential SVG to posterior descending and posterior lateral branches of the RCA, PVI, left atrial appendage ligation, and aortic valve replacement. Postoperatively he went back into atrial fibrillation and became bradycardic. He did have a temporary pacemaker placed and this was removed yesterday. He remains in atrial fibrillation with rates in the 60s. He did have some bradycardia in the high 40s while sleeping. Patient seen and examined sitting in the chair. States he wants to go home. States his breathing is" alright". Denies any chest pain or chest pressure. He has been coughing up some phlegm. No dizziness. EXAMINATION Patient is afebrile, pulse 60, blood pressure 18, blood pressure 143/78, oxygen saturation 97% on room air Patient seen and examined sitting in the chair, in no acute distress Breath sounds are diminished bilaterally Heart is irregular No lower extremity edema REVIEW OF LABS, ECG WBC 12.2, hemoglobin 10.6, platelets 177, INR 1.1, sodium 1:30, potassium 4.4, BUN 23, creatinine 0.96 IMPRESSION / ASSESSMENT: #1 multivessel CAD status post CABG 4 #2 severe aortic stenosis status post aortic valve replacement #3 chronic atrial fibrillation, currently in rate controlled atrial fibrillation, anticoagulation with Coumadin and INR subtherapeutic #4 hypertension #5 dyslipidemia #6 history of alcohol use #7 ischemic cardiomyopathy EF 45% PLAN: He has been restarted on his anticoagulation with Coumadin Recommend stopping amiodarone because patient remains in persistent atrial fibrillation despite the use of amiodarone and he has had bradycardia We'll continue to monitor heart rates, can consider restarting low-dose beta blo ckers once heart rates improve Objective - Vital Signs Vital signs: Vital Signs Temp 98.2 F 03/11/20 08:35 Pulse 48 L 03/11/20 08:35 Resp 18 03/11/20 08:35 BP 143/78 03/11/20 08:35 Pulse Ox 97 03/11/20 08:35 Intake & Output 03/10/20 03/11/20 03/11/20 18:59 06:59 18:59 Intake Total 895 240 Output Total 0 120 Balance 895 -120 240 Weight 110.5 kg Intake: Oral 895 240 Output: Urine 0 120 Other: Voiding Method Toilet Toilet # Voids 1 1 # Bowel Movements 1 1 ABP, PAP, CO, CI - Last Documented Arterial Blood Pressure 124/52 Pulmonary Artery Pressure 36/14 Cardiac Output 5.6 Cardiac Index 2.5 - Labs CBC & Chem 7: 03/11/20 06:29 03/11/20 06:29 Labs: Abnormal Lab Results - Last 24 Hours (Table) 03/10/20 03/10/20 03/11/20 Range/Units 17:32 19:54 06:05 WBC (3.8-10.6) k/uL RBC (4.30-5.90) m/uL Hgb (13.0-17.5) gm/dL Hct (39.0-53.0) % MCV (80.0-100.0) fL Sodium (137-145) mmol/L BUN (9-20) mg/dL Glucose (74-99) mg/dL POC Glucose (mg/dL) 128 H 127 H 104 H (75-99) mg/dL Calcium (8.4-10.2) mg/dL 03/11/20 03/11/20 Range/Units 06:29 06:29 WBC 12.2 H (3.8-10.6) k/uL RBC 3.22 L (4.30-5.90) m/uL Hgb 10.6 L (13.0-17.5) gm/dL Hct 32.6 L (39.0-53.0) % MCV 101.4 H (80.0-100.0) fL Sodium 130 L (137-145) mmol/L BUN 23 H (9-20) mg/dL Glucose 116 H (74-99) mg/dL POC Glucose (mg/dL) (75-99) mg/dL Calcium 8.1 L (8.4-10.2) mg/dL Microbiology - Last 24 Hours (Table) 03/09/20 10:43 Gram Stain - Final Sputum Sputum Culture - Final
--- NOTE | 2020-03-11 12:04 | P.DS ---
Providers Date of admission: 03/03/20 10:25 Expected date of discharge: 03/11/20 Attending physician: Sai Harris Consults: 03/03/20 10:28 Consult Physician Routine Consulting Provider: Lani Rojo Consult Reason/Comments: preop cabg/AVR Do you want consulting provider notified?: Yes Consult Physician Routine Consulting Provider: Amarjit Zeng Consult Reason/Comments: med mgmt preop AVR/CABG; [place] patient Do you want consulting provider notified?: Yes Consult to Anesthesia Routine Consulting Provider: Anesthesia,Services Consult Reason/Comments: Cardiac Surgery Pre-Op 03/03/20 12:14 Consult Physician Urgent Consulting Provider: Ashley Puga Consult Reason/Comments: dental clearance; AVR; panorex ordered Do you want consulting provider notified?: Yes 03/04/20 11:49 Consult Physician Urgent Consulting Provider: Sai Harris Consult Reason/Comments: Aortic Valve Replacement Do you want consulting provider notified?: Already Contacted 03/06/20 14:10 Consult Physician Routine Consulting Provider: Tye Lee Consult Reason/Comments: Financial Operations Clerk Consult: post cardiac surgery Do you want consulting provider notified?: Already Contacted Primary care physician: [facility] Course: FINAL DIAGNOSIS: 1. Severe aortic valve stenosis, status post aortic valve replacement 2. Triple-vessel coronary artery disease with left main disease, status post CABG 4 3. Chronic paroxysmal atrial fibrillation on Coumadin for anticoagulation, status post modified Newton maze procedure with bilateral pulmonary vein ablation 4. History of hypertension 5. History of hyperlipidemia 6. Ischemic cardiomyopathy, ejection fraction of 45% 7. Type 2 diabetes mellitus with a preoperative hemoglobin A1c 6.9% 8. Hypothyroidism 9. Remote history of pneumonia 10. History of splenectomy, status post fall 11. Daily EtOH use 12. Remote history of tobacco dependence with preoperative FEV1 59% of predicted 13. Postoperative acute blood loss anemia, expected 14. Postoperative bradycardia, unexpected PRINCIPAL PROCEDURE: 1. Left heart catheterization, coronary angiogram and aortogram performed by Dr. Danielle Lee. 2. Aortic valve replacement with a 25 mm Inspiris bovine pericardial valve prosthesis 3. Coronary artery bypass grafting 4 with left internal mammary artery to left anterior descending coronary artery, reverse greater saphenous vein graft to the obtuse marginal, and reverse greater sequential vein grafts to the posterior descending coronary artery and posterior lateral branches of the right coronary artery 4. Modified Newton maze procedure with bilateral pulmonary vein ablation with the Atricure bipolar clamp and ligation of the left atrial appendage with a 40 mm Atricure clip. 5. Epi-aortic ultrasound. 6. Intraoperative transesophageal echocardiogram. HISTORY OF PRESENT ILLNESS: This is a 74-year-old gentleman who follows on an outpatient basis with Dr. Kavon Rouse for primary care and Dr. Tye Lee for cardiology. He has past medical history significant for hypertension, hyperlipidemia chronic paroxysmal atrial fibrillation on Coumadin for anticoagulation, hypothyroidism, diabetes mellitus type 2, remote history of pneumonia, skin cancer with removal, splenectomy status post fall, daily EtOH use with 2-3 beers daily and remote history of nicotine dependence. Due to the patient's atrial fibrillation he follows with Dr. Danielle Lee on an outpatient basis. Recently, over the last several months he has been complaining of progressive exertional shortness of breath which was relieved with periods of rest. He had denied any symptoms of chest pain, weakness, dizziness, lightheadedness, strokelike symptoms, paroxysmal external dyspnea, cough or any recent pulmonary illness. On a follow-up visit to Dr. Lee, due to the patient's complaints of shortness of breath with exertion he underwent a transthoracic 2-D echocardiogram which demonstrated impaired left ventricular systolic function with an ejection fraction of 45%, hypokinesia of the inferior and septal marrero at the base, mild to moderate mitral valve regurgitation with mild mitral annular calcification, moderately calcified aortic valve with mild aortic insufficiency and moderate to severe aortic valve stenosis with a valve area of 0.56 cm, peak/mean gradient 54/35 mmHg and mild tricuspid valve regurgitation. Subsequently, due to the findings on the 2-D echocardiogram and due to the patient's symptoms of shortness of breath he was recommended to undergo a heart catheterization and transesophageal echocardiogram. On 03/03/2020 the patient underwent a transesophageal echocardiogram which demonstrated a 3 leaflet aortic valve which was heavily calcified with severe restriction in the leaflet mobility, an aortic valve area measuring 0.7 cm by planimetry confirming severe aortic valve stenosis with mild aortic valve regurgitation, mild to moderate central mitral valve regurgitation, mild tricuspid valve regurgitation, mildly dilated left ventricle with diffuse global hypokinesia and an ejection fraction of 45%. Also on 03/03/2020 he underwent a cardiac catheterization which demonstrated heavily calcified left main coronary artery with distal stenosis extending into proximal left anterior descending coronary artery and circumflex coronary artery, ostial LAD stenosis 80-90%, moderate stenosis in the midportion of the right coronary artery with an 80-90% stenosis of the posterior descending coronary artery with right to left collaterals. The findings on the transesophageal echocardiogram and cardiac catheterization were discussed with the patient by Dr. Lee and a consult was placed to Dr. Sai Harris from cardiothoracic surgery to discuss treatment options including surgical myocardial revascularization and aortic valve replacement. The transesophageal echocardiogram results and cardiac catheterization results were reviewed with the patient and the patient's with risks and benefits including the STS risk score discussed by Dr. Sai Harris. Knowing and understanding the risks and benefits of myocardial revascularization surgery and aortic valve replacement surgery he wished to proceed with the surgical option. HOSPITAL COURSE: The patient was admitted to the hospital, and was brought to the preoperative area after obtaining consent on 03/06/2020, prepared in the usual fashion and subsequently taken to the operating room where Dr. Sai Harris performed an aortic valve replacement with a 25 mm Inspiris bovine pericardial valve prosthesis, coronary artery bypass grafting 4 with left internal mammary artery to left anterior setting coronary artery, reverse greater saphenous vein graft to the obtuse marginal and reverse greater saphenous sequential vein grafts to the posterior descending coronary artery and posterior lateral branches of the right coronary artery, modified Newton maze procedure with bilateral pulmonary vein ablation with the Atricure bipolar clamp and ligation of the left atrial appendage with a 40 mm Atricure clip, epi-aortic ultrasound and intraoperative transesophageal echocardiogram. Upon completion of the surgery the patient was transferred to the cardiovascular intensive care unit where he was recovered, monitored hemodynamically and where he progressed to cardiac debilitation phase 1. He was extubated, all lines, tubes and drips were discontinued when appropriate and he was transferred to the cardiac stepdown unit for further rehabilitation and monitoring. His oxygen was titrated down, he continued to work with physical/occupational therapy and cardiac rehab, he was tolerating an oral diet, his pain was well controlled and he was ready to be discharged home with [facility] care on postoperative day #5. He has received verbal and written instructions regarding his medications, activity restrictions, signs and symptoms requiring physician notification and his follow-up appointments. Postoperatively the patient has had some episodes of bradycardia which will be monitored on an outpatient basis. Due to the bradycardia he will not be discharged home on a beta john paul, which will be followed on an outpatient basis. COMPLICATIONS: There were no postoperative complications. CONSULTATIONS: 1. Dr. Lee/Dr. Pantoja for cardiology management. 2. Dr. Rojo for pulmonary/ventilator management. 3. Dr. Zeng for medical and diabetic management. DISCHARGE INSTRUCTIONS: 1. No driving for 4 weeks, or until physician gives their ok. 2. The patient should sleep in their own bed, no medical bed needed. 3. Stairs are not an issue. If the bedroom is upstairs, it is advised that the patient go up at night and down in the morning for the first week. Go slowly, using handrail and take 1 step at a time. 4. MITZI hose are to be worn for 30 days or until physician discontinues. 5. Heart hugger is to be worn 100% of the time until physician discontinues.(except when showering) 6. No lifting, pushing, or pulling more than 10 pounds for 12 weeks. The physician will advise of any restriction changes. 7. The patient is expected to continue the prescribed walking program. 8. Continue pain control per as needed orders. 9. Continue with incentive spirometry and splinting/heart hugger until otherwise directed by the physician. 10. Must shower daily using liquid antibacterial soap and a separate white washcloth for each individual incision. 11. Routine sternal incision care. No powders, lotions, ointments on incisions. No dressings are necessary on incisions unless they are draining. Dermabond tape is to remain on sternal incision until surgeon follow-up. 12. Please call surgeon/DRY ICE MACHINE OPERATOR for temp greater than 101 F or purulent drainage from incisions. 13. All prescriptions given by surgeon for 30 days. Refills need to be filled through sieve repairer/primary care physician. 14. A Red armband has been placed on the patient. It should be worn for 30 days post surgery and will be removed by the cardiac surgeons. If an ER visit is necessary, please make sure the number on the Red armband is called. 15. You have been referred to and are expected to begin Cardiac Rehab in approximately 4-6 weeks. 16. The patient is being discharged home with Coumadin 5 mg by mouth daily. Prescription given to have his INR checked on , 03/16/2020 with results to be called to Dr. Harris's office [phone] for Coumadin dosing. 17. He will not be discharged home with a beta john paul at this time due to some episodes of bradycardia which will be followed on an outpatient basis and will be started when able to tolerate the beta john paul. HOME HEALTH SERVICES TO PROVIDE: RN SKILLED HOME CARE SERVICES FOR POST-OP SURGICAL PATIENTS WITH THE FOLLOWING: Coronary Artery Bypass Surgery (CABG), Mitral Valve Replacement/Repair ( MVR), Aortic Valve Replacement/Repair (AVR) RN TO CONTINUE EDUCATION FROM ``ROAD TO A HEALTH HEART PATIENT EDUCATION MANUAL (GIVEN TO PATIENT IN THE HOSPITAL) MEDICATION RECONCILIATION WITH EDUCATION NEEDED ON FIRST HOME VISIT EMPHASIZE IMPORTANCE OF WEARING BREAST SUPPORT/HEART HUGGER ENCOURAGE USE OF INCENTIVE SPIROMETER 10 X EVERY HOUR WHILE AWAKE ENCOURAGE UTILIZATION OF LOWER EXTREMITY COMPRESSION STOCKINGS/MITZI HOSE and ELEVATE LEGS ABOVE LEVEL OF HEART WHILE AT REST. ENCOURAGE AMBULATION 3-5x/day INCREASING TOLERATES, WHILE AVOIDING EXTREMES IN TEMPERATURE FREQUENCY: RN TO OPEN THE PATIENT WITHIN 24 HOURS OF DISCHARGE FROM THE HOSPITAL WITH TELEHEALTH INSTALLED AT [facility], RN TO VISIT 2-3 X A WEEK FOR 4 WEEKS ESTABLISHED BY PATIENT NEEDS. LABORATORY: CBC, CMP TO BE DRAWN ON THE THIRD DAY HOME, (RAN STAT) FAX RESULTS TO [phone]. TELEHEALTH PARAMETERS: WEIGHT: NOTIFY MD OF WEIGHT GAIN OF 2 LBS IN 24 HOURS OR 5 LBS IN ONE WEEK HR: NOTIFY MD OF HR <55 BPM OR HR>100 BPM BP: NOTIFY MD IF BP <90/55 OR BP>140/100 O2 SAT: NOTIFY MD IF PO2<93% ON ROOM AIR SEND TELEHEALTH REPORT TO EMERGENCY WORKER AND CARDIOVASCULAR SURGEON THE FIRST WEEK OF CARE AND THEN BI-WEEKLY. PLEASE ADDITIONALLY COMMUNICATE ANY ABNORMALS AND NEW FINDINGS TO THE SURGEONS OFFICE. For any questions or concerns please call delimer Argenis @ or Don @ Plan - Discharge Summary Discharge Rx Participant: Yes New Discharge Prescriptions: New Warfarin [Coumadin] 5 mg PO DAILY@1800 #30 tab Atorvastatin [Lipitor] 40 mg PO DAILY #30 tab Folic Acid-Vit B Complex-Vit C [Nephrocaps] 1 each PO DAILY #30 cap Pantoprazole [Protonix] 40 mg PO AC-BRKFST #[address] tablet[address] Simmons-Docusate Sodium [Senokot-S] 2 each PO HS #14 tab Acetaminophen Tab [Tylenol] 1,000 mg PO Q6HR PRN tab PRN Reason: Fever And/ Or Pain lisinopriL [Zestril] 2.5 mg PO DAILY #30 tab Amiodarone [Cordarone] 200 mg PO DAILY #30 tab Furosemide [Lasix] 40 mg PO DAILY 5 Days #5 tab Continue Aspirin 81 mg PO DAILY sitaGLIPtin [Januvia] 100 mg PO DAILY metFORMIN HCL 1,000 mg PO BID Levothyroxine Sodium [Tirosint] 150 mcg PO QAM Discontinued Simvastatin [Zocor] 40 mg PO HS Lisinopril [Prinivil] 10 mg PO QAM Warfarin Sodium [Jantoven] 6 mg PO SUMOTUTHFRSA Warfarin Sodium [Jantoven] 3 mg PO WE Discharge Medication List Aspirin 81 mg PO DAILY 06/17/16 [History] Levothyroxine Sodium [Tirosint] 150 mcg PO QAM 06/17/16 [History] metFORMIN HCL 1,000 mg PO BID 06/17/16 [History] sitaGLIPtin [Januvia] 100 mg PO DAILY 06/17/16 [History] Acetaminophen Tab [Tylenol] 1,000 mg PO Q6HR PRN tab 03/11/20 [Rx] Amiodarone [Cordarone] 200 mg PO DAILY #30 tab 03/11/20 [Rx] Atorvastatin [Lipitor] 40 mg PO DAILY #30 tab 03/11/20 [Rx] Folic Acid-Vit B Complex-Vit C [Nephrocaps] 1 each PO DAILY #30 cap 03/11/20 [Rx] Furosemide [Lasix] 40 mg PO DAILY 5 Days #5 tab 03/11/20 [Rx] Pantoprazole [Protonix] 40 mg PO AC-BRKFST #30 tablet. 03/11/20 [Rx] Sennosides-Docusate Sodium [Senokot-S] 2 each PO HS #14 tab 03/11/20 [Rx] Warfarin [Coumadin] 5 mg PO DAILY@1800 #30 tab 03/11/20 [Rx] lisinopriL [Zestril] 2.5 mg PO DAILY #30 tab 03/11/20 [Rx] Follow up Appointment(s)/Referral(s): Lani Rojo MD [STAFF PHYSICIAN] - 03/28/20 2:45 pm Argenis Meeks NPC [Nurse Practitioner] - 03/16/20 10:00 am Rehab [facility],Cardiac [NON-STAFF] - 4 Weeks (You will receive a phone call for evaluation for cardiac rehab 4-6 weeks post surgery) Sai Harris MD [STAFF PHYSICIAN] - 03/30/20 9:30 am [facility], [NON-STAFF] - 1-2 Days Kavon Rouse MD [Primary Care Provider] - 03/20/20 11:30 am Tye Lee MD [STAFF PHYSICIAN] - 03/09/20 10:15 am (FOLLOW UP APPOINTMENT IS ON Feb AT 10:15 AM (FRIDAY)) Ambulatory/Diagnostic Orders: Complete Blood Count w/diff [LAB.AMB] Time Frame: 03/14/20, Facility: [facility], Location: [facility] Comprehensive Metabolic Panel [LAB.AMB] Time Frame: 03/14/20, Facility: [facility], Location: [facility] Prothrombin Time INR [LAB.AMB] Time Frame: 03/16/20, Facility: [facility], Location: [facility] Patient Instructions/Handouts: Left Heart Catheterization (DC), Transesophageal Echocardiogram (DC), Sternal Precautions (GEN), CABG (Coronary Artery Bypass Graft) (DC), Procedural Sedation (ED) Activity/Diet/Wound Care/Special Instructions: DISCHARGE INSTRUCTIONS: 1. No driving for 4 weeks, or until physician gives their ok. 2. The patient should sleep in their own bed, no medical bed needed. 3. Stairs are not an issue. If the bedroom is upstairs, it is advised that the patient go up at night and down in the morning for the first week. Go slowly, using handrail and take 1 step at a time. 4. MITZI hose are to be worn for 30 days or until physician discontinues. 5. Heart hugger is to be worn 100% of the time until physician discontinues.(except when showering) 6. No lifting, pushing, or pulling more than 10 pounds for 12 weeks. The physician will advise of any restriction changes. 7. The patient is expected to continue the prescribed walking program. 8. Continue pain control per as needed orders. 9. Continue with incentive spirometry and splinting/heart hugger until otherwise directed by the physician. 10. Must shower daily using liquid antibacterial soap and a separate white washcloth for each individual incision. 11. Routine sternal incision care. No powders, lotions, ointments on incisions. No dressings are necessary on incisions unless they are draining. Dermabond tape is to remain on sternal incision until surgeon follow-up. 12. Please call surgeon/DRY ICE MACHINE OPERATOR for temp greater than 101 F or purulent drainage from incisions. 13. All prescriptions given by surgeon for 30 days. Refills need to be filled through sieve repairer/primary care physician. 14. A Red armband has been placed on the patient. It should be worn for 30 days post surgery and will be removed by the cardiac surgeons. If an ER visit is necessary, please make sure the number on the Red armband is called. 15. You have been referred to and are expected to begin Cardiac Rehab in approximately 4-6 weeks. 16. The patient is being discharged home with Coumadin 5 mg by mouth daily. Prescription given to have his INR checked on , 03/16/2020 with results to be called to Dr. Harris's office [phone] for Coumadin dosing. 17. He will not be discharged home with a beta john paul at this time due to some episodes of bradycardia which will be followed on an outpatient basis and will be started when able to tolerate the beta john paul. HOME HEALTH SERVICES TO PROVIDE: RN SKILLED HOME CARE SERVICES FOR POST-OP SURGICAL PATIENTS WITH THE FOLLOWING: Coronary Artery Bypass Surgery (CABG), Mitral Valve Replacement/Repair ( MVR), Aortic Valve Replacement/Repair (AVR) RN TO CONTINUE EDUCATION FROM ``ROAD TO A HEALTH HEART PATIENT EDUCATION MANUAL (GIVEN TO PATIENT IN THE HOSPITAL) MEDICATION RECONCILIATION WITH EDUCATION NEEDED ON FIRST HOME VISIT EMPHASIZE IMPORTANCE OF WEARING BREAST SUPPORT/HEART HUGGER ENCOURAGE USE OF INCENTIVE SPIROMETER 10 X EVERY HOUR WHILE AWAKE ENCOURAGE UTILIZATION OF LOWER EXTREMITY COMPRESSION STOCKINGS/MITZI HOSE and ELEVATE LEGS ABOVE LEVEL OF HEART WHILE AT REST. ENCOURAGE AMBULATION 3-5x/day INCREASING TOLERATES, WHILE AVOIDING EXTREMES IN TEMPERATURE FREQUENCY: RN TO OPEN THE PATIENT WITHIN 24 HOURS OF DISCHARGE FROM THE HOSPITAL WITH TELEHEALTH INSTALLED AT [facility], RN TO VISIT 2-3 X A WEEK FOR 4 WEEKS ESTABLISHED BY PATIENT NEEDS. LABORATORY: CBC, CMP TO BE DRAWN ON THE THIRD DAY HOME, (RAN STAT) FAX RESULTS TO [phone]. TELEHEALTH PARAMETERS: WEIGHT: NOTIFY MD OF WEIGHT GAIN OF 2 LBS IN 24 HOURS OR 5 LBS IN ONE WEEK HR: NOTIFY MD OF HR <55 BPM OR HR>100 BPM BP: NOTIFY MD IF BP <90/55 OR BP>140/100 O2 SAT: NOTIFY MD IF PO2<93% ON ROOM AIR SEND TELEHEALTH REPORT TO EMERGENCY WORKER AND CARDIOVASCULAR SURGEON THE FIRST WEEK OF CARE AND THEN BI-WEEKLY. PLEASE ADDITIONALLY COMMUNICATE ANY ABNORMALS AND NEW FINDINGS TO THE SURGEONS OFFICE. For any questions or concerns please call delimer Argenis @ or Marshall @ Discharge Disposition: HOME WITH HOME HEALTH SERVICES
--- NOTE | 2020-03-11 12:46 | P.PN ---
Subjective Progress Note Date: 03/11/20 Principal diagnosis: Coronary artery disease, severe aortic stenosis This is a 74-year-old gentleman who follows on an outpatient basis with Dr. Kavon Rouse for primary care and Dr. Tye Lee for cardiology. He has a previous medical history of hypertension, hyperlipidemia, chronic atrial fibrillation on Coumadin for anticoagulation, hypothyroidism, type 2 diabetes mellitus, remote history of pneumonia, skin cancer with removal, splenectomy, daily EtOH use of 2-3 beers every day, and remote history of tobacco dependence. He has followed with Dr. Lee for quite some time regarding his atrial fibrillation. Over the last several months he has noted exertional shortness of breath relieved with rest which he states he has never had before. He denies any other symptoms including no chest pain, no weakness, dizziness, lightheadedness, strokelike symptoms, paroxysmal nocturnal dyspnea, or any recent pulmonary illnesses. He was seen in the cardiology office last week and had a transthoracic echocardiogram which demonstrated impaired left ventricular function with EF 45%, hypokinesis of the inferior and septal marrero at the base, mild to moderate mitral regurgitation with mild mitral annular calcification, moderately calcified aortic valve with mild aortic insufficiency and moderate to severe aortic stenosis with valve area 0.56 cm, peak/mean gradient 54/35 mmHg, and mild tricuspid regurgitation. He was recommended to undergo heart catheterization and transesophageal echocardiogram which were completed today by Dr. Lee. Transesophageal echocardiogram demonstrated 3 leaflet aortic valve which was heavily calcified with severe restriction in leaflet mobility. Valve area was 0.7 cm by planimetry confirming severe aortic stenosis with mild aortic regurgitation, mild to moderate central mitral regurgitation, mild tricuspid regurgitation, mildly dilated left ventricle with diffuse global hypokinesis and ejection fraction 45%. Cardiac catheterization demonstrated heavily calcified left main coronary artery with distal stenosis extending into the proximal LAD and circumflex, ostial LAD stenosis 80-90%, moderate stenosis in the midportion of the RCA with 80-90% stenosis of the PDA with right to left collaterals. Due to these findings Dr. Harris from cardiothoracic surgery was consulted for surgical revascularization and aortic valve replacement. Patient is seen today 03/04/2020 in follow-up on the selective care unit. He is currently sitting up in a chair at the bedside. Awake and alert in no acute distress. Denies any chest pain, palpitations, lightheadedness or dizziness. Denies any shortness of breath, cough or congestion. FEV1 value 1.86 L, 59%. Chest x-ray showed no acute pulmonary process. The patient is seen today 03/11/2020 in follow-up on selective care unit. He is postoperative day #5 status post bioprosthetic aortic valve replacement and four-vessel coronary artery bypass grafting. He is currently up ambulating in the hallway. Doing very well. No worsening shortness of breath, cough or congestion. Maintaining good O2 saturations in the 90s on room air. Chest x- ray reveals a small right apical pneumothorax unchanged compared to 03/10/2020. Bilateral pleural effusions with opacities redemonstrated. He is afebrile. White count 12.2. Hemoglobin 10.6. Sodium 130. Potassium 4.4. Creatinine 0.9 6. Objective - Vital Signs Vital signs: Vital Signs Temp 98.2 F 03/11/20 08:35 Pulse 48 L 03/11/20 08:35 Resp 18 03/11/20 08:35 BP 143/78 03/11/20 08:35 Pulse Ox 97 03/11/20 08:35 Intake & Output 03/10/20 03/11/20 03/11/20 18:59 06:59 18:59 Intake Total 895 240 Output Total 0 120 Balance 895 -120 240 Weight 110.5 kg Intake: Oral 895 240 Output: Urine 0 120 Other: Voiding Method Toilet Toilet # Voids 1 1 # Bowel Movements 1 1 ABP, PAP, CO, CI - Last Documented Arterial Blood Pressure 124/52 Pulmonary Artery Pressure 36/14 Cardiac Output 5.6 Cardiac Index 2.5 - Exam GENERAL EXAM: Alert, very pleasant, 74-year-old male patient, on room air with the pulse ox of 97%, comfortable in no apparent distress. HEAD: Normocephalic/atraumatic. EYES: Normal reaction of pupils, equal size. Conjunctiva pink, sclera white. NOSE: Clear with pink turbinates. THROAT: No erythema or exudates. NECK: No masses, no JVD, no thyroid enlargement, no adenopathy. CHEST: No chest wall deformity. Symmetrical expansion. Midsternal incision is clean dry and intact, interval removal of chest tubes, AV wires removed LUNGS: Equal air entry with no crackles, wheeze, rhonchi or dullness. CVS: Irregular rate and rhythm, normal S1 and S2, no gallops, no murmurs, no rubs ABDOMEN: Soft, nontender. No hepatosplenomegaly, normal bowel sounds, no guarding or rigidity. EXTREMITIES: No clubbing, no edema, no cyanosis, 2+ pulses and upper and lower extremities. Left leg incision clean dry and intact, covered with a dressing MUSCULOSKELETAL: Muscle strength and tone normal. SPINE: No scoliosis or deformity SKIN: No rashes CENTRAL NERVOUS SYSTEM: No focal deficits, tone is normal in all 4 extremities. PSYCHIATRIC: Alert and oriented -3. Appropriate affect. Intact judgment and insight. - Labs CBC & Chem 7: 03/11/20 06:29 03/11/20 06:29 Labs: Abnormal Lab Results - Last 24 Hours (Table) 03/10/20 03/10/20 03/11/20 Range/Units 17:32 19:54 06:05 WBC (3.8-10.6) k/uL RBC (4.30-5.90) m/uL Hgb (13.0-17.5) gm/dL Hct (39.0-53.0) % MCV (80.0-100.0) fL Sodium (137-145) mmol/L BUN (9-20) mg/dL Glucose (74-99) mg/dL POC Glucose (mg/dL) 128 H 127 H 104 H (75-99) mg/dL Calcium (8.4-10.2) mg/dL 03/11/20 03/11/20 03/11/20 Range/Units 06:29 06:29 11:53 WBC 12.2 H (3.8-10.6) k/uL RBC 3.22 L (4.30-5.90) m/uL Hgb 10.6 L (13.0-17.5) gm/dL Hct 32.6 L (39.0-53.0) % MCV 101.4 H (80.0-100.0) fL Sodium 130 L (137-145) mmol/L BUN 23 H (9-20) mg/dL Glucose 116 H (74-99) mg/dL POC Glucose (mg/dL) 112 H (75-99) mg/dL Calcium 8.1 L (8.4-10.2) mg/dL Microbiology - Last 24 Hours (Table) 03/09/20 10:43 Gram Stain - Final Sputum Sputum Culture - Final Assessment and Plan Assessment: #1. Symptomatic multivessel coronary artery disease, status post four-vessel coronary artery bypass grafting and severe aortic stenosis, status post bioprosthetic aortic valve replacement, postoperative day #5 #2. Routine postoperative ventilator management, successfully extubated on postoperative day 0 #3. Mild blood loss anemia, normal outcome of bypass grafting surgery #4. History of hypertension #5. History of hyperlipidemia #6. Type 2 diabetes mellitus #7. Hypothyroidism #8. Daily EtOH use #9. History of splenectomy #10. Remote history of tobacco dependence with preop FEV1 of 59% of predicted #11. Atrial fibrillation, new onset, an expected outcome of bypass grafting surgery, with a slow ventricular rate, requiring external pacemaker support at this time Plan: The patient was seen and evaluated by Dr. Gregory Chest x-ray and labs reviewed Plan is for discharge home today Follow-up in our office as scheduled We'll repeat a chest x-ray then I, the cosigning physician, performed a history & physical examination of the patient. Lungs sounds with faint crackles in the bilateral posterior bases Maintaining good O2 saturations in the 90s on room air. I discussed the as sessment and plan of care with my nurse practitioner, Christina Musa. I attest to the above consultation as dictated by her.
[2020-03-11 12:53] VITALS: BP 148/61; PULSE 63; TEMP 98.6
[2020-03-11 16:33] LABS: Glucose,Whole Blood 79 mg/dL (75-99)
[2020-03-11] MEDS ORDERED: WARFARIN 5 MG TAB PO SCH (18:00)
[2020-03-12] MEDS ORDERED: FUROSEMIDE 40 MG TAB PO SCH (12:15)
== END 2020-03-11 17:00 | disposition home health service (06) | DRG 217 ==
LOC: CATHCVL 06:15 → 3SCARD 08:23 → CATHCVL 10:25 → 3SCARD 10:25 → 2SICU 03-06 07:10 → 3SCARD 03-10 17:22
PROVIDERS: ADMIT Thoracic Surgery (Cardiothoracic Vascular Surgery); ATTEND Thoracic Surgery (Cardiothoracic Vascular Surgery)
PROC: B3101ZZ Fluoroscopy of Thoracic Aorta using Low Osmolar Contrast (ICD-10-PCS; 2020-03-03 07:45)
PROC: 4A023N7 Measurement of Cardiac Sampling and Pressure, Left Heart, Percutaneous Approach (ICD-10-PCS; 2020-03-03 07:45)
PROC: B2111ZZ Fluoroscopy of Multiple Coronary Arteries using Low Osmolar Contrast (ICD-10-PCS; 2020-03-03 07:45)
PROC: B246ZZ4 Ultrasonography of Right and Left Heart, Transesophageal (ICD-10-PCS; 2020-03-03 07:45)
PROC: 02L70CK Occlusion of Left Atrial Appendage with Extraluminal Device, Open Approach (ICD-10-PCS; principal; 2020-03-06 08:00)
PROC: 021209W Bypass Coronary Artery, Three Arteries from Aorta with Autologous Venous Tissue, Open Approach (ICD-10-PCS; principal; 2020-03-06 08:00)
PROC: B246ZZ4 Ultrasonography of Right and Left Heart, Transesophageal (ICD-10-PCS; principal; 2020-03-06 08:00)
PROC: 5A1221Z Performance of Cardiac Output, Continuous (ICD-10-PCS; principal; 2020-03-06 08:00)
PROC: 06BQ4ZZ Excision of Left Saphenous Vein, Percutaneous Endoscopic Approach (ICD-10-PCS; principal; 2020-03-06 08:00)
PROC: 02RF08Z Replacement of Aortic Valve with Zooplastic Tissue, Open Approach (ICD-10-PCS; principal; 2020-03-06 08:00)
PROC: 02100Z9 Bypass Coronary Artery, One Artery from Left Internal Mammary, Open Approach (ICD-10-PCS; principal; 2020-03-06 08:00)
PROC: 02580ZZ Destruction of Conduction Mechanism, Open Approach (ICD-10-PCS; principal; 2020-03-06 08:00)
DX: I08.3 Combined rheumatic disorders of mitral, aortic and tricuspid valves (principal); D62 Acute posthemorrhagic anemia; I48.21 Permanent atrial fibrillation; J90 Pleural effusion, not elsewhere classified; J93.83 Other pneumothorax; J98.11 Atelectasis; Q21.1 Atrial septal defect; I97.190 Other postprocedural cardiac functional disturbances following cardiac surgery; E03.9 Hypothyroidism, unspecified; E11.9 Type 2 diabetes mellitus without complications; E78.5 Hyperlipidemia, unspecified; I25.10 Atherosclerotic heart disease of native coronary artery without angina pectoris; I25.5 Ischemic cardiomyopathy; I49.3 Ventricular premature depolarization; K59.00 Constipation, unspecified; R79.1 Abnormal coagulation profile; T45.515A Adverse effect of anticoagulants, initial encounter; Y83.8 Other surgical procedures as the cause of abnormal reaction of the patient, or of later complication, without mention of misadventure at the time of the procedure; I11.9 Hypertensive heart disease without heart failure; Z79.01 Long term (current) use of anticoagulants; Z79.890 Hormone replacement therapy; Z79.84 Long term (current) use of oral hypoglycemic drugs; Z79.899 Other long term (current) drug therapy; Z79.82 Long term (current) use of aspirin; Z82.49 Family history of ischemic heart disease and other diseases of the circulatory system; Z85.828 Personal history of other malignant neoplasm of skin; Z87.01 Personal history of pneumonia (recurrent); Z87.891 Personal history of nicotine dependence; Z90.81 Acquired absence of spleen; Z96.653 Presence of artificial knee joint, bilateral; Z20.828 Contact with and (suspected) exposure to other viral communicable diseases
CPT/HCPCS: 36430; 70486; 71045; 71046; 80048; 80053; 80061; 80074; 81003; 82330; 82805; 83036; 83735; 84443; 85025; 85027; 85384; 85520; 85610; 85730; 86850; 86891; 86900; 86901; 86920; 87070; 87205; 88305; 88311; 93312; 93320; 93325; 93454; 93567; 93880; 93922; 93923; 93930; 93970; 94002; 94150; 94640

== ENCOUNTER → 2020-03-14 | Outpatient (CLI) | payer MEDICARE, OTHER ==
[2020-03-14 16:24] LABS: Basophils # (A) 0.1 k/uL (0-0.2); Basophils % (A) 0 %; Eosinophils # (A) 0.2 k/uL (0-0.7); Eosinophils % (A) 1 %; HCT 36.6 % (39.0-53.0); HGB 11.3 gm/dL (13.0-17.5); Hypochromasia Slight; Lymphocytes # (A) 1.2 k/uL (1.0-4.8); Lymphocytes % (A) 8 %; MCH 31.1 pg (25.0-35.0); MCV 100.5 fL (80.0-100.0); Macrocytosis Slight; Mean Platelet Volume 7.4; Monocytes # (A) 1.1 k/uL (0-1.0); Monocytes % (A) 8 %; Neutrophils # (A) 11.3 k/uL (1.3-7.7); Neutrophils % (A) 80 %; Platelet Count 322 k/uL (150-450); RBC 3.64 m/uL (4.30-5.90); RDW 13.6 % (11.5-15.5); WBC 14.1 k/uL (3.8-10.6)
[2020-03-15 02:00] LABS: African American GFR (CKD) 95.8 (60.0-200.0); Albumin 3.4 g/dL (3.80-4.90); Albumin/Globulin Ratio 1.89 (1.60-3.17); Anion Gap 10.4 mmol/L (4.00-12.00); BUN/Creat Ratio 15.56 Ratio (12.00-20.00); Carbon Dioxide 26.6 mmol/L (21.6-31.8); Globulin 1.8 g/dL (1.6-3.3); Non-African American GFR(CKD) 82.7 (60.0-200.0); Potassium 3.6 mmol/L (3.5-5.5); Total Bilirubin 1.5 mg/dL (0.2-1.2); Total Protein 5.2 g/dL (6.2-8.2)
[2020-03-15 13:53] LABS: INR 1.45 (0.90-1.11); Prothrombin Time 15.3 sec (9.9-11.9)
== END | disposition home or self-care (01) ==
LOC: LABWHC1 15:36
PROVIDERS: ATTEND Thoracic Surgery (Cardiothoracic Vascular Surgery)
DX: Z48.812 Encounter for surgical aftercare following surgery on the circulatory system (principal); Z95.1 Presence of aortocoronary bypass graft; Z95.4 Presence of other heart-valve replacement
CPT/HCPCS: 36415; 80053; 85025; 85610

== ENCOUNTER 2020-10-25 13:10 | Emergency (ER) | payer MEDICARE, OTHER ==
[2020-10-25 13:32] VITALS: BP 165/82; PULSE 66; RESP 18; TEMP 98.2
--- NOTE | 2020-10-25 14:26 | XR ---
EXAMINATION TYPE: XR ribs LT w pa chest xray DATE OF EXAM: 10/25/2020 COMPARISON: NONE HISTORY: rib pain TECHNIQUE: 5 images submitted FINDINGS: Bilateral consolidation and pleural effusion greater on the right. No pneumothorax. Postope rative changes seen. There is a deformity of the lateral sixth and seventh ribs. IMPRESSION: 1. Findings suspicious for hairline fractures lateral left sixth and seventh ribs correlate with poin t tenderness. 2. Bilateral infiltrate and small effusion.
--- NOTE | 2020-10-25 14:35 | ED ---
Fall HPI - General Source: patient Mode of arrival: ambulatory <Carla Hargrove - Last Filed: 10/25/20 14:55> <TeoMaricruz Sydney - Last Filed: 10/26/20 00:42> - General Chief Complaint: Fall Stated Complaint: trip & fall/rib pain Time Seen by Provider: 10/25/20 13:33 - History of Present Illness Initial Comments: Patient is a 74-year-old male presenting to emergency Department with complaints of left-sided rib pain after he fell yesterday. Patient states he tripped over some garbage and has gradually yesterday and fell forward with his left arm tucked underneath his left ribs. He states he did not hit his head. He states he initially had very severe left-sided rib pain however it decreased over the next hour. Patient states throughout yesterday evening he had pain when he turns or when he went to lay down. Patient states this morning the pain is still there so he wanted to be examined for possible rib fracture. He again d enies hitting his head, he is on a blood thinner. He denies any other injuries from this fall. He has no further complaints. (Carla Hargrove) - Related Data Home Medications Medication Instructions Recorded Confirmed Aspirin 81 mg PO DAILY 06/17/16 03/03/20 Levothyroxine Sodium [Tirosint] 150 mcg PO QAM 06/17/16 03/03/20 metFORMIN HCL 1,000 mg PO BID 06/17/16 03/03/20 sitaGLIPtin [Januvia] 100 mg PO DAILY 06/17/16 03/03/20 Previous Rx's Medication Instructions Recorded Acetaminophen Tab [Tylenol] 1,000 mg PO Q6HR PRN tab 03/11/20 Amiodarone [Cordarone] 200 mg PO DAILY #30 tab 03/11/20 Atorvastatin [Lipitor] 40 mg PO DAILY #30 tab 03/11/20 Folic Acid-Vit B Complex-Vit C 1 each PO DAILY #30 cap 03/11/20 [Nephrocaps] Furosemide [Lasix] 40 mg PO DAILY 5 Days #5 tab 03/11/20 Pantoprazole [Protonix] 40 mg PO TAMY #30 mary. 03/11/20 Sennosides-Docusate Sodium 2 each PO HS #14 tab 03/11/20 [Senokot-S] Warfarin [Coumadin] 5 mg PO DAILY@1800 #30 tab 03/11/20 lisinopriL [Zestril] 2.5 mg PO DAILY #30 tab 03/11/20 Allergies Allergy/AdvReac Type Severity Reaction Status Date / Time No Known Allergies Allergy Verified 10/25/20 13:28 Review of Systems ROS Other: All systems not noted in ROS Statement are negative. <Carla Hargrove - Last Filed: 10/25/20 14:55> ROS Other: All systems not noted in ROS Statement are negative. <Maricruz Bruce - Last Filed: 10/26/20 00:42> ROS Statement: Those systems with pertinent positive or pertinent negative responses have been documented in the HPI. Past Medical History Past Medical History: Atrial Fibrillation, Coronary Artery Disease (CAD), Cancer, Diabetes Mellitus, Hyperlipidemia, Hypertension, Skin Disorder, Thyroid Disorder Additional Past Medical History / Comment(s): hx skin ca History of Any Multi-Drug Resistant Organisms: None Reported Past Surgical History: Coronary Bypass/CABG, Joint Replacement Additional Past Surgical History / Comment(s): china knee replace.,spenectomy,left wrist CTR,ORIF rt ankle, Past Anesthesia/Blood Transfusion Reactions: No Reported Reaction Past Psychological History: No Psychological Hx Reported Smoking Status: Former smoker Past Alcohol Use History: Daily Past Drug Use History: None Reported - Past Family History Mother Family Medical History: Congestive Heart Failure (CHF) Additional Family Medical History / Comment(s): of old age Father Family Medical History: Coronary Artery Disease (CAD) (The patient also had an uncle and grandfather with coronary artery disease) Additional Family Medical History / Comment(s): Father shot at 52 years old <Carla Hargrove - Last Filed: 10/25/20 14:55> General Exam Limitations: no limitations <Carla Hargrove - Last Filed: 10/25/20 14:55> - General Exam Comments Initial Comments: GENERAL: Patient is well-developed and well-nourished. Patient is nontoxic and in no acute distress. HEAD: Atraumatic, normocephalic. EYES: Pupils equal round and reactive to light, extraocular movements intact, sclera anicteric, conjunctiva are normal. Eyelids were unremarkable. ENT: TMs normal, nares patent, oropharynx clear without exudates. Moist mucous membranes. NECK: Normal range of motion, supple without lymphadenopathy or JVD. LUNGS: Unlabored respirations. Breath sounds clear to auscultation bilaterally and equal. No wheezes rales or rhonchi. HEART: Regular rate and rhythm without murmurs, rubs or gallops. ABDOMEN: Soft, nontender, normoactive bowel sounds. No guarding, no rebound. No masses appreciated. : Deferred MUSCULOSKELETAL: Normal extremities with adequate strength and normal range of motion, no pitting or edema. No clubbing or cyanosis. He has some tenderness of the left lateral ribs, no bruising present, no deformity seen or felt. NEUROLOGICAL: Patient is alert and oriented x 3. Motor and sensory are also intact. Cranial nerves II through XII grossly intact. Symmetrical smile. Normal speech, normal gait. PSYCH: Normal mood, normal affect. SKIN: Warm, Dry, normal turgor, no rashes or lesions noted. (Carla Hargrove) Course Vital Signs 10/25/20 13:29 Temperature 98.2 F Pulse Rate 66 Respiratory 18 Rate Blood Pressure 165/82 O2 Sat by Pulse 98 Oximetry Medical Decision Making <Carla Hargrove - Last Filed: 10/25/20 14:55> <Maricruz Bruce - Last Filed: 10/26/20 00:42> - Medical Decision Making Patient is a 74-year-old male here for left-sided rib pain after he tripped and fell yesterday. No other injuries reported. Vitals are stable. X-rays today show a possible hairline fracture of the lateral left sixth and seventh ribs. He has as bilateral infiltrates and a small effusion however the effusion has been present in his past. He states he has known about this and they are m onitoring it. Patient is stable for discharge. I recommended Tylenol Motrin for any discomfort, he can apply heat and/or ice to the area. Recommended breathing exercises during the day. Patient is stable for discharge. Patient is in agreement with this plan of care. Return parameters were discussed with the patient and they verbalized understanding. Case discussed with Dr. Bruce. (Carla Hargrove) I was available for consultation in the emergency department. The history and physical exam were done by the midlevel provider. I was consulted for this patients care. I reviewed the case with the midlevel provider and based on their presentation of the patient, I agree with the assessment, medical decision making and plan of care as documented. Chart was dictated using [employer] dictation software. Attempts were made to correct any dictation errors however some typographical errors may persist. Patient was seen during a national state of emergency due to the Covid-19 pandemic. (Maricruz Bruce) Disposition Is patient prescribed a controlled substance at d/c from ED?: No Time of Disposition: 14:35 <Carla Hargrove - Last Filed: 10/25/20 14:55> <Maricruz Bruce - Last Filed: 10/26/20 00:42> Clinical Impression: Fall, Left rib fracture Disposition: HOME SELF-CARE Condition: Stable Instructions (If sedation given, give patient instructions): Rib Fracture (ED) Additional Instructions: Please return to the Emergency Department if symptoms worsen or any other concerns. May take Tylenol or ibuprofen for any discomfort. May apply ice to the area. Deep breathing exercises during the day as discussed. Follow-up with your primary care physician. Referrals: Karson Jama DO [Primary Care Provider] - 1-2 days
== END 2020-10-25 14:58 | disposition home or self-care (01) ==
LOC: EC 13:10
DX: S22.32XA Fracture of one rib, left side, initial encounter for closed fracture (principal); I10 Essential (primary) hypertension; E78.5 Hyperlipidemia, unspecified; E11.9 Type 2 diabetes mellitus without complications; I25.10 Atherosclerotic heart disease of native coronary artery without angina pectoris; E07.9 Disorder of thyroid, unspecified; Z79.890 Hormone replacement therapy; I48.91 Unspecified atrial fibrillation; Z79.01 Long term (current) use of anticoagulants; Z79.82 Long term (current) use of aspirin; Z79.84 Long term (current) use of oral hypoglycemic drugs; Z82.49 Family history of ischemic heart disease and other diseases of the circulatory system; Z85.828 Personal history of other malignant neoplasm of skin; Z87.891 Personal history of nicotine dependence; Z95.1 Presence of aortocoronary bypass graft; W01.0XXA Fall on same level from slipping, tripping and stumbling without subsequent striking against object, initial encounter
CPT/HCPCS: 99283

== ENCOUNTER 2020-11-08 06:43 | Day surgery (SDC) | payer MEDICARE, OTHER ==
[2020-11-06 13:08] VITALS: BMI 30.7
[~2020-11-08 06:43] MED LIST changes: -ALPRAZolam 0.25 MG TAB PO PRN; -ALPRAZolam 0.5 MG TAB PO PRN; +LACTATED RINGERS 1,000 ML IV SCH; +LIDOCAINE 1% (10MG/ML) FOR IV START INTRADERMA PRN; +MOXIFLOXACIN HCL 0.5% DROPS 3 ML BTL OP PRN; -NITROGLYCERIN SL TABS 0.4 MG TAB SUBLINGUAL PRN; -SODIUM CHLORIDE 0.9% 1,000 ML in EMPTY BAG 1 BAG IV ONE; +TETRACAINE 0.5% OPHTH (PF) DROPS 4 ML BTL OP PRN; +TIMOLOL 0.5% OPHTH DROPS 5 ML BTL OP PRN
[2020-11-08 07:25] VITALS: TEMP 97.4
[2020-11-08] MEDS: CYCLOPENTOLATE 1% OPHTH SOLN 2 ML BTL OP PRN ×3 (07:34→07:46)
[2020-11-08] MEDS: PHENYLEPHRINE 2.5% OPHTH DRP 2ML OP PRN ×3 (07:37→07:49)
[2020-11-08 07:41] LABS: Glucose,Whole Blood 136 mg/dL (75-99)
[2020-11-08] MEDS ORDERED: MIDAZOLAM 2 MG/2 ML VIAL ONE (08:09)
[2020-11-08] MEDS ORDERED: fentaNYL (PF) 50 MCG/ML 2 ML AMP ONE (08:09)
[2020-11-08] MEDS ORDERED: HYALURONATE SODIUM INTRAOCULAR 1 EACH SYRINGE (12MG/ML) INTRAOCULA ONE (08:25)
[2020-11-08] MEDS ORDERED: LIDOCAINE 1% (PF) 10MG/ML VIAL SQ ONE (08:26)
[2020-11-08] MEDS ORDERED: BALANCED SALT IRRIG SOLN COMB2 15 ML IRRIG.SOLN INTRAOCULA ONE (08:26)
[2020-11-08] MEDS ORDERED: EPINEPHrine (PF) 0.3 ML in BALANCED SALT IRRIG SOLN COMB2 500 ML IRRIGATION ONE (08:27)
--- NOTE | 2020-11-08 08:39 | P.OP ---
Date of Procedure: 11/08/20 Preoperative Diagnosis: NS Postoperative Diagnosis: same Procedure(s) Performed: PIOL< OS Implants: [id number] 20.50 Anesthesia: MAC Surgeon: Brandt Morton Pathology: none sent Condition: stable Disposition: same day Indications for Procedure: blurry vision Operative Findings: no complications
[2020-11-08 08:43] VITALS: RESP 16
[2020-11-08] MEDS ORDERED: hydrALAZINE HCL 20 MG/ML 1 ML VIAL ONE (09:26)
[2020-11-08 09:30] VITALS: PULSE 64
[2020-11-08] MEDS ORDERED: hydrALAZINE HCL 20 MG/ML 1 ML VIAL IVP ONE (09:30)
[2020-11-08 09:48] VITALS: BP 162/84
--- NOTE | 2020-11-09 06:47 | OP ---
OPERATIVE REPORT DATE OF SURGERY: November 08, 2020. PROCEDURE PERFORMED: Phacoemulsification of cataract and intraocular lens implant of the left eye. PREOPERATIVE DIAGNOSIS: Nuclear sclerosis. POSTOPERATIVE DIAGNOSIS: Nuclear sclerosis. SURGEON: Dr. Brandt Morton. ESTIMATED BLOOD LOSS: Zero. SPECIMEN TAKEN: None. NARRATIVE: After obtaining the appropriate consent, the patient was brought to the Operating Room where the patient was placed under cardiac monitoring and prepped and draped in the usual sterile manner. At the 5 o'clock position a 15 degree super sharp blade was used to create a paracentesis followed by instillation of 1% Xylocaine MPF 50:50 mix with BSS into the anterior chamber. This was followed by Amvisc to stabilize the anterior chamber. At the 3 o'clock position a self-sealing corneal flap incision was created using 2.8 mm so keratome. A cystotome was used to initiate a continuous tear capsulorrhexis which was completed with the Utrata forceps. A Binkhorst cannula was used to hydrodissect the lens nucleus followed by hydrodelineation. Phacoemulsification of the lens was performed utilizing phaco-chop in 21.38 seconds at 30% power. The remaining cortical material was removed using the irrigation aspiration mode followed by additional 1% Xylocaine MPF into the anterior chamber followed by viscoelastic to stabilize the capsular bag. A [employer] MX60E 20.5 diopter posterior chamber lens was placed into the capsular bag without difficulty. The remaining viscoelastic material was removed from the anterior chamber with the irrigation/aspiration. Balanced salt solution was used to normalize the intraocular pressure. The incision was checked for watertight integrity. The patient then received two drops of 0.5% timolol followed by two drops Vigamox, was lightly patched and shielded in the usual manner. There were no complications from the procedure. The patient tolerated the procedure well and was returned to recovery in good condition. MMODL / IJN: [id number] /
== END 2020-11-08 09:53 | disposition home or self-care (01) ==
LOC: OR 06:43
PROVIDERS: ATTEND Ophthalmology
DX: E11.36 Type 2 diabetes mellitus with diabetic cataract (principal); H25.13 Age-related nuclear cataract, bilateral; H35.3131 Nonexudative age-related macular degeneration, bilateral, early dry stage; H01.02 Squamous blepharitis; H02.409 Unspecified ptosis of unspecified eyelid; H52.03 Hypermetropia, bilateral; I10 Essential (primary) hypertension; I25.10 Atherosclerotic heart disease of native coronary artery without angina pectoris; E78.5 Hyperlipidemia, unspecified; E03.9 Hypothyroidism, unspecified; E78.00 Pure hypercholesterolemia, unspecified; M19.90 Unspecified osteoarthritis, unspecified site; Z79.82 Long term (current) use of aspirin; Z79.84 Long term (current) use of oral hypoglycemic drugs; Z79.899 Other long term (current) drug therapy; Z79.01 Long term (current) use of anticoagulants; Z85.828 Personal history of other malignant neoplasm of skin; Z95.1 Presence of aortocoronary bypass graft; Z87.891 Personal history of nicotine dependence; Z79.890 Hormone replacement therapy
CPT/HCPCS: 66984; C1780; J2250; J0360; J0171; J3010; J2001

== ENCOUNTER 2020-11-22 06:45 | Day surgery (SDC) | payer MEDICARE, OTHER ==
[2020-11-21 09:36] VITALS: BMI 31.1
[~2020-11-22 06:45] MED LIST changes: -MOXIFLOXACIN HCL 0.5% DROPS 3 ML BTL OP PRN; -TIMOLOL 0.5% OPHTH DROPS 5 ML BTL OP PRN
[2020-11-22] MEDS ORDERED: ONDANSETRON 4 MG/2 ML VIAL IVP PRN (07:00)
[2020-11-22 07:28] VITALS: TEMP 97.8
[2020-11-22] MEDS: CYCLOPENTOLATE 1% OPHTH SOLN 2 ML BTL OP PRN ×3 (07:36→07:48)
[2020-11-22] MEDS: PHENYLEPHRINE 2.5% OPHTH DRP 2ML OP PRN ×3 (07:39→07:51)
[2020-11-22 07:46] LABS: Glucose,Whole Blood 150 mg/dL (75-99)
[2020-11-22] MEDS ORDERED: EPINEPHrine (PF) 0.3 ML in BALANCED SALT IRRIG SOLN COMB2 500 ML IRRIGATION ONE ×4 (08:08)
[2020-11-22] MEDS ORDERED: fentaNYL (PF) 50 MCG/ML 2 ML AMP ONE (08:08)
[2020-11-22] MEDS ORDERED: HYALURONATE SODIUM INTRAOCULAR 1 EACH SYRINGE (12MG/ML) INTRAOCULA ONE (08:18)
[2020-11-22] MEDS ORDERED: LIDOCAINE 1% (PF) 10MG/ML VIAL MISCELLANE ONE (08:18)
[2020-11-22] MEDS ORDERED: BALANCED SALT IRRIG SOLN COMB2 15 ML IRRIG.SOLN IRRIGATION ONE (08:18)
[2020-11-22] MEDS: TIMOLOL 0.5% OPHTH DROPS 5 ML BTL OP PRN ×2 (08:19→08:24)
[2020-11-22] MEDS: MOXIFLOXACIN HCL 0.5% DROPS 3 ML BTL OP PRN ×2 (08:20→08:24)
--- NOTE | 2020-11-22 08:28 | P.OP ---
Date of Procedure: 11/22/20 Preoperative Diagnosis: NS Postoperative Diagnosis: same Procedure(s) Performed: PIOL, OD Implants: [id number] 19.50 Anesthesia: MAC Surgeon: Brandt Morton Pathology: none sent Condition: stable Disposition: same day Indications for Procedure: blurry vision Operative Findings: no complications
[2020-11-22] MEDS ORDERED: LABETALOL SYRINGE 5 MG/ML IVP ONE (09:06)
[2020-11-22] MEDS ORDERED: LABETALOL 5 MG/ML VIAL MDV IVP ONE (09:30)
[2020-11-22] MEDS ORDERED: hydrALAZINE HCL 20 MG/ML 1 ML VIAL ONE (10:26)
[2020-11-22] MEDS ORDERED: LACTATED RINGERS 1,000 ML IV ONE (10:30)
[2020-11-22] MEDS ORDERED: hydrALAZINE HCL 20 MG/ML 1 ML VIAL IVP ONE (10:32)
[2020-11-22 10:35] VITALS: RESP 16
[2020-11-22 11:05] VITALS: BP 170/84; PULSE 61
--- NOTE | 2020-11-23 09:33 | OP ---
OPERATIVE REPORT DATE OF SURGERY: November 22, 2020. SURGEON: Dr. Brandt Morton PREOPERATIVE DIAGNOSIS: Nuclear sclerosis. POSTOPERATIVE DIAGNOSIS: Nuclear sclerosis. OPERATION: Phacoemulsification of cataract and intraocular lens implant of the right eye. ESTIMATED BLOOD LOSS: Zero. SPECIMEN TAKEN: None. NARRATIVE: After obtaining the appropriate consent, the patient was brought to the operating room where the patient was placed under cardiac monitoring and prepped and draped in the usual sterile manner. At the 11 o'clock position a 15 degree super sharp blade was used to create a paracentesis followed by instillation of 1% Xylocaine MPF 50:50 mix with BSS into the anterior chamber. This was followed by Amvisc to stabilize the anterior chamber. At the 9 o'clock position a self-sealing corneal flap incision was created using 2.8 mm so keratome. A cystotome was used to initiate a continuous tear capsulorrhexis which was completed with the Utrata forceps. A Binkhorst cannula was used to hydrodissect the lens nucleus followed by hydrodelineation. Phacoemulsification of the lens was performed utilizing phaco chop in 24.59 seconds at 24% power. The remaining cortical material was removed using the irrigation aspiration mode followed by additional 1% Xylocaine MPF into the anterior chamber followed by viscoelastic to stabilize the capsular bag. A [employer] MX60E 19.5 diopters posterior chamber lens was placed into the capsular bag without difficulty. The remaining viscoelastic material was removed from the anterior chamber with the irrigation/aspiration. Balanced salt solution was used to normalize the intraocular pressure. The incision was checked for watertight integrity. The patient then received two drops of 0.5% timolol followed by two drops Vigamox, was lightly patched and shielded in the usual manner. There were no complications from the procedure. The patient tolerated the procedure well and was returned to recovery in good condition. MMODL / IJN: [id number] /
== END 2020-11-22 11:15 | disposition home or self-care (01) ==
LOC: OR 06:45
PROVIDERS: ATTEND Ophthalmology
DX: H25.11 Age-related nuclear cataract, right eye (principal); E11.36 Type 2 diabetes mellitus with diabetic cataract; H35.3131 Nonexudative age-related macular degeneration, bilateral, early dry stage; H01.02 Squamous blepharitis; H52.03 Hypermetropia, bilateral; H04.129 Dry eye syndrome of unspecified lacrimal gland; Z98.42 Cataract extraction status, left eye; Z96.1 Presence of intraocular lens; I11.9 Hypertensive heart disease without heart failure; I10 Essential (primary) hypertension; E07.9 Disorder of thyroid, unspecified; I48.91 Unspecified atrial fibrillation; E78.5 Hyperlipidemia, unspecified; Z95.1 Presence of aortocoronary bypass graft; M19.90 Unspecified osteoarthritis, unspecified site; Z85.828 Personal history of other malignant neoplasm of skin; Z87.891 Personal history of nicotine dependence; Z83.511 Family history of glaucoma; Z82.61 Family history of arthritis; Z82.49 Family history of ischemic heart disease and other diseases of the circulatory system; Z79.01 Long term (current) use of anticoagulants; Z79.84 Long term (current) use of oral hypoglycemic drugs; Z79.82 Long term (current) use of aspirin; Z79.890 Hormone replacement therapy; Z79.899 Other long term (current) drug therapy
CPT/HCPCS: 66984; C1780; J0360; J0171; J3010; J2001

== ENCOUNTER → 2020-12-19 | Outpatient (CLI) | payer MEDICARE, OTHER ==
[2020-12-19 19:19] LABS: HCT 44.1 % (39.6-50.0); HGB 13.8 g/dL (13.0-17.0); MCH 31.3 pg (27.0-32.0); MCHC 31.3 g/dL (32.0-37.0); Mean Platelet Volume 10.9 fL (9.5-12.2); Platelet Count 295 X 10*3/uL (140-440); RBC 4.41 X 10*6/uL (4.40-5.60); RDW 14.6 % (11.5-14.5); WBC 8.79 X 10*3/uL (4.50-10.00)
[2020-12-20 00:41] LABS: African American GFR (CKD) 95.1 (60.0-200.0); Anion Gap 12.4 mmol/L (4.00-12.00); BUN/Creat Ratio 15.56 Ratio (12.00-20.00); Calcium 9.1 mg/dL (8.7-10.3); Carbon Dioxide 27.6 mmol/L (21.6-31.8); Non-African American GFR(CKD) 82.1 (60.0-200.0); Potassium 4.7 mmol/L (3.5-5.5)
== END | disposition home or self-care (01) ==
LOC: LABWHC1 11:01
PROVIDERS: ATTEND Internal Medicine Cardiovascular Disease
DX: R23.8 Other skin changes (principal)
CPT/HCPCS: 36415; 80048; 85027

== ENCOUNTER 2021-05-01 19:03 | Emergency (ER) | payer MEDICARE, OTHER ==
[2021-05-01 19:56] VITALS: BP 153/86; PULSE 74; RESP 18; TEMP 97.6
[2021-05-01] MEDS ORDERED: HYDROcodone/APAP 5-325MG 1 EACH TAB PO STA ×2 (20:20→23:03)
--- NOTE | 2021-05-01 21:39 | ED ---
General Adult HPI - General Chief complaint: Extremity Problem,Nontraumatic Stated complaint: right arm pain Time Seen by Provider: 05/01/21 20:12 Source: patient, RN notes reviewed, old records reviewed Mode of arrival: ambulatory Limitations: no limitations - History of Present Illness Initial comments: 75-year-old male presenting with arm pain. Pain began suddenly in his right forearm. There is no specific injury. He states that he did do some work around the house yesterday but nothing strenuous. No fever. No numbness. No chest pain or dyspnea. Pain is worse with any range of motion at the wrist or elbow. - Related Data Home Medications Medication Instructions Recorded Confirmed Aspirin 81 mg PO DAILY 06/17/16 05/01/21 Levothyroxine Sodium [Tirosint] 150 mcg PO DAILY 06/17/16 05/01/21 metFORMIN HCL [Glucophage] 1,000 mg PO BID 06/17/16 05/01/21 sitaGLIPtin [Januvia] 100 mg PO HS 06/17/16 05/01/21 Atorvastatin [Lipitor] 80 mg PO HS 11/06/20 05/01/21 Losartan [Cozaar] 25 mg PO DAILY 11/06/20 05/01/21 Metoprolol Succinate (ER) [Toprol 25 mg PO HS 11/06/20 05/01/21 Xl] Warfarin Sodium [Jantoven] 6 mg PO HS 11/06/20 05/01/21 Previous Rx's Medication Instructions Recorded HYDROcodone/APAP 5-325MG [Wadsworth 1 tab PO Q6HR PRN #12 tab 05/01/21 5-325] Allergies Allergy/AdvReac Type Severity Reaction Status Date / Time No Known Allergies Allergy Verified 05/01/21 20:34 Review of Systems ROS Statement: Those systems with pertinent positive or pertinent negative responses have been documented in the HPI. ROS Other: All systems not noted in ROS Statement are negative. Past Medical History Past Medical History: Atrial Fibrillation, Coronary Artery Disease (CAD), Cancer, Diabetes Mellitus, Hyperlipidemia, Hypertension, Osteoarthritis (OA), Skin Disorder, Thyroid Disorder Additional Past Medical History / Comment(s): received both Moderna covid vaccines, hx skin ca, [place] cataracts. History of Any Multi-Drug Resistant Organisms: None Reported Past Surgical History: Coronary Bypass/CABG, Joint Replacement Additional Past Surgical History / Comment(s): left cataract,[place] knee replace.,spleenectomy, left wrist CTR, ORIF rt ankle, CABG WITH HEART VALVE REPLACEMENT FEB 2020 Past Anesthesia/Blood Transfusion Reactions: No Reported Reaction Past Psychological History: No Psychological Hx Reported Smoking Status: Former smoker Past Alcohol Use History: Occasional Past Drug Use History: None Reported - Past Family History Mother Family Medical History: Congestive Heart Failure (CHF) Additional Family Medical History / Comment(s): of old age Father Family Medical History: Coronary Artery Disease (CAD) Additional Family Medical History / Comment(s): Father shot at 52 years old General Exam Limitations: no limitations General appearance: alert, in no apparent distress Head exam: Present: atraumatic, normocephalic Neck exam: Present: normal inspection. Absent: tenderness Respiratory exam: Present: normal lung sounds bilaterally. Absent: respiratory distress, wheezes Cardiovascular Exam: Present: regular rate, normal rhythm GI/Abdominal exam: Present: soft. Absent: distended, tenderness, guarding Extremities exam: Present: normal inspection, normal capillary refill, other (Normal range of motion at the elbow, on the right, normal range of motion at the wrist. No external signs of infection. There is some tenderness in the dorsum of the forearm just distal to the elbow.). Absent: pedal edema, joint swelling Course Vital Signs 05/01/21 19:53 Temperature 97.6 F Pulse Rate 74 Respiratory 18 Rate Blood Pressure 153/86 O2 Sat by Pulse 94 L Oximetry Medical Decision Making - Medical Decision Making 75-year-old male with presented with atraumatic right forearm pain. This does not appear to be infectious. Patient has some pain with range of motion but this is not in the elbow or the wrist. This is in the dorsal forearm. Distal pulses are intact. Patient's pain is improved with one W[place]sworth. Ultrasound is performed which is negative for DVT, potential to fluid collections that are suggestive of hematoma., Patient will monitor for signs of infection. Patient's INR was checked this morning and was 2.5. Patient is placed in an Kiran wrap. Will monitor pain and swelling. Return parameters for signs of compartment syndrome are discussed. Will follow with the primary care physician. Disposition Clinical Impression: Arm pain, Hematoma Disposition: HOME SELF-CARE Condition: Good Instructions (If sedation given, give patient instructions): Hematoma (ED), Arm Pain (ED) Prescriptions: HYDROcodone/APAP 5-325MG [Wadsworth 5-325] 1 tab PO Q6HR PRN #12 tab PRN Reason: Pain Is patient prescribed a controlled substance at d/c from ED?: No Referrals: Karson Jama DO [Primary Care Provider] - 1-2 days Time of Disposition: 21:59
--- NOTE | 2021-05-01 22:45 | US ---
EXAMINATION TYPE: US venous doppler duplex UE RT DATE OF EXAM: 05/01/2021 COMPARISON: NONE CLINICAL HISTORY: pain. Pain in forearm. No hx of DVT. Patient is no blood thinners. SIDE PERFORMED: Right. Right Arm: Two complex areas seen within the forearm at patient's area of concern. #1: 4.0 x 2.3 x 2. 2 cm. #2: 3.3 x 2.0 x 2.0 cm. Color flow seen in all veins imaged at this time. IJV was difficult to fully compress but does show c olor flow. All remaining veins appear to fully compress. High bifurcation of brachial veins noted. IMPRESSION: No sign of deep vein thrombosis in the right arm. There are complex masses in the forearm that could be large blood clots and hematoma.
== END 2021-05-01 23:14 | disposition home or self-care (01) ==
LOC: EC 19:03
DX: S50.11XA Contusion of right forearm, initial encounter (principal); E11.36 Type 2 diabetes mellitus with diabetic cataract; I10 Essential (primary) hypertension; I25.10 Atherosclerotic heart disease of native coronary artery without angina pectoris; I48.91 Unspecified atrial fibrillation; E78.5 Hyperlipidemia, unspecified; M19.90 Unspecified osteoarthritis, unspecified site; Z79.01 Long term (current) use of anticoagulants; Z79.82 Long term (current) use of aspirin; Z79.84 Long term (current) use of oral hypoglycemic drugs; Z79.899 Other long term (current) drug therapy; Z87.891 Personal history of nicotine dependence; Z95.1 Presence of aortocoronary bypass graft; Z85.828 Personal history of other malignant neoplasm of skin; Z82.49 Family history of ischemic heart disease and other diseases of the circulatory system; X58.XXXA Exposure to other specified factors, initial encounter
CPT/HCPCS: 99283

== ENCOUNTER 2021-06-10 09:56 | Inpatient (IN) | payer MEDICARE, OTHER ==
[2021-06-10] MEDS ORDERED: ACETAMINOPHEN TAB 500 MG TAB PO STA (10:27)
[2021-06-10] MEDS ORDERED: ALBUTEROL HFA INHALER INHALATION STA (10:27)
[2021-06-10] MEDS ORDERED: ACETAMINOPHEN TAB 500 MG TAB PO PRN (10:27)
[2021-06-10] MEDS ORDERED: ALBUTEROL HFA INHALER INHALATION PRN (10:27)
--- NOTE | 2021-06-10 10:32 | ED ---
General Adult HPI - General Chief complaint: Shortness of Breath Stated complaint: SOB, congestion Time Seen by Provider: 06/10/21 10:13 Source: patient, family, RN notes reviewed Mode of arrival: ambulatory Limitations: physical limitation - History of Present Illness Initial comments: Patient is a pleasant 75-year-old male presenting to the emergency Department with cough and difficulty in breathing. Onset of symptoms was around a week ago. Temperature this morning was a little bit higher than normal, 98.7. Patient does have cough with yellow/green productive sputum. Mild shortness of breath. No leg pain or leg swelling. No chest pain. Patient has been vaccinated. No vomiting or diarrhea. - Related Data Home Medications Medication Instructions Recorded Confirmed Levothyroxine Sodium [Tirosint] 150 mcg PO DAILY 06/17/16 06/10/21 metFORMIN HCL [Glucophage] 1,000 mg PO BID 06/17/16 06/10/21 sitaGLIPtin [Januvia] 100 mg PO HS 06/17/16 06/10/21 Atorvastatin [Lipitor] 80 mg PO HS 11/06/20 06/10/21 Losartan [Cozaar] 25 mg PO DAILY 11/06/20 06/10/21 Metoprolol Succinate (ER) [Toprol 25 mg PO HS 11/06/20 06/10/21 Xl] Warfarin Sodium [Jantoven] 6 mg PO SUTUWETHFRSA 11/06/20 06/10/21 Warfarin Sodium [Jantoven] 3 mg PO MO 06/10/21 06/10/21 Allergies Allergy/AdvReac Type Severity Reaction Status Date / Time No Known Allergies Allergy Verified 06/10/21 11:14 Review of Systems ROS Statement: Those systems with pertinent positive or pertinent negative responses have been documented in the HPI. ROS Other: All systems not noted in ROS Statement are negative. Constitutional: Reports: as per HPI ENT: Denies: ear pain Respiratory: Reports: cough, dyspnea Cardiovascular: Denies: chest pain Endocrine: Denies: fatigue Gastrointestinal: Denies: abdominal pain Genitourinary: Denies: dysuria Musculoskeletal: Denies: back pain Skin: Denies: rash Neurological: Denies: weakness Past Medical History Past Medical History: Atrial Fibrillation, Coronary Artery Disease (CAD), Cancer, Diabetes Mellitus, Hyperlipidemia, Hypertension, Osteoarthritis (OA), Skin Disorder, Thyroid Disorder Additional Past Medical History / Comment(s): hx skin ca, [place] cataracts. History of Any Multi-Drug Resistant Organisms: None Reported Past Surgical History: Coronary Bypass/CABG, Joint Replacement Additional Past Surgical History / Comment(s): left cataract,[place] knee replace.,spleenectomy, left wrist CTR, ORIF rt ankle, CABG WITH HEART VALVE REPLACEMENT FEB 2020 Past Anesthesia/Blood Transfusion Reactions: No Reported Reaction Past Psychological History: No Psychological Hx Reported Smoking Status: Former smoker Past Alcohol Use History: Occasional Past Drug Use History: None Reported - Past Family History Mother Family Medical History: Congestive Heart Failure (CHF) Additional Family Medical History / Comment(s): of old age Father Family Medical History: Coronary Artery Disease (CAD) Additional Family Medical History / Comment(s): Father shot at 52 years old General Exam Limitations: physical limitation General appearance: alert, in no apparent distress Head exam: Present: normocephalic Eye exam: Present: normal appearance Neck exam: Present: normal inspection Respiratory exam: Present: wheezes (Mild expiratory). Absent: respiratory distress Cardiovascular Exam: Present: regular rate, normal rhythm GI/Abdominal exam: Present: soft. Absent: tenderness Extremities exam: Present: normal inspection. Absent: pedal edema, calf tenderness Neurological exam: Present: alert Psychiatric exam: Present: normal affect, normal mood Skin exam: Present: normal color Course Vital Signs 06/10/21 06/10/21 06/10/21 10:02 10:53 12:07 Temperature 99.4 F 98.4 F Pulse Rate 109 H 96 Respiratory 22 18 18 Rate Blood Pressure 182/95 111/73 O2 Sat by Pulse 94 L 97 Oximetry - Reevaluation(s) Reevaluation #1: 06/10/21 10:29 Pulse ox 95% on room 06/10/21 12:48 Patient does meet sepsis criteria diagnosed at 1240. Severe sepsis. Blood culture and lactic acid and IV antibiotics have all been ordered. EKG Findings - EKG Comments: EKG Findings:: Irregular rhythm with a rate of 99. QRS 1:30. QT 364. QTC 467. Left axis. Nonspecific intraventricular block. No acute ST change. Septal Q waves. Medical Decision Making - Medical Decision Making Patient reevaluated. Patient and family updated. Case was discussed with Dr. Zeng, who will admit covering Dr. Mariano. - Lab Data Result diagrams: 06/10/21 10:21 12/12/21 10:21 Lab Results 06/10/21 06/10/21 06/10/21 Range/Units 10:21 10:21 10:21 WBC 15.6 H (3.8-10.6) k/uL RBC 4.73 (4.30-5.90) m/uL Hgb 15.1 (13.0-17.5) gm/dL Hct 46.6 (39.0-53.0) % MCV 98.6 (80.0-100.0) fL MCH 32.1 (25.0-35.0) pg MCHC 32.5 (31.0-37.0) g/dL RDW 14.3 (11.5-15.5) % Plt Count 280 (150-450) k/uL MPV 7.6 Neutrophils % 87 % Lymphocytes % 5 % Monocytes % 6 % Eosinophils % 1 % Basophils % 0 % Neutrophils # 13.5 H (1.3-7.7) k/uL Lymphocytes # 0.8 L (1.0-4.8) k/uL Monocytes # 0.9 (0-1.0) k/uL Eosinophils # 0.1 (0-0.7) k/uL Basophils # 0.0 (0-0.2) k/uL PT 20.5 H (9.0-12.0) sec INR 2.1 H (<1.2) APTT 33.1 H (22.0-30.0) sec Sodium 133 L (137-145) mmol/L Potassium 4.1 (3.5-5.1) mmol/L Chloride 94 L (98-107) mmol/L Carbon Dioxide 27 (22-30) mmol/L Anion Gap 12 mmol/L BUN 10 (9-20) mg/dL Creatinine 0.70 (0.66-1.25) mg/dL Est GFR (CKD-EPI)AfAm >90 (>60 ml/min/1.73 sqM) Est GFR (CKD-EPI)NonAf >90 (>60 ml/min/1.73 sqM) Glucose 223 H (74-99) mg/dL Plasma Lactic Acid Dave (0.7-2.0) mmol/L Calcium 9.1 (8.4-10.2) mg/dL Magnesium 1.9 (1.6-2.3) mg/dL Total Bilirubin 1.9 H (0.2-1.3) mg/dL AST 54 (17-59) U/L ALT 35 (4-49) U/L Alkaline Phosphatase 152 H (38-126) U/L Lactate Dehydrogenase 772 H (313-618) U/L C-Reactive Protein 19.9 H (<1.0) mg/dL NT-Pro-B Natriuret Pep pg/mL Total Protein 8.1 (6.3-8.2) g/dL Albumin 4.2 (3.5-5.0) g/dL Influenza Type A (PCR) (Not Detectd) Influenza Type B (PCR) (Not Detectd) RSV (PCR) (Not Detectd) SARS-CoV-2 (PCR) (Not Detectd) 06/10/21 06/10/21 06/10/21 Range/Units 10:21 10:21 10:49 WBC (3.8-10.6) k/uL RBC (4.30-5.90) m/uL Hgb (13.0-17.5) gm/dL Hct (39.0-53.0) % MCV (80.0-100.0) fL MCH (25.0-35.0) pg MCHC (31.0-37.0) g/dL RDW (11.5-15.5) % Plt Count (150-450) k/uL MPV Neutrophils % % Lymphocytes % % Monocytes % % Eosinophils % % Basophils % % Neutrophils # (1.3-7.7) k/uL Lymphocytes # (1.0-4.8) k/uL Monocytes # (0-1.0) k/uL Eosinophils # (0-0.7) k/uL Basophils # (0-0.2) k/uL PT (9.0-12.0) sec INR (<1.2) APTT (22.0-30.0) sec Sodium (137-145) mmol/L Potassium (3.5-5.1) mmol/L Chloride (98-107) mmol/L Carbon Dioxide (22-30) mmol/L Anion Gap mmol/L BUN (9-20) mg/dL Creatinine (0.66-1.25) mg/dL Est GFR (CKD-EPI)AfAm (>60 ml/min/1.73 sqM) Est GFR (CKD-EPI)NonAf (>60 ml/min/1.73 sqM) Glucose (74-99) mg/dL Plasma Lactic Acid Dave 2.2 H* (0.7-2.0) mmol/L Calcium (8.4-10.2) mg/dL Magnesium (1.6-2.3) mg/dL Total Bilirubin (0.2-1.3) mg/dL AST (17-59) U/L ALT (4-49) U/L Alkaline Phosphatase (38-126) U/L Lactate Dehydrogenase (313-618) U/L C-Reactive Protein (<1.0) mg/dL NT-Pro-B Natriuret Pep 4740 pg/mL Total Protein (6.3-8.2) g/dL Albumin (3.5-5.0) g/dL Influenza Type A (PCR) Not Detected (Not Detectd) Influenza Type B (PCR) Not Detected (Not Detectd) RSV (PCR) Not Detected (Not Detectd) SARS-CoV-2 (PCR) Not Detected (Not Detectd) - Radiology Data Radiology results: image reviewed (Chest x-ray shows right lower lobe airspace opacities with some scattered fine subtle opacity, correlate for atypical pneumonia. Suspected small pleural effusions.) Critical Care Time Critical Care Time: Yes Total Critical Care Time: 32 Disposition Clinical Impression: Pneumonia, Severe sepsis Disposition: ADMITTED IP TO THIS [facility] Condition: Serious Is patient prescribed a controlled substance at d/c from ED?: No Referrals: Karson Jama DO [Primary Care Provider] - 1-2 days Decision Time: 12:38
[2021-06-10 10:53] LABS: Basophils % (A) 0 %; Eosinophils # (A) 0.1 k/uL (0-0.7); Eosinophils % (A) 1 %; HCT 46.6 % (39.0-53.0); HGB 15.1 gm/dL (13.0-17.5); Lymphocytes # (A) 0.8 k/uL (1.0-4.8); Lymphocytes % (A) 5 %; MCH 32.1 pg (25.0-35.0); MCHC 32.5 g/dL (31.0-37.0); MCV 98.6 fL (80.0-100.0); Mean Platelet Volume 7.6; Monocytes # (A) 0.9 k/uL (0-1.0); Monocytes % (A) 6 %; Neutrophils # (A) 13.5 k/uL (1.3-7.7); Neutrophils % (A) 87 %; Platelet Count 280 k/uL (150-450); RBC 4.73 m/uL (4.30-5.90); RDW 14.3 % (11.5-15.5); WBC 15.6 k/uL (3.8-10.6)
[2021-06-10 11:05] LABS: INR 2.1 (<1.2); Partial Thromboplastin Time 33.1 sec (22.0-30.0); Prothrombin Time 20.5 sec (9.0-12.0)
--- NOTE | 2021-06-10 11:07 | XR ---
EXAMINATION TYPE: XR chest 1V portable DATE OF EXAM: 06/10/2021 11:00 AM COMPARISON:Chest radiographs from 10/31/20 CLINICAL INDICATION:Male, 75 years old with history of Suspected COVID-19 pneumonia; TECHNIQUE: Portable AP radiograph of the chest.. FINDINGS: Lungs/Pleura: Consolidation like changes in the right lower lobe as well as scattered fine subtle haz y opacities are present. No evidence of pneumothorax. Blunting of the right costophrenic angle. Pulmonary vascularity: Unremarkable. Heart/mediastinum: Cardiomediastinal silhouette is enlarged and stable. Musculoskeletal: No acute osseous pathology. Sternotomy wires. IMPRESSION: 1. Scattered airspace opacities are most pronounced in the right lower lobe concerning for atypical p neumonia. 2. Suspected small pleural effusions.
[2021-06-10 11:16] LABS: ALT 35 U/L (4-49)
[2021-06-10 11:34] LABS: AST 54 U/L (17-59); African American GFR (CKD) >90 (>60 ml/min/1.73 sqM); Albumin 4.2 g/dL (3.5-5.0); Alkaline Phosphatase 152 U/L (38-126); Anion Gap 12 mmol/L; Blood Urea Nitrogen 10 mg/dL (9-20); Calcium 9.1 mg/dL (8.4-10.2); Carbon Dioxide 27 mmol/L (22-30); Chloride 94 mmol/L (98-107); Glucose 223 mg/dL (74-99); LDH 772 U/L (313-618); Magnesium 1.9 mg/dL (1.6-2.3); Non-African American GFR(CKD) >90 (>60 ml/min/1.73 sqM); Potassium 4.1 mmol/L (3.5-5.1); Sodium 133 mmol/L (137-145); Total Bilirubin 1.9 mg/dL (0.2-1.3); Total Protein 8.1 g/dL (6.3-8.2)
[2021-06-10 11:54] LABS: C Reactive Protein 19.9 mg/dL (<1.0)
[2021-06-10] MEDS ORDERED: AZITHROMYCIN 500 MG in SODIUM CHLORIDE 0.9% 250 ML IVPB STA (12:38)
[2021-06-10] MEDS ORDERED: IPRATROPIUM-ALBUTEROL 3 ML NEB INHALATION PRN (12:38)
[2021-06-10] MEDS ORDERED: PNEUMONIA PROTOCOL UTILIZED 1 EACH MISC PO PRN (12:38)
[2021-06-10] MEDS: SODIUM CHLORIDE 0.9% 1,000 ML IV SCH ×2 (13:07→21:57)
[2021-06-10] MEDS: ALBUTEROL HFA INHALER INHALATION SCH ×2 (15:44→20:35)
[2021-06-10 17:46] LABS: Glucose,Whole Blood 138 mg/dL (75-99)
[2021-06-10] MEDS: INSULIN ASPART (NovoLOG) 100 UNIT/ML VIAL SQ SCH ×2 (17:46→21:56)
[2021-06-10] MEDS: metFORMIN 500 MG TAB PO SCH (17:49)
[2021-06-10] MEDS ORDERED: WARFARIN 3 MG TAB PO SCH (18:00)
[2021-06-10 20:39] LABS: Glucose,Whole Blood 179 mg/dL (75-99)
[2021-06-10] MEDS: ATORVASTATIN 80 MG TAB PO SCH (21:56)
[2021-06-10] MEDS: LINAGLIPTIN 5 MG TABLET PO SCH (21:56)
[2021-06-10] MEDS: METOPROLOL SUCCINATE (ER) 25 MG TAB.ER.24H PO SCH (21:56)
[2021-06-11] MEDS: ALBUTEROL HFA INHALER INHALATION SCH ×4 (00:22→20:07)
[2021-06-11] MEDS: LEVOTHYROXINE 75 MCG TAB PO SCH (05:30)
[2021-06-11 05:45] LABS: INR 2.3 (<1.2); Prothrombin Time 22.6 sec (9.0-12.0)
[2021-06-11 08:00] LABS: Glucose,Whole Blood 127 mg/dL (75-99)
[2021-06-11] MEDS: INSULIN ASPART (NovoLOG) 100 UNIT/ML VIAL SQ SCH ×4 (08:08→20:36)
--- NOTE | 2021-06-11 08:21 | XR ---
EXAMINATION TYPE: XR chest 2V DATE OF EXAM: 06/11/2021 COMPARISON: Chest x-ray 06/10/2021 HISTORY: Pneumonia, cough TECHNIQUE: Frontal and lateral views of the chest are obtained. FINDINGS: Bibasilar increased attenuation shows a similar appearance, this blunting the costophrenic angles. Cardiac mediastinal silhouette is stable accounting for differences in technique, patient is post median sternotomy. Aorta is dense. Apical pleural thickening is noted on the right. There is th oracic spondylosis. IMPRESSION: Findings are similar to prior exam, there may be basilar atelectasis versus pneumonia, a ssociated effusions.
[2021-06-11] MEDS: metFORMIN 500 MG TAB PO SCH ×2 (08:45→17:47)
[2021-06-11] MEDS: AZITHROMYCIN 500 MG TAB PO SCH (08:45)
[2021-06-11] MEDS: SODIUM CHLORIDE 0.9% 1,000 ML IV SCH ×2 (08:45→20:35)
[2021-06-11] MEDS ORDERED: LOSARTAN 25 MG TAB PO SCH (09:00)
[2021-06-11 12:18] LABS: Glucose,Whole Blood 299 mg/dL (75-99)
--- NOTE | 2021-06-11 13:18 | P.HPIM ---
History of Present Illness H&P Date: 06/11/21 HISTORY OF PRESENT ILLNESS This is a 75-year-old male patient of Dr. Jama, Dr. Rojo and Dr. Danielle Lee with past medical history of hypertension, hyperlipidemia, chronic atrial fibrillation on Coumadin for anticoagulation, severe aortic valve stenosis status post aortic valve replacement, triple-vessel coronary artery disease with left main disease status post CABG 4 vessels, ischemic cardiomyopathy with ejection fraction of 45%, hypothyroidism, diabetes mellitus type 2, skin cancer, daily alcohol use, history of splenectomy status post fall. Patient presents wi th complaints of cough with yellow and green sputum production and shortness of breath. He denies any fever or chills. Symptoms started about 1 week ago. Patient was found to be afebrile, heart rate 109, respiratory rate 22, blood pressure 182/95. EKG was atrial fibrillation. WBC 15.6, hemoglobin 15.1, platelet count 280. Sodium 133, potassium 4.1, chloride 94, CO2 27, BUN 10 and creatinine 0.7. Blood sugar 223. INR 2.1. Magnesium 1.9. Total bilirubin 1.9, AST 54, ALT 35, alkaline phosphatase 152. LDH 772. C-reactive protein 19.9. Lactic acid 2.2. ProBNP 4740. Influenza A, influenza B, RSV, SARS Covid 2 PCR not detected Chest x-ray 06/10 reveals scattered airspace opacities most pronounced in the right lower lobe concerning for atypical pneumonia. Suspected small pleural ef fusions. Chest x-ray 06/11 reveals similar findings, basilar atelectasis versus pneumonia, associated effusions. [facility], started on ceftriaxone and azithromycin was well as albuterol inhaler, consult with pulmonary medicine. REVIEW OF SYSTEMS Constitutional: No fever, no chills, no night sweats. No weight change. No weakness, fatigue or lethargy. No daytime sleepiness. EENT: No headache. No blurred vision or double vision, no loss of vision. No loss of Hearing, no ringing in the ears, no dizziness. No nasal drainage or congestion. No epistaxis. No sore throat. Lungs: Reports shortness of breath, reports cough, reports sputum production. Reports wheezing. Cardiovascular: No chest pain, no lower extremity edema. No palpitations. No paroxysmal nocturnal dyspnea. No orthopnea. No lightheadedness or dizziness. No syncopal episodes. Abdominal: No abdominal pain. No nausea, vomiting. No diarrhea. No constipation. No bloody or tarry stools. No loss of appetite. Genitourinary: No dysuria, increased frequency, urgency. No urinary retention. Musculoskeletal: No myalgias. No muscle weakness, no gait dysfunction, no f requent falls. No back pain. No neck pain. Integumentary: No wounds, no lesions. No rash or pruritus. No unusual bruising. No change in hair or nails. Neurologic: No aphasia. No facial droop. No change in mentation. No head injury. No headache. No paralysis. No paresthesia. Psychiatric: No depression. No anxiety. No mood swings. Endocrine: No abnormal blood sugars. No weight change. No excessive sweating or thirst. No cold intolerance. SOCIAL HISTORY Patient smoked briefly only in his 20s. He drinks 3-4 beers daily. He denies having any withdrawal symptoms when he stops. He lives at home with his . FAMILY HISTORY Father was a secretary of police and at age 52 when he was shot. Mother at age 86 from heart failure. Patient does not have any siblings. He has 2 adopted children. No biological children. PHYSICAL EXAMINATION Gen: This is a 75-year-old male, he is resting in bed and appears to be comfortable and in no acute distress. HEENT: Head is atraumatic, normocephalic. Pupils equal, round. Sclerae is anicteric. NECK: Supple. No JVD. No lymphadenopathy. No thyromegaly. LUNGS: Clear to auscultation. No wheezes or rhonchi. No intercostal retractions. No accessory muscle usage. HEART: Irregular rate and rhythm. No murmur. ABDOMEN: Soft. Bowel sounds are present. No masses. No tenderness. EXTREMITIES: No pedal edema. No calf tenderness. Dorsalis pedis palpable bilaterally. NEUROLOGICAL: Patient is awake, alert and oriented x3. Cranial nerves 2 through 12 are grossly intact. ASSESSMENT AND PLAN 1. Sepsis secondary to right lower lobe pneumonia. Consult with pulmonary medicine, continue a azithromycin 500 mg daily, ceftriaxone 2 g IV piggyback daily, DuoNeb treatments every 4 hours as needed, albuterol inhaler as needed, IV fluids at 100 mL per hour. 2. Hypertension. Continue losartan 25 mg daily. 3. Hyperlipidemia. Continue atorvastatin 80 mg at bedtime. 4. Chronic atrial fibrillation. Continue Coumadin, pharmacy is dosing, continue Toprol-XL 25 mg at bedtime. 5. History of severe aortic valve stenosis status post aortic valve replacement, stable. 6. Triple-vessel coronary artery disease with left main status post CABG 4. 7. Ischemic cardiomyopathy with EF of 45. 8. Diabetes mellitus type 2. Continue try gentle 5 mg at bedtime, metformin 1000 mg twice daily, patient will be started on NovoLog scale before meals and at bedtime. 9. Hypothyroidism. Continue levothyroxine 150 g daily. 10. Daily alcohol use. Monitor closely for DTs/withdrawal symptoms. 11. GI prophylaxis. Protonix. 12. DVT prophylaxis. Coumadin. 13. COVID-19 testing negative. Patient has been hospitalized during a jacqueline parisa. Patient will be admitted to the hospital for a minimum of 2 night stay. DISCHARGE PLAN Home. Impression and plan of care have been directed as dictated by the signing physician. Zully Soto nurse practitioner acting as scribe for signing physician. Past Medical History Past Medical History: Atrial Fibrillation, Coronary Artery Disease (CAD), Cancer, Diabetes Mellitus, Hyperlipidemia, Hypertension, Osteoarthritis (OA), Skin Disorder, Thyroid Disorder Additional Past Medical History / Comment(s): hx skin ca, [place] cataracts. History of Any Multi-Drug Resistant Organisms: None Reported Past Surgical History: Coronary Bypass/CABG, Joint Replacement Additional Past Surgical History / Comment(s): left cataract,[place] knee repl elvia.,spleenectomy, left wrist CTR, ORIF rt ankle,4 vessel CABG WITH HEART VALVE REPLACEMENT FEB 2020 Past Anesthesia/Blood Transfusion Reactions: No Reported Reaction Past Psychological History: No Psychological Hx Reported Smoking Status: Former smoker Past Alcohol Use History: Occasional Additional Past Alcohol Use History / Comment(s): QUIT SMOKING IN EARLY 60'S., SMOKED 1 PPD. Drinks 2-3 beers every day Past Drug Use History: None Reported - Past Family History Mother Family Medical History: Congestive Heart Failure (CHF) Additional Family Medical History / Comment(s): of old age Father Family Medical History: Coronary Artery Disease (CAD) Additional Family Medical History / Comment(s): Father shot at 52 years old Medications and Allergies Home Medications Medication Instructions Recorded Confirmed Type Levothyroxine Sodium [Tirosint] 150 mcg PO DAILY 06/17/16 06/10/21 History metFORMIN HCL [Glucophage] 1,000 mg PO BID 06/17/16 06/10/21 History sitaGLIPtin [Januvia] 100 mg PO HS 06/17/16 06/10/21 History Atorvastatin [Lipitor] 80 mg PO HS 11/06/20 06/10/21 History Losartan [Cozaar] 25 mg PO DAILY 11/06/20 06/10/21 History Metoprolol Succinate (ER) [Toprol 25 mg PO HS 11/06/20 06/10/21 History Xl] Warfarin Sodium [Jantoven] 6 mg PO SUTUWETHFRSA 11/06/20 06/10/21 History Warfarin Sodium [Jantoven] 3 mg PO MO 06/10/21 06/10/21 History Allergies Allergy/AdvReac Type Severity Reaction Status Date / Time No Known Allergies Allergy Verified 06/10/21 11:14 Physical Exam Vitals: Vital Signs Temp Pulse Pulse Resp BP BP BP 06/11/21 08:38 101 H 06/11/21 07:00 97.9 F 101 H 18 167/82 06/11/21 03:01 99.4 F 98 16 142/84 06/11/21 02:00 16 06/10/21 20:31 98.6 F 103 H 16 145/79 06/10/21 20:00 93 16 06/10/21 15:00 98.6 F 93 16 153/88 06/10/21 13:40 84 20 126/80 06/10/21 12:07 98.4 F 96 18 111/73 06/10/21 10:53 18 06/10/21 10:02 99.4 F 109 H 22 182/95 Pulse Ox 06/11/21 08:38 06/11/21 07:00 97 06/11/21 03:01 95 06/11/21 02:00 06/10/21 20:31 96 06/10/21 20:00 06/10/21 15:00 96 06/10/21 13:40 94 L 06/10/21 12:07 97 06/10/21 10:53 06/10/21 10:02 94 L Intake and Output 06/10/21 06/11/21 06/11/21 22:59 06:59 14:59 Intake Total 180 Balance 180 Intake: Oral 180 Other: # Voids 3 3 Results CBC & Chem 7: 06/10/21 10:21 06/10/21 10:21 Labs: Abnormal Lab Results - Last 24 Hours (Table) 06/10/21 06/10/21 06/10/21 Range/Units 10:21 10:21 10:21 WBC 15.6 H (3.8-10.6) k/uL Neutrophils # 13.5 H (1.3-7.7) k/uL Lymphocytes # 0.8 L (1.0-4.8) k/uL PT 20.5 H (9.0-12.0) sec INR 2.1 H (<1.2) APTT 33.1 H (22.0-30.0) sec Sodium 133 L (137-145) mmol/L Chloride 94 L (98-107) mmol/L Glucose 223 H (74-99) mg/dL POC Glucose (mg/dL) (75-99) mg/dL Plasma Lactic Acid Dave (0.7-2.0) mmol/L Ferritin 694.0 H (22.0-322.0) ng/mL Total Bilirubin 1.9 H (0.2-1.3) mg/dL Alkaline Phosphatase 152 H (38-126) U/L Lactate Dehydrogenase 772 H (313-618) U/L C-Reactive Protein 19.9 H (<1.0) mg/dL Procalcitonin (0.02-0.09) ng/mL 06/10/21 06/10/21 06/10/21 Range/Units 10: 10:40 17:45 WBC (3.8-10.6) k/uL Neutrophils # (1.3-7.7) k/uL Lymphocytes # (1.0-4.8) k/uL PT (9.0-12.0) sec INR (<1.2) APTT (22.0-30.0) sec Sodium (137-145) mmol/L Chloride (98-107) mmol/L Glucose (74-99) mg/dL POC Glucose (mg/dL) 138 H (75-99) mg/dL Plasma Lactic Acid Dave 2.2 H* (0.7-2.0) mmol/L Ferritin (22.0-322.0) ng/mL Total Bilirubin (0.2-1.3) mg/dL Alkaline Phosphatase (38-126) U/L Lactate Dehydrogenase (313-618) U/L C-Reactive Protein (<1.0) mg/dL Procalcitonin 0.10 H (0.02-0.09) ng/mL 06/10/21 06/11/21 06/11/21 Range/Units 20:37 04:58 07:48 WBC (3.8-10.6) k/uL Neutrophils # (1.3-7.7) k/uL Lymphocytes # (1.0-4.8) k/uL PT 22.6 H (9.0-12.0) sec INR 2.3 H (<1.2) APTT (22.0-30.0) sec Sodium (137-145) mmol/L Chloride (98-107) mmol/L Glucose (74-99) mg/dL POC Glucose (mg/dL) 179 H 127 H (75-99) mg/dL Plasma Lactic Acid Dave (0.7-2.0) mmol/L Ferritin (22.0-322.0) ng/mL Total Bilirubin (0.2-1.3) mg/dL Alkaline Phosphatase (38-126) U/L Lactate Dehydrogenase (313-618) U/L C-Reactive Protein (<1.0) mg/dL Procalcitonin (0.02-0.09) ng/mL Thrombosis Risk Factor Assmnt - Choose All That Apply Any of the Below Risk Factors Present?: Yes Each Factor Represents 1 point: Obesity (BMI >25), Swollen legs (current) Other Risk Factors: Yes Each Risk Factor Represents 3 Points: Age 75 years or older, Family history of DVT/PE Thrombosis Risk Factor Assessment Total Risk Factor Score: 8 Thrombosis Risk Factor Assessment Level: High Risk
--- NOTE | 2021-06-11 14:13 | P.CNPUL ---
History of Present Illness Consult date: 06/11/21 Requesting physician: Dino Iyer Reason for consult: dyspnea Chief complaint: Dyspnea, cough History of present illness: 75-year-old white male patient of Dr. Jama with past medical history of COPD, history of smoking, in remission, hypertension, hyperlipidemia, chronic A. fib on Coumadin, hypothyroidism, type 2 diabetes mellitus, previous history of splenectomy, coronary artery disease and severe aortic stenosis, status post four-vessel coronary artery bypass grafting and bioprosthetic aortic valve replacement in February [address] Harris. Patient states ever since his surgery he has had persistent cough, and in the last few days he also developed wheezing, he is still coughing, but denied any fever or chills. He feels short of breath with exertion. He came into the emergency department on 06/10/2021 for evaluation. His cough is productive with yellow and greenish colored sputum. Mildly short of breath, but no acute distress. No leg pain or swelling. No chest pain. Patient is status post completed COVID-19 vaccination. he tested negative for COVID-19. His chest x-ray in the emergency department shows scattered airspace opacities most pronounced in the right lower lobe and suspected small pleural effusions. Admission blood work has been reviewed, his white blood cell count was 15.6, hemoglobin was 15.1, his INR is 2.1, sodium is 133, potassium is 4.1, chloride is 94, his BUN was 10, creatinine 0.7, lactic acid is 2.2, his ferritin level was 694, AST and ALT were within normal limits, alk phos was mildly elevated to 152, LDH was 772, CRP was 19.9, his proBNP was elevated to 4740, pro-calcitonin level was negative at 0.10, influenza RSV PCR were negative. Patient was started on empiric antibiotics in the form of azithromycin and Rocephin for possibility of atypical or committee acquired pneumonia, he is breathing comfortably right now, has a cough, but no acute distress. Room air pulse ox is 97%, -7 stable, has been afebrile overnight. Review of Systems All systems: negative Constitutional: Denies chills, Denies fever Eyes: denies blurred vision, denies pain Ears, nose, mouth and throat: Denies headache, Denies sore throat Cardiovascular: Denies chest pain, Denies shortness of breath Respiratory: Reports cough with sputum, Reports dyspnea, Reports wheezing, Denies cough Gastrointestinal: Denies abdominal pain, Denies diarrhea, Denies nausea, Denies vomiting Musculoskeletal: Denies myalgias Integumentary: Denies pruritus, Denies rash Neurological: Denies numbness, Denies weakness Psychiatric: Denies anxiety, Denies depression Endocrine: Denies fatigue, Denies weight change Past Medical History Past Medical History: Atrial Fibrillation, Coronary Artery Disease (CAD), Cance r, Diabetes Mellitus, Hyperlipidemia, Hypertension, Osteoarthritis (OA), Skin Disorder, Thyroid Disorder Additional Past Medical History / Comment(s): hx skin ca, [place] cataracts. History of Any Multi-Drug Resistant Organisms: None Reported Past Surgical History: Coronary Bypass/CABG, Joint Replacement Additional Past Surgical History / Comment(s): left cataract,[place] knee replace.,spleenectomy, left wrist CTR, ORIF rt ankle,4 vessel CABG WITH HEART VALVE REPLACEMENT FEB 2020 Past Anesthesia/Blood Transfusion Reactions: No Reported Reaction Past Psychological History: No Psychological Hx Reported Smoking Status: Former smoker Past Alcohol Use History: Occasional Additional Past Alcohol Use History / Comment(s): QUIT SMOKING IN EARLY 60'S., SMOKED 1 PPD. Drinks 2-3 beers every day Past Drug Use History: None Reported - Past Family History Mother Family Medical History: Congestive Heart Failure (CHF) Additional Family Medical History / Comment(s): of old age Father Family Medical History: Coronary Artery Disease (CAD) Additional Family Medical History / Comment(s): Father shot at 52 years old Medications and Allergies Home Medications Medication Instructions Recorded Confirmed Type Levothyroxine Sodium [Tirosint] 150 mcg PO DAILY 06/17/16 06/10/21 History metFORMIN HCL [Glucophage] 1,000 mg PO BID 06/17/16 06/10/21 History sitaGLIPtin [Januvia] 100 mg PO HS 06/17/16 06/10/21 History Atorvastatin [Lipitor] 80 mg PO HS 11/06/20 06/10/21 History Losartan [Cozaar] 25 mg PO DAILY 11/06/20 06/10/21 History Metoprolol Succinate (ER) [Toprol 25 mg PO HS 11/06/20 06/10/21 History Xl] Warfarin Sodium [Jantoven] 6 mg PO SUTUWETHFRSA 11/06/20 06/10/21 History Warfarin Sodium [Jantoven] 3 mg PO MO 06/10/21 06/10/21 History Allergies Allergy/AdvReac Type Severity Reaction Status Date / Time No Known Allergies Allergy Verified 06/10/21 11:14 Physical Exam Vitals: Vital Signs Temp Pulse Resp BP BP Pulse Ox 06/11/21 08:38 101 H 06/11/21 07:00 97.9 F 101 H 18 167/82 97 06/11/21 03:01 99.4 F 98 16 142/84 95 06/11/21 02:00 16 06/10/21 20:31 98.6 F 103 H 16 145/79 96 06/10/21 20:00 93 16 06/10/21 15:00 98.6 F 93 16 153/88 96 Intake and Output 06/10/21 06/11/21 06/11/21 22:59 06:59 14:59 Intake Total 180 240 Balance 180 240 Intake: Oral 180 240 Other: # Voids 3 3 3 GENERAL EXAM: Alert, very pleasant, 75-year-old white male, on room air with a pulse ox of 97% comfortable in no apparent distress. HEAD: Normocephalic/atraumatic. EYES: Normal reaction of pupils, equal size. Conjunctiva pink, sclera white. NOSE: Clear with pink turbinates. THROAT: No erythema or exudates. NECK: No masses, no JVD, no thyroid enlargement, no adenopathy. CHEST: No chest wall deformity. Symmetrical expansion. LUNGS: Equal air entry with decreased breath sounds, with bilateral crackles and a few rhonchi. CVS: Regular rate and rhythm, normal S1 and S2, no gallops, no murmurs, no rubs ABDOMEN: Soft, nontender. No hepatosplenomegaly, normal bowel sounds, no guarding or rigidity. EXTREMITIES: No clubbing, no edema, no cyanosis, 2+ pulses and upper and lower extremities. MUSCULOSKELETAL: Muscle strength and tone normal. SPINE: No scoliosis or deformity SKIN: No rashes CENTRAL NERVOUS SYSTEM: Alert and oriented -3. No focal deficits, tone is normal in all 4 extremities. PSYCHIATRIC: Alert and oriented -3. Appropriate affect. Intact judgment and insight. Results - Laboratory Findings CBC and BMP: 06/10/21 10:21 06/10/21 10:21 PT/INR, D-dimer PT 22.6 sec (9.0-12.0) H 06/11/21 04:58 INR 2.3 (<1.2) H 06/11/21 04:58 Abnormal lab findings: Abnormal Labs 06/10/21 06/10/21 06/10/21 10:21 10:21 10:21 WBC 15.6 H Neutrophils # 13.5 H Lymphocytes # 0.8 L PT 20.5 H INR 2.1 H APTT 33.1 H Sodium 133 L Chloride 94 L Glucose 223 H POC Glucose (mg/dL) Plasma Lactic Acid Dave Ferritin 694.0 H Total Bilirubin 1.9 H Alkaline Phosphatase 152 H Lactate Dehydrogenase 772 H C-Reactive Protein 19.9 H Procalcitonin 06/10/21 06/10/21 06/10/21 10:21 10:40 17:45 WBC Neutrophils # Lymphocytes # PT INR APTT Sodium Chloride Glucose POC Glucose (mg/dL) 138 H Plasma Lactic Acid Dave 2.2 H* Ferritin Total Bilirubin Alkaline Phosphatase Lactate Dehydrogenase C-Reactive Protein Procalcitonin 0.10 H 06/10/21 06/11/21 06/11/21 20:37 04:58 07:48 WBC Neutrophils # Lymphocytes # PT 22.6 H INR 2.3 H APTT Sodium Chloride Glucose POC Glucose (mg/dL) 179 H 127 H Plasma Lactic Acid Dave Ferritin Total Bilirubin Alkaline Phosphatase Lactate Dehydrogenase C-Reactive Protein Procalcitonin 06/11/21 12:15 WBC Neutrophils # Lymphocytes # PT INR APTT Sodium Chloride Glucose POC Glucose (mg/dL) 299 H Plasma Lactic Acid Dave Ferritin Total Bilirubin Alkaline Phosphatase Lactate Dehydrogenase C-Reactive Protein Procalcitonin - Diagnostic Findings Chest x-ray: report reviewed, image reviewed Additional studies: EKG reviewed Assessment and Plan Plan: Assessment: #1. Shortness of breath, related to acute exacerbation of COPD, possibility of right lower lobe pneumonia and and small pleural effusions. COVID-19 PCR was negative #2. Chronic CHF with previously documented systolic dysfunction, proBNP is elevated but clinically patient seems to be euvolemic #3. History of coronary artery disease and severe aortic stenosis, status post four-vessel coronary artery bypass grafting surgery and bioprosthetic aortic valve replacement in February 2020 #4. Remote history of smoking #5. History of COPD, not oxygen dependent at baseline, preoperative FEV1 was 59% of predicted prior to bypass and valve surgery in 2020, consistent with stage 3 COPD #6. Chronic atrial fibrillation on Coumadin #7. Diabetes mellitus type 2 #8. Osteoarthritis with history of bilateral knee replacements #9. Previous history of splenectomy Plan: Continue with current antibiotic coverage patient is on a combination of azithromycin and Rocephin Chest x-ray has been reviewed, the findings are consistent with possible underlying pneumonia, and small pleural effusions Send a sputum culture Pro calcitonin level has been noted Clinically patient is breathing cough with, he does have a persistent cough, we will offer some cough syrup, and add prednisone 30 mg Continue Coumadin, daily PT/INR Continue nebulized bronchodilators We'll continue his clinical course I performed a history & physical examination of the patient and discussed their management with my nurse practitioner, Angela Latham. I reviewed the nurse practitioner's note and agree with the documented findings and plan of care. Lung sounds are positive for dim breath sounds throughout the lung santizo. The findings and the impression was discussed with the patient. I attest to the documentation by the nurse practitioner. Time with Patient: Greater than 30
[2021-06-11 17:32] LABS: Glucose,Whole Blood 91 mg/dL (75-99)
[2021-06-11] MEDS ORDERED: WARFARIN 3 MG TAB PO SCH (18:00)
[2021-06-11 20:03] LABS: Glucose,Whole Blood 136 mg/dL (75-99)
[2021-06-11] MEDS: METOPROLOL SUCCINATE (ER) 25 MG TAB.ER.24H PO SCH (20:39)
[2021-06-11] MEDS: LINAGLIPTIN 5 MG TABLET PO SCH (20:39)
[2021-06-12] MEDS: SODIUM CHLORIDE 0.9% 1,000 ML IV SCH (04:06)
[2021-06-12] MEDS: LEVOTHYROXINE 75 MCG TAB PO SCH (05:46)
[2021-06-12 05:57] LABS: INR 2.5 (<1.2); Prothrombin Time 24.2 sec (9.0-12.0)
[2021-06-12] MEDS ORDERED: PANTOPRAZOLE 40 MG TABLET PO SCH (07:30)
[2021-06-12 07:32] LABS: Glucose,Whole Blood 139 mg/dL (75-99)
[2021-06-12 07:36] VITALS: BP 176/87; PULSE 99; RESP 18; TEMP 98.3
[2021-06-12] MEDS: metFORMIN 500 MG TAB PO SCH (08:14)
[2021-06-12] MEDS: AZITHROMYCIN 500 MG TAB PO SCH (08:14)
[2021-06-12] MEDS: INSULIN ASPART (NovoLOG) 100 UNIT/ML VIAL SQ SCH (08:15)
[2021-06-12] MEDS ORDERED: LOSARTAN 50 MG TAB PO SCH (09:00)
--- NOTE | 2021-06-12 11:37 | P.DS ---
Providers Date of admission: 06/11/21 10:05 Expected date of discharge: 06/12/21 Attending physician: Amarjit Zeng Consults: 06/10/21 13:33 Consult Physician Urgent Consulting Provider: Lani Rojo Reason/Comments: dyspnea Do you want consulting provider notified?: Yes Primary care physician: [facility] Course: HISTORY OF PRESENT ILLNESS This is a 75-year-old male patient of Dr. Jama, Dr. Rojo and Dr. Danielle Lee with past medical history of hypertension, hyperlipidemia, chronic atrial fibrillation on Coumadin for anticoagulation, severe aortic valve stenosis status post aortic valve replacement, triple-vessel coronary artery disease with left main disease status post CABG 4 vessels, ischemic cardiomyopathy with ejection fraction of 45%, hypothyroidism, diabetes mellitus type 2, skin cancer, daily alcohol use, history of splenectomy status post fall. Patient presents with complaints of cough with yellow and green sputum production and shortness of breath. He denies any fever or chills. Symptoms started about 1 week ago. Patient was found to be afebrile, heart rate 109, respiratory rate 22, blood pressure 182/95. EKG was atrial fibrillation. WBC 15.6, hemoglobin 15.1, platelet count 280. Sodium 133, potassium 4.1, chloride 94, CO2 27, BUN 10 and creatinine 0.7. Blood sugar 223. INR 2.1. Magnesium 1.9. Total bilirubin 1.9, AST 54, ALT 35, alkaline phosphatase 152. LDH 772. C-reactive protein 19.9. Lactic acid 2.2. ProBNP 4740. Influenza A, influenza B, RSV, SARS Covid 2 PCR not detected Chest x-ray 06/10 reveals scattered airspace opacities most pronounced in the right lower lobe concerning for atypical pneumonia. Suspected small pleural effusions. Chest x-ray 06/11 reveals similar findings, basilar atelectasis versus pneumonia, associated effusions. Patient admitted to the MedSurg floor, started on ceftriaxone and azithromycin was well as albuterol inhaler, consult with pulmonary medicine. 06/12: Patient has been seen by pulmonary medicine and cough syrup and prednisone added. Patient's breathing status is stable. Repeat chest x-ray reveals He has been afebrile, heart rate 99, blood pressure 176/87, pulse ox 95% on room air. Losartan will be increased to 50 mg daily. INR is 2.5. Pharmacy is dosing Coumadin. Blood sugars running between 91 and 139. Patient has been seen by pulmonary medicine and cleared for discharge. He will be discharged discharged home today in stable condition. DISCHARGE DIAGNOSES 1. Sepsis secondary to right lower lobe pneumonia. 2. Hypertension. 3. Hyperlipidemia. 4. Chronic atrial fibrillation. 5. History of severe aortic valve stenosis status post aortic valve replacement, stable. 6. Triple-vessel coronary artery disease with left main status post CABG 4. 7. Ischemic cardiomyopathy with EF of 45%. 8. Diabetes mellitus type 2. 9. Hypothyroidism. 10. Daily alcohol use. 11. COVID-19 testing negative. Patient has been hospitalized during a pandemic. DISCHARGE PLAN Home. Impression and plan of care have been directed as dictated by the signing physic ian. Zully Soto nurse practitioner acting as scribe for signing physician. Patient Condition at Discharge: Good Plan - Discharge Summary New Discharge Prescriptions: New Amoxicillin/Potassium Clav [Augmentin 875-125 Tablet] 1 tab PO BID 5 Days #10 tab Losartan [Cozaar] 50 mg PO DAILY #30 tab Continue sitaGLIPtin [Januvia] 100 mg PO HS metFORMIN HCL [Glucophage] 1,000 mg PO BID Levothyroxine Sodium [Tirosint] 150 mcg PO DAILY Warfarin Sodium [Jantoven] 3 mg PO MO Atorvastatin [Lipitor] 80 mg PO HS Metoprolol Succinate (ER) [Toprol XL] 25 mg PO HS Warfarin Sodium [Jantoven] 6 mg PO SUTUWETHFRSA Discontinued Losartan [Cozaar] 25 mg PO DAILY Discharge Medication List Levothyroxine Sodium [Tirosint] 150 mcg PO DAILY 06/17/16 [History] metFORMIN HCL [Glucophage] 1,000 mg PO BID 06/17/16 [History] sitaGLIPtin [Januvia] 100 mg PO HS 06/17/16 [History] Atorvastatin [Lipitor] 80 mg PO HS 11/06/20 [History] Metoprolol Succinate (ER) [Toprol XL] 25 mg PO HS 11/06/20 [History] Warfarin Sodium [Jantoven] 6 mg PO SUTUWETHFRSA 11/06/20 [History] Warfarin Sodium [Jantoven] 3 mg PO MO 06/10/21 [History] Amoxicillin/Potassium Clav [Augmentin 875-125 Tablet] 1 tab PO BID 5 Days #10 tab 06/12/21 [Rx] Losartan [Cozaar] 50 mg PO DAILY #30 tab 06/12/21 [Rx] Follow up Appointment(s)/Referral(s): Lani Rojo MD [STAFF PHYSICIAN] - 07/04/21 1:45 pm Karson Jama DO [Primary Care Provider] - 1 Week Patient Instructions/Handouts: Pneumonia (DC) Discharge Disposition: HOME SELF-CARE
--- NOTE | 2021-06-12 12:07 | P.PN ---
Subjective Progress Note Date: 06/12/21 75-year-old white male patient of Dr. Jama with past medical history of COPD, history of smoking, in remission, hypertension, hyperlipidemia, chronic A. fib on Coumadin, hypothyroidism, type 2 diabetes mellitus, previous history of splenectomy, coronary artery disease and severe aortic stenosis, status post four-vessel coronary artery bypass grafting and bioprosthetic aortic valve replacement in February [address] Harris. Patient states ever since his surgery he has had persistent cough, and in the last few days he also developed wheezing, he is still coughing, but denied any fever or chills. He feels short of breath with exertion. He came into the emergency department on 06/10/2021 f or evaluation. His cough is productive with yellow and greenish colored sputum. Mildly short of breath, but no acute distress. No leg pain or swelling. No chest pain. Patient is status post completed COVID-19 vaccination. he tested negative for COVID-19. His chest x-ray in the emergency department shows scattered airspace opacities most pronounced in the right lower lobe and suspected small pleural effusions. Admission blood work has been reviewed, his white blood cell count was 15.6, hemoglobin was 15.1, his INR is 2.1, sodium is 133, potassium is 4.1, chloride is 94, his BUN was 10, creatinine 0.7, lactic acid is 2.2, his ferritin level was 694, AST and ALT were within normal limits, alk phos was mildly elevated to 152, LDH was 772, CRP was 19.9, his proBNP was elevated to 4740, pro-calcitonin level was negative at 0.10, influenza RSV PCR were negative. Patient was started on empiric antibiotics in the form of azithromycin and Rocephin for possibility of atypical or committee acquired pneumonia, he is breathing comfortably right now, has a cough, but no acute distress. Room air pulse ox is 97%, -7 stable, has been afebrile overnight. The patient is seen today 06/12/2021 in follow-up on the regular medical floor. He is currently sitting up in a chair at the bedside. Awake and alert in no acute distress. Maintaining good O2 saturations in the 90s on room air. He's afebrile. Somewhat hypertensive. Blood cultures reveal no growth. Sputum cultures revealed no growth. INR 2.5. Blood glucose 139. He remains on bronchodilators, ceftriaxone. Anticoagulated with warfarin. Objective - Vital Signs Vital signs: Vital Signs Temp 98.3 F 06/12/21 07:00 Pulse 99 06/12/21 07:00 Resp 18 06/12/21 07:00 BP 176/87 06/12/21 07:00 Pulse Ox 95 06/12/21 07:00 Intake & Output 06/11/21 06/12/21 06/12/21 18:59 06:59 18:59 Intake Total 480 Output Total 0 Balance 480 0 Intake: Oral 480 Output: Emesis 0 Other: # Voids 3 2 - Exam GENERAL EXAM: Alert, very pleasant 75 year old gentleman, on room air, comfortable in no apparent distress. HEAD: Normocephalic. EYES: Normal reaction of pupils, equal size. NOSE: Clear with pink turbinates. THROAT: No erythema or exudates. NECK: No masses, no JVD. CHEST: No chest wall deformity. LUNGS: Equal air entry with faint crackles in the posterior bases. CVS: S1 and S2 normal with no audible murmur, regular rhythm. ABDOMEN: No hepatosplenomegaly, normal bowel sounds, no guarding or rigidity. SPINE: No scoliosis or deformity SKIN: No rashes CENTRAL NERVOUS SYSTEM: No focal deficits, tone is normal in all 4 extremities. EXTREMITIES: There is no peripheral edema. No clubbing, no cyanosis. Peripheral pulses are intact. - Labs CBC & Chem 7: 06/10/21 10:21 06/10/21 10:21 Labs: Abnormal Lab Results - Last 24 Hours (Table) 06/11/21 06/11/21 06/12/21 Range/Units 12:15 20:02 05:08 PT 24.2 H (9.0-12.0) sec INR 2.5 H (<1.2) POC Glucose (mg/dL) 299 H 136 H (75-99) mg/dL 06/12/21 Range/Units 07:30 PT (9.0-12.0) sec INR (<1.2) POC Glucose (mg/dL) 139 H (75-99) mg/dL Microbiology - Last 24 Hours (Table) 06/10/21 22:00 Gram Stain - Preliminary Sputum Sputum Culture - Preliminary 06/10/21 10:21 Blood Culture - Preliminary Blood No Growth after 24 hours 06/10/21 10:38 Blood Culture - Preliminary Blood No Growth after 24 hours Assessment and Plan Assessment: 1 Shortness of breath, related to acute exacerbation of COPD, possibility of right lower lobe pneumonia and and small pleural effusions. COVID-19 PCR was negative 2 Chronic CHF with previously documented systolic dysfunction, proBNP is elevated but clinically patient seems to be euvolemic 3 History of coronary artery disease and severe aortic stenosis, status post four-vessel coronary artery bypass grafting surgery and bioprosthetic aortic valve replacement in February 2020 4 Remote history of smoking 5 History of COPD, not oxygen dependent at baseline, preoperative FEV1 was 59% of predicted prior to bypass and valve surgery in 2019, consistent with stage 3 COPD 6 Chronic atrial fibrillation on Coumadin 7 Diabetes mellitus type 2 8 Osteoarthritis with history of bilateral knee replacements 9 Previous history of splenectomy Plan: The patient was seen and evaluated Stable for discharge from the pulmonary standpoint Follow up with Dr. Rojo in 1-2 weeks' I, the cosigning physician, performed a history & physical examination of the patient. Lungs sounds with faint crackles in the posterior bases. Maintaining good O2 saturations in the 90s on room air. I discussed the assessment and plan of care with my nurse practitioner, Christina Musa. I attest to the above note as dictated by her.
[2021-06-12] MEDS ORDERED: WARFARIN 2 MG TAB PO ONE (18:00)
[2021-06-13] MEDS ORDERED: WARFARIN 3 MG TAB PO SCH (18:00)
== END 2021-06-12 12:10 | disposition home or self-care (01) | DRG 871 ==
LOC: EC 09:56 → 6NMEDSUR 13:15 → OBSVTOIN 06-11 10:05
PROVIDERS: ADMIT Internal Medicine Geriatric Medicine; ATTEND Internal Medicine Geriatric Medicine
DX: A41.9 Sepsis, unspecified organism (principal); J18.9 Pneumonia, unspecified organism; I48.20 Chronic atrial fibrillation, unspecified; I50.22 Chronic systolic (congestive) heart failure; J44.0 Chronic obstructive pulmonary disease with (acute) lower respiratory infection; J44.1 Chronic obstructive pulmonary disease with (acute) exacerbation; J90 Pleural effusion, not elsewhere classified; Z20.822 Contact with and (suspected) exposure to COVID-19; E03.9 Hypothyroidism, unspecified; E11.9 Type 2 diabetes mellitus without complications; E78.5 Hyperlipidemia, unspecified; I11.0 Hypertensive heart disease with heart failure; I25.10 Atherosclerotic heart disease of native coronary artery without angina pectoris; I25.5 Ischemic cardiomyopathy; I35.0 Nonrheumatic aortic (valve) stenosis; M19.90 Unspecified osteoarthritis, unspecified site; R65.20 Severe sepsis without septic shock; Z79.01 Long term (current) use of anticoagulants; Z79.84 Long term (current) use of oral hypoglycemic drugs; Z79.890 Hormone replacement therapy; Z79.899 Other long term (current) drug therapy; Z85.828 Personal history of other malignant neoplasm of skin; Z87.891 Personal history of nicotine dependence; Z90.81 Acquired absence of spleen; Z95.1 Presence of aortocoronary bypass graft; Z95.3 Presence of xenogenic heart valve; Z96.653 Presence of artificial knee joint, bilateral; Z82.49 Family history of ischemic heart disease and other diseases of the circulatory system
CPT/HCPCS: 36415; 71045; 71046; 80053; 82728; 83605; 83615; 83735; 83880; 84145; 85025; 85610; 85730; 86140; 87040; 87070; 87205; 87636; 93005; 94640; 99291

== ENCOUNTER → 2021-07-19 | Outpatient (CLI) | payer MEDICARE, OTHER ==
[2021-07-19 13:56] LABS: African American GFR (CKD) >90 (>60 ml/min/1.73 sqM); Blood Urea Nitrogen 12 mg/dL (9-20); Non-African American GFR(CKD) >90 (>60 ml/min/1.73 sqM)
--- NOTE | 2021-07-19 14:41 | CT ---
EXAMINATION TYPE: CT chest w con DATE OF EXAM: 07/19/2021 COMPARISON: Chest x-ray July 04, 2021 and studies HISTORY: SOB CT DLP: 480.8 mGycm. Automated Exposure Control for Dose Reduction was Utilized. TECHNIQUE: CT scan of the thorax is performed following with IV Contrast, patient injected with 100 mL of Isovue 300. FINDINGS: LUNGS: Small to tiny right greater left pleural effusions with associated right lower lung compressiv e atelectasis. There is small to tiny nonsimple left-sided pleural fluid collection towards the lingu la with associated compressive atelectasis. Mild to moderate linear scarring posterior right upper to midlung coronal image 75 is present. Mild to moderate bibasilar linear scarring and atelectasis is s een. No suspicious focal consolidation. MEDIASTINUM: There are no greater than 1 cm hilar or mediastinal lymph nodes. No pericardial effusi on is seen. Mild cardiomegaly. Inferior epicardial pacer wires are seen. There is overlying sternal wires along with left atrial appendage clip. Mediastinal clips from [employer] harvesting are present. Enla rged main pulmonary artery is 3.8 cm axial image 29 raises concern for underlying pulmonary artery hy pertension. Calcification at level of the mitral valve with metallic aortic valve. Moderate to severe right greater than left biatrial dilatation. Some reflux of contrast into IVC and hepatic veins sugg ests degree of right heart failure. Aanm-in-mjasnehj peripheral calcified plaque in the aorta. OTHER: Calcified gallstones completely filled contracted gallbladder. Moderate multilevel spurring in the lumbar spine. Surgical changes epigastric region extending towards the anterior left upper quadr ant. IMPRESSION: Mild cardiomegaly with moderate to severe right greater than left biatrial dilatation. Carmona ggestion of underlying pulmonary hypertension and right heart failure. Small to tiny right greater th an left pleural effusions are suggestive of mild CHF exacerbation. Correlate clinically.
== END | disposition home or self-care (01) ==
LOC: RADCTMAIN 13:16
PROVIDERS: ATTEND Internal Medicine Critical Care Medicine
DX: I51.7 Cardiomegaly (principal); J90 Pleural effusion, not elsewhere classified
CPT/HCPCS: 82565; 84520; 71260; 36415; Q9967

== ENCOUNTER 2021-11-08 09:46 | Inpatient (IN) | payer MEDICARE, OTHER ==
[2021-11-08 12:02] LABS: Basophils # (A) 0.2 k/uL (0-0.2); Basophils % (A) 2 %; Eosinophils % (A) 0 %; HCT 45.9 % (39.0-53.0); HGB 14.6 gm/dL (13.0-17.5); Lymphocytes # (A) 0.5 k/uL (1.0-4.8); Lymphocytes % (A) 5 %; MCH 30.3 pg (25.0-35.0); MCHC 31.7 g/dL (31.0-37.0); MCV 95.6 fL (80.0-100.0); Mean Platelet Volume 7.9; Monocytes # (A) 1.2 k/uL (0-1.0); Monocytes % (A) 13 %; Neutrophils # (A) 6.9 k/uL (1.3-7.7); Neutrophils % (A) 76 %; Platelet Count 251 k/uL (150-450); RDW 13.9 % (11.5-15.5); WBC 9.1 k/uL (3.8-10.6)
--- NOTE | 2021-11-08 12:14 | XR ---
EXAMINATION TYPE: XR chest 2V DATE OF EXAM: 11/08/2021 COMPARISON: 11/06/2021 TECHNIQUE: PA and lateral views submitted. HISTORY: Shortness of breath FINDINGS: Postsurgical change with bilateral consolidation and pleural effusion. Right apical pleural thickenin g noted. The heart is enlarged. Hyperinflation suggests COPD. Hypertrophic and degenerative change of the spine. There is an epicardial lead. Surgical change in the abdomen. IMPRESSION: 1. COPD with bilateral infiltrate and pleural effusion stable. Correlate for pneumonia otherwise cons ider CHF.
[2021-11-08 12:26] LABS: ALT 16 U/L (4-49); African American GFR (CKD) >90 (>60 ml/min/1.73 sqM); Albumin 4.1 g/dL (3.5-5.0); Anion Gap 9 mmol/L; Blood Urea Nitrogen 10 mg/dL (9-20); Calcium 8.5 mg/dL (8.4-10.2); Carbon Dioxide 26 mmol/L (22-30); Chloride 96 mmol/L (98-107); Glucose 142 mg/dL (74-99); Non-African American GFR(CKD) 89 (>60 ml/min/1.73 sqM); Sodium 131 mmol/L (137-145); Total Bilirubin 1.2 mg/dL (0.2-1.3); Total Protein 7.9 g/dL (6.3-8.2)
[2021-11-08 12:29] LABS: AST 41 U/L (17-59); Alkaline Phosphatase 83 U/L (38-126); Potassium 4.7 mmol/L (3.5-5.1)
[2021-11-08 12:34] LABS: INR 1.8 (<1.2); Prothrombin Time 18.6 sec (9.0-12.0)
--- NOTE | 2021-11-08 12:42 | ED ---
General Adult HPI - General Chief complaint: Shortness of Breath Stated complaint: SOB Time Seen by Provider: 11/08/21 11:30 Source: patient, family, RN notes reviewed, old records reviewed Mode of arrival: ambulatory Limitations: no limitations - History of Present Illness Initial comments: Patient is a 75-year-old male with past medical history remarkable for cardiac bypass, atrial fibrillation on Coumadin, diabetes, hypertension who presents emergency Department with progressive worsening shortness of breath. He is having a nonproductive cough. Positive for orthopnea. Denies any worsening lower extremity edema. Does have chronic right lower extremity edema which is unchanged. Endorses mild PND. States he is sleeping now sleeping up in a chair. States he has been adjusting his Coumadin medication as he did have a supratherapeutic INR recently. Denies any history of blood clots. Denies any abdominal pain, nausea, vomiting. Denies any fevers or chills. Denies any sick contacts. Presents over concern for the shortness of breath as well as the nonproductive cough. Denies any chest pain. - Related Data Home Medications Medication Instructions Recorded Confirmed metFORMIN HCL [Glucophage] 1,000 mg PO BID 06/17/16 11/08/21 sitaGLIPtin [Januvia] 100 mg PO DAILY 06/17/16 11/08/21 Atorvastatin [Lipitor] 80 mg PO HS 11/06/20 11/08/21 Metoprolol Succinate (ER) [Toprol 25 mg PO HS 11/06/20 11/08/21 XL] Warfarin Sodium [Jantoven] 6 mg PO HS 11/06/20 11/08/21 Levothyroxine Sodium [Synthroid] 137 mcg PO DAILY 11/08/21 11/08/21 Previous Rx's Medication Instructions Recorded Losartan [Cozaar] 50 mg PO DAILY #30 tab 06/12/21 Allergies Allergy/AdvReac Type Severity Reaction Status Date / Time No Known Allergies Allergy Verified 11/08/21 12:44 Review of Systems ROS Statement: Those systems with pertinent positive or pertinent negative responses have been documented in the HPI. Review of Systems: CONST: Denies fever EYES: Denies blurry vision ENT: Denies nasal congestion C/V: Denies Chest pain RESP: Endorses shortness of breath GI: Denies abdominal pain : Denies dysuria SKIN: Denies rash. MSK: Denies joint pain. NEURO: Denies headache ROS Other: All systems not noted in ROS Statement are negative. Past Medical History Past Medical History: Atrial Fibrillation, Coronary Artery Disease (CAD), Cancer, Diabetes Mellitus, Hyperlipidemia, Hypertension, Osteoarthritis (OA), Skin Disorder, Thyroid Disorder Additional Past Medical History / Comment(s): hx skin ca, [place] cataracts. History of Any Multi-Drug Resistant Organisms: None Reported Past Surgical History: Coronary Bypass/CABG, Joint Replacement Additional Past Surgical History / Comment(s): left cataract,[place] knee replace.,spleenectomy, left wrist CTR, ORIF rt ankle,4 vessel CABG WITH HEART VALVE REPLACEMENT FEB 2020 Past Anesthesia/Blood Transfusion Reactions: No Reported Reaction Past Psychological History: No Psychological Hx Reported Smoking Status: Former smoker Past Alcohol Use History: Occasional Past Drug Use History: None Reported - Past Family History Mother Family Medical History: Congestive Heart Failure (CHF) Additional Family Medical History / Comment(s): of old age Father Family Medical History: Coronary Artery Disease (CAD) Additional Family Medical History / Comment(s): Father shot at 52 years old General Exam - General Exam Comments Initial Comments: General: Appears in no acute distress. HEAD: Normal with no signs of head trauma. EYES: PERRLA, EOMI, conjunctiva normal, no discharge. ENT: Hearing grossly intact, normal oropharynx. RESPIRATORY: Clear breath sounds bilaterally. No wheezes, rales, or rhonchi. No increased work of breathing. Intermittent hypoxia on room air down to 92- 95%. C/V: Irregular rate and rhythm. S1 and S2 auscultated. No obvious pitting edema. Peripheral pulses 2+ and intact throughout. ABD: Abd is soft, nontender, nondistended EXT: Normal range of motion, no obvious deformity SKIN: No rashes or lesions observed on exposed skin. NEURO: Alert and oriented 4. No focal deficits. Limitations: no limitations Course Vital Signs 11/08/21 11/08/21 10:34 14:04 Temperature 99.7 F H Pulse Rate 95 82 Respiratory 20 16 Rate Blood Pressure 137/86 132/82 O2 Sat by Pulse 95 95 Oximetry Medical Decision Making - Medical Decision Making Filipena patient's presentation and physical exam, I am concerned for possible cardiopulmonary etiology for his current symptoms. Therefore we will obtain a cardiac workup. I cannot rule out pulmonary embolus and at this time, particularly with him adjusting his Coumadin levels. D-dimer as well as INR be obtained in addition to cardiac labs. He was in agreement this plan. EKG shows chronic findings with no acute signs of ischemia. INR is mildly subtherapeutic 1.8. D-dimer is elevated to 4.5. Patient's troponin is indeterminate at 0.025. BNP is elevated to 4100. Covid is not detected. Chest x-ray reveals bilateral findings concerning for pulmonary vascular congestion. Vital signs remained within normal limits and stable. Discussed the findings with him. Due to his elevated d-dimer did recommend that we obtain a chest CT angiogram. He was in agreement this plan. CT PE revealed no signs of pulmonary embolism. There are findings consistent with heart failure exacerbation as well as small bilateral pleural effusions. I spoke with the admitting team, Dr. Zeng who accepted the patient. Patient was therefore admitted to a telemetry bed in stable condition. We'll continue IV Lasix as well as obtain an echo and a cardiology consult. On Coumadin will be restarted. - Lab Data Result diagrams: 11/08/21 11:40 11/08/21 11:40 Lab Results 11/08/21 11/08/21 11/08/21 Range/Units 11:40 11:40 11:40 WBC 9.1 (3.8-10.6) k/uL RBC 4.80 (4.30-5.90) m/uL Hgb 14.6 (13.0-17.5) gm/dL Hct 45.9 (39.0-53.0) % MCV 95.6 (80.0-100.0) fL MCH 30.3 (25.0-35.0) pg MCHC 31.7 (31.0-37.0) g/dL RDW 13.9 (11.5-15.5) % Plt Count 251 (150-450) k/uL MPV 7.9 Neutrophils % 76 % Lymphocytes % 5 % Monocytes % 13 % Eosinophils % 0 % Basophils % 2 % Neutrophils # 6.9 (1.3-7.7) k/uL Lymphocytes # 0.5 L (1.0-4.8) k/uL Monocytes # 1.2 H (0-1.0) k/uL Eosinophils # 0.0 (0-0.7) k/uL Basophils # 0.2 (0-0.2) k/uL PT 18.6 H (9.0-12.0) sec INR 1.8 H (<1.2) D-Dimer 4.50 H (<0.60) mg/L FEU Sodium 131 L (137-145) mmol/L Potassium 4.7 (3.5-5.1) mmol/L Chloride 96 L (98-107) mmol/L Carbon Dioxide 26 (22-30) mmol/L Anion Gap 9 mmol/L BUN 10 (9-20) mg/dL Creatinine 0.74 (0.66-1.25) mg/dL Est GFR (CKD-EPI)AfAm >90 (>60 ml/min/1.73 sqM) Est GFR (CKD-EPI)NonAf 89 (>60 ml/min/1.73 sqM) Glucose 142 H (74-99) mg/dL Calcium 8.5 (8.4-10.2) mg/dL Total Bilirubin 1.2 (0.2-1.3) mg/dL AST 41 (17-59) U/L ALT 16 (4-49) U/L Alkaline Phosphatase 83 (38-126) U/L Troponin I (0.000-0.034) ng/mL NT-Pro-B Natriuret Pep pg/mL Total Protein 7.9 (6.3-8.2) g/dL Albumin 4.1 (3.5-5.0) g/dL Coronavirus (PCR) (Not Detectd) 11/08/21 11/08/21 11/08/21 Range/Units 11:40 11:42 11:47 WBC (3.8-10.6) k/uL RBC (4.30-5.90) m/uL Hgb (13.0-17.5) gm/dL Hct (39.0-53.0) % MCV (80.0-100.0) fL MCH (25.0-35.0) pg MCHC (31.0-37.0) g/dL RDW (11.5-15.5) % Plt Count (150-450) k/uL MPV Neutrophils % % Lymphocytes % % Monocytes % % Eosinophils % % Basophils % % Neutrophils # (1.3-7.7) k/uL Lymphocytes # (1.0-4.8) k/uL Monocytes # (0-1.0) k/uL Eosinophils # (0-0.7) k/uL Basophils # (0-0.2) k/uL PT (9.0-12.0) sec INR (<1.2) D-Dimer (<0.60) mg/L FEU Sodium (137-145) mmol/L Potassium (3.5-5.1) mmol/L Chloride (98-107) mmol/L Carbon Dioxide (22-30) mmol/L Anion Gap mmol/L BUN (9-20) mg/dL Creatinine (0.66-1.25) mg/dL Est GFR (CKD-EPI)AfAm (>60 ml/min/1.73 sqM) Est GFR (CKD-EPI)NonAf (>60 ml/min/1.73 sqM) Glucose (74-99) mg/dL Calcium (8.4-10.2) mg/dL Total Bilirubin (0.2-1.3) mg/dL AST (17-59) U/L ALT (4-49) U/L Alkaline Phosphatase (38-126) U/L Troponin I 0.025 (0.000-0.034) ng/mL NT-Pro-B Natriuret Pep 4170 pg/mL Total Protein (6.3-8.2) g/dL Albumin (3.5-5.0) g/dL Coronavirus (PCR) Not Detected (Not Detectd) - EKG Data -: EKG Interpreted by Me EKG Comments: 12-lead Electrocardiogram Interpretation Note EKG was reviewed and interpreted by myself. 12-lead ECG performed at 1109 is interpreted by me as revealing atrial fibrillation with left bundle-branch block that is chronic at a rate of 88 beats per minute. Criders is normal. MS interval is unobtainable, QRS duration is 136 ms, QTc is 422 ms.. There were no ST or T wave abnormalities to suggest myocardial ischemia or injury. R wave progression across the precordium was satisfactory. By my interpretation this EKG is non-di agnostic for acute ischemia. It does show a chronic left bundle branch block with atrial fibrillation. Similar to prior EKGs. Disposition Clinical Impression: Dyspnea, CHF exacerbation, Subtherapeutic international normalized ratio (INR), Atrial fibrillation, History of heart bypass surgery, Pleural effusion Disposition: ADMITTED IP TO THIS HOSP Condition: Stable Referrals: Karson Jama DO [Primary Care Provider] - 1-2 days Time of Disposition: 14:00
[2021-11-08] MEDS ORDERED: FUROSEMIDE 10 MG/ML 4 ML VIAL IV STA (13:30)
[2021-11-08] MEDS ORDERED: NALOXONE 0.4 MG/ML 1 ML VIAL IV PRN (15:43)
--- NOTE | 2021-11-08 15:43 | CT ---
EXAMINATION TYPE: CT chest angio for PE DATE OF EXAM: 11/08/2021 COMPARISON: Radiograph 11/08/[address] 07/19/2021 HISTORY: 75 year old male shortness of breath, elevated d-dimer, concern for PE. TECHNIQUE: Contiguous axial scanning of the chest performed with IV Contrast, patient injected with 1 00 mL of Isovue 370. Coronal/sagittal MIP reconstructions performed. CT DLP: 399.4 mGycm Automated exposure control for dose reduction was used. FINDINGS: Median sternotomy wires are present with prosthetic aortic valve. Post-CABG are also demonstrated. R etained epicardial pacer leads. Heart mildly enlarged. There is enlargement of the right atrium and reflux of contrast into the hepat ic veins and IVC. Moderate prostatic calcifications aortic arch with conventional arch was a branch a natomy.. Prominent subcarinal lymph node measuring 1.7 cm. Otherwise, no obvious thoracic lymphadenopathy. Large caliber to the main right and left pulmonary arteries 3.2 and 2.5 cm, respectively, suggesting underlying pulmonary artery hypertension. There is diffuse breathing motion artifact. No large central or definite lobar branch pulmonary embol us is seen. Many of the segmental and more distal arterial branches are essentially nondiagnostic due to the degree of breathing motion. [id number] bilateral pleural effusions have increased in the interval. Adjacent atelectasis is noted on both sides. Visualized upper abdomen shows no gross abnormal body. Bones: DISH in the lower thoracic spine. IMPRESSION: 1. THE PATIENT IS BREATHING THROUGH THE SCAN. NO LARGE CENTRAL PULMONARY EMBOLUS AND NO DEFINITE LOBA R BRANCH PULMONARY EMBOLUS. MANY OF THE SEGMENTAL AND MORE DISTAL ARTERIAL BRANCHES ARE ESSENTIALLY N ONDIAGNOSTIC AND EMBOLI IN THESE LOCATIONS CANNOT BE EXCLUDED ON THE BASIS OF THIS EXAM. 2. MILD CARDIOMEGALY. THERE IS DILATATION OF THE RIGHT SIDE OF THE HEART ALONG WITH PULMONARY ARTERIA L HYPERTENSION. CONSIDER CHF WITH ELEVATED LEFT HEART PRESSURES AN ETIOLOGY. 3. [id number] BILATERAL PLEURAL EFFUSIONS HAVE INCREASED IN THE INTERVAL. THERE IS PROMINENT A DJACENT ATELECTASIS.
[2021-11-08] MEDS ORDERED: ASPIRIN 325 MG TAB PO STA (15:46)
[2021-11-08] MEDS: ATORVASTATIN 80 MG TAB PO SCH (20:13)
[2021-11-08] MEDS: METOPROLOL SUCCINATE (ER) 25 MG TAB.ER.24H PO SCH (20:13)
[2021-11-08] MEDS: FUROSEMIDE 10 MG/ML 4 ML VIAL IV SCH (20:13)
[2021-11-08] MEDS: WARFARIN 3 MG TAB PO SCH (20:13)
[2021-11-08] MEDS ORDERED: WARFARIN 1 MG TAB PO ONE (21:00)
[2021-11-08] MEDS ORDERED: WARFARIN SODIUM 6 MG PO SCH (21:00)
[2021-11-08] MEDS ORDERED: metFORMIN 500 MG TAB PO SCH (21:00)
[2021-11-09] MEDS: LEVOTHYROXINE 137 MCG TAB PO SCH (06:45)
[2021-11-09 06:50] LABS: Glucose,Whole Blood 127 mg/dL (75-99)
[2021-11-09 08:42] LABS: INR 1.5 (<1.2); Prothrombin Time 15.7 sec (9.0-12.0)
[2021-11-09] MEDS: FUROSEMIDE 10 MG/ML 4 ML VIAL IV SCH ×2 (08:47→20:50)
[2021-11-09] MEDS: LINAGLIPTIN 5 MG TABLET PO SCH (08:47)
[2021-11-09] MEDS: LOSARTAN 50 MG TAB PO SCH (08:47)
[2021-11-09] MEDS ORDERED: FUROSEMIDE 10 MG/ML 4 ML VIAL IV ONE (08:51)
[2021-11-09 08:54] LABS: Carbon Dioxide 26 mmol/L (22-30); Chloride 94 mmol/L (98-107); Glucose 136 mg/dL (74-99); Potassium 3.9 mmol/L (3.5-5.1); Sodium 133 mmol/L (137-145)
[2021-11-09 08:55] LABS: African American GFR (CKD) >90 (>60 ml/min/1.73 sqM); Anion Gap 13 mmol/L; Blood Urea Nitrogen 14 mg/dL (9-20); Calcium 8.4 mg/dL (8.4-10.2); Non-African American GFR(CKD) 88 (>60 ml/min/1.73 sqM)
[2021-11-09 09:18] LABS: Basophils # (A) 0.2 k/uL (0-0.2); Basophils % (A) 3 %; Eosinophils % (A) 0 %; HCT 47.1 % (39.0-53.0); HGB 15.1 gm/dL (13.0-17.5); Lymphocytes % (A) 12 %; MCH 30.6 pg (25.0-35.0); MCV 95.4 fL (80.0-100.0); Mean Platelet Volume 10.4; Monocytes # (A) 1.1 k/uL (0-1.0); Monocytes % (A) 14 %; Neutrophils # (A) 5.3 k/uL (1.3-7.7); Neutrophils % (A) 67 %; Platelet Count 224 k/uL (150-450); RBC 4.94 m/uL (4.30-5.90); WBC 7.9 k/uL (3.8-10.6)
--- NOTE | 2021-11-09 09:32 | P.HPIM ---
History of Present Illness H&P Date: 11/08/21 HISTORY OF PRESENT ILLNESS 75-year-old male one of Dr. Jama patient was seen cardiology Dr. Sinclair and pulmonary Dr. Rojo with long-standing history of chronic A. 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 He presented to the emergency department at [facility] and 11/08/2021 complaining of worsening dyspnea and shortness of breath with minimum exertion not been able to lay down flat is having nonproductive cough positive orthopnea and increased edema of the lower extremity specially right side compared to left side with significant PND. In able to sleep in bed he has been sleeping in his recliner lately. His warfarin has been adjusted regular basis and his INR was subtherapeutic. Patient denies any complaint of chest pain per se no abdominal pain nausea vomiting diarrhea constipation he denies any fever or chills no productive color phlegm at this time. With above symptoms was seen and evaluated, his BNP is 4117, d-dimer was mildly elevated, COVID-19 testing was negative. Chest x-ray showed COPD with bilateral infiltrate and pleural effusion correlate with pneumonia and CHF. CTA showed no large central pulmonary embolism. Mild cardiomegaly with dietitian right side along with pulmonary hypertension. Small to moderate bilateral pleural effusion with sign of atelectasis as well. Patient be kept in the hospital will be seen cardiology will continue IV diuretics on regular basis also start him on IV antibiotics and oral antibiotics to treat community-acquired pneumonia at this time along with expectorant the patient be seen pulmonary as well to analyze if the finding still might be consistent with pulmonary embolism since his PT/INR subtherapeutic patient has finding of pulmonary hypertension not a clear whether this is new or not. Echocardiogram also was order will be helpful to see if his ejection fraction has improved from before specially with his aortic valve condition. REVIEW OF SYSTEMS Constitutional: No fever, no chills, no night sweats. No weight change. No weakness, fatigue or lethargy. No daytime sleepiness. EENT: No headache. No blurred vision or double vision, no loss of vision. No loss of Hearing, no ringing in the ears, no dizziness. No nasal drainage or congestion. No epistaxis. No sore throat. Lungs: Reports shortness of breath, reports cough, reports sputum production. Reports wheezing. Cardiovascular: No chest pain, no lower extremity edema. No palpitations. No paroxysmal nocturnal dyspnea. No orthopnea. No lightheadedness or dizziness. No syncopal episodes. Abdominal: No abdominal pain. No nausea, vomiting. No diarrhea. No consti pation. No bloody or tarry stools. No loss of appetite. Genitourinary: No dysuria, increased frequency, urgency. No urinary retention. Musculoskeletal: No myalgias. No muscle weakness, no gait dysfunction, no frequent falls. No back pain. No neck pain. Integumentary: No wounds, no lesions. No rash or pruritus. No unusual bruising. No change in hair or nails. Neurologic: No aphasia. No facial droop. No change in mentation. No head injury. No headache. No paralysis. No paresthesia. Psychiatric: No depression. No anxiety. No mood swings. Endocrine: No abnormal blood sugars. No weight change. No excessive sweating or thirst. No cold intolerance. SOCIAL HISTORY Patient smoked briefly only in his 20s. He drinks 3-4 beers daily. He denies having any withdrawal symptoms when he stops. He lives at home with his . FAMILY HISTORY Father was a child support case officer and at age 52 when he was shot. Mother at age 86 from heart failure. Patient does not have any siblings. He has 2 adopted children. No biological children. PHYSICAL EXAMINATION Gen: This is a 75-year-old male, he is resting in bed and appears to be comfortable and in no acute distress. HEENT: Head is atraumatic, normocephalic. Pupils equal, round. Sclerae is anicteric. NECK: Supple. No JVD. No lymphadenopathy. No thyromegaly. LUNGS: Clear to auscultation. No wheezes or rhonchi. No intercostal retractions. No accessory muscle usage. HEART: Irregular rate and rhythm. No murmur. ABDOMEN: Soft. Bowel sounds are present. No masses. No tenderness. EXTREMITIES: No pedal edema. No calf tenderness. Dorsalis pedis palpable bilaterally. NEUROLOGICAL: Patient is awake, alert and oriented x3. Cranial nerves 2 through 12 are grossly intact. ASSESSMENT AND PLAN 1 severe dyspnea and shortness of breath: Combination of congestive heart failure, possible pulmonary embolism, pulmonary hypertension, by basilar pneumonia as well. Will treat underlying disease watch symptoms carefully. 2 congestive heart failure with mild exacerbation most likely acute systolic with a chronic systolic as well, IV Lasix 40 mg twice a day will be done we'll watch his urine output daily weight and intake. 3 bilateral pneumonia: Most likely community-acquired, patient will benefit from doxycycline 100 mg twice a day and will be going home with medication for a few days. 4 possible pulmonary embolism: Patient is on anticoagulation lop his warfarin at this point test his PT/INR and daily basis consult pulmonary to review CTA for better view off with: Specially on the basis of his pulmonary hypertension and the finding is not clear for the smaller arterial branch of the lung. 5 COPD: We'll continue his current inhaler no need for steroid at this point. 6. Hypertension. Continue losartan 25 mg daily. 7. Hyperlipidemia. Continue atorvastatin 80 mg at bedtime. 8. Chronic atrial fibrillation. Continue Coumadin, pharmacy is dosing, continue Toprol-XL 25 mg at bedtime. His INR has been subtherapeutic watch his INR and daily basis. 9. History of severe aortic valve stenosis status post aortic valve replacement, stable. Awaiting for the results of his echo from this admission. 10. Triple-vessel coronary artery disease with left main status post CABG 4. 11. Ischemic cardiomyopathy with EF of 45, continue IV diuretics will adjust his medication.. 12. Diabetes mellitus type 2. Continue his oral medication, patient will be started on NovoLog scale before meals and at bedtime. 13. Hypothyroidism. Continue levothyroxine 150 g daily. 14. Daily alcohol use. Monitor closely for DTs/withdrawal symptoms. 15. GI prophylaxis. Protonix. 16. DVT prophylaxis. Coumadin. 17. COVID-19 testing negative. Patient has been hospitalized during a pandemic. Patient will be admitted to the hospital for a minimum of 2 night stay. Past Medical History Past Medical History: Atrial Fibrillation, Coronary Artery Disease (CAD), Cancer , Diabetes Mellitus, Hyperlipidemia, Hypertension, Osteoarthritis (OA), Skin Disorder, Thyroid Disorder Additional Past Medical History / Comment(s): hx skin ca, [place] cataracts. History of Any Multi-Drug Resistant Organisms: None Reported Past Surgical History: Coronary Bypass/CABG, Joint Replacement Additional Past Surgical History / Comment(s): left cataract,[place]ina knee replace.,spleenectomy, left wrist CTR, ORIF rt ankle,4 vessel CABG WITH HEART VALVE REPLACEMENT FEB 2020 Past Anesthesia/Blood Transfusion Reactions: No Reported Reaction Past Psychological History: No Psychological Hx Reported Smoking Status: Former smoker Past Alcohol Use History: Occasional Additional Past Alcohol Use History / Comment(s): QUIT SMOKING IN EARLY 60'S., SMOKED 1 PPD. Drinks 2-3 beers 3-4 times per week Past Drug Use History: None Reported - Past Family History Mother Family Medical History: Congestive Heart Failure (CHF) Additional Family Medical History / Comment(s): of old age Father Family Medical History: Coronary Artery Disease (CAD) Additional Family Medical History / Comment(s): Father shot at 52 years old Medications and Allergies Home Medications Medication Instructions Recorded Confirmed Type metFORMIN HCL [Glucophage] 1,000 mg PO BID 06/17/16 11/08/21 History sitaGLIPtin [Januvia] 100 mg PO DAILY 06/17/16 11/08/21 History Atorvastatin [Lipitor] 80 mg PO HS 11/06/20 11/08/21 History Metoprolol Succinate (ER) [Toprol 25 mg PO HS 11/06/20 11/08/21 History XL] Warfarin Sodium [Jantoven] 6 mg PO HS 11/06/20 11/08/21 History Losartan [Cozaar] 50 mg PO DAILY #30 tab 06/12/21 11/08/21 Rx Levothyroxine Sodium [Synthroid] 137 mcg PO DAILY 11/08/21 11/08/21 History Allergies Allergy/AdvReac Type Severity Reaction Status Date / Time No Known Allergies Allergy Verified 11/08/21 12:44 Physical Exam Vitals: Vital Signs Temp Pulse Pulse Resp BP BP Pulse Ox 11/08/21 17:37 98.2 F 100 16 165/89 93 L 11/08/21 14:04 82 16 132/82 95 11/08/21 10:34 99.7 F H 95 20 137/86 95 Intake and Output 11/08/21 11/08/21 11/08/21 06:59 14:59 22:59 Other: Weight 99.79 kg 99.79 kg Results CBC & Chem 7: 11/09/21 07:06 11/09/21 07:06 Labs: Abnormal Lab Results - Last 24 Hours (Table) 11/08/21 11/08/21 11/08/21 Range/Units 11:40 11:40 11:40 Lymphocytes # 0.5 L (1.0-4.8) k/uL Monocytes # 1.2 H (0-1.0) k/uL PT 18.6 H (9.0-12.0) sec INR 1.8 H (<1.2) D-Dimer 4.50 H (<0.60) mg/L FEU Sodium 131 L (137-145) mmol/L Chloride 96 L (98-107) mmol/L Glucose 142 H (74-99) mg/dL Thrombosis Risk Factor Assmnt - Choose All That Apply Each Factor Represents 1 point: Obesity (BMI >25) Each Risk Factor Represents 3 Points: Age 75 years or older Thrombosis Risk Factor Assessment Total Risk Factor Score: 4 Thrombosis Risk Factor Assessment Level: Moderate Risk
--- NOTE | 2021-11-09 09:37 | US ---
EXAMINATION TYPE: US venous doppler duplex LE DATE OF EXAM: 11/09/2021 9:29 AM COMPARISON: NONE CLINICAL HISTORY: elevated d dimer rule out DVT. elevated D dimer SIDE PERFORMED: Bilateral TECHNIQUE: The lower extremity deep venous system is examined utilizing real time linear array sonog todd with graded compression, doppler sonography and color-flow sonography. VESSELS IMAGED: Common Femoral Vein Deep Femoral Vein Greater Saphenous Vein * Femoral Vein Popliteal Vein Small Saphenous Vein * Proximal Calf Veins (* superficial vessels) Right Leg: Negative for DVT Left Leg: Negative for DVT IMPRESSION: No evidence for DVT
[2021-11-09 11:54] LABS: Glucose,Whole Blood 168 mg/dL (75-99)
--- NOTE | 2021-11-09 12:02 | P.CNPUL ---
History of Present Illness Consult date: 11/09/21 Requesting physician: Amarjit Zeng Reason for consult: dyspnea, cough, pleural effusion, abnormal CXR/CT Chief complaint: Shortness of breath and cough. History of present illness: Pulmonary consult dated 11/09/2021. This is a 75-year-old male who presented to the emergency department, yesterday, November 08, complaining of cough and shortness of breath. Is is not an acute finding, but rather a chronic issue. It has been progressive in nature. He states that when he lays flat, he gets more short of breath and he coughs. He's better when he sitting up. The cough is nonproductive. He does have orthopnea. He does have some lower extremity edema, which is not worse. Anyway, a chest x-ray, Dopplers, and a CAT scan were done. The chest x-ray shows bilateral effusions. In addition the Dopplers were negative for DVT, and the CT angiogram was negative for a central pulmonary embolism, but did show changes consistent with heart failure and bilateral pleural effusions. He had an elevated N- terminal proBNP. He denies any fever or chills. There is no phlegm production. Nothing to suggest infection or pneumonia. The patient has a history of atrial fibrillation, coronary disease, diabetes, osteoarthritis, hypertension, hyperlipidemia, hypothyroidism, and previous bypass grafting. He does have a history of skin cancer as well. The patient is currently on room air. He's not receiving any IV fluids. He did not even look like he needs to be in the hospital. CBC is completely normal. The patient's sodium was 133, potassium 3.9, chlorides 94, CO2 26, anion gap 13, BUN 14, creatinine 0.76. Coronavirus testing was negative. Scans, x-rays, and Doppler studies were evaluated. Review of Systems REVIEW OF SYSTEMS: CONSTITUTIONAL: [Negative.] NEUROLOGIC: [ Negative.] HEENT: [ Negative.] CARDIAC: Chronic mild lower extremity edema. PULMONARY: Shortness of breath, nonproductive cough, orthopnea. GI: [Negative.] : [Negative.] RHEUMATOLOGIC: [ Negative.] IMMUNOLOGIC: [ Negative.] ENDOCRINE: [Negative. ] DERMATOLOGIC: [Negative.] Past Medical History Past Medical History: Atrial Fibrillation, Coronary Artery Disease (CAD), Cancer, Diabetes Mellitus, Hyperlipidemia, Hypertension, Osteoarthritis (OA), Skin Disorder, Thyroid Disorder Additional Past Medical History / Comment(s): hx skin ca, [place] cataracts. History of Any Multi-Drug Resistant Organisms: None Reported Past Surgical History: Coronary Bypass/CABG, Joint Replacement Additional Past Surgical History / Comment(s): left cataract,[place] knee replace.,spleenectomy, left wrist CTR, ORIF rt ankle,4 vessel CABG WITH HEART VALVE REPLACEMENT FEB 2020 Past Anesthesia/Blood Transfusion Reactions: No Reported Reaction Past Psychological History: No Psychological Hx Reported Smoking Status: Former smoker Past Alcohol Use History: Occasional Additional Past Alcohol Use History / Comment(s): QUIT SMOKING IN EARLY 60'S., SMOKED 1 PPD. Drinks 2-3 beers 3-4 times per week Past Drug Use History: None Reported - Past Family History Mother Family Medical History: Congestive Heart Failure (CHF) Additional Family Medical History / Comment(s): of old age Father Family Medical History: Coronary Artery Disease (CAD) Additional Family Medical History / Comment(s): Father shot at 52 years old Medications and Allergies Home Medications Medication Instructions Recorded Confirmed Type metFORMIN HCL [Glucophage] 1,000 mg PO BID 06/17/16 11/08/21 History sitaGLIPtin [Januvia] 100 mg PO DAILY 06/17/16 11/08/21 History Atorvastatin [Lipitor] 80 mg PO HS 11/06/20 11/08/21 History Metoprolol Succinate (ER) [Toprol 25 mg PO HS 11/06/20 11/08/21 History XL] Warfarin Sodium [Jantoven] 6 mg PO HS 11/06/20 11/08/21 History Losartan [Cozaar] 50 mg PO DAILY #30 tab 06/12/21 11/08/21 Rx Levothyroxine Sodium [Synthroid] 137 mcg PO DAILY 11/08/21 11/08/21 History Allergies Allergy/AdvReac Type Severity Reaction Status Date / Time No Known Allergies Allergy Verified 11/08/21 12:44 Physical Exam Osteopathic Statement: *. No significant issues noted on an osteopathic structural exam other than those noted in the History and Physical/Consult. Vitals: Vital Signs Temp Pulse Pulse Resp BP BP Pulse Ox 11/09/21 08:00 98.5 F 94 18 142/88 92 L 11/09/21 04:00 97.9 F 84 18 139/70 96 11/09/21 02:00 84 16 11/09/21 00:00 98 F 69 16 136/72 95 11/08/21 19:36 90 18 11/08/21 19:34 98.2 F 90 18 144/70 95 11/08/21 17:37 98.2 F 100 16 165/89 93 L 11/08/21 14:04 82 16 132/82 95 Intake and Output 11/08/21 11/09/21 11/09/21 22:59 06:59 14:59 Intake Total 240 118 Output Total 1000 1375 Balance -760 -1375 118 Intake: Oral 240 118 Output: Urine 1000 1375 Other: Weight 99.79 kg No acute distress, oriented 3. No audible wheezing, use of accessory muscles, or conversational dyspnea. Room air saturation 95%. HEENT examination is grossly unremarkable. Neck supple. Full range of motion. No adenopathy thyromegaly or neck vein distention. Cardiovascular examination reveals an irregular rhythm and rate. S1-S2 normal. No S3 or S4. No discernible murmur noted. Heart rate 94 bpm. Lungs reveal diminished bibasilar breath sounds. Bibasilar crackles are noted. No rhonchi. No wheezes. Breath sounds equal bilaterally. Abdomen soft bowel sounds are heard. No masses or tenderness. Extremities are intact. No cyanosis or clubbing. Mild edema appreciated. Skin is without rash or lesion. Neurologic examination is brief but nonfocal. Results - Laboratory Findings CBC and BMP: 11/09/21 07:06 11/09/21 07:06 PT/INR, D-dimer PT 15.7 sec (9.0-12.0) H 11/09/21 07:06 INR 1.5 (<1.2) H 11/09/21 07:06 D-Dimer 4.50 mg/L FEU (<0.60) H 11/08/21 11:40 Abnormal lab findings: Abnormal Labs 11/08/21 11/08/21 11/08/21 11:40 11:40 11:40 Lymphocytes # 0.5 L Monocytes # 1.2 H PT 18.6 H INR 1.8 H D-Dimer 4.50 H Sodium 131 L Chloride 96 L Glucose 142 H POC Glucose (mg/dL) 11/09/21 11/09/21 11/09/21 06:28 07:06 07:06 Lymphocytes # Monocytes # 1.1 H PT INR D-Dimer Sodium 133 L Chloride 94 L Glucose 136 H POC Glucose (mg/dL) 127 H 11/09/21 07:06 Lymphocytes # Monocytes # PT 15.7 H INR 1.5 H D-Dimer Sodium Chloride Glucose POC Glucose (mg/dL) - Diagnostic Findings Chest x-ray: image reviewed CT scan - chest: image reviewed Assessment and Plan Assessment: Acute shortness of breath, and CAPTAIN WAITER/WAITRESS cough, likely related to underlying fluid overload/CHF. History of CAD, with previous bypass grafting, and valve replacement. History of atrial fibrillation. History of hypertension. History of hyperlipidemia. History of diabetes mellitus. History of hypothyroidism. History of skin cancer. Plan: Plan dated 11/09/2021. The patient appears to be relatively stable. In my opinion, the patient does not need corticosteroids, or antibiotics. This should be discontinued. The patient's currently receiving Lasix as per cardiology. Apparently cardiology has cleared the patient for discharge. The patient is very stable. Currently on room air. Not requiring any IV fluids. The patient moving forward only as needed. No active pulmonary disease at this time, including pneumonia. Time with Patient: Greater than 30
--- NOTE | 2021-11-09 12:03 | P.CRDCN ---
History of Present Illness History of present illness: HISTORY OF PRESENTING ILLNESS This is a pleasant 75-year-old male with past medical history significant for coronary artery disease status post prior CABG, aortic stenosis status post prior aortic valve replacement, hypertension, type 2 diabetes, dyslipidemia, persistent atrial fibrillation on coumadin. He follows in the office with Dr. Lee. We have been asked to see in consultation for congestive heart failure. Patient presents emergency department with complaints of worsening shortness of breath, cough, orthopnea and lower show no edema. He states his shortness of breath worsened over the past week. He denies any chest pain, palpitations, lightheadedness or dizziness. He states he recently returned from [place] 3 weeks ago, he noticed a left hematoma in his left leg, his INR was checked with a 3.8, and he decreased his Coumadin. He also states he does not take any diuretics at home. Patient has received IV Lasix 40mg x 2. He is feeling much better, lower extremity edema is improved. Patient with 2.3L urine output. DIAGNOSTICS EKG reveals atrial fibrillation, heart rate 88, left axis deviation, poor R wave progression. Prior EKG with similar findings. Telemetry tracings indicate atrial fibrillation with controlled ventricular rates. Chest CT revealed no large central pulmonary embolism, no definitive lobar branch pulmonary embolism. Mild cardiomegaly. Pulmonary arterial hypertension, small to moderate bilateral pleural effusions. Venous Doppler with no evidence of DVT bilaterally Laboratory reviewed, sodium 133, potassium 3.9, BUN 14, serum crit 0.7, troponin negative, proBNP 4170, d-dimer 4.5, INR 1.5, CBC unremarkable. Most recent echo in the office 06/2020 revealed EF 45%, moderately dilated right atrium and left atrium, pericardial AV prosthesis, moderate mitral regurgitation, mild tricuspid regurgitation Current home medications include Januvia, metformin, warfarin 6 mg daily, metoprolol 6.25 mg nightly, losartan 50 mg daily, atorvastatin 80 mg nightly REVIEW OF SYSTEMS At the time of my exam: CONSTITUTIONAL: Denies fever or chills. CARDIOVASCULAR: Denies chest pain, shortness of breath, orthopnea, PND or palpitations. RESPIRATORY: Denies cough. GASTROINTESTINAL: Denies abdominal pain, diarrhea, constipation, nausea or vomiting. MUSCULOSKELETAL: Denies myalgias. NEUROLOGIC: Denies numbness, tingling, headacbe or weakness. ENDOCRINE: Denies fatigue, weight change, polydipsia or polyurina. GENITOURINARY: Denies burning, hematuria or urgency with micturation. HEMATOLOGIC: Denies history of anemia or bleeding. PHYSICAL EXAMINATION Blood pressure 142/88, afebrile, oxygen saturations 96% on room air CONSTITUTIONAL: No apparent distress. HEENT: Head is normocephalic. Pupils are equal, round. Sclerae anicteric. Mucous membranes of the mouth are moist. No JVD. No carotid bruit. CHEST EXAMINATION: Lungs are diminished to auscultation. No chest wall tenderness is noted on palpation or with deep breathing. HEART EXAMINATION: Irregular rate and rhythm. S1, S2 heard. Systolic ejection murmur at apex, No gallops or rub. ABDOMEN: Soft, nontender. Positive bowel sounds. EXTREMITIES: 2+ peripheral pulses 1+bilateral lower extremity edema and no calf tenderness. NEUROLOGIC EXAMINATION: Patient is awake, alert and oriented x3. ASSESSMENT Acute on chronic heart failure with preserved EF, borderline EF 45% Subtherapeutic INR Coronary artery disease status post prior CABG Aortic stenosis status post prior aortic valve replacement Hypertension Type 2 diabetes Dyslipidemia Persistent atrial fibrillation on coumadin PLAN Obtain 2D echocardiogram and doppler study to assess cardiac structure and function. IV Lasix 40mg today, transition to PO Lasix 40mg daily Continue Coumadin, daily INR Continue statin, losartan, metoprolol succinate From a cardiology perspective, if echocardiogram is stable, patient may be discharged home later today on PO Diuretics, follow up next week with Dr. Lee, he has an appointment on 11/16/2021. Discussion about transitioning to NOAC can be discussed as an outpatient. Nurse practitioner note has been reviewed by physician. Signing provider agrees with the documented findings, assessment, and plan of care. Past Medical History Past Medical History: Atrial Fibrillation, Coronary Artery Disease (CAD), Cancer, Diabetes Mellitus, Hyperlipidemia, Hypertension, Osteoarthritis (OA), Skin Disorder, Thyroid Disorder Additional Past Medical History / Comment(s): hx skin ca, [place] cataracts. History of Any Multi-Drug Resistant Organisms: None Reported Past Surgical History: Coronary Bypass/CABG, Joint Replacement Additional Past Surgical History / Comment(s): left cataract,[place] knee replace.,spleenectomy, left wrist CTR, ORIF rt ankle,4 vessel CABG WITH HEART VALVE REPLACEMENT FEB 2020 Past Anesthesia/Blood Transfusion Reactions: No Reported Reaction Past Psychological History: No Psychological Hx Reported Smoking Status: Former smoker Past Alcohol Use History: Occasional Additional Past Alcohol Use History / Comment(s): QUIT SMOKING IN EARLY 60'S., SMOKED 1 PPD. Drinks 2-3 beers 3-4 times per week Past Drug Use History: None Reported - Past Family History Mother Family Medical History: Congestive Heart Failure (CHF) Additional Family Medical History / Comment(s): of old age Father Family Medical History: Coronary Artery Disease (CAD) Additional Family Medical History / Comment(s): Father shot at 52 years old Medications and Allergies Home Medications Medication Instructions Recorded Confirmed Type metFORMIN HCL [Glucophage] 1,000 mg PO BID 06/17/16 11/08/21 History sitaGLIPtin [Januvia] 100 mg PO DAILY 06/17/16 11/08/21 History Atorvastatin [Lipitor] 80 mg PO HS 11/06/20 11/08/21 History Metoprolol Succinate (ER) [Toprol 25 mg PO HS 11/06/20 11/08/21 History XL] Warfarin Sodium [Jantoven] 6 mg PO HS 11/06/20 11/08/21 History Losartan [Cozaar] 50 mg PO DAILY #30 tab 06/12/21 11/08/21 Rx Levothyroxine Sodium [Synthroid] 137 mcg PO DAILY 11/08/21 11/08/21 History Allergies Allergy/AdvReac Type Severity Reaction Status Date / Time No Known Allergies Allergy Verified 11/08/21 12:44 Physical Exam Vitals: Vital Signs Temp Pulse Pulse Resp BP BP Pulse Ox 11/09/21 04:00 97.9 F 84 18 139/70 96 11/09/21 02:00 84 16 11/09/21 00:00 98 F 69 16 136/72 95 11/08/21 19:36 90 18 11/08/21 19:34 98.2 F 90 18 144/70 95 11/08/21 17:37 98.2 F 100 16 165/89 93 L 11/08/21 14:04 82 16 132/82 95 11/08/21 10:34 99.7 F H 95 20 137/86 95 Intake and Output 11/08/21 11/09/21 11/09/21 22:59 06:59 14:59 Intake Total 240 Output Total 1000 1375 Balance -760 -1375 Intake: Oral 240 Output: Urine 1000 1375 Other: Weight 99.79 kg Results 11/09/21 07:06 11/09/21 07:06 Cardiac Enzymes 11/08/21 11/08/21 Range/Units 11:40 11:40 AST 41 (17-59) U/L Troponin I 0.025 (0.000-0.034) ng/mL Coagulation 11/08/21 Range/Units 11:40 PT 18.6 H (9.0-12.0) sec CBC 11/08/21 Range/Units 11:40 WBC 9.1 (3.8-10.6) k/uL RBC 4.80 (4.30-5.90) m/uL Hgb 14.6 (13.0-17.5) gm/dL Hct 45.9 (39.0-53.0) % Plt Count 251 (150-450) k/uL Comprehensive Metabolic Panel 11/08/21 Range/Units 11:40 Sodium 131 L (137-145) mmol/L Potassium 4.7 (3.5-5.1) mmol/L Chloride 96 L (98-107) mmol/L Carbon Dioxide 26 (22-30) mmol/L BUN 10 (9-20) mg/dL Creatinine 0.74 (0.66-1.25) mg/dL Glucose 142 H (74-99) mg/dL Calcium 8.5 (8.4-10.2) mg/dL AST 41 (17-59) U/L ALT 16 (4-49) U/L Alkaline Phosphatase 83 (38-126) U/L Total Protein 7.9 (6.3-8.2) g/dL Albumin 4.1 (3.5-5.0) g/dL Current Medications Generic Name Dose Route Start Last Admin Trade Name Freq PRN Reason Stop Dose Admin Atorvastatin Calcium 80 mg 11/08/21 21:00 11/08/21 20:13 Atorvastatin 80 Mg Tab PO 80 mg HS HALLEY Administration Furosemide 40 mg 11/08/21 21:00 11/08/21 20:13 Furosemide 10 Mg/Ml 4 Ml Vial IV 40 mg Q12HR HALLEY Administration Levothyroxine Sodium 137 mcg 11/09/21 06:30 11/09/21 06:45 Levothyroxine 137 Mcg Tab PO 137 mcg DAILY@0630 HALLEY Administration Linagliptin 5 mg 11/09/21 09:00 Linagliptin 5 Mg Tablet PO DAILY HALLEY Losartan Potassium 50 mg 11/09/21 09:00 Losartan 50 Mg Tab PO DAILY HALLEY Metoprolol Succinate 25 mg 11/08/21 21:00 11/08/21 20:13 Metoprolol Succinate (Er) 25 Mg Tab.Er.24h PO 25 mg HS HALLEY Administration Miscellaneous Information 1 each 11/08/21 15:45 Warfarin Per Pharmacy MISCELLANE DIRECTED PRN Per Protocol Protocol Naloxone HCl 0.2 mg 11/08/21 15:43 Naloxone 0.4 Mg/Ml 1 Ml Vial IV Q2M PRN Opioid Reversal Warfarin Sodium 6 mg 11/08/21 21:00 11/08/21 20:13 Warfarin 3 Mg Tab PO 6 mg HS HALLEY Administration Intake and Output 11/08/21 11/09/21 11/09/21 22:59 06:59 14:59 Intake Total 240 Output Total 1000 1375 Balance -760 -1375 Intake: Oral 240 Output: Urine 1000 1375 Other: Weight 99.79 kg 11/08/21 11:40 11/08/21 11:40
[2021-11-09] MEDS: methylPREDNISolone SOD SUCCI 40 MG/ML 1 ML VIAL IV SCH ×2 (12:30→17:40)
[2021-11-09 17:00] LABS: Glucose,Whole Blood 229 mg/dL (75-99)
[2021-11-09] MEDS: INSULIN ASPART (NovoLOG) 100 UNIT/ML VIAL SQ SCH ×2 (17:41→20:51)
[2021-11-09] MEDS: ATORVASTATIN 80 MG TAB PO SCH (20:49)
[2021-11-09] MEDS: METOPROLOL SUCCINATE (ER) 25 MG TAB.ER.24H PO SCH (20:49)
[2021-11-09] MEDS: WARFARIN 3 MG TAB PO SCH (20:50)
[2021-11-09] MEDS: DOXYCYCLINE 100 MG CAP PO SCH (20:51)
[2021-11-09] MEDS ORDERED: WARFARIN 1 MG TAB PO ONE (21:00)
[2021-11-09 21:08] LABS: Glucose,Whole Blood 224 mg/dL (75-99)
[2021-11-10] MEDS: methylPREDNISolone SOD SUCCI 40 MG/ML 1 ML VIAL IV SCH ×2 (00:02→09:21)
[2021-11-10 03:13] VITALS: RESP 18
[2021-11-10] MEDS: LEVOTHYROXINE 137 MCG TAB PO SCH (06:43)
[2021-11-10] MEDS: INSULIN ASPART (NovoLOG) 100 UNIT/ML VIAL SQ SCH (06:43)
[2021-11-10 06:55] LABS: Glucose,Whole Blood 177 mg/dL (75-99)
[2021-11-10 08:28] LABS: HCT 51.4 % (39.0-53.0); HGB 16.5 gm/dL (13.0-17.5); MCHC 32.2 g/dL (31.0-37.0); MCV 96.5 fL (80.0-100.0); Mean Platelet Volume 7.6; Platelet Count 293 k/uL (150-450); RBC 5.32 m/uL (4.30-5.90); RDW 14.4 % (11.5-15.5)
[2021-11-10 08:30] LABS: INR 1.6 (<1.2); Prothrombin Time 15.9 sec (9.0-12.0)
[2021-11-10 08:39] LABS: ALT 21 U/L (4-49); AST 43 U/L (17-59); African American GFR (CKD) >90 (>60 ml/min/1.73 sqM); Albumin 4.3 g/dL (3.5-5.0); Alkaline Phosphatase 103 U/L (38-126); Anion Gap 13 mmol/L; Blood Urea Nitrogen 25 mg/dL (9-20); Calcium 8.9 mg/dL (8.4-10.2); Carbon Dioxide 29 mmol/L (22-30); Chloride 93 mmol/L (98-107); Glucose 306 mg/dL (74-99); Non-African American GFR(CKD) 86 (>60 ml/min/1.73 sqM); Potassium 3.5 mmol/L (3.5-5.1); Sodium 135 mmol/L (137-145); Total Bilirubin 0.9 mg/dL (0.2-1.3); Total Protein 8.2 g/dL (6.3-8.2)
[2021-11-10] MEDS ORDERED: FUROSEMIDE 40 MG TAB PO SCH (09:00)
[2021-11-10] MEDS: FUROSEMIDE 10 MG/ML 4 ML VIAL IV SCH (09:21)
[2021-11-10] MEDS: LINAGLIPTIN 5 MG TABLET PO SCH (09:21)
[2021-11-10] MEDS: DOXYCYCLINE 100 MG CAP PO SCH (09:21)
[2021-11-10] MEDS: LOSARTAN 50 MG TAB PO SCH (09:21)
[2021-11-10 09:24] VITALS: BP 124/79; PULSE 97; TEMP 98.5
--- NOTE | 2021-11-10 09:47 | P.DS ---
Providers Date of admission: 11/08/21 15:43 Attending physician: Amarjit Zeng Consults: 11/08/21 15:44 Consult Physician Routine Consulting Provider: [facility] Consult Reason/Comments: chf exacerbation, history of bypass/afib Do you want consulting provider notified?: Yes 11/09/21 09:35 Consult Physician Routine Consulting Provider: Solomon Estrada Consult Reason/Comments: PE, Pulmonary HTN Do you want consulting provider notified?: Yes Primary care physician: Karson Jama [facility] Course: 75-year-old male one of Dr. Jama patient was seen cardiology Dr. Sinclair and pulmonary Dr. Rojo with long-standing history of chronic A. 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 He presented to the emergency department at [facility] and 11/08/2021 complaining of worsening dyspnea and shortness of breath with minimum exertion not been able to lay down flat is having nonproductive cough positive orthopnea and increased edema of the lower extremity specially right side compared to left side with significant PND. In able to sleep in bed he has been sleeping in his recliner lately. His warfarin has been adjusted regular basis and his INR was subtherapeutic. Patient denies any complaint of chest pain per se no abdominal pain nausea vomiting diarrhea constipation he denies any fever or chills no productive color phlegm at this time. With above symptoms was seen and evaluated, his BNP is 4117, d-dimer was mildly elevated, COVID-19 testing was negative. Chest x-ray showed COPD with bilateral infiltrate and pleural effusion correlate with pneumonia and CHF. CTA showed no large central pulmonary embolism. Mild cardiomegaly with dietitian right side along with pulmonary hypertension. Small to moderate bilateral pleural effusion with sign of atelectasis as well. Patient be kept in the hospital will be seen cardiology will continue IV diuretics on regular basis also start him on IV antibiotics and oral antibiotics to treat community-acquired pneumonia at this time along with expectorant the patient be seen pulmonary as well to analyze if the finding still might be consistent with pulmonary embolism since his PT/INR subtherapeutic patient has finding of pulmonary hypertension not a clear whether this is new or not. Echocardiogram also was order will be helpful to see if his ejection fraction has improved from before specially with his aortic valve condition. 11/09: Patient is doing slightly better after the first dose of IV diuretics he diuresed quite bed last night, patient be continued on IV diuretics twice a day for now but will run the case by pulmonary as well to see if the finding of his CT is still might be consistent with PE or not the meanwhile watch his INR is therapeutic and his INR should be above 2.5. Patient was evaluated by cardiology today was her plan to go home today, patient will be held until tomorrow run echocardiogram seen pulmonary make sure his stable before he is discharged. 11/10: Patient is found walking around the room. He states that he is feeling much better today compared to yesterday. He was cleared by pulmonology. Cardiology yesterday. Patient is anxious to go home. He still has some shortness of breath with exertion. He will be started on oral steroids and continue with antibiotics. Follow-up with cardiology and primary care physician next week. Discharge diagnosis: 1 severe dyspnea and shortness of breath: 2 congestive heart failure with mild exacerbation most likely acute systolic with a chronic systolic as well, 3 bilateral pneumonia 4 possible pulmonary embolism: 5 COPD: 6. Hypertension. 7. Hyperlipidemia. 8. Chronic atrial fibrillation. 9. History of severe aortic valve stenosis status post aortic valve replacement, stable. 10. Triple-vessel coronary artery disease with left main status post CABG 4. 11. Ischemic cardiomyopathy with EF of 45, 12. Diabetes mellitus type 2. 13. Hypothyroidism. 14. Daily alcohol use. Discharge disposition: Home with self-care. CC Dr. Jama Impression and plan of care have been directed as dictated by the signing physician. Kirsty Middleton nurse practitioner acting as scribe for signing physician. Patient Condition at Discharge: Stable Plan - Discharge Summary Discharge Rx Participant: No New Discharge Prescriptions: New predniSONE 5 mg PO DAILY #42 tab Doxycycline [Vibramycin] 100 mg PO BID #14 cap Continue sitaGLIPtin [Januvia] 100 mg PO DAILY metFORMIN HCL [Glucophage] 1,000 mg PO BID Atorvastatin [Lipitor] 80 mg PO HS Metoprolol Succinate (ER) [Toprol XL] 25 mg PO HS Warfarin Sodium [Jantoven] 6 mg PO HS Losartan [Cozaar] 50 mg PO DAILY #30 tab Levothyroxine Sodium [Synthroid] 137 mcg PO DAILY Discharge Medication List metFORMIN HCL [Glucophage] 1,000 mg PO BID 06/17/16 [History] sitaGLIPtin [Januvia] 100 mg PO DAILY 06/17/16 [History] Atorvastatin [Lipitor] 80 mg PO HS 11/06/20 [History] Metoprolol Succinate (ER) [Toprol XL] 25 mg PO HS 11/06/20 [History] Warfarin Sodium [Jantoven] 6 mg PO HS 11/06/20 [History] Losartan [Cozaar] 50 mg PO DAILY #30 tab 06/12/21 [Rx] Levothyroxine Sodium [Synthroid] 137 mcg PO DAILY 11/08/21 [History] Doxycycline [Vibramycin] 100 mg PO BID #14 cap 11/10/21 [Rx] predniSONE 5 mg PO DAILY #42 tab 11/10/21 [Rx] Follow up Appointment(s)/Referral(s): Karson Jama DO [Primary Care Provider] - 1-2 days Tye Lee MD [STAFF PHYSICIAN] - 11/16/21 10:00 am Patient Instructions/Handouts: Heart Failure (DC)
--- NOTE | 2021-11-14 15:38 | CA ---
Transthoracic Echo Report Name: Isidro Balbuena Age: 75 Gender: M : 1945 Exam Date: 11/08/2021 16:39 Exam Location: [facility] Ht (in): 60 Wt (lb): 220 Ordering Physician: Prasanna Petty MD Attending/Referring Phys: Pilot Boat Operator Mikayla Romo RDCS Procedure CPT: Indications: Heart failure Cardiac Hx: CAD, BIOPROSTHESIS AOV Technical Quality: Fair Contrast 1: N/A Total Dose (mL): Contrast 2: Total Dose (mL): MEASUREMENTS (Male / Female) Normal Values 2D ECHO LV Diastolic Diameter PLAX 4.8 cm 4.2 - 5.9 / 3.9 - 5.3 cm LV Systolic Diameter PLAX 4.3 cm IVS Diastolic Thickness 1.2 cm 0.6 - 1.0 / 0.6 - 0.9 cm LVPW Diastolic Thickness 1.2 cm 0.6 - 1.0 / 0.6 - 0.9 cm LV Relative Wall Thickness 0.5 RV Internal Dim ED PLAX 3.6 cm LA Systolic Diameter LX 5.6 cm 3.0 - 4.0 / 2.7 - 3.8 cm LA Volume 120.6 cm??? 18 - 58 / 22 - 52 cm??? M-MODE Aortic Root Diameter MM 3.1 cm LA Systolic Diameter MM 5.1 cm LA Ao Ratio MM 1.7 MV E Point Septal Separation 0.8 cm AV Cusp Separation MM 2.2 cm DOPPLER AV Peak Velocity 215.4 cm/s AV Peak Gradient 18.6 mmHg AV Mean Velocity 157.7 cm/s AV Mean Gradient 10.9 mmHg AV Velocity Time Integral 39.3 cm LVOT Peak Velocity 132.5 cm/s LVOT Peak Gradient 7.0 mmHg MV E' Velocity 3.6 cm/s FINDINGS Left Ventricle Left ventricular ejection fraction is estimated at 45-50%. Mildly increased left ventricular wall thickness. Right Ventricle Normal right ventricular size and function. Right ventricular systolic pressure within normal limits. Right Atrium Normal right atrial size. Left Atrium Severely increased left atrial diameter. Severely increased left atrial volume. Mildly increased left atrial area. Mitral Valve Mitral valve thickened. Mild mitral regurgitation. Aortic Valve Porcine aortic valve bioprosthesis. Gradient recorded across the prosthetic aortic valve within the expected range. Tricuspid Valve Mild tricuspid regurgitation. Pulmonic Valve Structurally normal pulmonic valve. Pericardium Normal pericardium. Aorta Normal size aortic root and proximal ascending aorta. CONCLUSIONS Left ventricular ejection fraction is estimated at 45-50%. Mildly increased left ventricular wall thickness. Severely increased left atrial volume. Mild mitral regurgitation. Porcine aortic valve bioprosthesis. Mild aortic stenosis. Gradient recorded across the prosthetic aortic valve within the expected range. Previewed by: Dr. Js Kathleen DO (Electronically Signed) Final Date: 09 Nov 2021 12:38
== END 2021-11-10 10:40 | disposition home health service (06) | DRG 291 ==
LOC: EC 09:46 → 3SCARD 15:43
PROVIDERS: ADMIT Internal Medicine Geriatric Medicine; ATTEND Internal Medicine Geriatric Medicine
DX: I11.0 Hypertensive heart disease with heart failure (principal); I50.33 Acute on chronic diastolic (congestive) heart failure; J18.9 Pneumonia, unspecified organism; I26.99 Other pulmonary embolism without acute cor pulmonale; I48.19 Other persistent atrial fibrillation; J44.0 Chronic obstructive pulmonary disease with (acute) lower respiratory infection; E03.9 Hypothyroidism, unspecified; E11.9 Type 2 diabetes mellitus without complications; E78.5 Hyperlipidemia, unspecified; I25.10 Atherosclerotic heart disease of native coronary artery without angina pectoris; I25.5 Ischemic cardiomyopathy; I27.21 Secondary pulmonary arterial hypertension; Z95.1 Presence of aortocoronary bypass graft; E66.9 Obesity, unspecified; Z68.31 Body mass index [BMI] 31.0-31.9, adult; Z95.2 Presence of prosthetic heart valve; F10.20 Alcohol dependence, uncomplicated; I08.3 Combined rheumatic disorders of mitral, aortic and tricuspid valves; H26.9 Unspecified cataract; R79.1 Abnormal coagulation profile; Z79.01 Long term (current) use of anticoagulants; Z20.822 Contact with and (suspected) exposure to COVID-19; Z28.310 Unvaccinated for COVID-19; Z79.84 Long term (current) use of oral hypoglycemic drugs; Z79.890 Hormone replacement therapy; Z79.899 Other long term (current) drug therapy; Z82.49 Family history of ischemic heart disease and other diseases of the circulatory system; Z85.828 Personal history of other malignant neoplasm of skin; Z87.891 Personal history of nicotine dependence; Z90.81 Acquired absence of spleen; Z98.42 Cataract extraction status, left eye; Z98.890 Other specified postprocedural states; Z96.653 Presence of artificial knee joint, bilateral
CPT/HCPCS: 36415; 71046; 71275; 80048; 80053; 83880; 84484; 85025; 85027; 85379; 85610; 87635; 93005; 93306; 93970; 96374; 99285

== ENCOUNTER → 2022-02-14 | Outpatient (CLI) | payer MEDICARE, OTHER ==
[2022-02-14 18:13] LABS: HCT 43.7 % (39.6-50.0); HGB 14.1 g/dL (13.0-17.0); MCH 30.3 pg (27.0-32.0); MCHC 32.3 g/dL (32.0-37.0); MCV 93.8 fL (80.0-97.0); Mean Platelet Volume 10.9 fL (9.5-12.2); NRBC Per 100 WBC 0 /100 WBCS (0.0-0.0); Platelet Count 269 X 10*3/uL (140-440); RBC 4.66 X 10*6/uL (4.40-5.60); RDW 15.8 % (11.5-14.5); WBC 8.53 X 10*3/uL (4.50-10.00)
[2022-02-14 18:22] LABS: African American GFR (CKD) 98.9 (60.0-200.0); Anion Gap 12.1 mmol/L (10.00-18.00); BUN/Creat Ratio 9.14 Ratio (12.00-20.00); Blood Urea Nitrogen 7.4 mg/dL (9.0-27.0); Calcium 9.1 mg/dL (8.7-10.3); Carbon Dioxide 25.5 mmol/L (20.0-27.5); Non-African American GFR(CKD) 85.3 (60.0-200.0); Potassium 4.3 mmol/L (3.5-5.5)
== END | disposition home or self-care (01) ==
LOC: LABWHC1 13:39
PROVIDERS: ATTEND Internal Medicine Cardiovascular Disease
DX: E78.2 Mixed hyperlipidemia (principal)
CPT/HCPCS: 36415; 80048; 85027

== ENCOUNTER 2022-06-11 07:03 | Day surgery (SDC) | payer MEDICARE, OTHER ==
[2022-06-05 16:30] VITALS: BMI 26.4
[~2022-06-11 07:03] MED LIST changes: -LIDOCAINE 1% (10MG/ML) FOR IV START INTRADERMA PRN; -TETRACAINE 0.5% OPHTH (PF) DROPS 4 ML BTL OP PRN
[2022-06-11 07:26] VITALS: RESP 16; TEMP 97.7
[2022-06-11 07:35] LABS: Glucose,Whole Blood 123 mg/dL (70-110)
[2022-06-11] MEDS ORDERED: LIDOCAINE 2% INJ 20 MG/ML (2 ML VIAL) ONE (08:07)
[2022-06-11] MEDS ORDERED: IV FLUID CONTINUATION 1,000 ML IV ONE (08:07)
[2022-06-11] MEDS ORDERED: PROPOFOL 10 MG/ML 20 ML VIAL IV ONE (08:07)
--- NOTE | 2022-06-11 08:18 | P.GSHP ---
History of Present Illness H&P Date: 06/11/22 Chief Complaint: GERD 76-year-old male here today for elective upper endoscopy. Patient with GERD symptoms. Denies dysphagia. No previous EGD. Also having issues with chest pain and shortness of breath Past Medical History Past Medical History: Atrial Fibrillation, Coronary Artery Disease (CAD), Cancer, Diabetes Mellitus, Hyperlipidemia, Hypertension, Osteoarthritis (OA), Pneumonia, Skin Disorder, Thyroid Disorder Additional Past Medical History / Comment(s): hx skin ca, [place] cataracts. History of Any Multi-Drug Resistant Organisms: None Reported Past Surgical History: Coronary Bypass/CABG, Joint Replacement Additional Past Surgical History / Comment(s): left cataract,[place] knee replace.,spleenectomy, left wrist CTR, ORIF rt ankle,4 vessel CABG WITH HEART VALVE REPLACEMENT FEB 2020 Past Anesthesia/Blood Transfusion Reactions: No Reported Reaction Smoking Status: Former smoker - Past Family History Mother Family Medical History: Congestive Heart Failure (CHF) Additional Family Medical History / Comment(s): of old age Father Family Medical History: Coronary Artery Disease (CAD) Additional Family Medical History / Comment(s): Father shot at 52 years old Medications and Allergies Home Medications Medication Instructions Recorded Confirmed Type metFORMIN HCL [Glucophage] 1,000 mg PO BID 06/17/16 06/11/22 History sitaGLIPtin [Januvia] 100 mg PO DAILY 06/17/16 06/11/22 History Atorvastatin [Lipitor] 80 mg PO HS 11/06/20 06/11/22 History Metoprolol Succinate (ER) [Toprol 25 mg PO HS 11/06/20 06/11/22 History XL] Warfarin Sodium [Jantoven] 6 mg PO HS 11/06/20 06/11/22 History Losartan [Cozaar] 50 mg PO DAILY #30 tab 06/12/21 06/11/22 Rx Levothyroxine Sodium [Synthroid] 137 mcg PO DAILY 11/08/21 06/11/22 History Allergies Allergy/AdvReac Type Severity Reaction Status Date / Time No Known Allergies Allergy Verified 06/11/22 07:17 Surgical - Exam Vital Signs Temp Pulse Resp BP Pulse Ox 97.7 F 97 16 175/89 97 06/11/22 07:25 06/11/22 07:25 06/11/22 07:25 06/11/22 07:25 06/11/22 07:25 Physical exam: General: Well-developed, well-nourished HEENT: Normocephalic, sclerae nonicteric Abdomen: Nontender, nondistended Extremities: No edema Neuro: Alert and oriented Results - Labs Abnormal Lab Results - Last 24 Hours (Table) 06/11/22 Range/Units 07:33 POC Glucose (mg/dL) 123 H (70-110) mg/dL Assessment and Plan (1) GERD (gastroesophageal reflux disease) Narrative/Plan: Will proceed with upper endoscopy Current Visit: Yes Status: Acute Code(s): K21.9 - GASTRO-ESOPHAGEAL REFLUX DISEASE WITHOUT ESOPHAGITIS SNOMED Code(s): 019576034
--- NOTE | 2022-06-11 08:20 | P.PCN ---
Date of Procedure: 06/11/22 Procedure(s) Performed: Preoperative Dx: GERD, chest pain Postoperative Dx: Mild gastritis, small hiatal hernia Procedure: EGD with Bx Anesthesia: Sedation Endoscopist: Dr. Ramirez Specimens: Antrum Endoscopic Procedure: The patient was on the endoscopy table in the left decubitus position. The Olympus gastroscope was inserted into the oropharynx and passed under direct visualization to the region of the third portion of the duodenum. From that point the scope was slowly withdrawn inspecting all [place] carefully. There were no neoplastic inflammatory or polypoid lesions throughout the duodenum. The pylorus was widely patent. The stomach was carefully inspected. There was mild gastritis present. A biopsy of the antrum took place to rule out H. pylori. Retroflexion revealed a small sliding hiatal hernia. The esophagus was then carefully examined. There were no neoplastic inflammatory or polypoid lesions throughout the visualized esophagus. The patient was then taken to the recovery room in stable condition per anesthesia guidelines. Recommendations: Await biopsy results. Continue evaluation of chest pain and shortness of breath.
[2022-06-11 08:52] VITALS: BP 157/79; PULSE 92
== END 2022-06-11 09:25 | disposition home or self-care (01) ==
LOC: ORWHC2ENDO 07:03
PROVIDERS: ATTEND Surgery
DX: K21.9 Gastro-esophageal reflux disease without esophagitis (principal); K29.50 Unspecified chronic gastritis without bleeding; K44.9 Diaphragmatic hernia without obstruction or gangrene; I48.91 Unspecified atrial fibrillation; I25.10 Atherosclerotic heart disease of native coronary artery without angina pectoris; E11.9 Type 2 diabetes mellitus without complications; E78.5 Hyperlipidemia, unspecified; I10 Essential (primary) hypertension; M19.90 Unspecified osteoarthritis, unspecified site; Z87.891 Personal history of nicotine dependence; Z79.84 Long term (current) use of oral hypoglycemic drugs; Z82.49 Family history of ischemic heart disease and other diseases of the circulatory system; Z85.828 Personal history of other malignant neoplasm of skin; Z95.1 Presence of aortocoronary bypass graft; E07.9 Disorder of thyroid, unspecified; Z95.2 Presence of prosthetic heart valve; Z79.890 Hormone replacement therapy; Z79.899 Other long term (current) drug therapy
CPT/HCPCS: 43239; J2704; J2001; 88305

== ENCOUNTER 2022-09-09 21:41 | Inpatient (IN) | payer MEDICARE, OTHER ==
--- NOTE | 2022-09-09 22:38 | ED ---
SOB HPI - General Chief Complaint: Shortness of Breath Stated Complaint: SOB Time Seen by Provider: 09/09/22 22:11 Source: patient, EMS Mode of arrival: EMS Limitations: no limitations - History of Present Illness Initial Comments: 76-year-old male with past medical history of Jaxson romero on Coumadin, coronary artery disease, diabetes, congestive heart failure resents emergency room reporting shortness of breath. He states he has been short of breath for the past several days with audible wheezing. He has been taking his Lasix as directed. He became so short of breath this evening that he ended up passing out. called EMS. They found him to be saturating 89%. Placed on 2 L nasal cannula. No medications were administered and the patient was transferred to our facility. He was recently hospitalized for CHF exacerbation. He denies any chest pain. No fevers or chills. Does admit to a productive cough. No other alleviating, precipitating or modifying factors - Related Data Home Medications Medication Instructions Recorded Confirmed metFORMIN HCL [Glucophage] 1,000 mg PO BID 06/17/16 09/09/22 sitaGLIPtin [Januvia] 100 mg PO DAILY 06/17/16 09/09/22 Atorvastatin [Lipitor] 80 mg PO HS 11/06/20 09/09/22 Warfarin Sodium [Jantoven] 6 mg PO SUMOTUFRSA@2100 11/06/20 09/09/22 ALPRAZolam [Xanax] 0.5 mg PO BID PRN 08/19/22 09/09/22 Warfarin Sodium [Jantoven] 3 mg PO WETH@2100 08/19/22 09/09/22 guaiFENesin-DM 600/30MG [Mucinex 1 tab PO Q12HR 08/19/22 09/09/22 Dm] Levothyroxine Sodium [Synthroid] 112 mcg PO HS 09/09/22 09/09/22 Previous Rx's Medication Instructions Recorded Docusate [Colace] 100 mg PO DAILY #14 cap 08/22/22 Loratadine [Claritin] 10 mg PO DAILY 30 Days #30 tab 08/22/22 Metoprolol Tartrate [Lopressor] 50 mg PO BID 30 Days #60 tab 08/22/22 Furosemide [Lasix] 40 mg PO DAILY 30 Days #30 tab 09/12/22 Losartan [Cozaar] 25 mg PO DAILY #30 tab 09/12/22 Allergies Allergy/AdvReac Type Severity Reaction Status Date / Time No Known Allergies Allergy Verified 09/09/22 22:48 Review of Systems ROS Statement: Those systems with pertinent positive or pertinent negative responses have been documented in the HPI. ROS Other: All systems not noted in ROS Statement are negative. Past Medical History Past Medical History: Atrial Fibrillation, Coronary Artery Disease (CAD), Cancer, Diabetes Mellitus, Hyperlipidemia, Hypertension, Osteoarthritis (OA), Pneumonia, Skin Disorder, Thyroid Disorder Additional Past Medical History / Comment(s): hx skin ca, [place] cataracts. History of Any Multi-Drug Resistant Organisms: None Reported Past Surgical History: Coronary Bypass/CABG, Joint Replacement Additional Past Surgical History / Comment(s): left cataract,[place] knee replace.,spleenectomy, left wrist CTR, ORIF rt ankle,4 vessel CABG WITH HEART VALVE REPLACEMENT FEB 2020 Past Anesthesia/Blood Transfusion Reactions: No Reported Reaction Past Psychological History: No Psychological Hx Reported Smoking Status: Former smoker Past Alcohol Use History: None Reported Past Drug Use History: None Reported - Past Family History Mother Family Medical History: Congestive Heart Failure (CHF) Additional Family Medical History / Comment(s): of old age Father Family Medical History: Coronary Artery Disease (CAD) Additional Family Medical History / Comment(s): Father shot at 52 years old General Exam Limitations: no limitations General appearance: alert, in no apparent distress Head exam: Present: atraumatic, normocephalic, normal inspection Eye exam: Present: normal appearance, PERRL, EOMI. Absent: scleral icterus, conjunctival injection, periorbital swelling ENT exam: Present: normal exam, mucous membranes moist Neck exam: Present: normal inspection. Absent: tenderness, meningismus, lymphadenopathy Respiratory exam: Present: respiratory distress, wheezes, rales, accessory muscle use, other (tachpynia). Absent: rhonchi, stridor Cardiovascular Exam: Present: regular rate, normal rhythm, normal heart sounds. Absent: systolic murmur, diastolic murmur, rubs, gallop, clicks GI/Abdominal exam: Present: soft, normal bowel sounds. Absent: distended, tenderness, guarding, rebound, rigid Extremities exam: Present: normal inspection, full ROM, normal capillary refill. Absent: tenderness, pedal edema, joint swelling, calf tenderness Back exam: Present: normal inspection Neurological exam: Present: alert, oriented X3, CN II-XII intact Psychiatric exam: Present: normal affect, normal mood Skin exam: Present: warm, dry, intact, normal color. Absent: rash Course Vital Signs 09/09/22 09/09/22 09/09/22 21:42 22:00 22:01 Temperature 97 F L Pulse Rate 64 63 Pulse Rate [ Clinical Resource Manager ] Respiratory 24 24 Rate Blood Pressure 134/78 134/78 O2 Sat by Pulse 97 99 Oximetry 09/09/22 09/09/22 09/09/22 22:03 22:10 22:20 Temperature Pulse Rate 53 L 68 Pulse Rate [ 62 Clinical Resource Manager ] Respiratory Rate Blood Pressure 103/58 114/64 O2 Sat by Pulse 99 96 Oximetry 09/10/22 01:20 Temperature Pulse Rate 70 Pulse Rate [ Clinical Resource Manager ] Respiratory 16 Rate Blood Pressure 120/80 O2 Sat by Pulse 100 Oximetry Medical Decision Making - Medical Decision Making Was pt. sent in by a medical professional or institution (, PA, HARNESS TIER, urgent care, hospital, or skilled nursing...) When possible be specific @ -No Did you speak to anyone other than the patient for history (EMS, parent, family, police, friend...)? What history was obtained from this source @ -EMS, daughter Did you review nursing and triage notes (agree or disagree)? Why? @ -I reviewed and agree with nursing and triage notes Were old charts reviewed (outside hosp., previous admission, EMS record, old EKG, old radiological studies, urgent care reports/EKG's, skilled nursing records)? Report findings @ -Old charts were reviewed - erika last hospitalization Differential Diagnosis (chest pain, altered mental status, abdominal pain women, abdominal pain men, vaginal bleeding, weakness, fever, dyspnea, syncope, headache, dizziness, GI bleed, back pain, seizure, CVA, palpatations, mental health, musculoskeletal)? @ -chf, copd, pe, pericardial effusion EKG interpreted by me (3pts min.). @ -yes X-rays interpreted by me (1pt min.). @ -yes CT interpreted by me (1pt min.). @ -None done U/S interpreted by me (1pt. min.). @ -None done What testing was considered but not performed or refused? (CT, X-rays, U/S, labs)? Why? @ -None What meds were considered but not given or refused? Why? @ -None Did you discuss the management of the patient with other professionals (professionals i.e. , PA, HARNESS TIER, lab, RT, psych nurse, psychosocial rehabilitation counselor, overcoil stepper, teacher, radiation officer, egg caser)? Give summary @ -Admitting physician Was smoking cessation discussed for >3mins.? @ -No Was critical care preformed (if so, how long)? @ -No Were there social determinants of health that impacted care today? How? (Homelessness, low income, unemployed, alcoholism, drug addiction, transportation, low edu. Level, literacy, decrease access to med. care, fdc, rehab)? @ -No Was there de-escalation of care discussed even if they declined (Discuss DNR or withdrawal of care, Hospice)? DNR status @ -No What co-morbidities impacted this encounter? (DM, HTN, Smoking, COPD, CAD, Cancer, CVA, ARF, Chemo, Hep., AIDS, mental health diagnosis, sleep apnea, morbid obesity)? @ -chf, chronic resp insuff, oxygen dependance Was patient admitted / discharged? Hospital course, mention meds given and route, prescriptions, significant lab abnormalities, going to OR and other pertinent info. @ -Upon arrival patient is placed into room 4. History and physical exam was performed. He is placed on 2 L of oxygen saturating anywhere from 92-95%. 12- lead EKG is obtained which demonstrates A. fib with a controlled rate. Laboratory studies were conducted which demonstrated a INR of 3.8. Lactic acid 2.6. BNP of 1640. Chest x-ray demonstrates bilateral pleural effusions. Patient clinically appears consistent with congestive heart failure. He is given 40 mg of Lasix. Recommended admission due to hypoxia for which she was agreeable. Spoke with Melissa from [facility] who agreed to admit the patient Undiagnosed new problem with uncertain prognosis? @ -no Drug Therapy requiring intensive monitoring for toxicity (Heparin, Nitro, Insulin, Cardizem)? @ -No Were any procedures done? @ -No Diagnosis/symptom? @ -acute chf exacerbation Acute, or Chronic, or Acute on Chronic? @ -acute on chronic Uncomplicated (without systemic symptoms) or Complicated (systemic symptoms)? @ -complicated Side effects of treatment? @ -No Exacerbation, Progression, or Severe Exacerbation? @ -yes Poses a threat to life or bodily function? How? (Chest pain, [place], [place], pneumonia, PE, COPD, DKA, ARF, appy, cholecystitis, CVA, Diverticulitis, Homicidal, Suicidal, threat to staff... and all critical care pts) @ -yes - Lab Data Result diagrams: 09/11/22 06:15 09/12/22 05:23 Lab Results 09/09/22 09/09/22 09/09/22 Range/Units 22:00 22:00 22:00 WBC 10.3 (3.8-10.6) k/uL RBC 5.22 (4.30-5.90) m/uL Hgb 15.4 (13.0-17.5) gm/dL Hct 47.1 (39.0-53.0) % MCV 90.2 (80.0-100.0) fL MCH 29.6 (25.0-35.0) pg MCHC 32.8 (31.0-37.0) g/dL RDW 13.6 (11.5-15.5) % Plt Count 275 (150-450) k/uL MPV 8.5 Immature Gran % (Auto) % Absolute Nucleated RBC (0.00-0.00) X 10*3/uL Neutrophils % 69 % Lymphocytes % 14 % Monocytes % 13 % Eosinophils % 1 % Basophils % 1 % Immature Gran # (0.00-0.04) X 10*3/uL Neutrophils # 7.0 (1.3-7.7) k/uL Lymphocytes # 1.5 (1.0-4.8) k/uL Monocytes # 1.3 H (0-1.0) k/uL Eosinophils # 0.1 (0-0.7) k/uL Basophils # 0.1 (0-0.2) k/uL NRBC/100 WBC Diff (0.0-0.0) /100 WBCS PT 37.3 H (9.0-12.0) sec INR 3.8 H (<1.2) APTT 35.2 H (22.0-30.0) sec Sodium 132 L (137-145) mmol/L Potassium 3.9 (3.5-5.1) mmol/L Chloride 91 L (98-107) mmol/L Carbon Dioxide 33 H (22-30) mmol/L Anion Gap 8 mmol/L BUN 19 (9-20) mg/dL Creatinine 0.84 (0.66-1.25) mg/dL Est GFR (CKD-EPI)AfAm >90 (>60 ml/min/1.73 sqM) Est GFR (CKD-EPI)NonAf 84 (>60 ml/min/1.73 sqM) BUN/Creatinine Ratio (12.00-20.00) Ratio Glucose 109 H (74-99) mg/dL POC Glucose (mg/dL) (70-110) mg/dL POC Glu Airplane Charter Clerk ID Estimated Ave Glu mg/dL Hemoglobin A1c (0.0-6.0) % Lactic Ac Sepsis Rflx Plasma Lactic Acid Dave (0.7-2.0) mmol/L Calcium 8.6 (8.4-10.2) mg/dL Magnesium 1.5 L (1.6-2.3) mg/dL Total Bilirubin 1.0 (0.2-1.3) mg/dL AST 29 (17-59) U/L ALT 23 (4-49) U/L Alkaline Phosphatase 120 (38-126) U/L Troponin I (0.000-0.034) ng/mL NT-Pro-B Natriuret Pep pg/mL Total Protein 6.7 (6.3-8.2) g/dL Albumin 3.6 (3.5-5.0) g/dL 09/09/22 09/09/22 09/09/22 Range/Units 22:00 22:00 22:00 WBC (3.8-10.6) k/uL RBC (4.30-5.90) m/uL Hgb (13.0-17.5) gm/dL Hct (39.0-53.0) % MCV (80.0-100.0) fL MCH (25.0-35.0) pg MCHC (31.0-37.0) g/dL RDW (11.5-15.5) % Plt Count (150-450) k/uL MPV Immature Gran % (Auto) % Absolute Nucleated RBC (0.00-0.00) X 10*3/uL Neutrophils % % Lymphocytes % % Monocytes % % Eosinophils % % Basophils % % Immature Gran # (0.00-0.04) X 10*3/uL Neutrophils # (1.3-7.7) k/uL Lymphocytes # (1.0-4.8) k/uL Monocytes # (0-1.0) k/uL Eosinophils # (0-0.7) k/uL Basophils # (0-0.2) k/uL NRBC/100 WBC Diff (0.0-0.0) /100 WBCS PT (9.0-12.0) sec INR (<1.2) APTT (22.0-30.0) sec Sodium (137-145) mmol/L Potassium (3.5-5.1) mmol/L Chloride (98-107) mmol/L Carbon Dioxide (22-30) mmol/L Anion Gap mmol/L BUN (9-20) mg/dL Creatinine (0.66-1.25) mg/dL Est GFR (CKD-EPI)AfAm (>60 ml/min/1.73 sqM) Est GFR (CKD-EPI)NonAf (>60 ml/min/1.73 sqM) BUN/Creatinine Ratio (12.00-20.00) Ratio Glucose (74-99) mg/dL POC Glucose (mg/dL) (70-110) mg/dL POC Glu Airplane Charter Clerk ID Estimated Ave Glu mg/dL Hemoglobin A1c (0.0-6.0) % Lactic Ac Sepsis Rflx Plasma Lactic Acid Dave 2.6 H* (0.7-2.0) mmol/L Calcium (8.4-10.2) mg/dL Magnesium (1.6-2.3) mg/dL Total Bilirubin (0.2-1.3) mg/dL AST (17-59) U/L ALT (4-49) U/L Alkaline Phosphatase (38-126) U/L Troponin I 0.015 (0.000-0.034) ng/mL NT-Pro-B Natriuret Pep 1640 pg/mL Total Protein (6.3-8.2) g/dL Albumin (3.5-5.0) g/dL 09/09/22 09/09/22 09/10/22 Range/Units 22:00 23:18 01:32 WBC (3.8-10.6) k/uL RBC (4.30-5.90) m/uL Hgb (13.0-17.5) gm/dL Hct (39.0-53.0) % MCV (80.0-100.0) fL MCH (25.0-35.0) pg MCHC (31.0-37.0) g/dL RDW (11.5-15.5) % Plt Count (150-450) k/uL MPV Immature Gran % (Auto) % Absolute Nucleated RBC (0.00-0.00) X 10*3/uL Neutrophils % % Lymphocytes % % Monocytes % % Eosinophils % % Basophils % % Immature Gran # (0.00-0.04) X 10*3/uL Neutrophils # (1.3-7.7) k/uL Lymphocytes # (1.0-4.8) k/uL Monocytes # (0-1.0) k/uL Eosinophils # (0-0.7) k/uL Basophils # (0-0.2) k/uL NRBC/100 WBC Diff (0.0-0.0) /100 WBCS PT (9.0-12.0) sec INR (<1.2) APTT (22.0-30.0) sec Sodium (137-145) mmol/L Potassium (3.5-5.1) mmol/L Chloride (98-107) mmol/L Carbon Dioxide (22-30) mmol/L Anion Gap mmol/L BUN (9-20) mg/dL Creatinine (0.66-1.25) mg/dL Est GFR (CKD-EPI)AfAm (>60 ml/min/1.73 sqM) Est GFR (CKD-EPI)NonAf (>60 ml/min/1.73 sqM) BUN/Creatinine Ratio (12.00-20.00) Ratio Glucose (74-99) mg/dL POC Glucose (mg/dL) (70-110) mg/dL POC Glu Airplane Charter Clerk ID Estimated Ave Glu mg/dL 194 Hemoglobin A1c 8.4 H (0.0-6.0) % Lactic Ac Sepsis Rflx Y Plasma Lactic Acid Dave 1.7 (0.7-2.0) mmol/L Calcium (8.4-10.2) mg/dL Magnesium (1.6-2.3) mg/dL Total Bilirubin (0.2-1.3) mg/dL AST (17-59) U/L ALT (4-49) U/L Alkaline Phosphatase (38-126) U/L Troponin I (0.000-0.034) ng/mL NT-Pro-B Natriuret Pep pg/mL Total Protein (6.3-8.2) g/dL Albumin (3.5-5.0) g/dL 09/10/22 09/10/22 09/10/22 Range/Units 07:15 11:05 17:09 WBC (3.8-10.6) k/uL RBC (4.30-5.90) m/uL Hgb (13.0-17.5) gm/dL Hct (39.0-53.0) % MCV (80.0-100.0) fL MCH (25.0-35.0) pg MCHC (31.0-37.0) g/dL RDW (11.5-15.5) % Plt Count (150-450) k/uL MPV Immature Gran % (Auto) % Absolute Nucleated RBC (0.00-0.00) X 10*3/uL Neutrophils % % Lymphocytes % % Monocytes % % Eosinophils % % Basophils % % Immature Gran # (0.00-0.04) X 10*3/uL Neutrophils # (1.3-7.7) k/uL Lymphocytes # (1.0-4.8) k/uL Monocytes # (0-1.0) k/uL Eosinophils # (0-0.7) k/uL Basophils # (0-0.2) k/uL NRBC/100 WBC Diff (0.0-0.0) /100 WBCS PT (9.0-12.0) sec INR (<1.2) APTT (22.0-30.0) sec Sodium (137-145) mmol/L Potassium (3.5-5.1) mmol/L Chloride (98-107) mmol/L Carbon Dioxide (22-30) mmol/L Anion Gap mmol/L BUN (9-20) mg/dL Creatinine (0.66-1.25) mg/dL Est GFR (CKD-EPI)AfAm (>60 ml/min/1.73 sqM) Est GFR (CKD-EPI)NonAf (>60 ml/min/1.73 sqM) BUN/Creatinine Ratio (12.00-20.00) Ratio Glucose (74-99) mg/dL POC Glucose (mg/dL) 110 134 H 125 H (70-110) mg/dL POC Glu Airplane Charter Clerk ID Manas, Celestina Ionia, Celestina Ionia, Celestina Estimated [address] Glu mg/dL Hemoglobin A1c (0.0-6.0) % Lactic Ac Sepsis Rflx Plasma Lactic Acid Dave (0.7-2.0) mmol/L Calcium (8.4-10.2) mg/dL Magnesium (1.6-2.3) mg/dL Total Bilirubin (0.2-1.3) mg/dL AST (17-59) U/L ALT (4-49) U/L Alkaline Phosphatase (38-126) U/L Troponin I (0.000-0.034) ng/mL NT-Pro-B Natriuret Pep pg/mL Total Protein (6.3-8.2) g/dL Albumin (3.5-5.0) g/dL 09/10/22 09/11/22 09/11/22 Range/Units 20:08 06:15 06:15 WBC 9.99 (3.8-10.6) k/uL RBC 5.53 (4.30-5.90) m/uL Hgb 16.3 (13.0-17.5) gm/dL Hct 49.7 (39.0-53.0) % MCV 89.9 (80.0-100.0) fL MCH 29.5 (25.0-35.0) pg MCHC 32.8 (31.0-37.0) g/dL RDW 14.5 (11.5-15.5) % Plt Count 273 (150-450) k/uL MPV 10.8 Immature Gran % (Auto) 1.2 % Absolute Nucleated RBC 0 (0.00-0.00) X 10*3/uL Neutrophils % 67.7 % Lymphocytes % 14.5 % Monocytes % 15.1 % Eosinophils % 0.9 % Basophils % 0.6 % Immature Gran # 0.12 H (0.00-0.04) X 10*3/uL Neutrophils # 6.76 (1.3-7.7) k/uL Lymphocytes # 1.45 (1.0-4.8) k/uL Monocytes # 1.51 H (0-1.0) k/uL Eosinophils # 0.09 (0-0.7) k/uL Basophils # 0.06 (0-0.2) k/uL NRBC/100 WBC Diff 0 (0.0-0.0) /100 WBCS PT (9.0-12.0) sec INR (<1.2) APTT (22.0-30.0) sec Sodium 134 L (137-145) mmol/L Potassium 3.9 (3.5-5.1) mmol/L Chloride 90 L (98-107) mmol/L Carbon Dioxide 34.1 H (22-30) mmol/L Anion Gap 10.10 mmol/L BUN 17.7 (9-20) mg/dL Creatinine 1.0 (0.66-1.25) mg/dL Est GFR (CKD-EPI)AfAm 85.7 (>60 ml/min/1.73 sqM) Est GFR (CKD-EPI)NonAf 73.9 (>60 ml/min/1.73 sqM) BUN/Creatinine Ratio 18.14 (12.00-20.00) Ratio Glucose 129 H (74-99) mg/dL POC Glucose (mg/dL) 139 H (70-110) mg/dL POC Glu Airplane Charter Clerk ID Roxanna Ferguson Estimated Ave Glu mg/dL Hemoglobin A1c (0.0-6.0) % Lactic Ac Sepsis Rflx Plasma Lactic Acid Dave (0.7-2.0) mmol/L Calcium 9.2 (8.4-10.2) mg/dL Magnesium 1.8 (1.6-2.3) mg/dL Total Bilirubin (0.2-1.3) mg/dL AST (17-59) U/L ALT (4-49) U/L Alkaline Phosphatase (38-126) U/L Troponin I (0.000-0.034) ng/mL NT-Pro-B Natriuret Pep pg/mL Total Protein (6.3-8.2) g/dL Albumin (3.5-5.0) g/dL 09/11/22 09/11/22 09/11/22 Range/Units 06:15 07:17 11:04 WBC (3.8-10.6) k/uL RBC (4.30-5.90) m/uL Hgb (13.0-17.5) gm/dL Hct (39.0-53.0) % MCV (80.0-100.0) fL MCH (25.0-35.0) pg MCHC (31.0-37.0) g/dL RDW (11.5-15.5) % Plt Count (150-450) k/uL MPV Immature Gran % (Auto) % Absolute Nucleated RBC (0.00-0.00) X 10*3/uL Neutrophils % % Lymphocytes % % Monocytes % % Eosinophils % % Basophils % % Immature Gran # (0.00-0.04) X 10*3/uL Neutrophils # (1.3-7.7) k/uL Lymphocytes # (1.0-4.8) k/uL Monocytes # (0-1.0) k/uL Eosinophils # (0-0.7) k/uL Basophils # (0-0.2) k/uL NRBC/100 WBC Diff (0.0-0.0) /100 WBCS PT 39.7 H (9.0-12.0) sec INR 3.69 H (<1.2) APTT (22.0-30.0) sec Sodium (137-145) mmol/L Potassium (3.5-5.1) mmol/L Chloride (98-107) mmol/L Carbon Dioxide (22-30) mmol/L Anion Gap mmol/L BUN (9-20) mg/dL Creatinine (0.66-1.25) mg/dL Est GFR (CKD-EPI)AfAm (>60 ml/min/1.73 sqM) Est GFR (CKD-EPI)NonAf (>60 ml/min/1.73 sqM) BUN/Creatinine Ratio (12.00-20.00) Ratio Glucose (74-99) mg/dL POC Glucose (mg/dL) 146 H 202 H (70-110) mg/dL POC Glu Airplane Charter Clerk Celestina Hopkins Shantelle Estimated [address] Glu mg/dL Hemoglobin A1c (0.0-6.0) % Lactic Ac Sepsis Rflx Plasma Lactic Acid Dave (0.7-2.0) mmol/L Calcium (8.4-10.2) mg/dL Magnesium (1.6-2.3) mg/dL Total Bilirubin (0.2-1.3) mg/dL AST (17-59) U/L ALT (4-49) U/L Alkaline Phosphatase (38-126) U/L Troponin I (0.000-0.034) ng/mL NT-Pro-B Natriuret Pep pg/mL Total Protein (6.3-8.2) g/dL Albumin (3.5-5.0) g/dL - EKG Data EKG Comments: EKG demonstrates A. fib with a rate of 68. QRS 130. QTC of 453. No acute ST segment elevations or depressions left axis deviation Disposition Clinical Impression: CHF exacerbation, Hypoxia Disposition: ADMITTED IP TO THIS HOSP Condition: Stable Is patient prescribed a controlled substance at d/c from ED?: No Time of Disposition: 00:27 Decision to Admit Reason: Admit from EC Decision Date: 09/10/22 Decision Time: 00:27
[2022-09-09 23:01] LABS: Basophils # (A) 0.1 k/uL (0-0.2); Basophils % (A) 1 %; Eosinophils # (A) 0.1 k/uL (0-0.7); Eosinophils % (A) 1 %; HCT 47.1 % (39.0-53.0); HGB 15.4 gm/dL (13.0-17.5); Lymphocytes # (A) 1.5 k/uL (1.0-4.8); Lymphocytes % (A) 14 %; MCH 29.6 pg (25.0-35.0); MCHC 32.8 g/dL (31.0-37.0); MCV 90.2 fL (80.0-100.0); Mean Platelet Volume 8.5; Monocytes # (A) 1.3 k/uL (0-1.0); Monocytes % (A) 13 %; Neutrophils % (A) 69 %; Platelet Count 275 k/uL (150-450); RBC 5.22 m/uL (4.30-5.90); RDW 13.6 % (11.5-15.5); WBC 10.3 k/uL (3.8-10.6)
[2022-09-09 23:02] LABS: INR 3.8 (<1.2); Partial Thromboplastin Time 35.2 sec (22.0-30.0); Prothrombin Time 37.3 sec (9.0-12.0)
[2022-09-09 23:10] LABS: ALT 23 U/L (4-49); AST 29 U/L (17-59); African American GFR (CKD) >90 (>60 ml/min/1.73 sqM); Albumin 3.6 g/dL (3.5-5.0); Alkaline Phosphatase 120 U/L (38-126); Anion Gap 8 mmol/L; Blood Urea Nitrogen 19 mg/dL (9-20); Calcium 8.6 mg/dL (8.4-10.2); Carbon Dioxide 33 mmol/L (22-30); Chloride 91 mmol/L (98-107); Glucose 109 mg/dL (74-99); Magnesium 1.5 mg/dL (1.6-2.3); Non-African American GFR(CKD) 84 (>60 ml/min/1.73 sqM); Potassium 3.9 mmol/L (3.5-5.1); Sodium 132 mmol/L (137-145); Total Protein 6.7 g/dL (6.3-8.2)
[2022-09-09] MEDS ORDERED: ACETAMINOPHEN TAB 500 MG TAB PO STA (23:12)
--- NOTE | 2022-09-09 23:40 | XR ---
EXAMINATION TYPE: XR chest 2V DATE OF EXAM: 09/09/2022 COMPARISON: 08/21/2022 HISTORY: Short of breath TECHNIQUE: FINDINGS: There is bilateral blunting of the costophrenic angles. There is mild congestion. There are sternal wires and cardiac valve surgery. Thoracic aorta is atheromatous. IMPRESSION: Bilateral pleural effusions with basilar atelectasis without change compared to old exam. Mild cardiomegaly. Mild heart failure is likely present.
[2022-09-10] MEDS ORDERED: NALOXONE 0.4 MG/ML 1 ML VIAL IV PRN (00:30)
[2022-09-10] MEDS: FUROSEMIDE 10 MG/ML 4 ML VIAL IV SCH ×3 (00:43→20:41)
[2022-09-10] MEDS ORDERED: Magnesium Replacement Protocol 1 EACH MISC MISCELLANE PRN (06:24)
[2022-09-10] MEDS ORDERED: DEXTROSE 50% SYRINGE 50 ML IVP PRN ×2 (06:26)
[2022-09-10 07:17] LABS: Glucose,Whole Blood 110 mg/dL (70-110)
[2022-09-10] MEDS: MAGNESIUM SULFATE-D5W PMX 1 GM in DEXTROSE/WATER 1 100ML.BAG IVPB SCH ×2 (07:38→09:23)
[2022-09-10] MEDS: guaiFENesin-DM 600/30MG 1 EACH TAB.ER.12H PO SCH ×2 (07:40→20:41)
[2022-09-10] MEDS: DOCUSATE 100 MG CAP PO SCH ×2 (07:40→07:42)
[2022-09-10] MEDS: LINAGLIPTIN 5 MG TABLET PO SCH (07:41)
[2022-09-10] MEDS: LOSARTAN 50 MG TAB PO SCH (07:41)
[2022-09-10] MEDS: LORATADINE 10 MG TAB PO SCH (07:41)
[2022-09-10] MEDS: METOPROLOL TARTRATE 50 MG TAB PO SCH ×2 (07:41→20:41)
[2022-09-10] MEDS: INSULIN ASPART (NovoLOG) 100 UNIT/ML VIAL SQ SCH ×4 (07:42→20:36)
--- NOTE | 2022-09-10 09:58 | P.CRDCN ---
History of Present Illness Consult date: 09/10/22 Chief complaint: shortness of breath History of present illness: the patient is a 76-year-old gentleman with a past medical history significant f or valvular heart disease and status post aortic valve replacement using bioprosthetic valve was performed in 2021 as well as permanent atrial fibrillation currently he is on anticoagulation with Coumadin as well as coronary artery disease and hypertension and dyslipidemia presented to the hospital complaining of shortness of breath. For the last few weeks he has been experiencing progressive exertional dyspnea. But for the last few days the exertional dyspnea was associated also with orthopnea and paroxysmal Valentina dyspnea as well. No lower eccentric is edema noted. No symptoms of chest pain or chest discomfort. No dizziness or lightheadedness or any feeling of heart racing or fluttering. He yesterday was also experiencing wheezing. Because of the shortness of breath he decided to come to the hospital. In the hospital he was found to be hypoxic with oxygen saturation of 89% on room air and subsequently placed on 2 L nasal cannula with improvement in the oxygen saturation. The patient was also started on IV diuretics. He also underwent further workup including chest x-ray showed bilateral pleural effusion and also NT proBNP came in to be elevated at 1600. Troponin came in to be unremarkable. He did not have any symptoms of chest pain or chest discomfort. Beside the s hortness of breath he also admitted that he was experiencing cough productive of sputum. No associated fever and no chills. The patient is known to have congestive heart failure and the last echo from a year ago in July 2021 revealed in bed all day function was EF around 45% with bioprosthetic aortic valve and evidence off mild aortic stenosis. He stated that he has been compliant with all of his medication including diuretics but he is not quite sure if he was compliant with his diet.on examination he does have normal vital signs. The lung examination revealed bilateral expiratory wheezing and rhonchi. The heart examination revealed irregular rhythm with a systolic murmur at the right upper sternal border. No lower extremities edema noted. Assessment Acute hypoxic respiratory failure Heart failure exacerbation related to heart failure with mildly reduced ejection fraction Known cardiomyopathy was EF around 45% Coronary artery disease Valvular heart disease status post aortic valve replacement using bioprosthetic valve Permanent atrial fibrillation on oral anticoagulation Multiple comorbid conditions Plan Continue the current dose of IV Lasix Monitor the kidney function and electrolytes Repeat the echo to assess the current status of the ejection fraction as well as bioprosthetic valve Follow-up with the patient Past Medical History Past Medical History: Atrial Fibrillation, Coronary Artery Disease (CAD), Cancer, Diabetes Mellitus, Hyperlipidemia, Hypertension, Osteoarthritis (OA), Pneumonia, Skin Disorder, Thyroid Disorder Additional Past Medical History / Comment(s): hx skin ca, [place] cataracts. History of Any Multi-Drug Resistant Organisms: None Reported Past Surgical History: Coronary Bypass/CABG, Joint Replacement Additional Past Surgical History / Comment(s): left cataract,[place] knee replace.,spleenectomy, left wrist CTR, ORIF rt ankle,4 vessel CABG WITH HEART VALVE REPLACEMENT FEB 2020 Past Anesthesia/Blood Transfusion Reactions: No Reported Reaction Smoking Status: Former smoker - Past Family History Mother Family Medical History: Congestive Heart Failure (CHF) Additional Family Medical History / Comment(s): of old age Father Family Medical History: Coronary Artery Disease (CAD) Additional Family Medical History / Comment(s): Father shot at 52 years old Medications and Allergies Home Medications Medication Instructions Recorded Confirmed Type metFORMIN HCL [Glucophage] 1,000 mg PO BID 06/17/16 09/09/22 History sitaGLIPtin [Januvia] 100 mg PO DAILY 06/17/16 09/09/22 History Atorvastatin [Lipitor] 80 mg PO HS 11/06/20 09/09/22 History Warfarin Sodium [Jantoven] 6 mg PO SUMOTUFRSA@209911/06/20 09/09/22 History Losartan [Cozaar] 50 mg PO DAILY #30 tab 06/12/21 09/09/22 Rx ALPRAZolam [Xanax] 0.5 mg PO BID PRN 08/19/22 09/09/22 History Warfarin Sodium [Jantoven] 3 mg PO WETH@2100 08/19/22 09/09/22 History guaiFENesin-DM 600/30MG [Mucinex 1 tab PO Q12HR 08/19/22 09/09/22 History Dm] Docusate [Colace] 100 mg PO DAILY #14 cap 08/22/22 09/09/22 Rx Furosemide [Lasix] 40 mg PO DAILY 30 Days #30 tab 08/22/22 09/09/22 Rx Loratadine [Claritin] 10 mg PO DAILY 30 Days #30 tab 08/22/22 09/09/22 Rx Metoprolol Tartrate [Lopressor] 50 mg PO BID 30 Days #60 tab 08/22/22 09/09/22 Rx Levothyroxine Sodium [Synthroid] 112 mcg PO HS 09/09/22 09/09/22 History Allergies Allergy/AdvReac Type Severity Reaction Status Date / Time No Known Allergies Allergy Verified 09/09/22 22:48 Physical Exam Vitals: Vital Signs Temp Pulse Pulse Pulse Resp BP BP 09/10/22 07:15 98.3 F 57 L 18 129/84 09/10/22 02:00 16 09/10/22 01:54 97.6 F 68 16 151/85 09/10/22 01:20 70 16 120/80 09/09/22 22:20 68 114/64 09/09/22 22:10 53 L 103/58 09/09/22 22:03 62 09/09/22 22:01 24 09/09/22 22:00 63 134/78 09/09/22 21:42 97 F L 64 24 134/78 Pulse Ox 09/10/22 07:15 98 09/10/22 02:00 09/10/22 01:54 97 09/10/22 01:20 100 09/09/22 22:20 96 09/09/22 22:10 99 09/09/22 22:03 09/09/22 22:01 09/09/22 22:00 99 09/09/22 21:42 97 Intake and Output 09/09/22 09/10/22 09/10/22 22:59 06:59 14:59 Intake Total 600 Balance 600 Intake: Oral 600 Other: Voiding Method Urinal # Voids 2 1 # Bowel Movements 1 Weight 84.368 kg 79.5 kg Results 09/09/22 22:00 09/09/22 22:00 Cardiac Enzymes 09/09/22 09/09/22 Range/Units 22:00 22:00 AST 29 (17-59) U/L Troponin I 0.015 (0.000-0.034) ng/mL Coagulation 09/09/22 Range/Units 22:00 PT 37.3 H (9.0-12.0) sec APTT 35.2 H (22.0-30.0) sec CBC 09/09/22 Range/Units 22:00 WBC 10.3 (3.8-10.6) k/uL RBC 5.22 (4.30-5.90) m/uL Hgb 15.4 (13.0-17.5) gm/dL Hct 47.1 (39.0-53.0) % Plt Count 275 (150-450) k/uL Comprehensive Metabolic Panel 09/09/22 Range/Units 22:00 Sodium 132 L (137-145) mmol/L Potassium 3.9 (3.5-5.1) mmol/L Chloride 91 L (98-107) mmol/L Carbon Dioxide 33 H (22-30) mmol/L BUN 19 (9-20) mg/dL Creatinine 0.84 (0.66-1.25) mg/dL Glucose 109 H (74-99) mg/dL Calcium 8.6 (8.4-10.2) mg/dL AST 29 (17-59) U/L ALT 23 (4-49) U/L Alkaline Phosphatase 120 (38-126) U/L Total Protein 6.7 (6.3-8.2) g/dL Albumin 3.6 (3.5-5.0) g/dL Current Medications Generic Name Dose Route Start Last Admin Trade Name Freq PRN Reason Stop Dose Admin Atorvastatin Calcium 80 mg 09/10/22 21:00 Atorvastatin 80 Mg Tab PO HS HALLEY Dextrose/Water 25 ml 09/10/22 06:26 Dextrose 50% Syringe 50 Ml IVP PER PROTOCOL PRN Hypoglycemia Protocol Dextrose/Water 50 ml 09/10/22 06:26 Dextrose 50% Syringe 50 Ml IVP PER PROTOCOL PRN Hypoglycemia Protocol Docusate Sodium 100 mg 09/10/22 09:00 09/10/22 07:42 Docusate 100 Mg Cap PO Not Given DAILY HALLEY Furosemide 40 mg 09/10/22 00:45 09/10/22 07:41 Furosemide 10 Mg/Ml 4 Ml Vial IV 40 mg BID HALLEY Administration Guaifenesin/Dextromethorphan 1 each 09/10/22 09:00 09/10/22 07:40 Guaifenesin-Dm 600/30mg 1 Each Tab.Er.12h PO 1 each Q12HR HALLEY Administration Insulin Aspart 0 unit 09/10/22 07:30 09/10/22 07:42 Insulin Aspart (Novolog) 100 Unit/Ml Vial SQ Not Given ACHS HALLEY Protocol Levothyroxine Sodium 112 mcg 09/10/22 21:00 Levothyroxine 112 Mcg Tab PO HS HALLEY Linagliptin 5 mg 09/10/22 09:00 09/10/22 07:41 Linagliptin 5 Mg Tablet PO 5 mg DAILY HALLEY Administration Loratadine 10 mg 09/10/22 09:00 09/10/22 07:41 Loratadine 10 Mg Tab PO 10 mg DAILY HALLEY Administration Losartan Potassium 50 mg 09/10/22 09:00 09/10/22 07:41 Losartan 50 Mg Tab PO 50 mg DAILY HALLEY Administration Metoprolol Tartrate 50 mg 09/10/22 09:00 09/10/22 07:41 Metoprolol Tartrate 50 Mg Tab PO 50 mg BID HALLEY Administration Miscellaneous Information 1 each 09/10/22 06:24 Magnesium Replacement Protocol 1 Each Misc MISCELLANE DAILY PRN Per Protocol Protocol Naloxone HCl 0.2 mg 09/10/22 00:30 Naloxone 0.4 Mg/Ml 1 Ml Vial IV Q2M PRN Opioid Reversal Intake and Output 09/09/22 09/10/22 09/10/22 22:59 06:59 14:59 Intake Total 600 Balance 600 Intake: Oral 600 Other: Voiding Method Urinal # Voids 2 1 # Bowel Movements 1 Weight 84.368 kg 79.5 kg 09/09/22 22:00 09/09/22 22:00
[2022-09-10 11:06] LABS: Glucose,Whole Blood 134 mg/dL (70-110)
[2022-09-10 17:10] LABS: Glucose,Whole Blood 125 mg/dL (70-110)
[2022-09-10 20:14] LABS: Glucose,Whole Blood 139 mg/dL (70-110)
[2022-09-10] MEDS: ATORVASTATIN 80 MG TAB PO SCH (20:41)
[2022-09-10] MEDS ORDERED: LEVOTHYROXINE 112 MCG TAB PO SCH (21:00)
--- NOTE | 2022-09-10 23:52 | P.HPIM ---
History of Present Illness H&P Date: 09/10/22 Chief Complaint: Shortness of breath Patient is a 76-year-old male with a known history of chronic atrial fibrillation on anticoagulation with Coumadin, history of aortic valve replacement, coronary artery disease with prior CABG, cardiomyopathy with a complex and 45%, hypertension, hyperlipidemia, diabetes type 2 [id number] hypothyroidism and prior history of smoking presents to ER with complaints of shortness of breath. Patient states that he has been having shortness of breath for the past few days. Last night symptoms got worse and felt very congested and could not breathe. Patient was hyperventilating and get lightheaded and passed out for about few seconds. He was also having cough without sputum production. Patient's called EMS. He was found to be hypoxic with a pulse ox 89% and was placed on 2 L oxygen via nasal cannula. Patient was recently admitted to the hospital for acute CHF exacerbation. Patient denies any complaints of fever or chills. No complaints of chest pain. Patient does have leg swelling. Chest x-ray showed bilateral lower lobe effusions and basilar atelectasis without change compared to old exam. Mild cardiomegaly. Mild heart failure is likely present. EKG showed atrial fibrillation with aberrant conduction heart rate 68. Laboratory data showed WBC 13.3 hemoglobin 15.4 and platelets 275 INR 3.8 Sodium 132 potassium 3.9 chloride 91 bicarb is 33 BUN 19 and creatinine 0.84 and A1c level is 8.4. Lactic acid 2.6 on admission and magnesium 1.5 11 years are not elevated and proBNP is 1640. Troponin x1 negative. Acute hypoxic respiratory failure secondary to acute on chronic CHF systolic function ejection fraction 45%. Ischemic cardiomyopathy Coronary artery with history of CABG Permanent atrial fibrillation on anticoagulation with Coumadin History of aortic valve replacement Hypertension Hyperlipidemia Diabetes type 2 uncontrolled with A1c 8.4 Osteoarthritis Hypothyroidism Prior history of smoking Coumadin monitoring Hypomagnesemia replaced Lactic acidosis likely due to hypoxia. Improved now Plan: Patient will be continued on Lasix 40 mg IV every 12 continue telemetry monitoring. Follow-up renal function. Continue with metoprolol, losartan statins. Cardiology was consulted and repeat echocardiogram was ordered. Continue with insulin sliding scale and follow CBG before meals and at bedtime. Albuterol, Atrovent inhalation as needed for shortness of breath. Prognosis guarded with multiple acute problems and comorbid conditions. Past Medical History Past Medical History: Atrial Fibrillation, Coronary Artery Disease (CAD), Cancer, Diabetes Mellitus, Hyperlipidemia, Hypertension, Osteoarthritis (OA), Pneumonia, Skin Disorder, Thyroid Disorder Additional Past Medical History / Comment(s): hx skin ca, [place] cataracts. History of Any Multi-Drug Resistant Organisms: None Reported Past Surgical History: Coronary Bypass/CABG, Joint Replacement Additional Past Surgical History / Comment(s): left cataract,[place] knee replace.,spleenectomy, left wrist CTR, ORIF rt ankle,4 vessel CABG WITH HEART VALVE REPLACEMENT FEB 2020 Past Anesthesia/Blood Transfusion Reactions: No Reported Reaction Smoking Status: Former smoker - Past Family History Mother Family Medical History: Congestive Heart Failure (CHF) Additional Family Medical History / Comment(s): of old age Father Family Medical History: Coronary Artery Disease (CAD) Additional Family Medical History / Comment(s): Father shot at 52 years old Medications and Allergies Home Medications Medication Instructions Recorded Confirmed Type metFORMIN HCL [Glucophage] 1,000 mg PO BID 06/17/16 09/09/22 History sitaGLIPtin [Januvia] 100 mg PO DAILY 06/17/16 09/09/22 History Atorvastatin [Lipitor] 80 mg PO HS 11/06/20 09/09/22 History Warfarin Sodium [Jantoven] 6 mg PO SUMOTUFRSA@2100 11/06/20 09/09/22 History Losartan [Cozaar] 50 mg PO DAILY #30 tab 06/12/21 09/09/22 Rx ALPRAZolam [Xanax] 0.5 mg PO BID PRN 08/19/22 09/09/22 History Warfarin Sodium [Jantoven] 3 mg PO WETH@2100 08/19/22 09/09/22 History guaiFENesin-DM 600/30MG [Mucinex 1 tab PO Q12HR 08/19/22 09/09/22 History Dm] Docusate [Colace] 100 mg PO DAILY #14 cap 08/22/22 09/09/22 Rx Furosemide [Lasix] 40 mg PO DAILY 30 Days #30 tab 08/22/22 09/09/22 Rx Loratadine [Claritin] 10 mg PO DAILY 30 Days #30 tab 08/22/22 09/09/22 Rx Metoprolol Tartrate [Lopressor] 50 mg PO BID 30 Days #60 tab 08/22/22 09/09/22 Rx Levothyroxine Sodium [Synthroid] 112 mcg PO HS 09/09/22 09/09/22 History Allergies Allergy/AdvReac Type Severity Reaction Status Date / Time No Known Allergies Allergy Verified 09/09/22 22:48 Physical Exam Vitals: Vital Signs Temp Pulse Pulse Pulse Resp BP BP 09/10/22 07:15 98.3 F 57 L 18 129/84 09/10/22 02:00 16 09/10/22 01:54 97.6 F 68 16 151/85 09/10/22 01:20 70 16 120/80 09/09/22 22:20 68 114/64 09/09/22 22:10 53 L 103/58 09/09/22 22:03 62 09/09/22 22:01 24 09/09/22 22:00 63 134/78 09/09/22 21:42 97 F L 64 24 134/78 Pulse Ox 09/10/22 07:15 98 09/10/22 02:00 09/10/22 01:54 97 09/10/22 01:20 100 09/09/22 22:20 96 09/09/22 22:10 99 09/09/22 22:03 09/09/22 22:01 09/09/22 22:00 99 09/09/22 21:42 97 Intake and Output 09/09/22 09/10/22 09/10/22 22:59 06:59 14:59 Intake Total 600 Balance 600 Intake: Oral 600 Other: Voiding Method Urinal # Voids 2 1 # Bowel Movements 1 Weight 84.368 kg 79.5 kg Results CBC & Chem 7: 09/09/22 22:00 09/09/22 22:00 Labs: Abnormal Lab Results - Last 24 Hours (Table) 09/09/22 09/09/22 09/09/22 Range/Units 22:00 22:00 22:00 Monocytes # 1.3 H (0-1.0) k/uL PT 37.3 H (9.0-12.0) sec INR 3.8 H (<1.2) APTT 35.2 H (22.0-30.0) sec Sodium 132 L (137-145) mmol/L Chloride 91 L (98-107) mmol/L Carbon Dioxide 33 H (22-30) mmol/L Glucose 109 H (74-99) mg/dL Plasma Lactic Acid Dave (0.7-2.0) mmol/L Magnesium 1.5 L (1.6-2.3) mg/dL 09/09/22 Range/Units 22:00 Monocytes # (0-1.0) k/uL PT (9.0-12.0) sec INR (<1.2) APTT (22.0-30.0) sec Sodium (137-145) mmol/L Chloride (98-107) mmol/L Carbon Dioxide (22-30) mmol/L Glucose (74-99) mg/dL Plasma Lactic Acid Dave 2.6 H* (0.7-2.0) mmol/L Magnesium (1.6-2.3) mg/dL Thrombosis Risk Factor Assmnt - DVT/VTE Prophylaxis DVT/VTE Prophylaxis: Pharmacologic Prophylaxis ordered - Choose All That Apply Any of the Below Risk Factors Present?: Yes Each Factor Represents 1 point: Obesity (BMI >25) Other Risk Factors: Yes Each Risk Factor Represents 3 Points: Age 75 years or older Other congenital or acquired thrombophilia - If yes, enter type in comment: No Thrombosis Risk Factor Assessment Total Risk Factor Score: 4 Thrombosis Risk Factor Assessment Level: Moderate Risk Assessment and Plan Time with Patient: Greater than 30
[2022-09-11] MEDS: LEVOTHYROXINE 112 MCG TAB PO SCH (05:35)
[2022-09-11 07:19] LABS: Glucose,Whole Blood 146 mg/dL (70-110)
[2022-09-11] MEDS: INSULIN ASPART (NovoLOG) 100 UNIT/ML VIAL SQ SCH ×4 (08:01→20:50)
--- NOTE | 2022-09-11 08:12 | P.PN ---
Subjective Progress Note Date: 09/11/22 Principal diagnosis: CHF The patient is a 76-year-old gentleman with a past medical history significant for valvular heart disease and status post aortic valve replacement using b ioprosthetic valve was performed in 2021 as well as permanent atrial fibrillation currently he is on anticoagulation with Coumadin as well as coronary artery disease and hypertension and dyslipidemia presented to the hospital complaining of shortness of breath. For the last few weeks he has been experiencing progressive exertional dyspnea. But for the last few days the exertional dyspnea was associated also with orthopnea and paroxysmal Valentina dyspnea as well. No lower eccentric is edema noted. No symptoms of chest pain or chest discomfort. No dizziness or lightheadedness or any feeling of heart racing or fluttering. He yesterday was also experiencing wheezing. Because of the shortness of breath he decided to come to the hospital. In the hospital he was found to be hypoxic with oxygen saturation of 89% on room air and subsequently placed on 2 L nasal cannula with improvement in the oxygen saturation. The patient was also started on IV diuretics. He also underwent further workup including chest x-ray showed bilateral pleural effusion and also NT proBNP came in to be elevated at 1600. Troponin came in to be unremarkable. He did not have any symptoms of chest pain or chest discomfort. Beside the shortness of breath he also admitted that he was experiencing cough productive of sputum. No associated fever and no chills. The patient is known to have congestive heart failure and the last echo from a year ago in July 2021 revealed in bed all day function was EF around 45% with bioprosthetic aortic valve and evidence off mild aortic stenosis. He stated that he has been compliant with all of his medication including diuretics but he is not quite sure if he was compliant with his diet.on examination he does have normal vital signs. The lung examination revealed bilateral expiratory wheezing and rhonchi. The heart examination revealed irregular rhythm with a systolic murmur at the right upper sternal border. No lower extremities edema noted. September [id number] The patient was seen and evaluated this morning. He is feeling better. The shortness of breath has improved significantly. Currently he is not on oxygen and his saturation is within normal limits. No symptoms of chest pain or chest discomfort and no dizziness or lightheadedness or any feeling of heart racing or fluttering. He underwent an echo and that still pending. His vitals are stab le. He continues to be on Lasix IV. On examination he does have bilateral rhonchi and the wheezing has resolved completely. He has no lower extremities edema noted. Assessment Acute hypoxic respiratory failure which has improved Heart failure exacerbation related to heart failure with mildly reduced ejection fraction Known cardiomyopathy was EF around 45% Coronary artery disease Valvular heart disease status post aortic valve replacement using bioprosthetic valve Permanent atrial fibrillation on oral anticoagulation Multiple comorbid conditions Plan Continue the current dose of IV Lasix Monitor the kidney function and electrolytes Follow-up on the echocardiogram which was performed yesterday Advice monitor the patient for additional 24 hours Objective - Vital Signs Vital signs: Vital Signs Temp 97.9 F 09/11/22 07:17 Pulse 84 09/11/22 07:17 Resp 18 09/11/22 07:17 BP 131/76 09/11/22 07:17 Pulse Ox 98 09/11/22 07:17 FiO2 Intake & Output 09/10/22 09/11/22 09/11/22 18:59 06:59 18:59 Intake Total 590 Balance 590 Weight 78.1 kg Intake: Oral 590 Other: Voiding Method Urinal # Voids 1 3 # Bowel Movements 1 - Labs CBC & Chem 7: 09/09/22 22:00 09/09/22 22:00 Labs: Abnormal Lab Results - Last 24 Hours (Table) 09/09/22 09/10/22 09/10/22 Range/Units 22:00 11:05 17:09 POC Glucose (mg/dL) 134 H 125 H (70-110) mg/dL Hemoglobin A1c 8.4 H (0.0-6.0) % 09/10/22 09/11/22 Range/Units 20:08 07:17 POC Glucose (mg/dL) 139 H 146 H (70-110) mg/dL Hemoglobin A1c (0.0-6.0) %
[2022-09-11] MEDS: FUROSEMIDE 10 MG/ML 4 ML VIAL IV SCH ×2 (08:51→20:50)
[2022-09-11] MEDS: LOSARTAN 50 MG TAB PO SCH (09:22)
[2022-09-11] MEDS: METOPROLOL TARTRATE 50 MG TAB PO SCH ×2 (09:22→20:51)
[2022-09-11] MEDS: guaiFENesin-DM 600/30MG 1 EACH TAB.ER.12H PO SCH ×2 (09:22→20:50)
[2022-09-11] MEDS: LORATADINE 10 MG TAB PO SCH (09:22)
[2022-09-11] MEDS: DOCUSATE 100 MG CAP PO SCH (09:23)
[2022-09-11] MEDS: LINAGLIPTIN 5 MG TABLET PO SCH (09:23)
[2022-09-11 09:53] LABS: Basophils # (A) 0.06 X 10*3/uL (0.00-0.10); Basophils % (A) 0.6 %; Eosinophils # (A) 0.09 X 10*3/uL (0.04-0.35); Eosinophils % (A) 0.9 %; HCT 49.7 % (39.6-50.0); HGB 16.3 g/dL (13.0-17.0); Immature Grans, Automated 1.2 %; Lymphocytes # (A) 1.45 X 10*3/uL (0.90-5.00); Lymphocytes % (A) 14.5 %; MCH 29.5 pg (27.0-32.0); MCHC 32.8 g/dL (32.0-37.0); MCV 89.9 fL (80.0-97.0); Mean Platelet Volume 10.8 fL (9.5-12.2); Monocytes # (A) 1.51 X 10*3/uL (0.20-1.00); Monocytes % (A) 15.1 %; NRBC Per 100 WBC 0 /100 WBCS (0.0-0.0); Neutrophils # (A) 6.76 X 10*3/uL (1.80-7.70); Neutrophils % (A) 67.7 %; Platelet Count 273 X 10*3/uL (140-440); RBC 5.53 X 10*6/uL (4.40-5.60); RDW 14.5 % (11.5-14.5); WBC 9.99 X 10*3/uL (4.50-10.00)
[2022-09-11 10:10] LABS: African American GFR (CKD) 85.7 (60.0-200.0); Anion Gap 10.1 mmol/L (10.00-18.00); BUN/Creat Ratio 18.14 Ratio (12.00-20.00); Blood Urea Nitrogen 17.7 mg/dL (9.0-27.0); Calcium 9.2 mg/dL (8.7-10.3); Carbon Dioxide 34.1 mmol/L (20.0-27.5); Magnesium 1.8 mg/dL (1.5-2.4); Non-African American GFR(CKD) 73.9 (60.0-200.0); Potassium 3.9 mmol/L (3.5-5.5)
[2022-09-11 10:18] LABS: INR 3.69 (0.90-1.11); Prothrombin Time 39.7 sec (9.9-11.9)
[2022-09-11] MEDS ORDERED: MAGNESIUM SULFATE-D5W PMX 1 GM in DEXTROSE/WATER 1 100ML.BAG IVPB ONE (10:20)
--- NOTE | 2022-09-11 10:25 | CA ---
Transthoracic Echo Report Name: Isidro Balbuena Age: 76 Gender: M : 1945 Exam Date: 09/10/2022 11:36 Exam Location: [facility] Ht (in): 71 Wt (lb): 175 Ordering Physician: Dale Jefferson MD ([id number]) Attending/Referring Phys: [employer] Kristyn Dunne RDCS Procedure CPT: Indications: chf Cardiac Hx: Technical Quality: Fair Contrast 1: Total Dose (mL): Contrast 2: Total Dose (mL): MEASUREMENTS (Male / Female) Normal Values 2D ECHO LV Diastolic Diameter PLAX 5.9 cm 4.2 - 5.9 / 3.9 - 5.3 cm LV Systolic Diameter PLAX 4.1 cm IVS Diastolic Thickness 1.2 cm 0.6 - 1.0 / 0.6 - 0.9 cm LVPW Diastolic Thickness 1.2 cm 0.6 - 1.0 / 0.6 - 0.9 cm LV Relative Wall Thickness 0.4 RV Internal Dim ED PLAX 4.1 cm LVOT Diameter 1.6 cm LA Volume 152.6 cm??? 18 - 58 / 22 - 52 cm??? M-MODE Aortic Root Diameter MM 3.3 cm LA Systolic Diameter MM 5.2 cm LA Ao Ratio MM 1.6 DOPPLER AV Peak Velocity 187.9 cm/s AV Peak Gradient 14.1 mmHg AV Mean Velocity 128.2 cm/s AV Mean Gradient 7.8 mmHg AV Velocity Time Integral 35.6 cm LVOT Peak Velocity 76.3 cm/s LVOT Peak Gradient 2.3 mmHg LVOT Velocity Time Integral 12.3 cm LVOT Stroke Volume 26.0 cm??? LVOT Stroke Volume Index 13.0 ml/m??? LVOT Cardiac Index 778.9 cm???/min???m??? AV Area Cont Eq vti 0.7 cm??? AV Area Cont Eq pk 0.9 cm??? MV Area PHT 3.4 cm??? Mitral E Point Velocity 95.0 cm/s Mitral A Point Velocity 0.7 cm/s Mitral E to A Ratio 129.3 MV Deceleration Time 220.0 ms MV E' Velocity 5.9 cm/s Mitral E to MV E' Ratio 16.0 TR Peak Velocity 214.7 cm/s TR Peak Gradient 18.4 mmHg Right Ventricular Systolic Press 22.5 mmHg FINDINGS Left Ventricle Mildly increased left ventricular wall thickness. Abnormal (paradoxical) septal motion consistent with postoperative state. Left ventricular ejection fraction is estimated at 45-50 %. Right Ventricle Moderate right ventricular dilatation. Right ventricular systolic pressure within normal limits. Right Atrium Right atrial dilatation. Left Atrium Severely increased left atrial volume. Moderately increased left atrial area. Mitral Valve Mitral valve thickened. Mitral annular calcification. Moderate mitral regurgitation. Aortic Valve Normally functioning bioprosthetic aortic valve without stenosis with a peak velocity of 2 m/s, peak gradient 14 mmHg, mean gradient 8 mmHg, and estimated aortic valve area of .9 cm???. Tricuspid Valve Structurally normal tricuspid valve. Mild tricuspid regurgitation. Pulmonic Valve Structurally normal pulmonic valve. Pericardium No pericardial effusion. Aorta Normal size aortic root and proximal ascending aorta. CONCLUSIONS Mildly impaired only function was EF between 45-50% Dilated right ventricle with a normal function Severe right atrial dilatation Thickened mitral valve leaflets with moderate mitral regurgitation Normally functioning bioprosthetic aortic valve with a mean gradient of 8 mmHg Previewed by: Dr. Dale Jefferson MD (Electronically Signed) Final Date: 11 September 2022 10:25
[2022-09-11 11:05] LABS: Glucose,Whole Blood 202 mg/dL (70-110)
[2022-09-11] MEDS: ALPRAZolam 0.5 MG TAB PO PRN (17:01)
[2022-09-11 17:06] LABS: Glucose,Whole Blood 102 mg/dL (70-110)
[2022-09-11 20:28] LABS: Glucose,Whole Blood 223 mg/dL (70-110)
[2022-09-11] MEDS: ATORVASTATIN 80 MG TAB PO SCH (20:50)
--- NOTE | 2022-09-12 02:54 | P.PN ---
Subjective Progress Note Date: 09/11/22 Patient is a 76-year-old male with a known history of chronic atrial fibrillation on anticoagulation with Coumadin, history of aortic valve replacement, coronary artery disease with prior CABG, cardiomyopathy with a complex and 45%, hypertension, hyperlipidemia, diabetes type 2 [id number] hypothyroidism and prior history of smoking presents to ER with complaints of shortness of breath. Patient states that he has been having shortness of breath for the past few days. Last night symptoms got worse and felt very congested and could not breathe. Patient was hyperventilating and get lightheaded and passed out for about few seconds. He was also having cough without sputum production. Patient's called EMS. He was found to be hypoxic with a pulse ox 89% and was placed on 2 L oxygen via nasal cannula. Patient was recently admitted to the hospital for acute CHF exacerbation. Patient denies any complaints of fever or chills. No complaints of chest pain. Patient does have leg swelling. Chest x-ray showed bilateral lower lobe effusions and basilar atelectasis without change compared to old exam. Mild cardiomegaly. Mild heart failure is likely present. EKG showed atrial fibrillation with aberrant conduction heart rate 68. Laboratory data showed WBC 13.3 hemoglobin 15.4 and platelets 275 INR 3.8 Sodium 132 potassium 3.9 chloride 91 bicarb is 33 BUN 19 and creatinine 0.84 and A1c level is 8.4. Lactic acid 2.6 on admission and magnesium 1.5 11 years are not elevated and proBNP is 1640. Troponin x1 negative. 09/11/2022 Patient is seen and evaluated and follow-up currently maintained on IV Lasix with cardiology following recommending another 24 hours on IV Lasix with follow- up labs and reevaluation in the a.m. Patient reports his shortness of breath is improved and continues with some mild congestion. Echo was done and reviewed. EF is 45-50%. Patient is afebrile and denies chest pain or palpitations. Patient denies nausea or vomiting. Will follow up on repeat labs in the am. Replace electrolytes per protocol. Encouraged increased activity as tolerated. Review of systems: Constitutional: No reports of fatigue, fever, or chills Cardiovascular: No reports of chest pain or palpitations Respiratory: No reports of worsening shortness of breath , reports cough GI: No reports of nausea, vomiting, or diarrhea : No reports of dysuria or retention Neurovascular: No reports of weakness or numbness All medications have been reviewed Physical exam: Gen: This is a 76-year-old male who is awake, alert and oriented 3, well- developed, well-nourished HEENT: Head is atraumatic, normocephalic. Pupils equal, round. Sclerae is anicteric. NECK: Supple. No JVD. No lymphadenopathy. No thyromegaly. LUNGS: diminished breath sounds bilaterally with no wheezes, some faint crackles noted at the bases. No intercostal retractions. HEART: s1, s2 muffled ABDOMEN: Soft. Bowel sounds are present. No masses. No tenderness. EXTREMITIES: No pedal edema. No calf tenderness. NEUROLOGICAL: Patient is awake, alert and oriented x3. Cranial nerves 2 through 12 are grossly intact. Assessment: Acute hypoxic respiratory failure secondary to acute on chronic CHF systolic function ejection fraction 45%. Ischemic cardiomyopathy Coronary artery with history of CABG Permanent atrial fibrillation on anticoagulation with Coumadin History of aortic valve replacement Hypertension Hyperlipidemia Diabetes type 2 uncontrolled with A1c 8.4 Osteoarthritis Hypothyroidism Prior history of smoking Coumadin monitoring anxiety Hypomagnesemia, replaced Lactic acidosis likely due to hypoxia. Improved now Plan: Patient will be continued on Lasix 40 mg IV every 12 continue telemetry monitoring. Follow-up renal function. Replace magnesium and repeat labs ordered INR is elevated and coumadin on hold. Will repeat labs Continue with metoprolol, losartan statins. Cardiology following and recommending continued lasix for 24 hours and possible discharge in am Continue with insulin sliding scale and continue accuchecks achs Recommend Albuterol, Atrovent inhalation as needed for shortness of breath. Prognosis guarded with multiple acute problems and comorbid conditions. Possible discharge in 24 hours. The impression and plan of care has been dictated by Melissa Thomas, Nurse Practitioner as directed. Dr. Becky MD I have performed a history and examination and MDM of this patient, discussed the same with the dictator, and agree with the dictator's assessment and plan as written ,documented as a scribe. Based on total visit time, I have performed more than 50% of the visit. Objective - Vital Signs Vital signs: Vital Signs Temp 97.9 F 09/11/22 07:17 Pulse 84 09/11/22 07:17 Resp 18 09/11/22 07:17 BP 131/76 09/11/22 07:17 Pulse Ox 98 09/11/22 07:17 FiO2 Intake & Output 09/10/22 09/11/22 09/11/22 18:59 06:59 18:59 Intake Total 590 Balance 590 Weight 78.1 kg Intake: Oral 590 Other: Voiding Method Urinal # Voids 1 3 # Bowel Movements 1 - Labs CBC & Chem 7: 09/11/22 06:15 09/11/22 06:15 Labs: Abnormal Lab Results - Last 24 Hours (Table) 09/09/22 09/10/22 09/10/22 Range/Units 22:00 11:05 17:09 POC Glucose (mg/dL) 134 H 125 H (70-110) mg/dL Hemoglobin A1c 8.4 H (0.0-6.0) % 09/10/22 09/11/22 Range/Units 20:08 07:17 POC Glucose (mg/dL) 139 H 146 H (70-110) mg/dL Hemoglobin A1c (0.0-6.0) %
[2022-09-12] MEDS: LEVOTHYROXINE 112 MCG TAB PO SCH (05:32)
[2022-09-12 07:47] LABS: Glucose,Whole Blood 147 mg/dL (70-110)
[2022-09-12] MEDS: INSULIN ASPART (NovoLOG) 100 UNIT/ML VIAL SQ SCH ×2 (07:50→12:57)
[2022-09-12 08:16] VITALS: RESP 17
[2022-09-12] MEDS: FUROSEMIDE 10 MG/ML 4 ML VIAL IV SCH (08:40)
[2022-09-12] MEDS: DOCUSATE 100 MG CAP PO SCH (08:40)
[2022-09-12] MEDS: METOPROLOL TARTRATE 50 MG TAB PO SCH (08:40)
[2022-09-12] MEDS: guaiFENesin-DM 600/30MG 1 EACH TAB.ER.12H PO SCH (08:40)
[2022-09-12] MEDS: LINAGLIPTIN 5 MG TABLET PO SCH (08:40)
[2022-09-12] MEDS: LORATADINE 10 MG TAB PO SCH (08:40)
[2022-09-12] MEDS: LOSARTAN 50 MG TAB PO SCH (08:40)
[2022-09-12 10:10] LABS: African American GFR (CKD) 75.8 (60.0-200.0); Anion Gap 9.6 mmol/L (10.00-18.00); BUN/Creat Ratio 22.31 Ratio (12.00-20.00); Blood Urea Nitrogen 24.1 mg/dL (9.0-27.0); Calcium 8.7 mg/dL (8.7-10.3); Carbon Dioxide 32.5 mmol/L (20.0-27.5); Non-African American GFR(CKD) 65.4 (60.0-200.0); Potassium 3.8 mmol/L (3.5-5.5)
--- NOTE | 2022-09-12 10:46 | P.PN ---
Subjective Progress Note Date: 09/12/22 Principal diagnosis: CHF The patient is a 76-year-old gentleman with a past medical history significant for valvular heart disease and status post aortic valve replacement using b ioprosthetic valve was performed in 2021 as well as permanent atrial fibrillation currently he is on anticoagulation with Coumadin as well as coronary artery disease and hypertension and dyslipidemia presented to the hospital complaining of shortness of breath. For the last few weeks he has been experiencing progressive exertional dyspnea. But for the last few days the exertional dyspnea was associated also with orthopnea and paroxysmal Valentina dyspnea as well. No lower eccentric is edema noted. No symptoms of chest pain or chest discomfort. No dizziness or lightheadedness or any feeling of heart racing or fluttering. He yesterday was also experiencing wheezing. Because of the shortness of breath he decided to come to the hospital. In the hospital he was found to be hypoxic with oxygen saturation of 89% on room air and subsequently placed on 2 L nasal cannula with improvement in the oxygen saturation. The patient was also started on IV diuretics. He also underwent further workup including chest x-ray showed bilateral pleural effusion and also NT proBNP came in to be elevated at 1600. Troponin came in to be unremarkable. He did not have any symptoms of chest pain or chest discomfort. Beside the shortness of breath he also admitted that he was experiencing cough productive of sputum. No associated fever and no chills. The patient is known to have congestive heart failure and the last echo from a year ago in July 2021 revealed in bed all day function was EF around 45% with bioprosthetic aortic valve and evidence off mild aortic stenosis. He stated that he has been compliant with all of his medication including diuretics but he is not quite sure if he was compliant with his diet.on examination he does have normal vital signs. The lung examination revealed bilateral expiratory wheezing and rhonchi. The heart examination revealed irregular rhythm with a systolic murmur at the right upper sternal border. No lower extremities edema noted. September [id number] The patient was seen and evaluated this morning. He is feeling better. The shortness of breath has improved significantly. Currently he is not on oxygen and his saturation is within normal limits. No symptoms of chest pain or chest discomfort and no dizziness or lightheadedness or any feeling of heart racing or fluttering. He underwent an echo and that still pending. His vitals are stab le. He continues to be on Lasix IV. On examination he does have bilateral rhonchi and the wheezing has resolved completely. He has no lower extremities edema noted. Are 2022 The patient was seen this morning he is doing better. The shortness of breath has resolved. No lower extremities edema. Her pressure appeared to be soft. He underwent an echo which revealed mildly impaired LV function was EF around 45% with dilated left atrium and normally functioning bioprosthetic aortic valve was moderate mitral regurgitation. I'm going to stop the Lasix IV and start the patient on Lasix by mouth 40 mg daily. He was not receiving any Lasix orally as an outpatient. Assessment Acute hypoxic respiratory failure which has improved Heart failure exacerbation related to heart failure with mildly reduced ejection fraction Known cardiomyopathy was EF around 45% Coronary artery disease Valvular heart disease status post aortic valve replacement using bioprosthetic valve Permanent atrial fibrillation on oral anticoagulation Multiple comorbid conditions Plan DC Lasix IV and start the patient on Lasix by mouth Decrease the dose of losartan in the light of soft blood pressure The patient can be discharged home in the next 12-24 hours Objective - Vital Signs Vital signs: Vital Signs Temp 97.8 F 09/12/22 08:00 Pulse 54 L 09/12/22 08:00 Resp 17 09/12/22 08:00 BP 105/71 09/12/22 08:00 Pulse Ox 97 09/12/22 08:00 FiO2 Intake & Output 09/11/22 09/12/22 09/12/22 18:59 06:59 18:59 Intake Total 118 118 Balance 118 118 Weight 78.7 kg Intake: Oral 118 118 Other: Voiding Method Urinal # Voids 1 2 # Bowel Movements 1 - Labs CBC & Chem 7: 09/11/22 06:15 09/12/22 05:23 Labs: Abnormal Lab Results - Last 24 Hours (Table) 09/11/22 09/11/22 09/12/22 Range/Units 11:04 20:26 05:23 Sodium 133 L (135-145) mmol/L Chloride 90 L (96-109) mmol/L Carbon Dioxide 32.5 H (20.0-27.5) mmol/L Anion Gap 9.60 L (10.00-18.00) mmol/L BUN/Creatinine Ratio 22.31 H (12.00-20.00) Ratio Glucose 115 H (70-110) mg/dL POC Glucose (mg/dL) 202 H 223 H (70-110) mg/dL 09/12/22 Range/Units 07:46 Sodium (135-145) mmol/L Chloride (96-109) mmol/L Carbon Dioxide (20.0-27.5) mmol/L Anion Gap (10.00-18.00) mmol/L BUN/Creatinine Ratio (12.00-20.00) Ratio Glucose (70-110) mg/dL POC Glucose (mg/dL) 147 H (70-110) mg/dL
[2022-09-12 11:04] LABS: INR 2.77 (0.90-1.11); Prothrombin Time 30.1 sec (9.9-11.9)
[2022-09-12 11:27] LABS: Glucose,Whole Blood 164 mg/dL (70-110)
[2022-09-12] MEDS: ALPRAZolam 0.5 MG TAB PO PRN (11:33)
[2022-09-12 13:51] VITALS: TEMP 97.3
[2022-09-12 15:02] VITALS: BP 102/64; PULSE 94
[2022-09-13] MEDS ORDERED: FUROSEMIDE 40 MG TAB PO SCH (09:00)
[2022-09-13] MEDS ORDERED: LOSARTAN 25 MG TAB PO SCH (09:00)
--- NOTE | 2022-09-16 06:49 | P.DS ---
Providers Date of admission: 09/11/22 12:18 Expected date of discharge: 09/12/22 Attending physician: Rowan Shah Consults: 09/10/22 00:30 Consult Physician Urgent Consulting Provider: [facility] Consult Reason/Comments: chf exacerbation Do you want consulting provider notified?: Yes Primary care physician: Karson Jama [place] Hospital Course: Final diagnosis Acute hypoxic respiratory failure secondary to acute on chronic CHF systolic function ejection fraction 45%. Ischemic cardiomyopathy Coronary artery with history of CABG Permanent atrial fibrillation on anticoagulation with Coumadin History of aortic valve replacement Hypertension Hyperlipidemia Diabetes type 2 uncontrolled with A1c 8.4 Osteoarthritis Hypothyroidism Prior history of smoking Coumadin monitoring anxiety Hypomagnesemia, improved Lactic acidosis likely due to hypoxia. Improved now Discharge disposition Patient is being discharged in a stable condition with guarded prognosis to home. Patient will follow-up with Dr. Jama in the outpatient setting upon discharge. Patient is to follow-up with cardiology as scheduled. Total time taken is greater than 35 minutes. Hospital course This is a 76-year-old male who was recently admitted with shortness of breath and CHF exacerbation. Patient was seen and evaluated by cardiology maintained on IV Lasix and diuresed reporting improvement in shortness of breath. Patient also had some changes in medications and will continue on Lasix 40 mg twice daily and recommend outpatient follow-up closely. Patient has been taking Xanax and helps calm the patient although at the bedside concerned patient being depressed as he is not able to do things he normally would be doing prior to his heart surgery. Discussed with the about following up with primary care provider to discuss possibly adding new medications. Patient has been cleared by cardiology with a reduced dose of losartan as well. Encourage the patient and monitor blood pressure and keep a diary of readings for primary follow-up as well as cardiology follow-up. Please refer to cardiology no for further HPI. Currently no reports of chest pain, shortness of breath, or palpitations. Patient is afebrile. No reports of nausea or vomiting and patient is tolerating diet. Patient will be discharged home today. Guarded prognosis. Physical exam: Gen: This is a 76-year-old male who is awake, alert and oriented 3, well- developed, well-nourished HEENT: Head is atraumatic, normocephalic. Pupils equal, round. Sclerae is anicteric. NECK: Supple. No JVD. No lymphadenopathy. No thyromegaly. LUNGS: Clear to auscultation. No wheezes or rhonchi. No intercostal retractions. HEART: Regular rate and rhythm. No murmur. ABDOMEN: Soft. Bowel sounds are present. No masses. No tenderness. EXTREMITIES: No pedal edema. No calf tenderness. NEUROLOGICAL: Patient is awake, alert and oriented x3. Cranial nerves 2 through 12 are grossly intact. Please refer to medication reconciliation sheet for a list of medications. The impression and plan of care has been dictated by Melissa Thomas, Nurse Practitioner as directed. Dr. Becky MD I have performed a history and examination and MDM of this patient, discussed the same with the dictator, and agree with the dictator's assessment and plan as written ,documented as a scribe. Based on total visit time, I have performed more than 50% of the visit. Patient Condition at Discharge: Stable Plan - Discharge Summary Discharge Rx Participant: No New Discharge Prescriptions: New Losartan [Cozaar] 25 mg PO DAILY #30 tab Continue sitaGLIPtin [Januvia] 100 mg PO DAILY metFORMIN HCL [Glucophage] 1,000 mg PO BID guaiFENesin-DM 600/30MG [Mucinex Dm] 1 tab PO Q12HR Warfarin Sodium [Jantoven] 3 mg PO WETH@2100 Loratadine [Claritin] 10 mg PO DAILY 30 Days #30 tab Docusate [Colace] 100 mg PO DAILY #14 cap Levothyroxine Sodium [Synthroid] 112 mcg PO HS Furosemide [Lasix] 40 mg PO DAILY 30 Days #30 tab Atorvastatin [Lipitor] 80 mg PO HS Warfarin Sodium [Jantoven] 6 mg PO SUMOTUFRSA@2100 ALPRAZolam [Xanax] 0.5 mg PO BID PRN PRN Reason: Anxiety Metoprolol Tartrate [Lopressor] 50 mg PO BID 30 Days #60 tab Discontinued Losartan [Cozaar] 50 mg PO DAILY #30 tab Discharge Medication List metFORMIN HCL [Glucophage] 1,000 mg PO BID 06/17/16 [History] sitaGLIPtin [Januvia] 100 mg PO DAILY 06/17/16 [History] Atorvastatin [Lipitor] 80 mg PO HS 11/06/20 [History] Warfarin Sodium [Jantoven] 6 mg PO SUMOTUFRSA@2100 11/06/20 [History] ALPRAZolam [Xanax] 0.5 mg PO BID PRN 08/19/22 [History] Warfarin Sodium [Jantoven] 3 mg PO WETH@2100 08/19/22 [History] guaiFENesin-DM 600/30MG [Mucinex Dm] 1 tab PO Q12HR 08/19/22 [History] Docusate [Colace] 100 mg PO DAILY #14 cap 08/22/22 [Rx] Loratadine [Claritin] 10 mg PO DAILY 30 Days #30 tab 08/22/22 [Rx] Metoprolol Tartrate [Lopressor] 50 mg PO BID 30 Days #60 tab 08/22/22 [Rx] Levothyroxine Sodium [Synthroid] 112 mcg PO HS 09/09/22 [History] Furosemide [Lasix] 40 mg PO DAILY 30 Days #30 tab 09/12/22 [Rx] Losartan [Cozaar] 25 mg PO DAILY #30 tab 09/12/22 [Rx] Follow up Appointment(s)/Referral(s): Karson Jama DO [Primary Care Provider] - 09/18/22 2:00 pm Tye Lee MD [STAFF PHYSICIAN] - 09/30/22 2:45 pm Patient Instructions/Handouts: Furosemide (By mouth), Losartan (By mouth), Heart Failure (DC), Low-Sodium Diet (DC) Activity/Diet/Wound Care/Special Instructions: Activity Limited until follow-up Follow-up with primary care provider next week at your scheduled appointment follow-up with cardiology at your scheduled appointment Continue taking medications as prescribed Avoid getting up abruptly or position changes abruptly and sit up at the side of the bed or chair 1-2 minutes prior to getting up Continue heart healthy, diabetic diet Discuss with her primary care provider about possible low dose antidepressant Continue losartan at decreased rate and his blood pressure is 100 or less systolic hold medication and contact your doctor Discuss with cardiology about possible cardiac rehab in the outpatient setting Discharge Disposition: HOME SELF-CARE
== END 2022-09-12 16:28 | disposition home or self-care (01) | DRG 291 ==
LOC: EC 21:41 → 5NMEDONC 09-10 00:30 → OBSVTOIN 09-11 12:18
PROVIDERS: ADMIT Hospitalist; ATTEND Hospitalist
DX: I11.0 Hypertensive heart disease with heart failure (principal); I50.23 Acute on chronic systolic (congestive) heart failure; J96.01 Acute respiratory failure with hypoxia; I48.21 Permanent atrial fibrillation; J98.11 Atelectasis; F41.9 Anxiety disorder, unspecified; I25.5 Ischemic cardiomyopathy; I25.10 Atherosclerotic heart disease of native coronary artery without angina pectoris; E03.9 Hypothyroidism, unspecified; E11.65 Type 2 diabetes mellitus with hyperglycemia; E83.42 Hypomagnesemia; I34.0 Nonrheumatic mitral (valve) insufficiency; Z87.01 Personal history of pneumonia (recurrent); M19.90 Unspecified osteoarthritis, unspecified site; Z95.3 Presence of xenogenic heart valve; E78.5 Hyperlipidemia, unspecified; Z95.1 Presence of aortocoronary bypass graft; Z79.01 Long term (current) use of anticoagulants; Z79.84 Long term (current) use of oral hypoglycemic drugs; Z79.890 Hormone replacement therapy; Z79.899 Other long term (current) drug therapy; Z82.49 Family history of ischemic heart disease and other diseases of the circulatory system; Z85.828 Personal history of other malignant neoplasm of skin; Z90.81 Acquired absence of spleen; Z96.653 Presence of artificial knee joint, bilateral
CPT/HCPCS: 36415; 71046; 80048; 80053; 83036; 83605; 83735; 83880; 84484; 85025; 85610; 85730; 93005; 93306; 96374; 99285

== ENCOUNTER → 2024-01-27 | Outpatient (CLI) | payer MEDICARE, OTHER ==
--- NOTE | 2024-01-27 12:27 | MR ---
EXAMINATION TYPE: MR brain wo/w con DATE OF EXAM: 01/27/2024 12:19 PM COMPARISON: NONE HISTORY: Squamous cell cancer, left central frontal scalp. Positive Blanchard 2A result. CONTRAST: Patient received 7.5 mL intravenous Gadavist gadolinium contrast. Multiplanar and multispin-echo imaging of the brain was performed . Pre and post contrast enhanced i mages are obtained. The ventricles, basal cisterns and sulci overlying the cerebral convexities are mildly enlarged. There is evidence of mild periventricular white matter ischemic demyelination. Remote deep white matter insults are also noted. No acute edema is seen on diffusion weighted imaging. There is no evidence for midline shift or mass effect. Acute intracranial hemorrhage or extra-axial collection is not evident. No enhancing lesions are seen. The paranasal sinuses and mastoid air cells are well-aerated. Left frontal scalp skin thickening. Cor relate clinically. IMPRESSION: Age-related atrophic and chronic small vessel ischemic change. No acute intracranial process at this time. No enhancing lesions are seen.
== END | disposition home or self-care (01) ==
LOC: RADMRIMAIN 11:23
PROVIDERS: ATTEND Pediatrics
DX: C44.42 Squamous cell carcinoma of skin of scalp and neck (principal); I67.82 Cerebral ischemia
CPT/HCPCS: 70553; A9585

== ENCOUNTER → 2024-02-13 | Outpatient (CLI) | payer MEDICARE, OTHER | END | disposition home or self-care (01) | LOC: LABPRL 10:00 | PROVIDERS: ATTEND Family Medicine | DX: Z00.00 Encounter for general adult medical examination without abnormal findings (principal); Z12.5 Encounter for screening for malignant neoplasm of prostate; I50.9 Heart failure, unspecified; I48.91 Unspecified atrial fibrillation | CPT/HCPCS: 84439; 80061; 80053; 84443; 85025; 83036; G0103 ==

== ENCOUNTER → 2024-02-26 | Outpatient (CLI) | payer MEDICARE, OTHER ==
--- NOTE | 2024-02-28 19:46 | MR ---
EXAMINATION TYPE: MR neck wo/w con DATE OF EXAM: 02/26/2024 3:43 PM CLINICAL INDICATION: Male, 78 years old with history of C44.42; PHH, Moderately differential squamous cell carcinoma-rt inferior posterior neck COMPARISON: None. TECHNIQUE: Multi planar, multi sequence imaging was performed of the neck soft tissues. MR contrast: IV Contrast: 7.5 cc Gadavist FINDINGS: No marker was placed for closer interrogation of the site of malignancy. There is no enlarg ed greater than 1.0 cm short axis lymph nodes or abnormal postcontrast enhancement. There is a high T 2 signal noted T1 nonenhancing cyst noted is projecting over the right masseter muscle measuring 10 x 6 mm. Several nonenlarged anterior chain lymph nodes are identified. There is no evidence to sugge st a soft tissue mass. The glottis appears unremarkable The cervical vertebral bodies have preserved heights and alignment. Multilevel disc desiccation and anterior osteophytosis are present. The cervical spinal cord demonstrates a normal appearance. IMPRESSION: 1. No evidence for lymphadenopathy. No marker placed for closer interrogation of the site of maligna ncy. Soft tissue mass identified. 2. Multilevel degenerative disc disease with associated osteoarthritic changes.
== END | disposition home or self-care (01) ==
LOC: RADMRIMAIN 14:27
PROVIDERS: ATTEND Pediatrics
DX: C44.42 Squamous cell carcinoma of skin of scalp and neck (principal); M50.30 Other cervical disc degeneration, unspecified cervical region; M47.812 Spondylosis without myelopathy or radiculopathy, cervical region
CPT/HCPCS: 70543; A9585

== ENCOUNTER 2024-07-01 05:49 | Inpatient (IN) | payer MEDICARE, OTHER ==
--- NOTE | 2024-07-01 06:07 | ED ---
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 Patient states that he has been having a difficult time completing his normal activities over the past few weeks in addition to experiencing dyspnea on exertion and frequent falls. He has been experiencing a productive cough over the past few weeks as well. It is reported by EMS that patient's oxygen was in the mid 80s on arrival and patient denies wearing oxygen at home. he denies orthopnea, peripheral edema, Currently, he is denying chest pain, abdominal pain, changes in urinary or bowel habits. - Related Data Home Medications Medication Instructions Recorded Confirmed metFORMIN HCL [Glucophage] 1,000 mg PO BID 06/17/16 07/01/24 sitaGLIPtin [Januvia] 100 mg PO DAILY 06/17/16 07/01/24 Atorvastatin [Lipitor] 80 mg PO HS 11/06/20 07/01/24 Warfarin Sodium [Jantoven] 6 mg PO [id number]@209911/06/20 07/01/24 ALPRAZolam [Xanax] 0.5 mg PO HS 08/19/22 07/01/24 Warfarin Sodium [Jantoven] 3 mg PO PEREZ@209908/19/22 07/01/24 Levothyroxine Sodium [Synthroid] 112 mcg PO HS 09/09/22 07/01/24 Albuterol Sulfate [Albuterol 2 puff PO RT-Q6H PRN 07/01/24 07/01/24 Sulfate Hfa] Escitalopram [Lexapro] 10 mg PO DAILY 07/01/24 07/01/24 Fluticasone/Umeclidin/Vilanter 1 puff INHALATION RT-DAILY 07/01/24 07/01/24 [Trelegy Ellipta 100-62.5-25] Melatonin/L Theanine Gummy 1 tab PO HS 07/01/24 07/01/24 Spironolactone [Aldactone] 25 mg PO DAILY 07/01/24 07/01/24 Previous Rx's Medication Instructions Recorded Metoprolol Tartrate [Lopressor] 50 mg PO BID 30 Days #60 tab 08/22/22 Furosemide [Lasix] 40 mg PO DAILY 30 Days #30 tab 09/12/22 Losartan [Cozaar] 25 mg PO DAILY #30 tab 09/12/22 Allergies Allergy/AdvReac Type Severity Reaction Status Date / Time No Known Allergies Allergy Verified 09/09/22 22:48 Review of Systems ROS Statement: Those systems with pertinent positive or pertinent negative responses have been documented in the HPI. ROS Other: All systems not noted in ROS Statement are negative. Past Medical History Past Medical History: Atrial Fibrillation, Coronary Artery Disease (CAD), Cancer, Diabetes Mellitus, Hyperlipidemia, Hypertension, Osteoarthritis (OA), Pneumonia, Skin Disorder, Thyroid Disorder Additional Past Medical History / Comment(s): hx skin ca, [place] cataracts. History of Any Multi-Drug Resistant Organisms: None Reported Past Surgical History: Coronary Bypass/CABG, Joint Replacement Additional Past Surgical History / Comment(s): left cataract,[place] knee replace.,spleenectomy, left wrist CTR, ORIF rt ankle,4 vessel CABG WITH HEART VALVE REPLACEMENT FEB 2020 Past Anesthesia/Blood Transfusion Reactions: No Reported Reaction Past Psychological History: No Psychological Hx Reported Smoking Status: Former smoker - Past Family History Mother Family Medical History: Congestive Heart Failure (CHF) Additional Family Medical History / Comment(s): of old age Father Family Medical History: Coronary Artery Disease (CAD) Additional Family Medical History / Comment(s): Father shot at 52 years old General Exam General appearance: alert, in no apparent distress ENT exam: Present: normal exam, mucous membranes moist Neck exam: Present: normal inspection. Absent: tenderness, meningismus, lymphadenopathy Respiratory exam: Present: wheezes, rhonchi, decreased breath sounds. Absent: normal lung sounds bilaterally, respiratory distress, rales, stridor Cardiovascular Exam: Present: regular rate, normal rhythm, normal heart sounds. Absent: systolic murmur, diastolic murmur, rubs, gallop, clicks GI/Abdominal exam: Present: soft, normal bowel sounds. Absent: distended, tenderness, guarding, rebound, rigid Extremities exam: Present: normal inspection, full ROM, normal capillary refill. Absent: tenderness, pedal edema, joint swelling, calf tenderness Course Vital Signs 07/01/24 07/01/24 07/01/24 05:50 05:55 06:24 Temperature 97.5 F L Pulse Rate 84 90 87 Respiratory 16 16 16 Rate Blood Pressure 106/25 105/59 100/60 O2 Sat by Pulse 96 97 97 Oximetry 07/01/24 07/01/24 07:48 09:00 Temperature Pulse Rate 96 94 Respiratory 20 20 Rate Blood Pressure 117/49 110/63 O2 Sat by Pulse 96 96 Oximetry Medical Decision Making - Medical Decision Making Was pt. sent in by a medical professional or institution (, PA, [employer], urgent care, hospital, or [facility]...) When possible be specific @ -No Did you speak to anyone other than the patient for history (EMS, parent, family, police, friend...)? What history was obtained from this source @ -No Did you review nursing and triage notes (agree or disagree)? Why? @ -I reviewed and agree with nursing and triage notes Were old charts reviewed (outside hosp., previous admission, EMS record, old EKG, old radiological studies, urgent care reports/EKG's, [facility] records)? Report findings @ -No old charts were reviewed Differential Diagnosis (chest pain, altered mental status, abdominal pain women, abdominal pain men, vaginal bleeding, weakness, fever, dyspnea, syncope, headache, dizziness, GI bleed, back pain, seizure, CVA, palpatations, mental health, musculoskeletal)? @ -Differential Dyspnea: Coronary syndrome, arrhythmia, tamponade, asthma, COPD, pulmonary embolism, pneumonia, pneumothorax, pulmonary effusion, anaphylaxis, diabetic ketoacidosis, flailed chest, pulmonary contusion, diaphragmatic rupture, anemia, neuromus cular, this is not meant to be an all-inclusive list. EKG interpreted by me (3pts min.). @ -Completed at 551 atrial fibrillation with a ventricular rate of 93, QRS 143, QTc 441. X-rays interpreted by me (1pt min.). @ -Chest x-ray remarkable for a small to moderate right pleural effusion with a small left pleural effusion and cardiomegaly CT interpreted by me (1pt min.). @ -None done U/S interpreted by me (1pt. min.). @ -None done What testing was considered but not performed or refused? (CT, X-rays, U/S, labs)? Why? @ -None What meds were considered but not given or refused? Why? @ -None Did you discuss the management of the patient with other professionals (professionals i.e. , PA, [employer], lab, RT, psych nurse, social scientist, reservations specialist, teacher, deck officer, pillowcase cutter)? Give summary @ -Case discussed with [facility] internal medicine physician, Dr. Kinsey, in regard to patient's lab findings concerning for bilateral pleural effusions, congestive heart failure exacerbation and leukocytosis. Is recommend that patient be started on antibiotics and procalcitonin ordered. Was smoking cessation discussed for >3mins.? @ -No Was critical care preformed (if so, how long)? @ -No Were there social determinants of health that impacted care today? How? (Homelessness, low income, unemployed, alcoholism, drug addiction, transport ation, low edu. Level, literacy, decrease access to med. care, alf, rehab)? @ -No Was there de-escalation of care discussed even if they declined (Discuss DNR or withdrawal of care, Hospice)? DNR status @ -No What co-morbidities impacted this encounter? (DM, HTN, Smoking, COPD, CAD, Cancer, CVA, ARF, Chemo, Hep., AIDS, mental health diagnosis, sleep apnea, morbid obesity)? @ -CHF, afib Was patient admitted / discharged? Hospital course, mention meds given and route, prescriptions, significant lab abnormalities, going to OR and other pertinent info. @ -admitted. 78-year-old male presenting with generalized weakness and shortness of breath. On arrival to emergency department patient Noted to be hypotensive with a blood pressure 105/59 and is requiring 2 L of oxygen with a O2 saturation of 97. Triage orders placed for patient from weakness preorder side. On my evaluation the patient is resting company no signs acute distress. Noted to have bilateral wheezes and crackles through lung santizo will specifically bilateral lower lobes. Labs remarkable for hyponatremia with a s odium of 124 and chloride of 86. Patient's BNP is markedly elevated at 8980. IV fluid resuscitation is withheld at this time due to patient's history of congestive heart failure with hyponatremia likely secondary to fluid overload rather than dehydration. Additionally, patient magnesium is at 1.40 provided with oral magnesium supplementation. Additionally, leukocytosis 21.8 and elevated troponin from 0.9 concerning for possible pneumonia as patient has been experiencing a productive cough over the past few weeks therefore blood cultures obtained and patient started on Rocephin. Patient's warfarin will be held at this time as INR is markedly elevated at 5.9. COVID, flu, RSV negative. Patient will be admitted to internal medicine with cardiology on consult. Case discussed with Dr. Iyer Undiagnosed new problem with uncertain prognosis? @ -No Drug Therapy requiring intensive monitoring for toxicity (Heparin, Nitro, Insulin, Cardizem)? @ -No Were any procedures done? @ -No Diagnosis/symptom? @ -CHF exacerbation, pleural effusion, hypomagnesemia Acute, or Chronic, or Acute on Chronic? @ -acute Uncomplicated (without systemic symptoms) or Complicated (systemic symptoms)? @ -complicated Side effects of treatment? @ -No Exacerbation, Progression, or Severe Exacerbation? @ -No Poses a threat to life or bodily function? How? (Chest pain, [place], [place], pneumonia, PE, COPD, DKA, ARF, appy, cholecystitis, CVA, Diverticulitis, Homicidal, Suicidal, threat to staff... and all critical care pts) @ -No - Lab Data Result diagrams: 07/01/24 05:57 07/01/24 07:34 Lab Results 07/01/24 07/01/24 07/01/24 Range/Units 05:57 05:57 05:57 WBC 21.8 H (3.8-10.6) k/uL RBC 3.70 L (4.30-5.90) m/uL Hgb 11.7 L (13.0-17.5) gm/dL Hct 35.2 L (39.0-53.0) % MCV 95.2 (80.0-100.0) fL MCH 31.7 (25.0-35.0) pg MCHC 33.3 (31.0-37.0) g/dL RDW 13.2 (11.5-15.5) % Plt Count 269 (150-450) k/uL MPV 7.9 Neutrophils % 92 % Lymphocytes % 2 % Monocytes % 4 % Eosinophils % 1 % Basophils % 0 % Neutrophils # 19.9 H (1.3-7.7) k/uL Lymphocytes # 0.4 L (1.0-4.8) k/uL Monocytes # 0.9 (0-1.0) k/uL Eosinophils # 0.1 (0-0.7) k/uL Basophils # 0.0 (0-0.2) k/uL PT 58.9 H (10.0-12.5) sec INR 5.9 H* (<1.2) APTT 41.3 H (22.0-30.0) sec Sodium (137-145) mmol/L Potassium (3.5-5.1) mmol/L Chloride (98-107) mmol/L Carbon Dioxide (22-30) mmol/L Anion Gap mmol/L BUN (9-20) mg/dL Creatinine (0.66-1.25) mg/dL Est GFR (CKD-EPI)AfAm (>60 ml/min/1.73 sqM) Est GFR (CKD-EPI)NonAf (>60 ml/min/1.73 sqM) Glucose (74-99) mg/dL Plasma Lactic Acid Dave 1.4 (0.7-2.0) mmol/L Calcium (8.4-10.2) mg/dL Phosphorus (2.5-4.5) mg/dL Magnesium (1.6-2.3) mg/dL Total Bilirubin (0.2-1.3) mg/dL AST (17-59) U/L ALT (4-49) U/L Alkaline Phosphatase (38-126) U/L Troponin I (0.000-0.034) ng/mL NT-Pro-B Natriuret Pep pg/mL Total Protein (6.3-8.2) g/dL Albumin (3.5-5.0) g/dL Influenza Type A (PCR) (Not Detectd) Influenza Type B (PCR) (Not Detectd) RSV (PCR) (Not Detectd) SARS-CoV-2 (PCR) (Not Detectd) 07/01/24 07/01/24 07/01/24 Range/Units 05:57 05:57 07:34 WBC (3.8-10.6) k/uL RBC (4.30-5.90) m/uL Hgb (13.0-17.5) gm/dL Hct (39.0-53.0) % MCV (80.0-100.0) fL MCH (25.0-35.0) pg MCHC (31.0-37.0) g/dL RDW (11.5-15.5) % Plt Count (150-450) k/uL MPV Neutrophils % % Lymphocytes % % Monocytes % % Eosinophils % % Basophils % % Neutrophils # (1.3-7.7) k/uL Lymphocytes # (1.0-4.8) k/uL Monocytes # (0-1.0) k/uL Eosinophils # (0-0.7) k/uL Basophils # (0-0.2) k/uL PT (10.0-12.5) sec INR (<1.2) APTT (22.0-30.0) sec Sodium 124 L (137-145) mmol/L Potassium 4.5 (3.5-5.1) mmol/L Chloride 86 L (98-107) mmol/L Carbon Dioxide 34 H (22-30) mmol/L Anion Gap 4 mmol/L BUN 24 H (9-20) mg/dL Creatinine 0.74 (0.66-1.25) mg/dL Est GFR (CKD-EPI)AfAm >90 (>60 ml/min/1.73 sqM) Est GFR (CKD-EPI)NonAf 87 (>60 ml/min/1.73 sqM) Glucose 88 (74-99) mg/dL Plasma Lactic Acid Dave (0.7-2.0) mmol/L Calcium 8.3 L (8.4-10.2) mg/dL Phosphorus 3.5 (2.5-4.5) mg/dL Magnesium 1.4 L (1.6-2.3) mg/dL Total Bilirubin 1.4 H (0.2-1.3) mg/dL AST 28 (17-59) U/L ALT 16 (4-49) U/L Alkaline Phosphatase 85 (38-126) U/L Troponin I <0.012 (0.000-0.034) ng/mL NT-Pro-B Natriuret Pep 8980 pg/mL Total Protein 5.8 L (6.3-8.2) g/dL Albumin 3.0 L (3.5-5.0) g/dL Influenza Type A (PCR) Not Detected (Not Detectd) Influenza Type B (PCR) Not Detected (Not Detectd) RSV (PCR) Not Detected (Not Detectd) SARS-CoV-2 (PCR) Not Detected (Not Detectd) Disposition Clinical Impression: Acute exacerbation of congestive heart failure, Bilateral pleural effusion Disposition: ADMITTED IP TO THIS [facility] Condition: Serious Decision to Admit Reason: Admit from EC Decision Date: 07/01/24 Decision Time: 08:59
[2024-07-01 06:32] LABS: Basophils % (A) 0 %; Eosinophils # (A) 0.1 k/uL (0-0.7); Eosinophils % (A) 1 %; HCT 35.2 % (39.0-53.0); HGB 11.7 gm/dL (13.0-17.5); Lymphocytes # (A) 0.4 k/uL (1.0-4.8); Lymphocytes % (A) 2 %; MCH 31.7 pg (25.0-35.0); MCHC 33.3 g/dL (31.0-37.0); MCV 95.2 fL (80.0-100.0); Mean Platelet Volume 7.9; Monocytes # (A) 0.9 k/uL (0-1.0); Monocytes % (A) 4 %; Neutrophils # (A) 19.9 k/uL (1.3-7.7); Neutrophils % (A) 92 %; Platelet Count 269 k/uL (150-450); RDW 13.2 % (11.5-15.5); WBC 21.8 k/uL (3.8-10.6)
[2024-07-01 07:01] LABS: Partial Thromboplastin Time 41.3 sec (22.0-30.0); Prothrombin Time 58.9 sec (10.0-12.5)
[2024-07-01 08:04] LABS: ALT 16 U/L (4-49); AST 28 U/L (17-59); African American GFR (CKD) >90 (>60 ml/min/1.73 sqM); Alkaline Phosphatase 85 U/L (38-126); Anion Gap 4 mmol/L; Blood Urea Nitrogen 24 mg/dL (9-20); Calcium 8.3 mg/dL (8.4-10.2); Carbon Dioxide 34 mmol/L (22-30); Chloride 86 mmol/L (98-107); Glucose 88 mg/dL (74-99); Magnesium 1.4 mg/dL (1.6-2.3); Non-African American GFR(CKD) 87 (>60 ml/min/1.73 sqM); Phosphorus 3.5 mg/dL (2.5-4.5); Potassium 4.5 mmol/L (3.5-5.1); Sodium 124 mmol/L (137-145); Total Bilirubin 1.4 mg/dL (0.2-1.3); Total Protein 5.8 g/dL (6.3-8.2)
[2024-07-01 08:12] LABS: NT-Pro-B-Type Natriuretic Pept 8980 pg/mL
[2024-07-01 08:22] LABS: INR 5.9 (<1.2)
--- NOTE | 2024-07-01 08:30 | XR ---
EXAMINATION TYPE: XR chest 2V DATE OF EXAM: 07/01/2024 6:32 AM COMPARISON: None. CLINICAL INDICATION: Male, 78 years old with history of Weakness, TECHNIQUE: XR chest 2V view(s) obtained. FINDINGS: The heart size is enlarged. The pulmonary vasculature is normal. Small to moderate right pleural effusion is present. Minimal left pleural effusion sternotomy wires a re present prior CABG. IMPRESSION: 1. Small to moderate right pleural effusion with a small left pleural effusion. 2. Cardiomegaly [facility], , 07/01/2024 8:28 AM
[2024-07-01] MEDS ORDERED: NALOXONE 0.4 MG/ML 1 ML VIAL IV PRN (08:59)
[2024-07-01] MEDS ORDERED: ACETAMINOPHEN TAB 325 MG TAB PO PRN (08:59)
[2024-07-01] MEDS: cefTRIAXone IN SWFI 1,000 MG/10 ML SYRINGE IVP STA (09:28)
[2024-07-01] MEDS: FUROSEMIDE 10 MG/ML 4 ML VIAL IV SCH (09:29)
--- NOTE | 2024-07-01 09:55 | P.HPIM ---
History of Present Illness This is a pleasant 78 years old male with past medical history of multiple medical problems Presents to the hospital because of his dyspnea and confusion. Information obtained from the patient and at bedside/medical records and staff. As per patient's he has been feeling shortness of breath for a while, also he is having hacking cough which looks with with little phlegm but he denies chest pain Over the last 2 to 3 days he is becoming more confused talking to himself and little confused to the surroundings. Also has been feeling dizzy whenever he gets up and he has been falling several times, no head trauma. 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 Simmons. Hemodynamically he is stable and he is afebrile He has leukocytosis 21,000. BMP is unremarkable except LFTs were unremarkable INR is elevated 5.9 Influenza A and type B, RSV, SARS (coronavirus) are undetected chest x-ray showing right pleural effusion and trace left pleural effusion proBNP is elevated at 8980 Lactic acid normal Review of Systems Review of systems CONSTITUTIONAL: No fever, no malaise, no fatigue. HEENT: No recent visual problems or hearing problems. Denied any sore throat. CARDIOVASCULAR: No orthopnea, PND, no palpitations, no syncope. PULMONARY: No chest wall tenderness,, no hemoptysis. GASTROINTESTINAL: No diarrhea, no nausea, no vomiting, no abdominal pain. Normoactive bowel sounds. NEUROLOGICAL: No headaches, no weakness, no numbness. HEMATOLOGICAL: Denies any bleeding or petechiae. GENITOURINARY: Denies any burning micturition, frequency, or urgency. MUSCULOSKELETAL/RHEUMATOLOGICAL: Denies any joint pain, swelling, or any muscle pain. ENDOCRINE: Denies any polyuria or polydipsia. Past Medical History Past Medical History: Atrial Fibrillation, Coronary Artery Disease (CAD), Cancer, Diabetes Mellitus, Hyperlipidemia, Hypertension, Osteoarthritis (OA), Pneumonia, Skin Disorder, Thyroid Disorder Additional Past Medical History / Comment(s): hx skin ca, [place] cataracts. History of Any Multi-Drug Resistant Organisms: None Reported Past Surgical History: Coronary Bypass/CABG, Joint Replacement Additional Past Surgical History / Comment(s): left cataract,[place] knee replace.,spleenectomy, left wrist CTR, ORIF rt ankle,4 vessel CABG WITH HEART VALVE REPLACEMENT FEB 2020 Past Anesthesia/Blood Transfusion Reactions: No Reported Reaction Past Psychological History: No Psychological Hx Reported Smoking Status: Former smoker - Past Family History Mother Family Medical History: Congestive Heart Failure (CHF) Additional Family Medical History / Comment(s): of old age Father Family Medical History: Coronary Artery Disease (CAD) Additional Family Medical History / Comment(s): Father shot at 52 years old Medications and Allergies Home Medications Medication Instructions Recorded Confirmed Type metFORMIN HCL [Glucophage] 1,000 mg PO BID 06/17/16 09/09/22 History sitaGLIPtin [Januvia] 100 mg PO DAILY 06/17/16 09/09/22 History Atorvastatin [Lipitor] 80 mg PO HS 11/06/20 09/09/22 History Warfarin Sodium [Jantoven] 6 mg PO SUMOTUFRSA@2100 11/06/20 09/09/22 History ALPRAZolam [Xanax] 0.5 mg PO BID PRN 08/19/22 09/09/22 History Warfarin Sodium [Jantoven] 3 mg PO WETH@2100 08/19/22 09/09/22 History guaiFENesin-DM 600/30MG [Mucinex 1 tab PO Q12HR 08/19/22 09/09/22 History Dm] Docusate [Colace] 100 mg PO DAILY #14 cap 08/22/22 09/09/22 Rx Loratadine [Claritin] 10 mg PO DAILY 30 Days #30 tab 08/22/22 09/09/22 Rx Metoprolol Tartrate [Lopressor] 50 mg PO BID 30 Days #60 tab 08/22/22 09/09/22 Rx Levothyroxine Sodium [Synthroid] 112 mcg PO HS 09/09/22 09/09/22 History Furosemide [Lasix] 40 mg PO DAILY 30 Days #30 tab 09/12/22 Rx Losartan [Cozaar] 25 mg PO DAILY #30 tab 09/12/22 Rx Allergies Allergy/AdvReac Type Severity Reaction Status Date / Time No Known Allergies Allergy Verified 09/09/22 22:48 Physical Exam Vitals: Vital Signs Temp Pulse Resp BP Pulse Ox 07/01/24 09:00 94 20 110/63 96 07/01/24 07:48 96 20 117/49 96 07/01/24 06:24 87 16 100/60 97 07/01/24 05:55 90 16 105/59 97 07/01/24 05:50 97.5 F L 84 16 106/25 96 Intake and Output 06/30/24 07/01/24 07/01/24 22:59 06:59 14:59 Other: Weight 68.039 kg -GENERAL: The patient is alert and oriented x3, not in any acute distress. Well developed, well nourished. Generally weak HEENT: Pupils are round and equally reacting to light. EOMI. No scleral icterus. No conjunctival pallor. Normocephalic, atraumatic. No pharyngeal erythema. No thyromegaly. CARDIOVASCULAR: S1 and S2 present. No murmurs, rubs, or gallops. -PULMONARY: Chest is clear to auscultation, no wheezing , no crackles. Decreased breath sounds in the lower zones ABDOMEN: Soft, nontender, nondistended, normoactive bowel sounds. No palpable organomegaly. MUSCULOSKELETAL: No joint swelling or deformity. EXTREMITIES: No cyanosis, clubbing, or pedal edema. NEUROLOGICAL: Gross neurological examination did not reveal any focal deficits. -SKIN: No rashes. no petechiae. Scattered mild bruising Results CBC & Chem 7: 07/01/24 05:57 07/01/24 07:34 Labs: Abnormal Lab Results - Last 24 Hours (Table) 07/01/24 07/01/24 07/01/24 Range/Units 05:57 05:57 07:34 WBC 21.8 H (3.8-10.6) k/uL RBC 3.70 L (4.30-5.90) m/uL Hgb 11.7 L (13.0-17.5) gm/dL Hct 35.2 L (39.0-53.0) % Neutrophils # 19.9 H (1.3-7.7) k/uL Lymphocytes # 0.4 L (1.0-4.8) k/uL PT 58.9 H (10.0-12.5) sec INR 5.9 H* (<1.2) APTT 41.3 H (22.0-30.0) sec Sodium 124 L (137-145) mmol/L Chloride 86 L (98-107) mmol/L Carbon Dioxide 34 H (22-30) mmol/L BUN 24 H (9-20) mg/dL Calcium 8.3 L (8.4-10.2) mg/dL Magnesium 1.4 L (1.6-2.3) mg/dL Total Bilirubin 1.4 H (0.2-1.3) mg/dL Total Protein 5.8 L (6.3-8.2) g/dL Albumin 3.0 L (3.5-5.0) g/dL Assessment and Plan Assessment: Acute CHF exacerbation Bilateral pleural effusion mainly on the right side, cannot exclude pneumonia Recurrent falls with postural symptoms suspicious for postural hypotension Coagulopathy secondary to Coumadin, he had similar problem about few weeks ago. A-fib on Coumadin Leukocytosis Chronic anemia Plan: Continue with IV Lasix started emergency room at 40 mg twice daily Patient got ceftriaxone one-time dose in the ED, going to resume Continue ceftriaxone Follow-up culture results and pro- Calcitonin Cardiology team consult May consider switch Coumadin to oral anticoagulant like Eliquis, we will defer this decision to cardiology team Labs and medication were reviewed.. Continue same treatment. Continue with symptomatic treatment. Resume home medication. Monitor labs and vitals. DVT and GI prophylaxis. Further recommendations as per clinical course of the patient DVT prophylaxis: On Coumadin with coagulopathy GI Prophylaxis: Pepcid PT/OT: Pending Prognosis is guarded
[2024-07-01] MEDS: MAGNESIUM OXIDE 400 MG TAB PO STA (10:35)
--- NOTE | 2024-07-01 12:02 | P.CRDCN ---
History of Present Illness Consult date: 07/01/24 Reason for Consult (text): elevated BNP/INR, CHF exacerbation History of present illness: This is an 78-year-old male patient recently established with Dr. Jefferson and previously seen by Dr. Lee with past medical history of coronary artery dise ase status post CABG and aortic valve replacement using bioprosthetic valve in 2019, permanent atrial fibrillation, hypertension, dyslipidemia, COPD, cardiomyopathy. We have been asked to evaluate the patient for elevated BNP/INR, CHF exacerbation. Patient states he presented to the hospital due to dizziness and shortness of breath. He denies having chest pain no palpitations and no lower extremity edema. Patient has been feeling tired and fatigued. Family member states the patient has had more confusion and she is having difficulty lifting him at home. Blood pressure 110/63, heart rate 94, pulse ox 96% on room air. Patient is seen today in the emergency center waiting for a bed on the cardiac stepdown unit. -EKG: Atrial fibrillation with ventricular rate of 92 bpm -Chest x-ray: Small to moderate right pleural effusion with small left pleural effusion. Cardiomegaly. -Laboratory studies: WBC 21.8, hemoglobin 11.7. INR 5.9. Sodium 124, potassium 4.5, BUN 24 and creatinine 0.74. Troponin negative x 1. proBNP 8980. Influenza A, influenza B, RSV, COVID-19 not detected. -Home cardiac medications: Atorvastatin 80 mg at bedtime, Lasix 40 mg daily, losartan 25 mg daily, metoprolol tartrate 50 mg twice daily, spironolactone 25 mg daily, warfarin 6 mg Friday through Friday and 3 mg on Friday, also on levothyroxine 112 mcg at bedtime. -Cardiac catheterization performed 03/03/2020 revealed severe disease involving the left main, severe disease involving the PDA of the RCA and severe aortic stenosis. -Aortic valve replacement and CABG x 4 with KISER to LAD, SVG to obtuse marginal, sequential SVG to posterior descending and posterior lateral branches of the right coronary artery on 03/06/[address] Harris. -Echocardiogram performed 02/13/2024 revealed EF of 45%, moderate TR, mild pulmonary hypertension. -Lexiscan stress test performed 11/12/2022 revealed inconclusive EKG due to baseline EKG abnormalities. Abnormal nuclear scan showing evidence of prior anterior wall myocardial infarction with mild LV dysfunction without ischemia. Review Of Systems: At the time of my exam: CONSTITUTIONAL: Denies fever or chills. HEENT: Denies blurred vision, vision changes, or eye pain. Denies hemoptysis CARDIOVASCULAR: Denies chest pain. Denies orthopnea. Denies PND. Denies pal pitations RESPIRATORY: Denies shortness of breath. GASTROINTESTINAL: Denies abdominal pain. Denies nausea or vomiting. HEMATOLOGIC: Denies bleeding disorders. GENITOURINARY: Denies any blood in urine. SKIN: Denies puritis. Denies rash. Physical examination: Gen: This is a frail-appearing 78-year-old male in no acute respiratory distress. VS: reviewed HEENT: Head is atraumatic, normocephalic. Pupils equal, round. Sclerae is anicteric. NECK: Supple. No JVD. LUNGS: Clear to auscultation. No rales. No wheezes or rhonchi. No intercostal retractions. HEART: Irregular rate and rhythm. Systolic murmur. ABDOMEN: Soft No tenderness. EXTREMITIES: No pedal edema. No calf tenderness. NEUROLOGICAL: Patient is awake, alert and oriented x3. Assessment: Acute on chronic systolic heart failure Generalized weakness and fatigue Metabolic encephalopathy Coagulopathy secondary to Coumadin use Coronary artery disease status post CABG Status post aortic valve replacement using bioprosthetic valve Permanent atrial fibrillation controlled rate, on Coumadin Hypertension Dyslipidemia COPD Ischemic cardiomyopathy with EF of 45% Plan: Resume patient's home cardiac medications: Atorvastatin, losartan and Lopressor Hold Coumadin Continue IV Lasix 40 mg every 12 hours Monitor CATALINA, daily weights, electrolytes and renal function Obtain 2-D echocardiogram and Doppler study to assess cardiac structure and function Further recommendations to follow based upon clinical course Thank you kindly for this consultation. Nurse practitioner note has been reviewed, I agree with documented findings and plan of care. Patient was seen and examined. Past Medical History Past Medical History: Atrial Fibrillation, Coronary Artery Disease (CAD), Cancer, Diabetes Mellitus, Hyperlipidemia, Hypertension, Osteoarthritis (OA), Pneumonia, Skin Disorder, Thyroid Disorder Additional Past Medical History / Comment(s): hx skin ca, [place] cataracts. History of Any Multi-Drug Resistant Organisms: None Reported Past Surgical History: Coronary Bypass/CABG, Joint Replacement Additional Past Surgical History / Comment(s): left cataract,[place] knee replace.,spleenectomy, left wrist CTR, ORIF rt ankle,4 vessel CABG WITH HEART VALVE REPLACEMENT FEB 2020 Past Anesthesia/Blood Transfusion Reactions: No Reported Reaction Past Psychological History: No Psychological Hx Reported Smoking Status: Former smoker - Past Family History Mother Family Medical History: Congestive Heart Failure (CHF) Additional Family Medical History / Comment(s): of old age Father Family Medical History: Coronary Artery Disease (CAD) Additional Family Medical History / Comment(s): Father shot at 52 years old Medications and Allergies Home Medications Medication Instructions Recorded Confirmed Type metFORMIN HCL [Glucophage] 1,000 mg PO BID 06/17/16 07/01/24 History sitaGLIPtin [Januvia] 100 mg PO DAILY 06/17/16 07/01/24 History Atorvastatin [Lipitor] 80 mg PO HS 11/06/20 07/01/24 History Warfarin Sodium [Jantoven] 6 mg PO MOTUWETHFRSA@209911/06/20 07/01/24 History ALPRAZolam [Xanax] 0.5 mg PO HS 08/19/22 07/01/24 History Warfarin Sodium [Jantoven] 3 mg PO PEREZ@209908/19/22 07/01/24 History Metoprolol Tartrate [Lopressor] 50 mg PO BID 30 Days #60 tab 08/22/22 07/01/24 Rx Levothyroxine Sodium [Synthroid] 112 mcg PO HS 09/09/22 07/01/24 History Furosemide [Lasix] 40 mg PO DAILY 30 Days #30 tab 09/12/22 07/01/24 Rx Losartan [Cozaar] 25 mg PO DAILY #30 tab 09/12/22 07/01/24 Rx Albuterol Sulfate [Albuterol 2 puff PO RT-Q6H PRN 07/01/24 07/01/24 History Sulfate Hfa] Escitalopram [Lexapro] 10 mg PO DAILY 07/01/24 07/01/24 History Fluticasone/Umeclidin/Vilanter 1 puff INHALATION RT-DAILY 07/01/24 07/01/24 History [Trelegy Ellipta 100-62.5-25] Melatonin/L Theanine Gummy 1 tab PO HS 07/01/24 07/01/24 History Spironolactone [Aldactone] 25 mg PO DAILY 07/01/24 07/01/24 History Allergies Allergy/AdvReac Type Severity Reaction Status Date / Time No Known Allergies Allergy Verified 09/09/22 22:48 Physical Exam Vitals: Vital Signs Temp Pulse Resp BP Pulse Ox 07/01/24 09:00 94 20 110/63 96 07/01/24 07:48 96 20 117/49 96 07/01/24 06:24 87 16 100/60 97 07/01/24 05:55 90 16 105/59 97 07/01/24 05:50 97.5 F L 84 16 106/25 96 Intake and Output 06/30/24 07/01/24 07/01/24 22:59 06:59 14:59 Other: Weight 68.039 kg Results 07/01/24 05:57 07/01/24 07:34 Cardiac Enzymes 07/01/24 07/01/24 Range/Units 05:57 07:34 AST 28 (17-59) U/L Troponin I <0.012 (0.000-0.034) ng/mL Coagulation 07/01/24 Range/Units 05:57 PT 58.9 H (10.0-12.5) sec APTT 41.3 H (22.0-30.0) sec CBC 07/01/24 Range/Units 05:57 WBC 21.8 H (3.8-10.6) k/uL RBC 3.70 L (4.30-5.90) m/uL Hgb 11.7 L (13.0-17.5) gm/dL Hct 35.2 L (39.0-53.0) % Plt Count 269 (150-450) k/uL Comprehensive Metabolic Panel 07/01/24 Range/Units 07:34 Sodium 124 L (137-145) mmol/L Potassium 4.5 (3.5-5.1) mmol/L Chloride 86 L (98-107) mmol/L Carbon Dioxide 34 H (22-30) mmol/L BUN 24 H (9-20) mg/dL Creatinine 0.74 (0.66-1.25) mg/dL Glucose 88 (74-99) mg/dL Calcium 8.3 L (8.4-10.2) mg/dL AST 28 (17-59) U/L ALT 16 (4-49) U/L Alkaline Phosphatase 85 (38-126) U/L Total Protein 5.8 L (6.3-8.2) g/dL Albumin 3.0 L (3.5-5.0) g/dL Current Medications Generic Name Dose Route Start Last Admin Trade Name Freq PRN Reason Stop Dose Admin Acetaminophen 650 mg 07/01/24 08:59 Acetaminophen Tab 325 Mg Tab PO Q6HR PRN Mild Pain or Fever > 100.5 Furosemide 40 mg 07/01/24 09:00 07/01/24 09:29 Furosemide 10 Mg/Ml 4 Ml Vial IV 40 mg Q12H HALLEY Administration Ceftriaxone Sodium 1 gm/ 50 mls @ 100 mls/hr 07/02/24 09:00 Sodium Chloride IVPB Q24HR HALLEY Protocol Naloxone HCl 0.2 mg 07/01/24 08:59 Naloxone 0.4 Mg/Ml 1 Ml Vial IV Q2M PRN Opioid Reversal Intake and Output 06/30/24 07/01/24 07/01/24 22:59 06:59 14:59 Other: Weight 68.039 kg 07/01/24 05:57 07/01/24 07:34
[2024-07-01] MEDS: LOSARTAN 25 MG TAB PO SCH (12:41)
[2024-07-01] MEDS: METOPROLOL TARTRATE 25 MG TAB PO SCH (12:58)
[2024-07-01 14:25] LABS: Appearance,Urine Clear (Clear); Bacteria,Urine Occasional /hpf; Bilirubin,Urine Negative (Negative); Blood,Urine Small (Negative); Color,Urine Yellow; Glucose,Urine (UA) Negative (Negative); Hyaline Casts,Urine 28 /lpf (0-2); Ketones,Urine Negative (Negative); Leukocyte Esterase,Urine Negative (Negative); Mucus,Urine Rare /hpf; Nitrite,Urine Negative (Negative); Protein,Urine Trace (Negative); RBC,Urine 2 /hpf (0-5); Specific Gravity,Urine 1.014 (1.001-1.035); Squamous Epithelial Cell,Urine <1 /hpf (0-4); Urobilinogen,Urine <2.0 mg/dL (<2.0); WBC,Urine 1 /hpf (0-5)
[2024-07-01 20:16] LABS: Glucose,Whole Blood 138 mg/dL (70-110)
[2024-07-01] MEDS: INSULIN ASPART (NovoLOG) 100 UNIT/ML VIAL SQ SCH (20:32)
[2024-07-01] MEDS: ATORVASTATIN 80 MG TAB PO SCH (20:46)
[2024-07-02 05:30] LABS: Glucose,Whole Blood 163 mg/dL (70-110)
[2024-07-02] MEDS ORDERED: FUROSEMIDE 10 MG/ML 4 ML VIAL IV STA (05:32)
[2024-07-02 05:57] LABS: Glucose,Whole Blood 133 mg/dL (70-110)
[2024-07-02 06:05] LABS: ABG Oxygen Saturation 98.7 % (94-97); ABG PO2 157 mmHg (83-108)
[2024-07-02 06:12] LABS: ABG PH 7.11 (7.35-7.45)
[2024-07-02 06:13] LABS: ABG PCO2 >98 mmHg (35-45); Allen Test Performed? no
[2024-07-02 06:24] LABS: Basophils % (A) 0 %; Eosinophils # (A) 0.1 k/uL (0-0.7); Eosinophils % (A) 1 %; HGB 12.5 gm/dL (13.0-17.5); Lymphocytes # (A) 0.8 k/uL (1.0-4.8); Lymphocytes % (A) 3 %; MCHC 32.8 g/dL (31.0-37.0); MCV 97.7 fL (80.0-100.0); Mean Platelet Volume 7.3; Monocytes # (A) 0.8 k/uL (0-1.0); Monocytes % (A) 3 %; Neutrophils # (A) 22.2 k/uL (1.3-7.7); Neutrophils % (A) 92 %; Platelet Count 318 k/uL (150-450); RBC 3.89 m/uL (4.30-5.90); RDW 13.4 % (11.5-15.5); WBC 24.2 k/uL (3.8-10.6)
[2024-07-02] MEDS: FUROSEMIDE 10 MG/ML 4 ML VIAL IV STA (06:35)
[2024-07-02 06:42] LABS: ALT 19 U/L (4-49); AST 34 U/L (17-59); African American GFR (CKD) >90 (>60 ml/min/1.73 sqM); Albumin 3.5 g/dL (3.5-5.0); Alkaline Phosphatase 123 U/L (38-126); Anion Gap 8 mmol/L; Blood Urea Nitrogen 27 mg/dL (9-20); Calcium 8.9 mg/dL (8.4-10.2); Carbon Dioxide 36 mmol/L (22-30); Chloride 83 mmol/L (98-107); Glucose 133 mg/dL (74-99); Magnesium 1.8 mg/dL (1.6-2.3); Non-African American GFR(CKD) 82 (>60 ml/min/1.73 sqM); Potassium 4.3 mmol/L (3.5-5.1); Sodium 127 mmol/L (137-145); Total Bilirubin 1.2 mg/dL (0.2-1.3); Total Protein 6.6 g/dL (6.3-8.2)
--- NOTE | 2024-07-02 06:54 | P.CNPUL ---
History of Present Illness Consult date: 07/02/24 Requesting physician: Sourav Garibay Reason for consult: other (ICU management) Chief complaint: Unresponsive, respiratory failure History of present illness: Patient is being seen during rapid response. Apparently, patient has been confused throughout the night, had an episode of unresponsiveness when getting cleaned up by nursing staff. A rapid response was called overhead at 0518. He is currently unresponsive even to painful stimuli. He has agonal breathing pattern. Placed on noninvasive BiPAP. Patient's CODE STATUS has not previously been addressed. I did speak to the patient's , Amita Balbuena, she does not want her intubated. Would not like any CPR, defibrillation, or curt rgency medications. We are going to support this patient medically. He is going to be transferred to the intensive care unit. Patient is an 78-year-old male with past medical history significant for atrial fibrillation anticoagulated with warfarin, coronary artery disease, history of CABG and valve replacement, diabetes mellitus, hypertension, hyperlipidemia, CHF. Patient's recently admitted with diagnosis of exacerbation of heart failure on July 01, 2024. Apparently, he has been having frequent falls at home, and is unable to take care of himself. He was confused and altered on admission.. Admission chest x-ray demonstrating small to moderate-sized right- sided pleural effusion and small left-sided pleural effusion with cardiomegaly. NT proBNP was elevated 8980. Patient's presenting rhythm was atrial fibrillation with controlled ventricular response. Patient is anticoagulated on Coumadin on an outpatient basis. His INR was supratherapeutic at 5.9 on arrival. This was not reversed. CBC: WBC count 21.8, hemoglobin 11.7, hematocrit 35.2, platelets 269. CMP: Sodium 124, potassium 4.5, chloride 86, serum bicarb 34, BUN 24, creatinine 0.74, glucose 88. Troponin less than 0.012. NT proBNP 8980. Urinalysis negative for nitrates and leukocytes. Occasional bacteria. Negative for influenza, RSV, COVID. Review of Systems ROS unobtainable: due to mental status Past Medical History Past Medical History: Atrial Fibrillation, Coronary Artery Disease (CAD), Cancer, Diabetes Mellitus, Hyperlipidemia, Hypertension, Osteoarthritis (OA), Pneumonia, Skin Disorder, Thyroid Disorder Additional Past Medical History / Comment(s): hx skin ca, [place] cataracts. History of Any Multi-Drug Resistant Organisms: None Reported Past Surgical History: Coronary Bypass/CABG, Joint Replacement Additional Past Surgical History / Comment(s): left cataract,[place] knee replace.,spleenectomy, left wrist CTR, ORIF rt ankle,4 vessel CABG WITH HEART VALVE REPLACEMENT FEB 2020 Past Anesthesia/Blood Transfusion Reactions: No Reported Reaction Smoking Status: Former smoker - Past Family History Mother Family Medical History: Congestive Heart Failure (CHF) Additional Family Medical History / Comment(s): of old age Father Family Medical History: Coronary Artery Disease (CAD) Additional Family Medical History / Comment(s): Father shot at 52 years old Medications and Allergies Home Medications Medication Instructions Recorded Confirmed Type metFORMIN HCL [Glucophage] 1,000 mg PO BID 06/17/16 07/01/24 History sitaGLIPtin [Januvia] 100 mg PO DAILY 06/17/16 07/01/24 History Atorvastatin [Lipitor] 80 mg PO HS 11/06/20 07/01/24 History Warfarin Sodium [Jantoven] 6 mg PO MOTUWETHFRSA@2100 11/06/20 07/01/24 History ALPRAZolam [Xanax] 0.5 mg PO HS 08/19/22 07/01/24 History Warfarin Sodium [Jantoven] 3 mg PO PEREZ@2100 08/19/22 07/01/24 History Metoprolol Tartrate [Lopressor] 50 mg PO BID 30 Days #60 tab 08/22/22 07/01/24 Rx Levothyroxine Sodium [Synthroid] 112 mcg PO HS 09/09/22 07/01/24 History Furosemide [Lasix] 40 mg PO DAILY 30 Days #30 tab 09/12/22 07/01/24 Rx Losartan [Cozaar] 25 mg PO DAILY #30 tab 09/12/22 07/01/24 Rx Albuterol Sulfate [Albuterol 2 puff PO RT-Q6H PRN 07/01/24 07/01/24 History Sulfate Hfa] Escitalopram [Lexapro] 10 mg PO DAILY 07/01/24 07/01/24 History Fluticasone/Umeclidin/Vilanter 1 puff INHALATION RT-DAILY 07/01/24 07/01/24 History [Trelegy Ellipta 100-62.5-25] Melatonin/L Theanine Gummy 1 tab PO HS 07/01/24 07/01/24 History Spironolactone [Aldactone] 25 mg PO DAILY 07/01/24 07/01/24 History Allergies Allergy/AdvReac Type Severity Reaction Status Date / Time No Known Allergies Allergy Verified 09/09/22 22:48 Physical Exam Vitals: Vital Signs Temp Pulse Pulse Resp BP BP BP 07/02/24 03:35 146/91 07/02/24 03:30 20 166/115 07/02/24 03:26 98.3 F 99 22 198/90 07/02/24 03:24 20 07/01/24 23:42 97.8 F 86 20 171/87 07/01/24 21:00 98.0 F 105 H 22 178/81 07/01/24 18:10 98.2 F 98 19 154/62 07/01/24 17:42 105 H 20 110/50 07/01/24 16:00 102 H 24 106/44 07/01/24 14:00 65 18 110/60 07/01/24 12:59 92 20 102/48 07/01/24 12:00 97.4 F L 100 18 120/80 07/01/24 10:32 97 22 127/45 07/01/24 10:18 97.6 F 98 20 78/56 07/01/24 10:00 100/65 07/01/24 09:00 94 20 110/63 07/01/24 07:48 96 20 117/49 07/01/24 06:24 87 16 100/60 07/01/24 05:55 90 16 105/59 Pulse Ox 07/02/24 03:35 07/02/24 03:30 91 L 07/02/24 03:26 86 L 07/02/24 03:24 07/01/24 23:42 90 L 07/01/24 21:00 89 L 07/01/24 18:10 95 07/01/24 17:42 96 07/01/24 16:00 96 07/01/24 14:00 96 07/01/24 12:59 93 L 07/01/24 12:00 95 07/01/24 10:32 90 L 07/01/24 10:18 86 L 07/01/24 10:00 07/01/24 09:00 96 07/01/24 07:48 96 01/02/25 06:24 97 07/01/24 05:55 97 Intake and Output 07/01/24 07/01/24 07/02/24 14:59 22:59 06:59 Intake Total 10 10 Output Total 750 Balance 10 -740 Intake: IV 10 10 Invasive Line 1 10 10 Output: Urine 750 Other: Voiding Method External Catheter External Catheter # Voids 1 4 # Bowel Movements 1 Weight 68.039 kg 63 kg GENERAL EXAM: Unresponsive, 78-year-old male, agonal breathing pattern, on a 15 L nonrebreather HEAD: Normocephalic and atraumatic EYES: Normal reaction of pupils, equal size. No nystagmus, nonicteric sclera, NOSE: Clear with pink turbinates. THROAT: No erythema or exudates. Minimal gag reflex NECK: No masses, no JVD. CHEST: No chest wall deformity. LUNGS: Equal air entry with markedly diminished lung sounds bilaterally. Ataxic breathing. CVS: S1 and S2 normal with no audible murmur, irregular rhythm. No extra heart sounds ABDOMEN: No hepatosplenomegaly, active bowel sounds, no guarding or rigidity. SPINE: No scoliosis or deformity SKIN: No rashes CENTRAL NERVOUS SYSTEM: Unresponsive to painful stimuli, does have a corneal reflex, and minimal gag reflex, extremities are flaccid EXTREMITIES: There is no peripheral edema, clubbing, or cyanosis. Peripheral pulses are intact. Results - Laboratory Findings CBC and BMP: 07/02/24 06:08 07/02/24 06:08 PT/INR, D-dimer PT 58.9 sec (10.0-12.5) H 07/01/24 05:57 INR 5.9 (<1.2) H* 07/01/24 05:57 Abnormal lab findings: Abnormal Labs 07/01/24 07/01/24 07/01/24 05:54 05:57 05:57 WBC 21.8 H RBC 3.70 L Hgb 11.7 L Hct 35.2 L Neutrophils # 19.9 H Lymphocytes # 0.4 L PT 58.9 H INR 5.9 H* APTT 41.3 H Sodium Chloride Carbon Dioxide BUN POC Glucose (mg/dL) Calcium Magnesium Total Bilirubin Total Protein Albumin Procalcitonin Urine Protein Trace H Urine Blood Small H Urine Bacteria Occasional H Hyaline Casts 28 H Urine Mucus Rare H 07/01/24 07/01/24 07/01/24 07:34 07:34 20:14 WBC RBC Hgb Hct Neutrophils # Lymphocytes # PT INR APTT Sodium 124 L Chloride 86 L Carbon Dioxide 34 H BUN 24 H POC Glucose (mg/dL) 138 H Calcium 8.3 L Magnesium 1.4 L Total Bilirubin 1.4 H Total Protein 5.8 L Albumin 3.0 L Procalcitonin 0.82 H Urine Protein Urine Blood Urine Bacteria Hyaline Casts Urine Mucus 07/02/24 05:18 WBC RBC Hgb Hct Neutrophils # Lymphocytes # PT INR APTT Sodium Chloride Carbon Dioxide BUN POC Glucose (mg/dL) 163 H Calcium Magnesium Total Bilirubin Total Protein Albumin Procalcitonin Urine Protein Urine Blood Urine Bacteria Hyaline Casts Urine Mucus - Diagnostic Findings Chest x-ray: image reviewed Assessment and Plan Assessment: Acute hypoxemic and hypercapnic respiratory failure Altered mental status, patient's had worsening mentation throughout the night, followed by a period of unresponsiveness, ABG consistent with severe hypercapnic respiratory failure. Acute CHF exacerbation, admission chest x-ray demonstrating small to moderate- sized right-sided pleural effusion and small left-sided pleural effusion with cardiomegaly. NT proBNP was elevated 8980. Atrial fibrillation with controlled ventricular response Supratherapeutic INR, previously anticoagulated on Coumadin History of coronary artery disease with previous CABG and bioprosthetic aortive valve replacement Diabetes mellitus type 2 History of hypertension History of hyperlipidemia Plan: I did speak to the patient's , she would not want her intubated or placed on the mechanical ventilator. She does not want any form of resuscitative efforts including: CPR, defibrillation, or emergency medications. She is okay with medical treatment and noninvasive BiPAP. I did explain that the likelyhood of mortality is high without invasive ventilation. Patient is going to be placed on BiPAP with settings 16/5 and FiO2 to be titrated accordingly. ABG done on rapid response consistent with severe hypercapnic and hypoxic respiratory failure. PaO2 157, pCO2 greater than 99, pH 7.11. Patient is currently on BiPAP with above-mentioned settings achieving tidal volumes around 280 cc. Respiratory rate is in the mid 20s. Remains unresponsive. Will need bedside sitter. Will have to repeat ABG in [address] of the brain without contrast once stable enough for transfer down to CAT scan. Hemorrhagic stroke should be excluded with new AMS, falls, and supratherapeutic INR. Blood pressures remained stable throughout the transfer. Not requiring any vasopressors at this time. Repeat chest x-ray, labs, EKG, cardiac troponins, echocardiogram. Continue with Lasix 40 mg twice daily. Antibiotics are essentially empiric, blood cultures pending Prognosis is poor, secondary to above. I am going to attempt to support this patient with noninvasive ventilation, I did explain to the that he might not pull through, and there is a high risk for mortality. She is on her way to the hospital. I have personally seen and examined the patient, performed the documentation and the assessment and plan as written. Number of minutes spent on the visit:20 This dictation was produced using [employer] dictation software please excuse grammatical errors Time with Patient: Greater than 30
[2024-07-02] MEDS: PHYTONADIONE 10 MG in SODIUM CHLORIDE 0.9% 50 ML IVPB STA (07:02)
[2024-07-02 07:11] LABS: Prothrombin Time 101.3 sec (10.0-12.5)
--- NOTE | 2024-07-02 07:50 | P.PN ---
Subjective Progress Note Date: 07/02/24 PROGRESS NOTE The patient is an 78-year-old male who presented to the emergency room with symptoms of progressive fatigue, dizziness and shortness of breath. He was noted to have evidence of CHF. He has a known history of aortic valve replacement and CABG in 2019, permanent atrial fibrillation, hypertension, hyperlipidemia, COPD. According to the family yesterday he was becoming more confused. Last night he became less responsive and hypoxemic and was transferred to the ICU on BiPAP. The patient is DNR. He is not responsive to verbal stimulation this morning, on presentation there was no evidence of influenza or COVID infection. He continues to be on BiPAP at this time. His echocardiogram in January 2024 showed an ejection fraction of 45% with moderate tricuspid regurgitation. He had a prior fixed anterior wall defect on his nuclear scan in 2022. Medications: Lipitor 80 mg daily, Rocephin, Lasix 40 mg IV every 12 hours, insulin, Cozaar 25 mg daily, metoprolol tartrate 25 mg twice a day PHYSICAL EXAMINATION: Blood pressure 122/40 heart rate 90, on BiPAP not responding to verbal sti mulation LUNGS: Clear anteriorly HEART: Regular rate and rhythm, S1, S2. No S3. Systolic ejection murmur ABDOMEN: Soft, nontender, no organomegaly EXTREMETIES: No edema LAB: Hemoglobin 12.5, pH 7.11, pCO2 over 98. Potassium 4.3, sodium 127. BUN 27, creatinine 0.85. Troponin 0.015. Chest x-ray with evidence of effusion IMPRESSION: 1. Respiratory failure with evidence of CHF and prior mildly impaired systolic function 2. Decreased mentation probably related to hypoxemia and hypercapnia 3. Status post CABG 4. Status post aortic valve replacement 5. Permanent atrial fibrillation PLAN: 1. Continue IV diuretics 2. Continue BiPAP 3. Follow INR, patient had hypercoagulation on presentation 4. Obtain an echocardiogram with Doppler 5. Depending on his progress further recommendations will be made, prognosis is guarded. Objective - Vital Signs Vital signs: Vital Signs Temp 97.1 F L 07/02/24 06:30 Pulse 100 07/02/24 06:40 Resp 17 07/02/24 06:40 BP 122/38 07/02/24 06:40 Pulse Ox 95 07/02/24 06:40 FiO2 100 07/02/24 06:14 Intake & Output 07/01/24 07/02/24 07/02/24 18:59 06:59 18:59 Intake Total 20 Output Total 900 Balance -880 Weight 68.039 kg 63 kg Intake: IV 20 Invasive Line 1 20 Output: Urine 900 Other: Voiding Method External Catheter # Voids 1 4 # Bowel Movements 1 - Labs CBC & Chem 7: 07/02/24 06:08 07/02/24 06:08 Labs: Abnormal Lab Results - Last 24 Hours (Table) 07/01/24 07/01/24 07/01/24 Range/Units 05:54 05:57 07:34 WBC (3.8-10.6) k/uL RBC (4.30-5.90) m/uL Hgb (13.0-17.5) gm/dL Hct (39.0-53.0) % Neutrophils # (1.3-7.7) k/uL Lymphocytes # (1.0-4.8) k/uL PT 58.9 H (10.0-12.5) sec INR 5.9 H* (<1.2) APTT 41.3 H (22.0-30.0) sec ABG pH (7.35-7.45) ABG pCO2 (35-45) mmHg ABG pO2 (83-108) mmHg ABG O2 Saturation (94-97) % Hemoglobin (13.0-17.5) gm/dL Sodium 124 L (137-145) mmol/L Chloride 86 L (98-107) mmol/L Carbon Dioxide 34 H (22-30) mmol/L BUN 24 H (9-20) mg/dL Glucose (74-99) mg/dL POC Glucose (mg/dL) (70-110) mg/dL Calcium 8.3 L (8.4-10.2) mg/dL Magnesium 1.4 L (1.6-2.3) mg/dL Total Bilirubin 1.4 H (0.2-1.3) mg/dL Total Protein 5.8 L (6.3-8.2) g/dL Albumin 3.0 L (3.5-5.0) g/dL Procalcitonin (0.02-0.50) ng/mL Urine Protein Trace H (Negative) Urine Blood Small H (Negative) Urine Bacteria Occasional H (None) /hpf Hyaline Casts 28 H (0-2) /lpf Urine Mucus Rare H (None) /hpf 07/01/24 07/01/24 07/02/24 Range/Units 07:34 20:14 05:18 WBC (3.8-10.6) k/uL RBC (4.30-5.90) m/uL Hgb (13.0-17.5) gm/dL Hct (39.0-53.0) % Neutrophils # (1.3-7.7) k/uL Lymphocytes # (1.0-4.8) k/uL PT (10.0-12.5) sec INR (<1.2) APTT (22.0-30.0) sec ABG pH (7.35-7.45) ABG pCO2 (35-45) mmHg ABG pO2 (83-108) mmHg ABG O2 Saturation (94-97) % Hemoglobin (13.0-17.5) gm/dL Sodium (137-145) mmol/L Chloride (98-107) mmol/L Carbon Dioxide (22-30) mmol/L BUN (9-20) mg/dL Glucose (74-99) mg/dL POC Glucose (mg/dL) 138 H 163 H (70-110) mg/dL Calcium (8.4-10.2) mg/dL Magnesium (1.6-2.3) mg/dL Total Bilirubin (0.2-1.3) mg/dL Total Protein (6.3-8.2) g/dL Albumin (3.5-5.0) g/dL Procalcitonin 0.82 H (0.02-0.50) ng/mL Urine Protein (Negative) Urine Blood (Negative) Urine Bacteria (None) /hpf Hyaline Casts (0-2) /lpf Urine Mucus (None) /hpf 07/02/24 07/02/24 07/02/24 Range/Units 05:56 06:03 06:08 WBC (3.8-10.6) k/uL RBC (4.30-5.90) m/uL Hgb (13.0-17.5) gm/dL Hct (39.0-53.0) % Neutrophils # (1.3-7.7) k/uL Lymphocytes # (1.0-4.8) k/uL PT (10.0-12.5) sec INR (<1.2) APTT (22.0-30.0) sec ABG pH 7.11 L* (7.35-7.45) ABG pCO2 >98 H* (35-45) mmHg ABG pO2 157 H (83-108) mmHg ABG O2 Saturation 98.7 H (94-97) % Hemoglobin 12.2 L (13.0-17.5) gm/dL Sodium 127 L (137-145) mmol/L Chloride 83 L (98-107) mmol/L Carbon Dioxide 36 H (22-30) mmol/L BUN 27 H (9-20) mg/dL Glucose 133 H (74-99) mg/dL POC Glucose (mg/dL) 133 H (70-110) mg/dL Calcium (8.4-10.2) mg/dL Magnesium (1.6-2.3) mg/dL Total Bilirubin (0.2-1.3) mg/dL Total Protein (6.3-8.2) g/dL Albumin (3.5-5.0) g/dL Procalcitonin (0.02-0.50) ng/mL Urine Protein (Negative) Urine Blood (Negative) Urine Bacteria (None) /hpf Hyaline Casts (0-2) /lpf Urine Mucus (None) /hpf 07/02/24 Range/Units 06:08 WBC 24.2 H (3.8-10.6) k/uL RBC 3.89 L (4.30-5.90) m/uL Hgb 12.5 L (13.0-17.5) gm/dL Hct 38.0 L (39.0-53.0) % Neutrophils # 22.2 H (1.3-7.7) k/uL Lymphocytes # 0.8 L (1.0-4.8) k/uL PT (10.0-12.5) sec INR (<1.2) APTT (22.0-30.0) sec ABG pH (7.35-7.45) ABG pCO2 (35-45) mmHg ABG pO2 (83-108) mmHg ABG O2 Saturation (94-97) % Hemoglobin (13.0-17.5) gm/dL Sodium (137-145) mmol/L Chloride (98-107) mmol/L Carbon Dioxide (22-30) mmol/L BUN (9-20) mg/dL Glucose (74-99) mg/dL POC Glucose (mg/dL) (70-110) mg/dL Calcium (8.4-10.2) mg/dL Magnesium (1.6-2.3) mg/dL Total Bilirubin (0.2-1.3) mg/dL Total Protein (6.3-8.2) g/dL Albumin (3.5-5.0) g/dL Procalcitonin (0.02-0.50) ng/mL Urine Protein (Negative) Urine Blood (Negative) Urine Bacteria (None) /hpf Hyaline Casts (0-2) /lpf Urine Mucus (None) /hpf
--- NOTE | 2024-07-02 07:59 | XR ---
EXAMINATION TYPE: XR chest 1V portable DATE OF EXAM: 07/02/2024 5:54 AM COMPARISON: 07/01/2024 CLINICAL INDICATION: Male, 78 years old with history of CHF, TECHNIQUE: XR chest 1V portable view(s) obtained. FINDINGS: The heart size is enlarged. The pulmonary vasculature is normal. Right lower lobe consolidation patient is present. Findings are worsened There may be a right pleural effusion. Minimal left pleural effusion is present IMPRESSION: 1. Increasing right lower lobe infiltrate. 2. Small right pleural effusion and minimal left pleural effusion remaining present [facility], , 07/02/2024 7:57 AM
[2024-07-02 08:00] LABS: INR >10.0 (<1.2)
[2024-07-02] MEDS: IPRATROPIUM-ALBUTEROL 3 ML NEB INHALATION STA (08:52)
[2024-07-02] MEDS: IPRATROPIUM-ALBUTEROL 3 ML NEB INHALATION PRN (08:52)
[2024-07-02] MEDS ORDERED: AZITHROMYCIN 500 MG TAB PO SCH (09:00)
[2024-07-02] MEDS: AZITHROMYCIN 500 MG in SODIUM CHLORIDE 0.9% 250 ML IVPB SCH (09:25)
[2024-07-02 10:53] LABS: T4, Free (Free Thyroxine) 1.97 ng/dL (0.78-2.19)
[2024-07-02 12:06] LABS: Glucose,Whole Blood 132 mg/dL (70-110)
--- NOTE | 2024-07-02 13:23 | CA ---
Transthoracic Echo Report Name: Isidro Balbuena Age: 78 Gender: M : 1945 Exam Date: 07/02/2024 07:42 Exam Location: [place] [facility] Ht (in): 71 Wt (lb): 150 Ordering Physician: Zully Soto Attending/Referring Phys: [id number], Brittany [employer] Astrid Parker RDCS Procedure CPT: Indications: LVF Cardiac Hx: Technical Quality: Fair Contrast 1: Total Dose (mL): Contrast 2: Total Dose (mL): MEASUREMENTS (Male / Female) Normal Values 2D ECHO LV Diastolic Diameter PLAX 3.9 cm 4.2 - 5.9 / 3.9 - 5.3 cm LV Systolic Diameter PLAX 2.8 cm IVS Diastolic Thickness 1.2 cm 0.6 - 1.0 / 0.6 - 0.9 cm LVPW Diastolic Thickness 1.0 cm 0.6 - 1.0 / 0.6 - 0.9 cm LV Relative Wall Thickness 0.6 LVOT Diameter 2.1 cm LV Diastolic Volume MOD BP 76.2 cm??? 67 - 155 / 56 - 104 cm??? LV Systolic Volume MOD BP 41.2 cm??? 22 - 58 / 19 - 49 cm??? LV Ejection Fraction MOD BP 46.0 % >= 55 % LV Cardiac Index MOD BP 1789.0 cm???/min???m??? LV Diastolic Volume MOD 4C 78.8 cm??? LV Systolic Volume MOD 4C 40.8 cm??? LV Ejection Fraction MOD 4C 48.2 % LV Cardiac Index MOD 4C 1941.2 cm???/min???m??? LV Diastolic Length 4C 6.9 cm LV Systolic Length 4C 6.0 cm LV Diastolic Volume MOD 2C 73.8 cm??? LV Systolic Volume MOD 2C 37.2 cm??? LV Ejection Fraction MOD 2C 49.5 % LV Cardiac Index MOD 2C 1867.7 cm???/min???m??? LV Diastolic Length 2C 6.9 cm LV Systolic Length 2C 6.7 cm LA Volume 85.9 cm??? 18 - 58 / 22 - 52 cm??? LA Volume Index 46.7 cm???/m??? 16 - 28 cm???/m??? Ascending Aorta Diameter 3.7 cm DOPPLER AV Peak Velocity 183.1 cm/s AV Peak Gradient 13.4 mmHg AV Mean Velocity 117.1 cm/s AV Mean Gradient 6.3 mmHg AV Velocity Time Integral 31.3 cm LVOT Peak Velocity 90.6 cm/s LVOT Peak Gradient 3.3 mmHg LVOT Velocity Time Integral 17.0 cm LVOT Stroke Volume 58.5 cm??? LVOT Stroke Volume Index 31.3 ml/m??? LVOT Cardiac Index 2986.2 cm???/min???m??? AV Area Cont Eq vti 1.9 cm??? AV Area Cont Eq pk 1.7 cm??? MV Peak Velocity 113.3 cm/s MV Peak Gradient 5.1 mmHg MV Mean Velocity 76.4 cm/s MV Mean Gradient 2.6 mmHg MV Velocity Time Integral 20.1 cm TR Peak Velocity 278.1 cm/s TR Peak Gradient 30.9 mmHg Right Atrial Pressure 15.0 mmHg Pulmonary Artery Systolic Pressu 45.9 mmHg Right Ventricular Systolic Press 45.9 mmHg PV Peak Velocity 86.1 cm/s PV Peak Gradient 3.0 mmHg FINDINGS Left Ventricle Mildly impaired LV function with EF between 45 to 50% Right Ventricle Normal right ventricular size with mildly reduced function. Moderate pulmonary hypertension. Right Atrium Severe right atrial dilatation. Left Atrium Severely increased left atrial volume. Mildly increased left atrial area. Mitral Valve mitral valve thickened. Mild mitral annular calcification. No evidence for mitral valve prolapse. Mild mitral stenosis. Mild mitral regurgitation. Aortic Valve Trileaflet aortic valve. Aortic valve sclerosis. No aortic valve stenosis or regurgitation. Tricuspid Valve Structurally normal tricuspid valve. No tricuspid stenosis. Moderate tricuspid regurgitation. Pulmonic Valve Structurally normal pulmonic valve. No pulmonic stenosis. Trace pulmonic regurgitation. Pericardium No pericardial effusion. Aorta Normal size aortic root and proximal ascending aorta. CONCLUSIONS Mildly impaired LV function with EF around 45 to 50% Thickened mitral valve leaflets with mild MR Moderate pulmonary hypertension No pericardial effusion Moderate tricuspid regurgitation Previewed by: Dr. Dale Jefferson MD (Electronically Signed) Final Date: 02 July 2024 13:22
[2024-07-02 14:43] LABS: Prothrombin Time 20.2 sec (10.0-12.5)
[2024-07-02 15:04] VITALS: BMI 19.3
[2024-07-02 15:26] VITALS: TEMP 97.1
[2024-07-02] MEDS ORDERED: MORPHINE SULFATE 4 MG/ML SYRINGE IV PRN (15:47)
[2024-07-02] MEDS ORDERED: MORPHINE SULFATE 2 MG/ML SYRINGE IV PRN (15:47)
[2024-07-02] MEDS: MORPHINE SULFATE 4 MG/ML SYRINGE IVP ONE (15:55)
[2024-07-02 16:03] VITALS: BP 119/46; PULSE 105; RESP 18
[2024-07-02] MEDS: SCOPOLAMINE 1 MG/72 HR PATCH TRANSDERM SCH (16:10)
[2024-07-02] MEDS: ATROPINE OPHTH SOLN 1% 5ML BTL SUBLINGUAL PRN (16:10)
[2024-07-02] MEDS: MORPHINE SULFATE (100 MG/2 ML) 100 MG in SODIUM CHLORIDE 0.9% 100 ML IV SCH (19:33)
--- NOTE | 2024-07-03 05:06 | P.DS ---
Providers Date of admission: 07/01/24 08:24 Attending physician: Jason Kinsey MD Consults: 07/01/24 08:59 Consult Physician Routine Consulting Provider: Ronan Plasencia Consult Reason/Comments: elevated BNP/INR, CHF exacerbation Do you want consulting provider notified?: Yes, Notify in am 07/02/24 05:42 Consult Physician Stat Consulting Provider: Solomon Estrada Consult Reason/Comments: ICU mgmt Do you want consulting provider notified?: Already Contacted [facility]: Diagnoses Acute CHF exacerbation Bilateral pleural effusion mainly on the right side, Right lower lobe pneumonia Recurrent falls with postural symptoms suspicious for postural hypotension Coagulopathy secondary to Coumadin, he had similar problem about few weeks ago. A-fib on Coumadin Leukocytosis Chronic anemia Hospital course: This is a pleasant 78 years old male with past medical history of multiple medical problems Presents to the hospital because of his dyspnea and confusion. Information obtained from the patient and at bedside/medical records and staff. As per patient's he has been feeling shortness of breath for a while, also he is having hacking cough which looks with with little phlegm but he denies chest pain Over the last 2 to 3 days he is becoming more confused talking to himself and little confused to the surroundings. Also has been feeling dizzy whenever he gets up and he has been falling several times, no head trauma. Denies any other GI/ symptoms no fever chills no headache dizziness weakness or numbness while he is at rest He is awake alert oriented to place and time but not to person or partially to person He wants to switch his stretching machine operator from Dr. Maguire to Dr. Simmons. Hemodynamically he is stable and he is afebrile He has leukocytosis 21,000. BMP is unremarkable except LFTs were unremarkable INR is elevated 5.9 Influenza A and type B, RSV, SARS (coronavirus) are undetected chest x-ray showing right pleural effusion and trace left pleural effusion proBNP is elevated at 8980 Patient was evaluated by cardiology team, pulmonary team. Was treated with IV Lasix and antibiotics with his other medication as listed This morning patient developed more respiratory distress and he was to be placed on BiPAP chest x-ray showing worsening right lower lobe infiltrate and effusion when I reviewed by myself Patient become more apparent and ABG showing respiratory acidosis the patient was transferred to the ICU however since sorter operator confirmed his DNR and intubation and mechanical ventilation was not an option so he continued on BiPAP. Also his INR was elevated at because of his worsening mentation CT of the brain is requested, I talked to the in the morning by myself about his deteriorating condition and the workup requested above including CT of the brain, she confirms to me he is DNR and later on and family at bedside who are considering more palliative approach so further workup was held as patient e ventually made comfort care by the family and then he shortly thereafter. His prognosis was very poor from the beginning and he was DNR patient Physical exam Gen: patient is a very weak, content, nonverbal, his pupils are equal and reactive to light. He was on BiPAP mask CVS: S1-S2, RRR, no murmur Lungs: Decreased air entry on both sides more on the right side, no wheezing. Scattered crackles Abdomen: soft, no distention, no tenderness, positive bowel sounds Extremity: no leg edema or induration neurological: Obtained, does not follow command, does not open I. To verbal and painful stimuli he withdraws his limbs without waking up. Time spent more than 35 minutes Patient Condition at Discharge: Serious Plan - Discharge Summary Discharge Rx Participant: No New Discharge Prescriptions: No Action sitaGLIPtin [Januvia] 100 mg PO DAILY metFORMIN HCL [Glucophage] 1,000 mg PO BID Warfarin Sodium [Jantoven] 3 mg PO PEREZ@2100 Levothyroxine Sodium [Synthroid] 112 mcg PO HS Losartan [Cozaar] 25 mg PO DAILY #30 tab Furosemide [Lasix] 40 mg PO DAILY 30 Days #30 tab Spironolactone [Aldactone] 25 mg PO DAILY Escitalopram [Lexapro] 10 mg PO DAILY Fluticasone/Umeclidin/Vilanter [Trelegy Ellipta 100-62.5-25] 1 puff INHALATION RT-DAILY Melatonin/L Theanine Gummy 1 tab PO HS Atorvastatin [Lipitor] 80 mg PO HS Warfarin Sodium [Jantoven] 6 mg PO MOTUWETHFRSA@2100 ALPRAZolam [Xanax] 0.5 mg PO HS Metoprolol Tartrate [Lopressor] 50 mg PO BID 30 Days #60 tab Albuterol Sulfate [Albuterol Sulfate Hfa] 2 puff PO RT-Q6H PRN PRN Reason: Shortness Of Breath Discharge Medication List metFORMIN HCL [Glucophage] 1,000 mg PO BID 06/17/16 [History] sitaGLIPtin [Januvia] 100 mg PO DAILY 06/17/16 [History] Atorvastatin [Lipitor] 80 mg PO HS 11/06/20 [History] Warfarin Sodium [Jantoven] 6 mg PO MOTUWETHFRSA@209911/06/20 [History] ALPRAZolam [Xanax] 0.5 mg PO HS 08/19/22 [History] Warfarin Sodium [Jantoven] 3 mg PO PEREZ@209908/19/22 [History] Metoprolol Tartrate [Lopressor] 50 mg PO BID 30 Days #60 tab 08/22/22 [Rx] Levothyroxine Sodium [Synthroid] 112 mcg PO HS 09/09/22 [History] Furosemide [Lasix] 40 mg PO DAILY 30 Days #30 tab 09/12/22 [Rx] Losartan [Cozaar] 25 mg PO DAILY #30 tab 09/12/22 [Rx] Albuterol Sulfate [Albuterol Sulfate Hfa] 2 puff PO RT-Q6H PRN 07/01/24 [History] Escitalopram [Lexapro] 10 mg PO DAILY 07/01/24 [History] Fluticasone/Umeclidin/Vilanter [Trelegy Ellipta 100-62.5-25] 1 puff INHALATION RT-DAILY 07/01/24 [History] Melatonin/L Theanine Gummy 1 tab PO HS 07/01/24 [History] Spironolactone [Aldactone] 25 mg PO DAILY 07/01/24 [History] Follow up Appointment(s)/Referral(s): Karson Jama DO [Primary Care Provider] - 1-2 days Discharge Disposition: - Preliminary Cause of Preliminary Cause of : pneumonia
== END 2024-07-02 22:27 | disposition expired | DRG 193 ==
LOC: EC 05:49 → 3SCARD 08:24 → 2SICU 07-02 06:00
PROVIDERS: ADMIT Internal Medicine; ATTEND Internal Medicine
PROC: 5A09357 Assistance with Respiratory Ventilation, Less than 24 Consecutive Hours, Continuous Positive Airway Pressure (ICD-10-PCS; principal; 2024-07-02)
DX: J18.9 Pneumonia, unspecified organism (principal); G93.41 Metabolic encephalopathy; J96.02 Acute respiratory failure with hypercapnia; J96.01 Acute respiratory failure with hypoxia; I50.23 Acute on chronic systolic (congestive) heart failure; Z51.5 Encounter for palliative care; Z66 Do not resuscitate; D68.4 Acquired coagulation factor deficiency; E87.29 Other acidosis; J91.8 Pleural effusion in other conditions classified elsewhere; I48.21 Permanent atrial fibrillation; J44.0 Chronic obstructive pulmonary disease with (acute) lower respiratory infection; I11.0 Hypertensive heart disease with heart failure; I27.22 Pulmonary hypertension due to left heart disease; E11.9 Type 2 diabetes mellitus without complications; R62.7 Adult failure to thrive; Z95.3 Presence of xenogenic heart valve; Z79.01 Long term (current) use of anticoagulants; Z95.1 Presence of aortocoronary bypass graft; D64.9 Anemia, unspecified; I07.1 Rheumatic tricuspid insufficiency; I95.1 Orthostatic hypotension; T45.515A Adverse effect of anticoagulants, initial encounter; I25.5 Ischemic cardiomyopathy; I25.10 Atherosclerotic heart disease of native coronary artery without angina pectoris; E78.5 Hyperlipidemia, unspecified; R29.6 Repeated falls; Z79.84 Long term (current) use of oral hypoglycemic drugs; Z79.890 Hormone replacement therapy; Z90.81 Acquired absence of spleen; Z87.891 Personal history of nicotine dependence; Z79.899 Other long term (current) drug therapy; Z91.81 History of falling; Z85.828 Personal history of other malignant neoplasm of skin; I25.2 Old myocardial infarction
CPT/HCPCS: 36415; 51702; 71045; 71046; 80053; 81001; 82805; 83605; 83735; 83880; 84100; 84145; 84439; 84443; 84484; 85025; 85610; 85730; 87040; 87636; 93005; 93306; 94640; 94660; 96374; 96375; 99285